=== PATIENT | female | born 1960 | race Caucasian/White ===

== ENCOUNTER → 2017-11-16 16:05 | Outpatient (CLI) | payer MEDICARE, MEDICAID, SELFPAY ==
[2017-11-16 17:39] LABS: International Normalized Ratio 1.1; Prothrombin Time (Protime)PT. 14.4 SECONDS (11.7-14.9)
[2017-11-16 17:40] LABS: Partial Thromboplast Time 27.8 Seconds (24.1-36.2)
[2017-11-16 18:03] LABS: AST(SGOT) 38 U/L (15-37); Alanine Aminotransfer ALT/SGPT 50 U/L (13-56); Albumin, Serum 3.9 g/dL (3.2-5.0); Alkaline Phosphatase 97 U/L (45-117); Bilirubin, Direct 0.12 mg/dL (0.00-0.30); Globulin 3.3 g/dL (2.2-4.2); Protein, Total 7.2 g/dL (6.4-8.2)
== END ==
PROVIDERS: Visit Provider Internal Medicine Gastroenterology
DX: K74.60 Unspecified cirrhosis of liver (principal)
CPT/HCPCS: 36415; 80076; 82105; 85610; 85730

== ENCOUNTER → 2018-06-01 14:54 | Outpatient (CLI) | payer MEDICARE, MEDICAID, SELFPAY ==
[2015-06-10 08:50] VITALS: BMI 29.2
[2018-06-01 17:32] LABS: Hematocrit 45.1 % (37-47); Mean Corpuscular Hgb 29.4 pg (27.0-32.0); Mean Corpuscular Volume 94.7 fL (81-99); Mean Platelet Vol. 10.3 fl (6.2-12.0); Platelet Count 136 K/mm3 (150-450); RBC Distribution Width CV 13.3 % (11.6-14.6); RBC Distribution Width SD 46.2 fl (35.1-43.9); Red Blood Count 4.76 M/mm3 (4.2-5.4); White Blood Count 5.3 K/mm3 (4.4-11.0)
[2018-06-01 17:35] LABS: Scan Indicated on CBC? Y/N NO
[2018-06-01 17:45] LABS: ALB/GLOB Ratio 1.1 RATIO (0.9-2.4); AST(SGOT) 23 U/L (15-37); Alanine Aminotransfer ALT/SGPT 26 U/L (13-56); Albumin, Serum 3.9 g/dL (3.2-5.0); Alkaline Phosphatase 90 U/L (45-117); Anion Gap 10 (5-15); BUN 7 mg/dL (7-18); Chloride 107 mmol/L (98-107); Creatinine, Serum 0.99 mg/dL (0.55-1.02); EST Glomerular Filtration Rate 61 mL/min (>60); Est Glom Filt Rate - Afr Amer 74 mL/min (>60); Globulin 3.4 g/dL (2.2-4.2); Glucose 82 mg/dL (74-106); Potassium 3.9 mmol/L (3.5-5.1); Protein, Total 7.3 g/dL (6.4-8.2); Sodium Level 139 mmol/L (136-145)
[2018-06-01 17:48] LABS: International Normalized Ratio 1.1; Prothrombin Time (Protime)PT. 13.8 SECONDS (11.7-14.9)
[2018-06-03 12:38] LABS: AFP, Tumor Marker 5.7 ng/mL (0.0-8.3)
== END ==
PROVIDERS: Family Provider Nurse Practitioner Family; PCP Nurse Practitioner Family; Referring Provider Internal Medicine Gastroenterology; Visit Provider Internal Medicine Gastroenterology
DX: K74.60 Unspecified cirrhosis of liver (principal)
CPT/HCPCS: 36415; 80053; 82105; 85027; 85610

== ENCOUNTER → 2018-12-07 13:57 | Outpatient (CLI) | payer MEDICARE, MEDICAID, SELFPAY ==
[2015-06-10 08:50] VITALS: BMI 29.2
[2018-12-07 15:56] LABS: Hematocrit 47.5 % (37-47); Hemoglobin 14.8 g/dL (12.0-15.0); Mean Corp Hgb Conc 31.2 g/dL (32-36); Mean Corpuscular Hgb 29.1 pg (27.0-32.0); Mean Corpuscular Volume 93.5 fL (81-99); Mean Platelet Vol. 10.7 fl (6.2-12.0); Platelet Count 175 K/mm3 (150-450); RBC Distribution Width SD 44.8 fl (35.1-43.9); Red Blood Count 5.08 M/mm3 (4.2-5.4); White Blood Count 8.2 K/mm3 (4.4-11.0)
[2018-12-07 16:11] LABS: International Normalized Ratio 1.1; Prothrombin Time (Protime)PT. 14.2 SECONDS (11.7-14.9)
[2018-12-07 16:12] LABS: Partial Thromboplast Time 30.2 Seconds (24.1-36.2)
[2018-12-07 16:51] LABS: AST(SGOT) 20 U/L (15-37); Alanine Aminotransfer ALT/SGPT 25 U/L (13-56); Alkaline Phosphatase 136 U/L (45-117); Bilirubin, Direct 0.18 mg/dL (0.00-0.30); Globulin 3.4 g/dL (2.2-4.2); Protein, Total 7.4 g/dL (6.4-8.2)
[2018-12-12 12:33] LABS: AFP, Tumor Marker 5.1 ng/mL (0.0-8.3)
== END ==
PROVIDERS: Family Provider Nurse Practitioner Family; PCP Nurse Practitioner Family; Referring Provider Internal Medicine Gastroenterology; Visit Provider Internal Medicine Gastroenterology
DX: K74.60 Unspecified cirrhosis of liver (principal)
CPT/HCPCS: 36415; 80076; 82105; 85027; 85610; 85730

== ENCOUNTER → 2019-06-05 14:47 | Outpatient (CLI) | payer MEDICARE, MEDICAID, SELFPAY ==
[2015-06-10 08:50] VITALS: BMI 29.2
[2019-06-05 17:59] LABS: Hematocrit 47.7 % (37-47); Hemoglobin 15.3 g/dL (12.0-15.0); Mean Corp Hgb Conc 32.1 g/dL (32-36); Mean Corpuscular Hgb 29.8 pg (27.0-32.0); Mean Corpuscular Volume 92.8 fL (81-99); Mean Platelet Vol. 11.1 fl (6.2-12.0); Platelet Count 137 K/mm3 (150-450); RBC Distribution Width SD 44.3 fl (35.1-43.9); Red Blood Count 5.14 M/mm3 (4.2-5.4); White Blood Count 6.3 K/mm3 (4.4-11.0)
[2019-06-05 18:16] LABS: ALB/GLOB Ratio 1.2 RATIO (0.9-2.4); AST(SGOT) 19 U/L (15-37); Alanine Aminotransfer ALT/SGPT 28 U/L (13-56); Albumin, Serum 4.1 g/dL (3.2-5.0); Alkaline Phosphatase 98 U/L (45-117); Anion Gap 6 (5-15); BUN 7 mg/dL (7-18); BUN/Creat Ratio 7.4 RATIO (10-20); Calcium,Total 9.5 mg/dL (8.5-10.1); Chloride 104 mmol/L (98-107); Creatinine, Serum 0.95 mg/dL (0.55-1.02); EST Glomerular Filtration Rate 64 mL/min (>60); Est Glom Filt Rate - Afr Amer 78 mL/min (>60); Globulin 3.4 g/dL (2.2-4.2); Glucose 85 mg/dL (74-106); Potassium 4.1 mmol/L (3.5-5.1); Protein, Total 7.5 g/dL (6.4-8.2); Sodium Level 136 mmol/L (136-145)
[2019-06-05 18:20] LABS: International Normalized Ratio 1.1; Partial Thromboplast Time 26.9 Seconds (24.1-36.2); Prothrombin Time (Protime)PT. 14.4 SECONDS (11.7-14.9)
[2019-06-07 13:12] LABS: AFP, Tumor Marker 4.3 ng/mL (0.0-8.3)
== END ==
PROVIDERS: PCP Nurse Practitioner Family; Referring Provider Internal Medicine Gastroenterology; Visit Provider Internal Medicine Gastroenterology
DX: K74.60 Unspecified cirrhosis of liver (principal)
CPT/HCPCS: 36415; 80053; 82105; 85027; 85610; 85730

== ENCOUNTER → 2020-02-12 14:52 | Outpatient (CLI) | payer MEDICARE, SELFPAY ==
[2015-06-10 08:50] VITALS: BMI 29.2
[2020-02-12 18:33] LABS: International Normalized Ratio 1.1; Prothrombin Time (Protime)PT. 13.6 SECONDS (11.7-14.9)
[2020-02-12 18:34] LABS: Partial Thromboplast Time 26.7 Seconds (24.1-36.2)
[2020-02-12 18:37] LABS: Hematocrit 48.3 % (37-47); Hemoglobin 14.6 g/dL (12.0-15.0); Mean Corp Hgb Conc 30.2 g/dL (32-36); Mean Corpuscular Hgb 29.1 pg (27.0-32.0); Mean Corpuscular Volume 96.2 fL (81-99); Mean Platelet Vol. 12.4 fl (6.2-12.0); Platelet Count 198 K/mm3 (150-450); RBC Distribution Width CV 14.3 % (11.6-14.6); RBC Distribution Width SD 50.8 fl (35.1-43.9); Red Blood Count 5.02 M/mm3 (4.2-5.4); White Blood Count 7.2 K/mm3 (4.4-11.0)
[2020-02-12 18:52] LABS: AST(SGOT) 20 U/L (15-37); Alanine Aminotransfer ALT/SGPT 23 U/L (13-56); Albumin, Serum 3.8 g/dL (3.2-5.0); Alkaline Phosphatase 134 U/L (45-117); Anion Gap 8 (5-15); BUN 4 mg/dL (7-18); BUN/Creat Ratio 4.1 RATIO (10-20); Calcium,Total 9.2 mg/dL (8.5-10.1); Chloride 104 mmol/L (98-107); Creatinine, Serum 0.98 mg/dL (0.55-1.02); EST Glomerular Filtration Rate 61 mL/min (>60); Est Glom Filt Rate - Afr Amer 74 mL/min (>60); Globulin 3.9 g/dL (2.2-4.2); Glucose 98 mg/dL (74-106); Potassium 3.1 mmol/L (3.5-5.1); Protein, Total 7.7 g/dL (6.4-8.2); Sodium Level 137 mmol/L (136-145)
[2020-02-14 10:35] LABS: AFP, Tumor Marker 4.4 ng/mL (0.0-8.3)
== END ==
PROVIDERS: PCP Nurse Practitioner Family; Referring Provider Internal Medicine Gastroenterology; Visit Provider Internal Medicine Gastroenterology
DX: K74.60 Unspecified cirrhosis of liver (principal)
CPT/HCPCS: 36415; 80053; 82105; 85027; 85610; 85730

== ENCOUNTER 2021-06-16 14:56 | Outpatient (CLI) | payer MEDICARE, MEDICAID, SELFPAY ==
--- NOTE | 2021-06-16 15:27 | MRI_ITS ---
STUDY: MRI LUMBAR SPINE WITHOUT CONTRAST ENHANCEMENT OF THE SPHENOID AND 42 HOURS ON 06/16/2021 REASON FOR EXAM: 61-year-old female with bilateral leg pain. TECHNIQUE: Standardized fat and water weighted pulse sequences were obtained in the sagittal and axial planes. COMPARISON: None FINDINGS: There is an old marked L1 vertebral body compression fracture. There are old moderate compression fractures of the L3, L4, and L5 vertebra. There is no evidence of subluxations or intervertebral disc space narrowing. There is borderline osseous lumbar spinal stenosis. Mild retropulsion of the L1 vertebral body fracture into the spinal canal superiorly. It does not efface the conus. There is no evidence of intervertebral disc protrusions or extrusions. There are very minimal intervertebral disc bulges at the L2-3, L3-4, and L4-5 levels. There is a mild right-sided intervertebral disc protrusion at the L4-5 level. There is mild posterior dural hypertrophy from L3 through L5. There is no significant effacement of the conus or cauda equina. No other extradural, intradural, or intramedullary lesions. MRI/Spine Lumbar (Routine) IMPRESSION: 1. Old marked L1 vertebral body compression fracture and old moderate compression fractures of L3, L4, and L5 vertebra. 2. No subluxations or intervertebral disc space narrowing. 3. Borderline osseous lumbar spinal stenosis. 4. Mild retropulsion of the L1 vertebral body fracture into the spinal canal superiorly, but it does not efface the conus. 5. Mild right-sided intervertebral disc protrusion at the L4-5 level. 6. Minimal intervertebral disc bulges at the L2-3, L3-4, and L4-5 levels. Mild posterior dural hypertrophy from L3 through S1. 7. No other extradural, intradural, or intramedullary lesions. Electronically Signed: Marcelo Hallman MD at 18:47 EDT ,
== END 2021-06-16 23:59 | disposition home or self-care (01) ==
PROVIDERS: PCP Nurse Practitioner Family; Visit Provider Anesthesiology Pain Medicine
DX: M79.604 Pain in right leg (principal); M79.605 Pain in left leg; M51.16 Intervertebral disc disorders with radiculopathy, lumbar region
CPT/HCPCS: 72148

== ENCOUNTER → 2023-01-13 | Outpatient (CLI) | payer MEDICARE, MEDICAID, SELFPAY ==
[2023-01-13 17:51] LABS: International Normalized Ratio 1.1; Prothrombin Time (Protime)PT. 14.2 SECONDS (11.7-14.9)
[2023-01-13 18:11] LABS: ALB/GLOB Ratio 1.1 RATIO (0.9-2.4); AST(SGOT) 18 U/L (15-37); Alanine Aminotransfer ALT/SGPT 22 U/L (13-56); Albumin, Serum 3.8 g/dL (3.2-5.0); Alkaline Phosphatase 133 U/L (45-117); Anion Gap 6 (5-15); BUN 7 mg/dL (7-18); Calcium,Total 9.3 mg/dL (8.5-10.1); Chloride 110 mmol/L (98-107); EST Glomerular Filtration Rate 60 mL/min (>60); Est Glom Filt Rate - Afr Amer 72 mL/min (>60); Globulin 3.6 g/dL (2.2-4.2); Glucose 87 mg/dL (74-106); Potassium 3.5 mmol/L (3.5-5.1); Protein, Total 7.4 g/dL (6.4-8.2); Sodium Level 139 mmol/L (136-145)
[2023-01-15 05:07] LABS: AFP, Tumor Marker 4.1 ng/mL (0.0-9.2)
== END | disposition home or self-care (01) ==
PROVIDERS: PCP Nurse Practitioner Family; Referring Provider Internal Medicine Gastroenterology; Visit Provider Internal Medicine Gastroenterology
DX: K74.60 Unspecified cirrhosis of liver (principal)
CPT/HCPCS: 36415; 80053; 82105; 85610

== ENCOUNTER → 2023-02-22 | Outpatient (CLI) | payer MEDICARE, MEDICAID, SELFPAY ==
--- NOTE | 2023-02-22 10:02 | US_ITS ---
EXAM: US ABDOMEN LIMITED, RIGHT UPPER QUADRANT CLINICAL INDICATION: CIRRHOSIS TECHNIQUE: Real-time ultrasound of the right upper quadrant with image documentation. COMPARISON: No relevant prior studies available. FINDINGS: LIVER: Micronodular contour of the liver and associated coarse echogenicity suggestive of cirrhosis. No intrahepatic biliary ductal dilation. GALLBLADDER: Patient is status post cholecystectomy. COMMON BILE DUCT: Unremarkable as visualized. The proximal common bile duct is normal size. PANCREAS: Unremarkable as visualized. No focal abnormality is demonstrated in the pancreas. No pancreatic ductal dilatation. RIGHT KIDNEY: Normal. There is no hydronephrosis. No shadowing calculus. No focal lesion or perinephric collection is demonstrated. US/Abdomen Limited IMPRESSION: Liver appears suggestive of cirrhosis Electronically Signed: Werner Santillan MD at 10:18 EST ,
== END | disposition home or self-care (01) ==
LOC: US 10:01
PROVIDERS: PCP Nurse Practitioner Family; Referring Provider Internal Medicine Gastroenterology; Visit Provider Internal Medicine Gastroenterology
DX: K74.60 Unspecified cirrhosis of liver (principal)
CPT/HCPCS: 76705

== ENCOUNTER → 2023-08-04 | Outpatient (CLI) | payer MEDICAID, MEDICARE, SELFPAY ==
[2023-08-04 17:29] LABS: Hematocrit 44.8 % (37-47); Hemoglobin 14.3 g/dL (12.0-15.0); Mean Corp Hgb Conc 31.9 g/dL (32-36); Mean Corpuscular Hgb 29.6 pg (27.0-32.0); Mean Corpuscular Volume 92.8 fL (81-99); Mean Platelet Vol. 10.3 fl (6.2-12.0); Platelet Count 134 K/mm3 (150-450); RBC Distribution Width CV 13.2 % (11.6-14.6); RBC Distribution Width SD 45.4 fl (35.1-43.9); Red Blood Count 4.83 M/mm3 (4.2-5.4); White Blood Count 3.6 K/mm3 (4.4-11.0)
[2023-08-04 17:43] LABS: International Normalized Ratio 1.1
[2023-08-04 17:44] LABS: Partial Thromboplast Time 26.7 Seconds (24.1-36.2)
[2023-08-04 17:46] LABS: AST(SGOT) 25 U/L (15-37); Alanine Aminotransfer ALT/SGPT 25 U/L (13-56); Albumin, Serum 3.8 g/dL (3.2-5.0); Alkaline Phosphatase 107 U/L (45-117); Bilirubin, Direct 0.17 mg/dL (0.00-0.30); Globulin 3.1 g/dL (2.2-4.2); Protein, Total 6.9 g/dL (6.4-8.2)
[2023-08-06 04:07] LABS: AFP, Tumor Marker 3.6 ng/mL (0.0-9.2)
== END | disposition home or self-care (01) ==
PROVIDERS: PCP Nurse Practitioner Family; Referring Provider Internal Medicine Gastroenterology; Visit Provider Internal Medicine Gastroenterology
DX: K74.60 Unspecified cirrhosis of liver (principal)
CPT/HCPCS: 36415; 80076; 82105; 85027; 85610; 85730

== ENCOUNTER → 2024-02-02 | Outpatient (CLI) | payer MEDICARE, MEDICAID, SELFPAY ==
[2024-02-02 17:49] LABS: Hematocrit 46.1 % (37-47); Hemoglobin 15.2 g/dL (12.0-15.0); Mean Corpuscular Hgb 30.2 pg (27.0-32.0); Mean Corpuscular Volume 91.5 fL (81-99); Mean Platelet Vol. 11.4 fl (6.2-12.0); Platelet Count 105 K/mm3 (150-450); RBC Distribution Width CV 13.1 % (11.6-14.6); RBC Distribution Width SD 44.2 fl (35.1-43.9); Red Blood Count 5.04 M/mm3 (4.2-5.4); White Blood Count 3.9 K/mm3 (4.4-11.0)
[2024-02-02 17:57] LABS: Prothrombin Time (Protime)PT. 13.2 SECONDS (11.7-14.9)
[2024-02-02 17:58] LABS: Partial Thromboplast Time 25.8 Seconds (24.1-36.2)
[2024-02-02 18:25] LABS: ALB/GLOB Ratio 1.2 RATIO (0.9-2.4); AST(SGOT) 20 U/L (15-37); Alanine Aminotransfer ALT/SGPT 24 U/L (13-56); Albumin, Serum 3.9 g/dL (3.2-5.0); Alkaline Phosphatase 97 U/L (45-117); Anion Gap 6 (5-15); BUN 9 mg/dL (7-18); BUN/Creat Ratio 10.6 RATIO (10-20); Calcium,Total 9.1 mg/dL (8.5-10.1); Chloride 110 mmol/L (98-107); Cholesterol 164 mg/dL (200); Creatinine, Serum 0.85 mg/dL (0.55-1.02); EST Glomerular Filtration Rate 72 mL/min (>60); Est Glom Filt Rate - Afr Amer 87 mL/min (>60); Globulin 3.2 g/dL (2.2-4.2); Glucose 96 mg/dL (74-106); High Density Lipoprotein 45 mg/dL; Potassium 3.7 mmol/L (3.5-5.1); Protein, Total 7.1 g/dL (6.4-8.2); Sodium Level 138 mmol/L (136-145); T4 Free Direct 1.14 ng/dL (0.76-1.46); Triglycerides 111 mg/dL; Very Low Density Lipoprotein 22 mg/dL (5-40)
[2024-02-04 04:08] LABS: AFP, Tumor Marker 3.6 ng/mL (0.0-9.2)
== END | disposition home or self-care (01) ==
LOC: MTLAB 14:03
PROVIDERS: PCP Nurse Practitioner Family; Referring Provider Nurse Practitioner Family; Visit Provider Nurse Practitioner Family
DX: Z13.6 Encounter for screening for cardiovascular disorders (principal); K74.60 Unspecified cirrhosis of liver; E03.9 Hypothyroidism, unspecified
CPT/HCPCS: 36415; 80053; 80061; 82105; 84439; 84443; 85027; 85610; 85730

== ENCOUNTER → 2024-04-06 | Outpatient (CLI) | payer MEDICARE, MEDICAID, SELFPAY ==
[2024-04-06 17:25] LABS: Absolute Lymphocyte Count 1.13 X10^3/uL (0.83-4.51); Absolute Neutrophil Count 3.3 X10^3/uL (2.0-7.7); Basophil# 0.01 X10^3/uL; Basophil% 0.2 % (0-1); Hematocrit 44.3 % (37-47); Hemoglobin 14.3 g/dL (12.0-15.0); Lymphocyte # 1.13 X10^3/ul (0.83-4.51); Lymphocyte % 23.6 % (19-41); Mean Corp Hgb Conc 32.3 g/dL (32-36); Mean Corpuscular Hgb 29.7 pg (27.0-32.0); Mean Corpuscular Volume 91.9 fL (81-99); Mean Platelet Vol. 10.8 fl (6.2-12.0); Monocyte# 0.31 X10^3/uL; Monocyte% 6.5 % (0-10); NRBC Flagged by Analyzer 0 % (0-5); Neutrophil # 3.32 X10^3/uL (2.7-7.7); Neutrophil % 69.5 % (47-70); Platelet Count 116 K/mm3 (150-450); RBC Distribution Width CV 12.8 % (11.6-14.6); RBC Distribution Width SD 43.4 fl (35.1-43.9); Red Blood Count 4.82 M/mm3 (4.2-5.4); White Blood Count 4.8 K/mm3 (4.4-11.0)
[2024-04-06 17:51] LABS: Vitamin D,25 Hydroxy 15.7 ng/mL
[2024-04-06 17:58] LABS: ALB/GLOB Ratio 1.2 RATIO (0.9-2.4); AST(SGOT) 15 U/L (15-37); Alanine Aminotransfer ALT/SGPT 23 U/L (13-56); Albumin, Serum 3.9 g/dL (3.2-5.0); Alkaline Phosphatase 128 U/L (45-117); Anion Gap 6 (5-15); BUN 13 mg/dL (7-18); BUN/Creat Ratio 12.4 RATIO (10-20); Calcium,Total 9.1 mg/dL (8.5-10.1); Chloride 105 mmol/L (98-107); Cholesterol 158 mg/dL (200); Creatinine, Serum 1.05 mg/dL (0.55-1.02); EST Glomerular Filtration Rate 56 mL/min (>60); Est Glom Filt Rate - Afr Amer 68 mL/min (>60); Globulin 3.3 g/dL (2.2-4.2); Glucose 93 mg/dL (74-106); High Density Lipoprotein 43 mg/dL; Potassium 3.8 mmol/L (3.5-5.1); Protein, Total 7.2 g/dL (6.4-8.2); Sodium Level 136 mmol/L (136-145); Thyroid Stim Hormone (TSH) 0.626 uIU/mL (0.358-3.740); Triglycerides 97 mg/dL; Very Low Density Lipoprotein 19 mg/dL (5-40)
== END | disposition home or self-care (01) ==
PROVIDERS: PCP Nurse Practitioner Family; Referring Provider Family Medicine Geriatric Medicine; Visit Provider Family Medicine Geriatric Medicine
DX: E03.9 Hypothyroidism, unspecified (principal); E55.9 Vitamin D deficiency, unspecified
CPT/HCPCS: 36415; 80053; 80061; 82306; 84443; 85025

== ENCOUNTER → 2024-05-11 | Outpatient (CLI) | payer MEDICARE, MEDICAID, SELFPAY ==
--- NOTE | 2024-05-11 15:24 | CT_ITS ---
PROCEDURE: LOW DOSE CT LUNG SCREENING REASON FOR EXAM: Nicotine dependence. 51 years smoking history. TECHNIQUE: Low Dose CT Lung Screening without contrast. Coronal and sagittal 2D reformatted images were provided. COMPARISON: None. FINDINGS: Cardiac size is within normal limits. Thoracic aorta demonstrates a normal caliber with atherosclerotic calcifications. Multivessel coronary artery calcifications are identified. No lymphadenopathy is present. No pericardial or pleural effusions identified. Evaluation of the lung parenchyma demonstrates no consolidation or pneumothorax. Emphysematous changes are identified. Central airway is patent. Mild dependent atelectatic changes are present bilaterally. There is atelectasis or scarring in the lingula. There is a 2 mm nodule in the anterior right upper lobe (image 21 of 199). There is a subpleural 4 mm right upper lobe pulmonary nodule laterally (image 24). There is a 2 mm subpleural nodule in the anterolateral right upper lobe (image 45). There is a subpleural 3.5 mm nodule in the lateral aspect of the right upper lobe (image 75). There is a 2 mm nodule in the left upper lobe posteriorly (image 21). Upper abdomen demonstrates no acute findings. Degenerative changes are identified. There are chronic appearing multilevel compression fractures involving the thoracolumbar spine with accentuated kyphotic curvature of the thoracic spine. There is an old fracture deformity of the sternum. CT/Low Dose CT Lung Screening IMPRESSION: 1. No suspicious pulmonary nodule. 2. Small subcentimeter bilateral pulmonary nodules with the largest measuring 4 mm. 3. Multivessel coronary artery calcifications. 4. Emphysema. 5. Chronic anterior wedge compression fractures with accentuated kyphotic curva ture of the thoracic spine. LungRADS: 2, benign. Recommendation: Annual CT lung cancer screening exam. One or more dose reduction techniques were used (e.g., Automated exposure contr ol, adjustment of the mA and/or kV according to patient size, use of iterative reconstruction technique). The following information is provided for reference:Lung-RADS 2021 Assessment C ategories. Additional information involving Lung-RADS is available at www.acr.org. 0-INCOMPLETE 1-NEGATIVE:No nodules or definitely benign nodules. Complete, central, popcorn , or centric ring calcifications OR fat containing 2-BENIGN APPEARANCE (based on imaging features or indolent behavior). Juxtaple ural nodule: < 10mm AND solid; smooth margins; oval, lentiform, or triangular shape Solid nodule: <6mm at baseline or new< 4mm Part solid Nodule: < 6mm total mean diameter at baseline Nonsolid nodule:(GGN) < 30mm OR >=30mm stable or slowly growing Airway nodule, subsegmental at baseline, new, or stable Category 3 nodule stabl e or decreased in size at 6-month follow-up CT or Category 3 or 4A nodules that resolve on follow-up OR category 4B findings prov en to be benign following diagnotic work up. 3 - Probably Benign (Based on imaging features or behavior) Solid Nodule: >= 6 to <8mm at baseline OR new 4 to <6mm Part-solid nodule: >= 6mm toal mean diam. with solid component <6mm at baseline OR new < 6mm total mean diam. Non-solid nodule: GGN >= 30mm at baseline or new Atypical pulmonary cyst: Growing cystic component (mean diam.) of thick-walled cyst Category 4A nodule stable or decreased in size at 3-month follow-up CT (excl.ai rway). 4A - Suspicious Solid nodule: >=8 to < 15mm at baseline OR growing < 8mm OR new 6 to < 8mm Part solid nodule: >= 6mm total mean diam. w/ solid component >=6mm to < 8mm at baseline OR new or growing < 4mm solid component Airway nodule, segmental or more proximal at baseline or new Atypical pulmonary cyst: Thick-walled OR multilocular at baseline OR becomes mu ltilocular 4B - Very Suspicious Airway nodule, segmental or more proximal, and stable or growing Solid nodule: >= 15mm at baseline OR new or growing >= 8mm Part solid nodule: Solid component >= 8mm OR new or growing >= 4mm solid compon ent Atypical pulmonary cyst: Thick-walled with growing wall thickness/nodularity OR Growing multilocular (mean diam.) OR Multilocular with increased loculation or new/increased opacity Slow-growing solid or part solid nodule w/ growth over multiple screening exams 4X - Very Suspicious Category 3 or 4 nodules with additional features that increase the suspicion fo r lung cancer. S - Clinically Significant or potentially significant findings (non-lung cancer ) Reading Location: [facility]
== END | disposition home or self-care (01) ==
LOC: CT 15:23
PROVIDERS: PCP Family Medicine Geriatric Medicine; Referring Provider Family Medicine Geriatric Medicine; Visit Provider Family Medicine Geriatric Medicine
DX: F17.210 Nicotine dependence, cigarettes, uncomplicated (principal)
CPT/HCPCS: 71271

== ENCOUNTER → 2024-05-18 | Outpatient (CLI) | payer MEDICARE, MEDICAID, SELFPAY | END | disposition home or self-care (01) | PROVIDERS: PCP Family Medicine Geriatric Medicine; Referring Provider Family Medicine Geriatric Medicine; Visit Provider Family Medicine Geriatric Medicine | DX: E03.9 Hypothyroidism, unspecified (principal) | CPT/HCPCS: 36415; 84443 ==

== ENCOUNTER → 2024-06-06 | Outpatient (CLI) | payer MEDICARE, MEDICAID, SELFPAY ==
--- NOTE | 2024-06-06 12:13 | BD_ITS ---
PROCEDURE: DEXA BONE DENSITY STUDY REASON FOR EXAM: F, age 64 y/o . Postmenopausal. TECHNIQUE: DEXA scan of the left hip COMPARISON: None. FINDINGS: Left Femur Total: g/cm2 (0.504)/T-score (-3.6)/Z-score (-2.4) Left Femoral Neck: g/cm2 (0.350)/T-score (-4.5)/Z-score (-3.0) BD/Dexa Bone Density Study IMPRESSION: The patient is considered osteoporotic as outlined below according to World Hea [employer] Organization (WHO) criteria with a high fracture risk. Reading Location: [place] [id number]
== END | disposition home or self-care (01) ==
LOC: OPBD 11:59
PROVIDERS: PCP Family Medicine Geriatric Medicine; Referring Provider Family Medicine Geriatric Medicine; Visit Provider Family Medicine Geriatric Medicine
DX: M48.54XA Collapsed vertebra, not elsewhere classified, thoracic region, initial encounter for fracture (principal); Z78.0 Asymptomatic menopausal state; X58.XXXA Exposure to other specified factors, initial encounter
CPT/HCPCS: 77080

== ENCOUNTER → 2024-07-05 | Outpatient (CLI) | payer MEDICARE, MEDICAID, SELFPAY ==
[2024-07-05 13:43] LABS: Absolute Lymphocyte Count 1.21 X10^3/uL (0.83-4.51); Absolute Neutrophil Count 3.3 X10^3/uL (2.0-7.7); Basophil# 0.01 X10^3/uL; Basophil% 0.2 % (0-1); Hematocrit 42.1 % (37-47); Hemoglobin 14.4 g/dL (12.0-15.0); Lymphocyte # 1.21 X10^3/ul (0.83-4.51); Lymphocyte % 24.4 % (19-41); Mean Corp Hgb Conc 34.2 g/dL (32-36); Mean Corpuscular Hgb 29.9 pg (27.0-32.0); Mean Corpuscular Volume 87.5 fL (81-99); Mean Platelet Vol. 10.7 fl (6.2-12.0); Monocyte% 8.1 % (0-10); NRBC Flagged by Analyzer 0 % (0-5); Neutrophil # 3.32 X10^3/uL (2.7-7.7); Neutrophil % 66.9 % (47-70); Platelet Count 123 K/mm3 (150-450); RBC Distribution Width CV 13.8 % (11.6-14.6); RBC Distribution Width SD 44.4 fl (35.1-43.9); Red Blood Count 4.81 M/mm3 (4.2-5.4)
[2024-07-05 15:30] LABS: ALB/GLOB Ratio 1.9 RATIO (0.9-2.4); AST(SGOT) 22 U/L (<=31); Alanine Aminotransfer ALT/SGPT 19 U/L (<=34); Albumin, Serum 4.4 g/dL (3.4-4.8); Alkaline Phosphatase 98 U/L (35-104); Anion Gap 12 (5-15); BUN 8 mg/dL (4-19); BUN/Creat Ratio 9.6 RATIO (10-20); Calcium,Total 9.2 mg/dL (7.6-11.0); Carbon Dioxide 19.3 mmol/L (21.0-32.0); Chloride 107 mmol/L (98-108); Cholesterol 162 mg/dL (<=200); Creatinine, Serum 0.78 mg/dL (0.70-1.20); EST Glomerular Filtration Rate 84 (>60); Globulin 2.3 g/dL (2.2-4.2); Glucose 105 mg/dL (70-99); High Density Lipoprotein 41 mg/dL; Low Density Lipoprotein Calc. 103 mg/dL; Potassium 3.6 mmol/L (3.3-5.1); Protein, Total 6.7 g/dL (5.9-8.4); Sodium Level 138 mmol/L (133-145); Total Bilirubin 0.86 mg/dL (0.00-1.30); Triglycerides 89 mg/dL; Very Low Density Lipoprotein 18 mg/dL (5-40); cholesterol:hdl ratio screen 3.91
[2024-07-05 15:39] LABS: Vitamin D,25 Hydroxy 16.4 ng/mL (30-100)
== END | disposition home or self-care (01) ==
LOC: LAB 13:03
PROVIDERS: PCP Family Medicine Geriatric Medicine; Referring Provider Family Medicine Geriatric Medicine; Visit Provider Family Medicine Geriatric Medicine
DX: R53.83 Other fatigue (principal); E78.5 Hyperlipidemia, unspecified; E55.9 Vitamin D deficiency, unspecified
CPT/HCPCS: 36415; 80053; 80061; 82306; 84443; 85025

== ENCOUNTER → 2024-07-17 | Outpatient (CLI) | payer MEDICARE, MEDICAID, SELFPAY ==
--- NOTE | 2024-07-17 06:50 | ECHOD_ITS ---
Reason For Study Reason For Study: CAD/ASHD Procedure This was a 2D Doppler, Color Flow transthoracic echocardiogram. Exam performed in department. Left Ventricle Normal LV size. Left ventricular systolic function is normal. The left ventricular ejection fraction is 60 %. No regional wall motion abnormalities noted. Right Ventricle Normal RV size. Normal systolic function. Atria Normal left atrium. Normal right atrium. Mitral Valve Normal mitral valve. Mild (1+) eccentric mitral valve insufficiency. Tricuspid Valve Normal tricuspid valve. Aortic Valve Trisinus/trileaflet aortic valve. Pulmonic Valve Normal pulmonic valve. Great Vessels Normal aortic root. The pulmonary artery is normal size. Normal inferior vena cava. Pericardium/Pleural No pericardial effusion. MMode/2D Measurements & Calculations LVIDd: 4.4 cm IVSd: 0.54 cm Ao root diam: 3.3 cm LVIDs: 2.8 cm LVPWd: 0.54 cm RVDd: 3.1 cm FS: 36.7 % LAV(MOD-bp): 40.6 ml LVAd ap4: 22.3 cm2 SV(MOD-sp4): 34.3 ml LAV(MOD-bp) Indexed: 26.1 ml/m2 LVLd ap4: 6.5 cm SI(MOD-sp4): 22.1 ml/m2 LAV(MOD-sp2): 38.5 ml EDV(MOD-sp4): 59.9 ml LAV(MOD-sp4): 40.9 ml EDV(sp4-el): 64.5 ml LVAs ap4: 12.7 cm2 LVLs ap4: 5.2 cm ESV(MOD-sp4): 25.6 ml ESV(sp4-el): 26.2 ml EF(MOD-sp4): 57.3 % EF(sp4-el): 59.4 % SV(sp4-el): 38.4 ml LA A4 area: 15.8 cm2 LA dimension(2D): 3.7 cm RA A4 area: 13.1 cm2 TAPSE: 1.8 cm Time Measurements MV dec time: 0.18 sec Doppler Measurements & Calculations MV E max bennie: 70.7 cm/sec Lat Peak E' Bennie: 16.2 cm/sec Med Peak E' Bennie: 12.4 cm/sec MV A max bennie: 48.1 cm/sec E/E' lat: 4.4 E/E' med: 5.7 MV E/A: 1.5 MV V2 max: 82.5 cm/sec MV P1/2t max bennie: 82.5 cm/sec Ao V2 max: 123.5 cm/sec MV max P.7 mmHg MV P1/2t: 66.6 msec Ao max P.1 mmHg MV V2 mean: 46.4 cm/sec Ao V2 mean: 81.4 cm/sec MV mean P.98 mmHg MV dec slope: 363.0 cm/sec2 Ao mean P.1 mmHg MV V2 VTI: 24.2 cm MVA(P1/2t): 3.3 cm2 Ao V2 VTI: 27.0 cm AV (velocity ratio): 0.87 LV V1 max: 106.8 cm/sec MR max bennie: 461.9 cm/sec TR max bennie: 228.2 cm/sec LV V1 max P.6 mmHg MR max P.4 mmHg TR max P.8 mmHg LV V1 mean P.1 mmHg LV V1 mean: 68.0 cm/sec LV V1 VTI: 23.3 cm ECHO/Echo Complete Interpretation Summary Normal LV size. Left ventricular systolic function is normal. The left ventricular ejection fraction is 60 %. Mild (1+) eccentric mitral valve insufficiency. Ordering Physician: Landon Ibarra MD Referring Physician: Wilfredo Martino Chi Performed By: Bryce Carmona RCS
--- NOTE | 2024-07-17 10:15 | STRESSREP ---
Stress Test Report Pharmacologic myocardial perfusion stress test. 64-year-old lady with a history of coronary artery disease Resting EKG demonstrates sinus bradycardia with a rate of 60 bpm. Resting blood pressure is 122/74 mmHg. 0.4 mg of regadenoson was infused per usual protocol followed by rapid intravenous saline flush injection. Continuous EKG monitoring was performed. The maximum heart rate was 80 bpm which was 51% of max impacted heart rate the maximum workload was 1 metabolic equivalent. At rest there were no ST or T wave changes noted to suggest ischemia and at peak infusion nonspecific ST changes were noted which did not meet the criteria for ischemia. No clinical angina is noted. The final blood pressure was 128/70 mmHg. Myocardial perfusion protocol. 11 point mCi of technetium 99m sestamibi was injected at rest. 0.4 mg of regadenoson was infused per usual protocol. At peak infusion 36.0 mCi of technetium 99m sestamibi was injected stress images were obtained stress and rest images were reconstructed and compared in the short axis vertical long and horizontal long axis. Gated images were also obtained. Perfusion SPECT analysis: Review of the stress images demonstrate normal uptake of tracer noted in all areas of the myocardium. The resting images similar demonstrated normal uptake of tracer noted in all areas of the myocardium. No areas of reversibility are noted to suggest ischemia and no previous infarct is noted. Gated SPECT analysis: The gated ejection fraction is 77%. Conclusion: Normal pharmacologic myocardial perfusion stress test. Preserved ejection fraction.
== END | disposition home or self-care (01) ==
LOC: CVS 06:41
PROVIDERS: PCP Family Medicine Geriatric Medicine; Referring Provider Internal Medicine Cardiovascular Disease; Visit Provider Internal Medicine Cardiovascular Disease
DX: R07.9 Chest pain, unspecified (principal); I25.10 Atherosclerotic heart disease of native coronary artery without angina pectoris
CPT/HCPCS: 78452; 93017; 93306; A9500; A4216; J2785

== ENCOUNTER → 2024-08-23 | Outpatient (CLI) | payer MEDICARE, MEDICAID, SELFPAY ==
[2024-08-23 21:19] LABS: Color, Urine Yellow (Yellow); Glucose, Dipstick Normal (Normal); Ketone-Dipstick Negative (Negative); Leukocyte Esterase-Dipstick 25 /ul (Negative); Nitrite-Dipstick Positive (Negative); Occult Blood-Urine 50 /ul (Negative); Protein-Dipstick 15 mg/dl (Negative); Specific Gravity, Urine 1.015 (1.002-1.030); Urine Bilirubin Dipstick Negative (Negative); Urine Clarity Clear (Clear); Urine Urobilinogen Normal (Normal)
== END | disposition home or self-care (01) ==
LOC: LAB 16:21
PROVIDERS: PCP Family Medicine Geriatric Medicine; Referring Provider Family Medicine Geriatric Medicine; Visit Provider Family Medicine Geriatric Medicine
DX: N39.0 Urinary tract infection, site not specified (principal)
CPT/HCPCS: 81002; 87086; 87088; 87186

== ENCOUNTER → 2024-09-27 | Outpatient (CLI) | payer MEDICARE, MEDICAID, SELFPAY ==
--- NOTE | 2024-09-27 16:59 | RAD_ITS ---
PROCEDURE: LUMBAR SPINE 2 OR 3 VIEWS 09/27/2024 REASON FOR EXAM: SPONDYLOSIS TECHNIQUE: LUMBAR SPINE 2 OR 3 VIEWS COMPARISON: 06/16/2021. FINDINGS: No evidence of acute fracture or L3 and L4 vertebroplasties. Moderate L1 and mild L2 compression deformities which are similar to the prior MRI. Moderate degenerative changes of the visualized spine. RAD/Lumbar Spine 2 or 3 Views IMPRESSION: Spondylosis. Vertebroplasties. Chronic compression deformities. Reading Location: [place] [id number]
[2024-09-27 19:34] LABS: Barbiturate Urine NEGATIVE (< 200 ng/mL); Benzodiazepine Urine NEGATIVE (< 200 ng/mL); PCP Urine NEGATIVE (< 25 ng/mL); THC Urine PRESUMPTIVE POSITIVE (< 50 ng/mL)
== END | disposition home or self-care (01) ==
LOC: RAD 16:47
PROVIDERS: PCP Family Medicine Geriatric Medicine; Referring Provider Anesthesiology Pain Medicine; Visit Provider Anesthesiology Pain Medicine
DX: M47.816 Spondylosis without myelopathy or radiculopathy, lumbar region (principal); F11.20 Opioid dependence, uncomplicated; M47.817 Spondylosis without myelopathy or radiculopathy, lumbosacral region
CPT/HCPCS: 72100; 80307

== ENCOUNTER → 2024-10-16 | Outpatient (CLI) | payer MEDICARE, MEDICAID, SELFPAY ==
[2024-10-16 14:29] LABS: Hematocrit 47.3 % (37-47); Hemoglobin 15.6 g/dL (12.0-15.0); Immature Granulocytes Count 0.010 X10^3/uL (0.0-0.0); Mean Corp Hgb Conc 33.0 g/dL (32-36); Mean Corpuscular Volume 92.7 fL (81-99); Mean Platelet Vol. 10.9 fl (6.2-12.0); NRBC Flagged by Analyzer 0 % (0-5); Platelet Count 118 K/mm3 (150-450); RBC Distribution Width CV 12.9 % (11.6-14.6); RBC Distribution Width SD 43.9 fl (35.1-43.9); Red Blood Count 5.10 M/mm3 (4.2-5.4); White Blood Count 3.5 K/mm3 (4.4-11.0)
[2024-10-16 15:07] LABS: AST(SGOT) 28 U/L (<=31); Alanine Aminotransfer ALT/SGPT 29 U/L (<=34); Albumin, Serum 4.4 g/dL (3.4-4.8); Alkaline Phosphatase 104 U/L (35-104); Anion Gap 11 (5-15); BUN 10 mg/dL (4-19); BUN/Creat Ratio 11.7 RATIO (10-20); Calcium,Total 9.6 mg/dL (7.6-11.0); Carbon Dioxide 23.0 mmol/L (21.0-32.0); Chloride 106 mmol/L (98-108); Cholesterol 174 mg/dL (<=200); Globulin 2.4 g/dL (2.2-4.2); Glucose 67 mg/dL (70-99); Low Density Lipoprotein Calc. 116 mg/dL; Potassium 3.7 mmol/L (3.3-5.1); Triglycerides 95 mg/dL; Very Low Density Lipoprotein 19 mg/dL (5-40); Vitamin D,25 Hydroxy 18.8 ng/mL (30-100); cholesterol:hdl ratio screen 4.46
[2024-10-16 22:01] LABS: Xtra Tube Kwok EXTRA TUBE
== END | disposition home or self-care (01) ==
LOC: POLAB3 14:01
PROVIDERS: PCP Family Medicine Geriatric Medicine; Visit Provider Family Medicine Geriatric Medicine
DX: E78.5 Hyperlipidemia, unspecified (principal); R53.83 Other fatigue; E55.9 Vitamin D deficiency, unspecified
CPT/HCPCS: 36415; 80053; 80061; 82306; 84443; 85025

== ENCOUNTER → 2024-12-20 | Outpatient (CLI) | payer MEDICARE, MEDICAID, SELFPAY ==
[2024-12-20 18:33] LABS: AST(SGOT) 26 U/L (<=31); Alanine Aminotransfer ALT/SGPT 20 U/L (<=34); Albumin, Serum 4.4 g/dL (3.4-4.8); Alkaline Phosphatase 62 U/L (35-104); Anion Gap 13 (5-15); BUN 7 mg/dL (4-19); BUN/Creat Ratio 8.5 RATIO (10-20); Calcium,Total 9.2 mg/dL (7.6-11.0); Carbon Dioxide 18.9 mmol/L (21.0-32.0); Chloride 107 mmol/L (98-108); Globulin 2.2 g/dL (2.2-4.2); Glucose 90 mg/dL (70-99); Potassium 4.0 mmol/L (3.3-5.1)
[2024-12-20 18:49] LABS: Partial Thromboplast Time 27.9 Seconds (24.1-36.2); Prothrombin Time (Protime)PT. 14.3 SECONDS (11.7-14.9)
[2024-12-20 18:52] LABS: Hematocrit 44.6 % (37-47); Hemoglobin 14.6 g/dL (12.0-15.0); Mean Corp Hgb Conc 32.7 g/dL (32-36); Mean Corpuscular Volume 92.3 fL (81-99); Mean Platelet Vol. 11.9 fl (6.2-12.0); POSITIVE COUNT YES; Platelet Count 97 K/mm3 (150-450); RBC Distribution Width CV 12.7 % (11.6-14.6); RBC Distribution Width SD 43.3 fl (35.1-43.9); Red Blood Count 4.83 M/mm3 (4.2-5.4); White Blood Count 3.8 K/mm3 (4.4-11.0)
[2024-12-20 20:41] LABS: Scan Indicated on CBC? Y/N YES- FLAGS NOTED
== END | disposition home or self-care (01) ==
LOC: MTLAB 14:08
PROVIDERS: PCP Family Medicine Geriatric Medicine; Referring Provider Internal Medicine Gastroenterology; Visit Provider Internal Medicine Gastroenterology
DX: K74.60 Unspecified cirrhosis of liver (principal)
CPT/HCPCS: 36415; 80053; 82105; 85027; 85610; 85730

== ENCOUNTER 2025-01-15 14:16 | Outpatient (CLI) | payer MEDICARE, MEDICAID, SELFPAY ==
[2025-01-15 14:41] LABS: Hematocrit 47.5 % (37-47); Hemoglobin 16.0 g/dL (12.0-15.0); Immature Granulocytes Count 0.000 X10^3/uL (0.0-0.0); Mean Corp Hgb Conc 33.7 g/dL (32-36); Mean Corpuscular Volume 91.2 fL (81-99); Mean Platelet Vol. 11.1 fl (6.2-12.0); NRBC Flagged by Analyzer 0 % (0-5); Platelet Count 106 K/mm3 (150-450); RBC Distribution Width CV 12.6 % (11.6-14.6); RBC Distribution Width SD 42.5 fl (35.1-43.9); Red Blood Count 5.21 M/mm3 (4.2-5.4); White Blood Count 3.8 K/mm3 (4.4-11.0)
[2025-01-15 16:09] LABS: AST(SGOT) 25 U/L (<=31); Alanine Aminotransfer ALT/SGPT 21 U/L (<=34); Albumin, Serum 4.5 g/dL (3.4-4.8); Alkaline Phosphatase 57 U/L (35-104); Anion Gap 13 (5-15); BUN 8 mg/dL (4-19); BUN/Creat Ratio 9.2 RATIO (10-20); Calcium,Total 9.8 mg/dL (7.6-11.0); Carbon Dioxide 24.2 mmol/L (21.0-32.0); Chloride 103 mmol/L (98-108); Cholesterol 171 mg/dL (<=200); Globulin 2.5 g/dL (2.2-4.2); Glucose 128 mg/dL (70-99); Low Density Lipoprotein Calc. 104 mg/dL; Potassium 3.4 mmol/L (3.3-5.1); Triglycerides 125 mg/dL; Very Low Density Lipoprotein 25 mg/dL (5-40); Vitamin D,25 Hydroxy 20.7 ng/mL (30-100); cholesterol:hdl ratio screen 3.85
== END 2025-01-15 23:59 | disposition home or self-care (01) ==
LOC: POLAB3 14:16
PROVIDERS: PCP Family Medicine Geriatric Medicine; Visit Provider Family Medicine Geriatric Medicine
DX: E78.5 Hyperlipidemia, unspecified (principal); R53.83 Other fatigue; E55.9 Vitamin D deficiency, unspecified
CPT/HCPCS: 36415; 80053; 80061; 82306; 84443; 85025

== ENCOUNTER → 2025-02-20 | Outpatient (CLI) | payer MEDICARE, MEDICAID, SELFPAY ==
--- NOTE | 2025-02-20 14:59 | MRI_ITS ---
PROCEDURE: MRI ABD WITH AND W/O CONTRAST 02/20/2025 REASON FOR EXAM: CIRRHOSIS TECHNIQUE: Procedure Code: [id number] Modality: MR Procedure: MRI ABD WITH AND W/O CONTRAST Multiplanar and multisequence images were obtained. CONTRAST: Clariscan VOLUME: 11 mL COMPARISON: Limited abdominal ultrasound, 02/22/2023. FINDINGS: Liver: The liver demonstrates a lobulated margin a mildly heterogeneous parenchymal signal and heterogeneous enhancement, consistent with cirrhosis. No discrete hepatic masses or nodules are identified. Biliary: The gallbladder is surgically absent. There is no intra or extrahepatic biliary ductal dilatation. The common bile duct measures 7 mm in diameter. The pancreatic duct is normal. Pancreas: Normal. Spleen: There is borderline splenomegaly with the spleen measuring 12.8 cm in pole to pole length. There are multiple splenic nodules demonstrating low signal on all pulse sequences consistent with old hemorrhage. Adrenals: Normal. Kidneys: Normal. Peritoneum / Retroperitoneum: There are no abnormal intra or retroperitoneal masses or fluid collections. There are no abdominal wall defects. There is a 2.6 x 1.5 cm cyst in the subcutaneous fat of the anterior abdominal wall, just superficial to the left rectus abdominis at the L3-4 level. Lymph Nodes: There is no significant mesenteric or retroperitoneal lymphadenopathy. Major Vessels: Unremarkable. Bones: There are compression fractures of the visualized thoracolumbar vertebral bodies, none of which appears acute. There are vertebral plana at T7 and T9, and severe compression fractures at T8 T12 and L1. There are no significant retropulsed fragments identified. MRI/MRI Abd WITH and W/O Contrast IMPRESSION: 1. Cirrhotic liver without nodules or masses. 2. Borderline splenomegaly. Multiple old splenic hemorrhages. 3. Diffuse thoracolumbar compression fractures, as described. 4. Other findings as noted. Reading Location: [id number]
--- OUTSIDE RECORDS SUMMARY | 2025-02-20 18:52 | XMS RPT_ITS | CCD ---
Author Organization [facility] Care Team Providers Care Pet Handler Name Role Phone LIDIA PUBLIC HEALTH ASSISTANT, SANTIAGO Patel Primary Care Physician TAN ALICEA, DR HARRIS Attending Unavailabl e LIDIA PUBLIC HEALTH ASSISTANT, SANTIAGO Patel Primary Care Unavailable LIDIA HONEY EXTRACTOR-GAS SPECIALIST, SANTIAGO D Primary Care Physician Braulio Rounding Nurse, Huang Unavailable Unavai lable DARREL VILLALTA, HANK Admitting Unavailable LIDIA HONEY EXTRACTOR-GAS SPECIALIST, SANTIAGO D Primary Care Unavail able LIDIA GAS SPECIALIST, SANTIAGO Consulting Unavailable HANK COTA DO Attending Unavailable GLENROY ALICEA, ADRIANA Consulting Unavailable RADHA ALICEA, WALDO Consulting Unavailable Kika Dumont Primary Care Provider [phone] Gunner ALICEA, Dr. Wilfredo Murguia Attending Provider Gunner ALICEA, Dr. Wilfredo Murguia Referring Provider Dr. Wilfredo Martino MD, Chi Primary Care Provider Dr. Landon Ibarra MD Attending Provider [phone] Wilfredo Martino MD, Chi Attending Provider Dr. Wilfredo Martino MD, Chi Referring Provider Dr. Landon Ibarra MD Referring Provider [phone] Landon Ibarra MD Other Provider 1([facility])[phone] Gunner ALICEA, Dr. Wilfredo Murguia Primary Care Provider Gunner ALICEA, Dr. Wilfredo Murguia Attending Provider Gunner ALICEA, Dr. Wilfredo Murguia Referring Provider Asad ALICEA, Dr. Guadarrama Attending Provider Asad ALICEA, Dr. Guadarrama Referring Provider Gunner ALICEA, Dr. Wilfredo Murguia Primary Care Provider Gunner ALICEA, Dr. Wilfredo Murguia Attending Provider Gunner ALICEA, Dr. Wilfredo Murguia Referring Provider Gunner ALICEA, Dr. Wilfredo Murguia Primary Care Physician Asad ALICEA, Dr. Guadarrama Attending Physician Gunner ALICEA, Dr. Wilfredo Murguia Attending Physician Tan ALICEA, Dr. Harris Attending Physician Tan ALICEA, Dr. Harris Referring Provider TERE QUAN MD Admitting Unavailable TERE QUAN MD Primary Care Unavailable TERE QUAN MD Attending Unavailable KIKA LAMB CNP Admitting Unavailable KIKA LAMB CNP Primary Care Unavailable KIKA LAMB CNP Attending Unavailable KIKA LAMB GAS SPECIALIST Admitting Unavailable KIKA LAMB GAS SPECIALIST Primary Care Unavailable KIKA LAMB CNP Attending Unavailable BRET NUR DO Admitting Unavailable BRET NUR DO Primary Care Unavailable BRET NUR DO Attending Unavailable PADILLA LING Admitting Unavailable PADILLA LING Primary Care Unavailable VOLODYMYRPADILLA SERRANO Attending Unavailable Gunner, Wilfredo Chi Primary Care Unavailable Gunner, Wilfredo Chi Referring Unavailable Gunner, Wilfredo Chi Attending Unavailable Gunner, Wilfredo Chi Primary Care Unavailable Stacey, [place] Referring Unavailable Stacey, Landon Attending Unavailable Stacey, [place] Consulting Unavailable Armando Delong Attending Unavailable Gunner, Wilfredo Chi Primary Care Unavailable Gunner, Wilfredo Chi Referring Unavailable Gunner, Wilfredo Chi Primary Care Unavailable Gunner, Wilfredo Chi Referring Unavailable Stacey, [place] Attending Unavailable Gunner, Wilfredo Chi Primary Care Unavailable Stacey, Landon Referring Unavailable Stacey, Landon Attending Unavailable Gunner, Wilfredo Chi Attending Unavailable Gunner, Wilfredo Chi Primary Care Unavailable Gunner, Wilfredo Chi Referring Unavailable Gunner, Wilfredo Chi Primary Care Unavailable Basali, Ayman Referring Unavailable Basali, Ayman Attending Unavailable Gunner, Wilfredo Chi Attending Unavailable Gunner, Wilfredo Chi Primary Care Unavailable Gunner, Wilfredo Chi Primary Care Unavailable Jabour, Trent Referring Unavailable RogeriobourSteven Attending Unavailable Gunner, Wilfredo Chi Attending Unavailable Gunner, Wilfredo Chi Primary Care Unavailable Adonis, Kika Referring Unavailable Kika Lamb Attending Unavailable Kika Lamb Primary Care Unavailable Rogeriobour, Steven Consulting Unavailable Gunner, Wilfredo Chi Referring Unavailable Adonis, Kika Primary Care Unavailable Gunner, Wilfredo Chi Attending Unavailable Gunner, Wilfredo Chi Primary Care Unavailable Gunner, Wilfredo Chi Referring Unavailable Gunner, Wilfredo Chi Attending Unavailable Gunner, Wilfredo Chi Attending Unavailable Gunner, Wilfredo Chi Primary Care Unavailable Gunner, Wilfredo Chi Primary Care Unavailable Jabour, Vincent Referring Unavailable Jabour, Vincent Attending Unavailable Gunner, Wilfredo Chi Attending Unavailable Gunner, Wilfredo Chi Primary Care Unavailable Gunner, Wilfredo Chi Referring Unavailable Gunner, Wilfredo Chi Attending Unavailable Gunner, Wilfredo Chi Primary Care Unavailable Gunner, Wilfredo Chi Referring Unavailable TAN ALICEA, DR HARRIS Attending Unavailabl e LIDIA HONEY EXTRACTOR-GAS SPECIALIST, SANTIAGO D Primary Care Unavail able Allergies Allergy Classification Reported Allergen(s) Allergy Type Date of Onset Reaction(s) Facility (13 sources) Latex; Translations: [LATEX] Propensity to adverse reactions 6 [facility] (12 sources) Morphine; Translations: [morphine] Drug Allergy 6 [facility]al (disorder) [facility] (1 source) Morphine Drug Allergy [facility] (1 source) Latex Drug allergy (disorder) 5 [facility] (1 source) Morphine Drug Allergy 5 [facility] Medications Current Medications Medication Drug Class(es) Dates Sig (Normalized) Sig (Original) acetaminophen 325 mg / oxyCODONE hydrochloride 5 mg oral tablet (1 source) Opioid Agonist Start: 03-06-2024 End: 03-13-2024 take 1 tablet by mouth every six hours as needed for pain Percocet 5 mg-325 mg oral tablet Dose = 1 tab(s), Oral, q6h, PRN for pain, X 7 day(s), # 28 tab(s), 0 Refill(s), Pharmacy: [id number], Post-op pain, 152.4, cm, 03/03/24 23:52:00 EST, Height, 57, kg, 03/03/24 23:52:00 EST, Dosing Weight Start Date: 03/06/24 Stop Date: 03/13/24 Status: Ordered Albuterol (12 sources) beta2-Adrenergic Agonist Start: 07-29-2016 take 1 puff(s) by inhalation four times daily as needed for wheezing Ventolin HFA MDI (90 mcg/inh) inhalation aerosol 1 puff(s), Inhalation, QID, PRN as needed for wheezing, 0 Refill(s) Start Date: 07/29/16 Status: Ordered Medication Dispense Status: Completed Total Allowed Fills: 1 Fills Dispensed: 0 Start: 07-29-2016 take 1 puff(s) by in halation four times daily as needed for wheezing Ventolin HFA MDI (90 mcg/inh) inhalation aerosol 1 puff(s), Inhalation, QID, PRN as needed for wheezing, 0 Refill(s) Start Date: 07/29/16 Status: Ordered Start: 07-29-2016 take 1 puff(s) by in halation four times daily as needed for wheezing Ventolin HFA MDI (90 mcg/inh) inhalation aerosol 1 puff(s), Inhalation, QID, PRN as needed for wheezing, # 18 gram(s), 0 Refill(s) Start Date: 07/29/16 Status: Ordered Start: 06-10-2015 End: 05-19-2024 take 1 puff(s) by inhalation every four hours as needed Albuterol Sulfate (Proair Hfa (Sp)Vent Pts) 1 PUFF inhaler Discontinued 2 NMA INHALATION EVERY 4 HOURS NEEDED as needed for Shortness Of Breath June 10, 2015 12:00am May 19, 2024 4:44pm Start: 06-10-2015 take 1 puff(s) by in halation every four hours as needed Albuterol Sulfate (Proair Hfa (Sp)Vent Pts) 1 PUFF inhaler Active 2 PUFF INHALATION EVERY 4 HOURS NEEDED June 09, 2015 11:00pm amitriptyline hydrochloride 75 mg oral tablet (10 sources) Tricyclic Antidepressant Start: 12-08-2019 take 1 tablet by mouth once daily at bedtime amitriptyline 75 mg oral tablet TAKE 1 TABLET BY MOUTH EVERYDAY AT BEDTIME Start Date: 12/08/19 Status: Ordered Start: 06-10-2015 End: 05-19-2024 Amitriptyline 50 MG tablet Discontinued 75 mg PO DAILY June 10, 2015 12:00am May 19, 2024 4:44pm Start: 06-10-2015 take 75 mg by mouth once daily Amitriptyline Active 75 MG PO DAILY June 09, 2015 11:00pm cyclobenzaprine hydrochloride 10 mg oral tablet (6 sources) Muscle Relaxant Start: 05-19-2024 take 1 tablet by mouth three times daily escitalopram 20 mg oral tablet (1 source) Serotonin Reuptake Inhibitor Start: 07-29-2016 escitalopram 20 mg oral tablet Dose : 20 mg = 1 tab(s), Oral, qDay, # 30 tab(s), 0 Refill(s) Start Date: 07/29/16 Status: Ordered fluticasone propionate 0.05 mg/actuat metered dose nasal spray (10 sources) Corticosteroid Start: 07-29-2016 take 1 dose nasal route once daily in the morning fluticasone 50 mcg/inh NASAL spray Dose = 1 spray(s), Nostril, each, qAM, 0 Refill(s) Start Date: 07/29/16 Status: Ordered Start: 06-10-2015 End: 05-19-2024 Fluticasone Propionate 1 SPR AY spray,suspension Discontinued 1 NMA NASAL TWICE A DAY as needed for Congestion June 10, 2015 12:00am May 19, 2024 4:44pm Start: 06-10-2015 Fluticasone Pr opionate Active 1 SPRAY NASAL TWICE A DAY June 09, 2015 11:00pm 60 actuat fluticasone propionate 0.25 mg/actuat / salmeterol 0.05 mg/actuat dry powder inhaler (1 source) Corticosteroid, beta2-Adrenergic Agonist Start: 12-08-2019 take 1 puff(s) by mouth twice daily Wixela Inhub 250 mcg-50 mcg inhalation powder INHALE 1 PUFF BY MOUTH TWICE A DAY Start Date: 12/08/19 Status: Ordered Fluticasone-Umecli din-Vilanter (5 sources) Anticholinergic, Corticosteroid, beta2-Adrenergic Agonist Start: 07-05-2024 Start: 07-05-2024 Fluticasone-Um eclidin-Vilanter (Trelegy Ellipta) 100-62.5-25 mcg blister with device Active 1 NMA INHALATION Q24H July 05, 2024 12:00am lactulose 667 mg/ml oral solution (10 sources) Osmotic Laxative Start: 07-29-2016 take 1 dose by mouth twice daily lactulose 10 g/15 mL oral syrup Dose : 10 gram(s) = 15 mL, Oral, BID, # 480 mL, 0 Refill(s) Start Date: 07/29/16 Status: Ordered Start: 02-13-2016 End: 05-19-2024 take 10 g by mouth twice daily Lactulose 10 GM/15 ML s olution Discontinued 10 g PO TWICE A DAY February 13, 2016 1:00am May 19, 2024 4:44pm levothyroxine sodium 0.05 mg oral tablet (8 sources) l-Thyroxine Start: 05-19-2024 take 1 tablet by mary kate once daily Start: 03-03-2024 levothyroxine 50 mcg (0.05 mg) oral tablet Dose : 50 mcg = 1 tab(s), Oral, qDay Start Date: 03/03/24 Status: Ordered Medication Dispense Status: Completed Total Allowed Fills: 1 Fills Dispensed: 0 lithium carbonate 150 mg ora l capsule (10 sources) Start: 07-29-2016 lithium 150 mg oral capsule Dose : 150 mg = 1 cap(s), Oral, BID, 0 Refill(s) Start Date: 07/29/16 Status: Ordered Start: 06-10-2015 End: 05-19-2024 take 1 capsule by mouth twice daily Nikolai Carbonate 300 MG capsule Discontinued 300 mg PO TWICE A DAY June 10, 2015 12:00am May 19, 2024 4:44pm lumateperone 42 mg oral capsule (4 sources) Start: 01-22-2023 take 1 capsule by mouth once daily Lumateperone (Caplyta) 42 mg capsule (5 sources) Start: 05-19-2024 take 1 capsule by mouth once daily Lumateperone (Caplyta) 42 mg capsule Active 42 mg PO daily May 19, 2024 1:00am magnesium oxide 400 mg oral tablet (1 source) Start: 08-03-2016 take 1 dose by mouth three times daily magnesium oxide Dose : 400 mg =, Oral, TID, 0 Refill(s) Start Date: 08/03/16 Status: Ordered meloxicam 15 mg oral tablet (1 source) Nonsteroidal Anti-inflammatory Drug Start: 01-22-2023 meloxicam 15 mg oral tablet Dose : 15 mg = 1 tab(s), Oral, qDay, Take with food/milk, # 30 tab(s), 0 Refill(s) Start Date: 01/22/23 Status: Ordered metoprolol tartrate 25 mg oral tablet (7 sources) beta-Adrenergic Jorge Start: 01-08-2025 take 1 tablet by mouth once daily Metoprolol Succinate ER 25 mg oral TABLET extended release TAKE 1 TABLET BY MOUTH ONCE DAILY Start Date: 01/08/25 Status: Ordered Medication Dispense Status: Completed Total Allowed Fills: 1 Fills Dispensed: 0 Start: 07-05-2024 take 1 tablet by mouth once da carly Start: 08-03-2016 Toprol-XL 25 m g oral tablet, extended release Dose : 12.5 mg = 0.5 tab(s), Oral, qDay, # 15 tab(s), 3 Refill(s) Start Date: 08/03/16 Status: Ordered oxyCODONE hydrochloride 5 mg oral tablet (1 source) Opioid Agonist Start: 08-03-2016 take 1 dose by mouth every six hours as needed for pain OxyIR Dose : 5 mg =, Oral, q6hr, PRN as needed for pain, 0 Refill(s) Start Date: 08/03/16 Status: Ordered microencapsulated potassium chloride 20 meq extended release oral tablet (7 sources) Start: 05-19-2024 Start: 08-03-2016 take 20 doses by mary kate th once daily potassium chloride Dose : 20 mEq =, Oral, Daily, 0 Refill(s) Start Date: 08/03/16 Status: Ordered rifAXIMin 550 mg oral tablet (3 sources) Rifamycin Antibacterial Start: 07-29-2016 Xifaxan 550 mg oral tablet Dose : 550 mg = 1 tab(s), Oral, BID, 0 Refill(s) Start Date: 07/29/16 Status: Ordered Medication Dispense Status: Completed Total Allowed Fills: 1 Fills Dispensed: 0 Roflumilast (1 source) Phosphodiesterase 4 Inhibitor Start: 01-22-2023 Roflumilast 500 mcg oral tablet 0 Refill(s) Start Date: 01/22/23 Status: Ordered spironolactone 100 mg oral tablet (11 sources) Aldosterone Antagonist Start: 02-13-2016 spironolactone 100 mg oral tablet Dose : 100 mg = 1 tab(s), Oral, qDay Start Date: 03/03/24 Status: Ordered Medication Dispense Status: Completed Total Allowed Fills: 1 Fills Dispensed: 0 SUMAtriptan 50 mg oral tablet (9 sources) Serotonin-1b and Serotonin-1d Receptor Agonist Start: 07-29-2016 take 1 tablet by mouth once daily Trelegy Ellipta 100 mcg-62.5 mcg-25 mcg/inh inhalation powder (3 sources) Start: 01-22-2023 take 1 dose by inhalation once daily Trelegy Ellipta 100 mcg-62.5 mcg-25 mcg/inh inhalation powder Dose = 1 inh, Inhalation, qDay, 0 Refill(s) Start Date: 01/22/23 Status: Ordered Medication Dispense Status: Completed Total Allowed Fills: 1 Fills Dispensed: 0 Start: 01-22-2023 take 1 dose by inhal ation once daily Trelegy Ellipta 100 mcg-62.5 mcg-25 mcg/inh inhalation powder Dose = 1 inh, Inhalation, qDay, 0 Refill(s) Start Date: 01/22/23 Status: Ordered Start: 01-22-2023 take 1 dose by mouth once maria teresa y Trelegy Ellipta 100 mcg-62.5 mcg-25 mcg/inh inhalation powder Dose = 1 puff(s), Inhalation, qDay, at the same time every day. Following administration, rinse mouth with water after use (do not swallow)., # 60 EA, 0 Refill(s) Start Date: 01/22/23 Status: Ordered Vitamin D3 50,000 intl units oral capsule (1 source) Start: 07-29-2016 Vitamin D3 50, 000 intl units oral capsule Dose : 50,000 International_Unit = 1 cap(s), Oral, qWeek, 0 Refill(s) Start Date: 07/29/16 Status: Ordered Xisaxan (9 sources) Start: 02-13-2016 take 550 mg by mouth twice daily Xisaxan Active 550 MG PO TWICE A DAY February 13, 2016 3:03pm Start: 02-13-2016 take 550 mg by mouth twice waqas ly Start: 02-13-2016 take 550 mg by mouth twice waqas ly Xisaxan Active 550 mg PO TWICE A DAY February 13, 2016 1:00am Start: 02-13-2016 take 550 mg by mouth twice waqas ly Xisaxan Active 550 MG PO TWICE A DAY February 13, 2016 12:00am Start: 02-13-2016 take 550 mg by mouth twice waqas ly Xisaxan Active 550 MG PO TWICE A DAY February 13, 2016 1:00am zolpidem tartrate 5 mg oral tablet (5 sources) gamma-Aminobutyric Acid-ergic Agonist Start: 07-05-2024 take 1 tablet by mouth at bedtime as needed Completed/Discontinued Medications Medication Drug Class(es) Dates Sig (Normalized) Sig (Original) citalopram 20 mg oral tablet (9 sources) Serotonin Reuptake Inhibitor Start: 02-13-2016 End: 05-19-2024 take 1 tablet by mouth once daily Citalopram 20 MG tablet Discontinued 20 mg PO DAILY February 13, 2016 1:00am May 19, 2024 4:44pm doxepin hydrochloride 10 mg oral capsule (6 sources) Tricyclic Antidepressant Start: 05-19-2024 End: 07-05-2024 take 1 capsule by mouth at bedtime Doxepin 10 mg capsule Discontinued 10 mg PO AT BEDTIME May 19, 2024 1:00am July 05, 2024 2:14pm 0.4 ml enoxaparin sodium 100 mg/ml prefilled syringe (1 source) Low Molecular Weight Heparin Start: 03-06-2024 End: 04-17-2024 inject 0.4 mL by subcutaneous injection once daily Lovenox 40 mg/0.4 mL injectable solution Dose : 40 mg = 0.4 mL, Subcutaneous, qDay, X 6 week(s), # 16.8 mL, 0 Refill(s), 04/17/24 5:52:00 AM EST, Pharmacy: [id number], 152.4, cm, 03/03/24 23:52:00 EST, Height, kg, 03/03/24 23:52:00 EST, Dosing Weight Start Date: 03/06/24 Stop Date: 04/17/24 Status: Ordered esomeprazole 20 mg delayed release oral capsule (9 sources) Proton Pump Inhibitor Start: 02-13-2016 End: 05-19-2024 take 1 capsule by mouth once daily Esomeprazole Magnesium (Nexium) 20 MG capsule Discontinued 20 mg PO DAILY February 13, 2016 1:00am May 19, 2024 4:44pm furosemide 20 mg oral tablet (9 sources) Loop Diuretic Start: 06-10-2015 End: 05-19-2024 take 1 tablet by mouth twice daily Furosemide 20 MG tablet Discontinued 20 mg PO TWICE DAILY June 10, 2015 12:00am May 19, 2024 4:44pm lisinopril 20 mg oral tablet (9 sources) Angiotensin Converting Enzyme Inhibitor Start: 06-10-2015 End: 05-19-2024 take 1 tablet by mouth once daily Lisinopril 20 MG tablet Discontinued 20 mg PO DAILY June 10, 2015 12:00am May 19, 2024 4:44pm mirtazapine 15 mg oral tablet (10 sources) Start: 02-13-2016 End: 05-19-2024 take 1 tablet by mouth at bedtime Mirtazapine 15 MG tablet Discontinued 15 mg PO AT BEDTIME February 13, 2016 1:00am May 19, 2024 4:44pm nystatin 100 unt/mg topical powder (9 sources) Polyene Antifungal Start: 02-13-2016 End: 05-19-2024 Nystatin (Mycostatin Powder) 1 APPLIC bottle Discontinued 1 NMA TOPICAL TWICE A DAY as needed for YEAST February 13, 2016 1:00am May 19, 2024 4:44pm Start: 02-13-2016 Nystatin (Myco statin Powder) 1 APPLIC bottle Active 1 APPLIC TOPICAL TWICE A DAY February 13, 2016 12:00am varenicline 0.5 mg oral tablet (6 sources) Partial Cholinergic Nicotinic Agonist Start: 05-19-2024 End: 07-05-2024 Varenicline Tartrate 0.5 mg tablet Discontinued 0.5 mg PO As Directed May 19, 2024 1:00am July 05, 2024 2:15pm take 1 tablet by mouth daily on days 1-3; then 1 tablet twice daily (morning and evening) on days 4-7 Problems Active Problems Problem Classification Problem Date Documented Date Episodic/Chronic Abdominal hernia (2 sources) Ventral hernia without obstruction or gangrene; Translations: [Diaphragmatic hernia without obstruction or gangrene] Onset: 4 Episodic Cataract (3 sources) Cataract 07-29-2016 Chronic Chronic obstructive pulmonary disease and bronchiectasis (6 sources) Pulmonary emphysema; Translations: [Emphysema, unspecified] 05-19-2024 Chronic Coagulation and hemorrhagic disorders (6 sources) Acquired thrombocytopenia; Translations: [Thrombocytopenic disorder] Onset: 5 07-29-2016 Chronic Congestive heart failure; nonhypertensive (1 source) Heart failure; Translations: [Heart failure, unspecified] Chronic Coronary atherosclerosis and other heart disease (12 sources) Coronary arteriosclerosis; Translations: [Atherosclerotic heart disease of [place] coronary artery without angina pectoris] Onset: 5 05-19-2024 Chronic Deficiency and other anemia (3 sources) Anemia 07-29-2016 Episodic Deficiency and other anemia (2 sources) Anemia, unspecified; Translations: [Anemia, unspecified] Onset: 4 Episodic Disorders of lipid metabolism (1 source) Hyperlipidemia, unspecified; Translations: [Hyperlipidemia, unspecified] Onset: 5 Chronic Esophageal disorders (5 sources) Gastroesophageal reflux disease; Translations: [Gastroesophageal reflux disease without esophagitis] Onset: 5 07-29-2016 Chronic Essential hypertension (4 sources) Hypertensive disorder; Translations: [Essential (primary) hypertension] Onset: 5 07-29-2016 Chronic Fracture of neck of femur (hip) (1 source) Closed intertrochanteric fracture of right femur; Translations: [Displaced intertrochanteric fracture of right femur, initial encounter for closed fracture] Episodic Genitourinary symptoms and ill-defined conditions (4 sources) Urinary incontinence; Translations: [Unspecified urinary incontinence] Onset: 5 07-29-2016 Chronic Headache; including migraine (10 sources) Migraine; Translations: [Migraine, unspecified, not intractable, without status migrainosus] Onset: 5 07-29-2016 Chronic Hepatitis (6 sources) Viral hepatitis C; Translations: [Unspecified viral hepatitis C without hepatic coma] 05-19-2024 Episodic Hypertension with complications and secondary hypertension (1 source) Hypertensive heart failure; Translations: [Hypertensive heart disease with heart failure] Chronic Menopausal disorders (1 source) Hormone replacement therapy; Translations: [Hormone replacement therapy] Onset: 5 Episodic Mood disorders (16 sources) Bipolar disorder; Translations: [Bipolar disorder, unspecified] 07-29-2016 Chronic Nutritional deficiencies (6 sources) Vitamin D deficiency; Translations: [Vitamin D deficiency, unspecified] 05-19-2024 Chronic Osteoarthritis (3 sources) Arthritis 07-29-2016 Chronic Other aftercare (1 source) intermediate accountant (current) use of antibiotics; Translations: [detention (current) use of antibiotics] Onset: 5 Episodic Other aftercare (1 source) Other correction (current) drug therapy; Translations: [Other correction (current) drug therapy] Onset: 5 Episodic Other fractures (5 sources) Compression fracture of thoracic spine; Translations: [Collapsed vertebra, not elsewhere classified, thoracic region, initial encounter for fracture] 05-19-2024 Episodic Other fractures (1 source) Compression fracture of thoracic vertebra, nontraumatic; Translations: [Collapsed vertebra, not elsewhere classified, thoracic region, initial encounter for fracture] 05-19-2024 Episodic Other liver diseases (3 sources) Biliary cirrhosis 07-29-2016 Chronic Other liver diseases (3 sources) Chronic hepatic failure 07-29-2016 Chronic Other liver diseases (10 sources) Unspecified cirrhosis of liver; Translations: [Unspecified cirrhosis of liver] Onset: 3 Chronic Other liver diseases (6 sources) Cirrhosis of liver; Translations: [Unspecified cirrhosis of liver] 05-19-2024 Chronic Other liver diseases (1 source) Chronic hepatic failure without coma; Translations: [Chronic hepatic failure without coma] Onset: 5 Chronic Other non-traumatic joint disorders (2 sources) Pain in right hip; Translations: [Pain in right hip] Onset: 4 Episodic Residual codes; unclassified (6 sources) Insomnia; Translations: [Insomnia, unspecified] 05-19-2024 Episodic Residual codes; unclassified (1 source) Other general symptoms and signs; Translations: [Other general symptoms and signs] Onset: 5 Episodic Spondylosis; intervertebral disc disorders; other back problems (1 source) Spondylosis without myelopathy or radiculopathy, lumbar region; Translations: [Spondylosis without myelopathy or radiculopathy, lumbar region] Onset: 5 Chronic Substance-related disorders (8 sources) Nicotine dependence; Translations: [Nicotine dependence, unspecified, uncomplicated] Onset: 5 05-19-2024 Chronic Thyroid disorders (10 sources) Hypothyroidism; Translations: [Hypothyroidism, unspecified] Onset: 5 Chronic Unclassified (3 sources) Eye glasses, device (physical object) 07-29-2016 Past or Other Problems Problem Classification Problem Date Documented Date Episodic/Chronic Malaise and fatigue (2 sources) Weakness; Translations: [Other fatigue] Onset: 03-07-2024 Episodic Nonspecific chest pain (12 sources) Chest pain; Translations: [Chest pain, unspecified] Onset: 08-03-2024 05-19-2024 Episodic Other fractures (1 source) Collapsed vertebra, not elsewhere classified, thoracic region, initial encounter for fracture; Translations: [Collapsed vertebra, not elsewhere classified, thoracic region, initial encounter for fracture] Onset: 06-16-2024 Episodic Other liver diseases (1 source) Hepatic failure, unspecified without coma; Translations: [Hepatic failure, unspecified without coma] Onset: 03-07-2024 Episodic Other screening for suspected conditions (not mental disorders or infectious disease) (2 sources) Encounter for screening for cardiovascular disorders; Translations: [Encounter for screening for cardiovascular disorders] Onset: 03-01-2024 Episodic Urinary tract infections (1 source) Urinary tract infection, site not specified; Translations: [Urinary tract infection, site not specified] Onset: 08-29-2024 Episodic Results Test Name Value Interpretation Reference Range Facility Cardiology Visit Reporton Cardiology Visit Report [facility] [address] [place] [address] OFFICE VISIT Date of Service: 01/22/25 MR#: [id number] Acct: [id number] Name: CARLOS OLIVER Rep #: [id number] : 1960 Provider: SAULO Shipman Age/Sex: 64/F Location: [facility] [place] Status: Signed HPI HPI History of Present Illness Details: Carlos Oliver is a 64-year-old female who presents to office today for follow-up for monitoring her cardiovascular health. She established with our office in June 2024 with concerns of chest discomfort and near syncope. She has over 29-ryuk-ldgm history of tobacco use. Coronary atherosclerosis was seen on CAT scan of the lung. She was further evaluated via stress test and echocardiogram/. Stress test was negative for ischemia. Echocardiogram demonstrated preserved ejection fraction at 60% and mild mitral valve insufficiency. Upon presentation today, patient reports her chest pain has resolved. She notes headaches that happen a couple of times per week and this is chronic. These are managed with a migraine medication. She feels like her fatigue is getting worse. She feels she does not sleep well at night despite taking zolpidem. She has chronic back pain and is trying to re-establish with pain management. She finds herself dizzy occasionally in the middle of the day. She denies any persistent orthostatic symptoms. Further ROS below. 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 100 mcg-umeclid 1 inh inhalation Q24H 07/05/24 History 62.5 mcg-vilant 25 mcg inhalat.powder (Trelegy Ellipta) metoprolol succinate 25 mg 25 mg PO QDAY #60 tabs 07/05/24 Rx tablet,extended release 24 hr (Toprol XL) zolpidem 5 mg tablet 5 mg PO QHS PRN 07/05/24 01/22/25 History cyclobenzaprine 10 mg tablet 10 mg PO TID PRN 01/22/25 01/22/25 History potassium chloride 20 mEq 20 meq PO ONCE 4x a week 01/22/25 01/22/25 History tablet,extended release(part/cryst) (Klor-Con M) rosuvastatin 5 mg tablet 5 mg PO QDAY #90 tabs 01/22/25 Rx spironolactone 100 mg tablet 100 mg PO DAILY 01/22/25 01/22/25 History (Aldactone) Ejection fraction %: 60 Have you fallen in the past year?: Yes PFSH Medical History Normal endoscopy Depression Chest pain Hepatitis C Emphysema lung Hypothyroidism Migraines Vitamin D deficiency Cirrhosis of liver Bipolar 1 disorder Insomnia Nicotine dependence Compression fracture of thoracic spine, non-traumatic CAD (coronary artery disease) Surgical History History of hip surgery Family History Father Heart disease Mother Suicide Social History Smoking Status: Current every day smoker alcohol intake: never substance use type: marijuana ROS Const Const: Positive for fatigue and headache(s) (2 times a week.); Negative for weakness Eyes Eyes: Negative for change in vision ENT ENT: Positive for headache(s) (2 times a week.), dizziness (Sometimes) and balance problems (Sometimes); Negative for Nosebleed/epistaxis Cardio Chest Pain: No Palpitations: No Edema: None Resp Respiratory: Positive for SOB orthopnea SOB lying down (2/2 to pain and occasional SOB); Negative for SOB with activity or SOB at rest GI GI: Negative nausea, vomiting, heartburn or bright, red blood in stools : Negative for hematuria Musc Musc: Positive for balance problems (Sometimes) Neuro Neuro: Positive for dizziness (Sometimes), lightheadedness (A couple times), near syncope and headache(s) (2 times a week.); Negative for syncope or weakness Endo Endo: Positive for fatigue Cardiology Exam Const Appearance: cooperative, comfortable, no acute distress and well dev (more content not included)... Normal [facility] CBC W/Diff, Automatedon 10-2 0-2024 Absolute Lymph 1.32 X10 3/uL Normal 0.83-4.51 [facility] Comment on above: Performed By: #### L 400.2010, #### [facility] Laboratory [address] [place], [address] Absolute Neut 2.2 X10 3/uL Normal 2.0-7.7 [facility] Comment on above: Performed By: #### L 400.2010, #### [facility] [address] [place], [address] Basophils/100 WBC (Bld) 0.3 % Normal 0-1 [facility] Comment on above: Performed By: #### L 400.2010, #### [facility] [address] [place], [address] Eosinophils/100 WBC (Bld) 0.0 % Normal 0-5 [facility] Comment on above: Performed By: #### L 400.2010, #### [facility] [address] [place], [address] Erythrocyte distribution width (RBC) [Ratio] 12.6 % Normal 11.6-14.6 [facility] Comment on above: Performed By: #### L 400.2010, #### [facility] [address] [place], [address] Hematocrit (Bld) [Volume fraction] 47.5 % High 37-47 [facility] Comment on above: Performed By: #### L 400.2010, #### [facility] [address] [place], [address] Hemoglobin (Bld) [Mass/Vol] 16.0 g/dL High 12.0-15.0 [facility] Comment on above: Performed By: #### L 400.2010, #### [facility] [address] [place], [address] IG% 0.000 Normal 0.0-0.9 [facility] Comment on above: Result Comment: IG% - Immature Granulocytes (promyelocytes, myelocytes and metamyelocytes) > 1% indicates that a LEFT SHIFT is Present. Performed By: #### L 400.2010, #### [facility] [address] [place], [address] Lymphocytes/100 WBC (Bld) 34.4 % Normal 19-41 [facility] Comment on above: Performed By: #### L 400.2010, #### [facility] [address] [place], [address] MCH (RBC) [Entitic mass] 30.7 pg Normal 27.0-32.0 [facility] Comment on above: Performed By: #### L 400.2010, #### [facility] [address] [place], [address] MCHC (RBC) [Mass/Vol] 33.7 g/dL Normal 32-36 [facility] Comment on above: Performed By: #### L 400.2010, #### [facility] [address] [place], [address] MCV (RBC) [Entitic vol] 91.2 fL Normal 81-99 [facility] Comment on above: Performed By: #### L 400, #### [facility] [address] [place], [address] Monocytes/100 WBC (Bld) 7.6 % Normal 0-10 [facility] Comment on above: Performed By: #### L 400.2010, #### [facility] [address] [place], [address] Neutrophils/100 WBC (Bld) 57.7 % Normal 47-70 [facility] Comment on above: Performed By: #### L 400.2010, #### [facility] [address] [place], [address] Nucleated RBC (Bld) [#/Vol] 0 10*3/uL Normal 0-5 [facility] Comment on above: Performed By: #### L 400.2010, #### [facility] [address] [place], [address] Platelet mean volume (Bld) [Entitic vol] 11.1 fL Normal 6.2-12.0 [facility] Comment on above: Performed By: #### L 400.2010, #### [facility] [address] [place], [address] Platelets (Bld) [#/Vol] 106 10*3/uL Low 150-450 [facility] Comment on above: Performed By: #### L 400.2010, #### [facility] [address] [place], [address] RBC (Bld) [#/Vol] 5.21 10*6/uL Normal 4.2-5.4 [facility] Comment on above: Performed By: #### L 400.2010, #### [facility] [address] [place], [address] RDW SD 42.5 fl Normal 35.1-43.9 [facility] Comment on above: Performed By: #### L 400.2010, #### [facility] [address] [place], [address] WBC (Bld) [#/Vol] 3.8 10*3/uL Low 4.4-11.0 [facility] Comment on above: Performed By: #### L 400.2010, #### [facility] [address] [place], [address] Comprehensive Metabolic Prof ilon 01-15-2025 Albumin [Mass/Vol] 4.5 g/dL Normal 3.4-4.8 [facility] Comment on above: Performed By: #### L 400.2010, #### [facility] [address] [place], [address] Albumin/Globulin [Mass ratio] 1.8 {ratio} Normal 0.9-2.4 [facility] Comment on above: Performed By: #### L 400.2010, #### [facility] [address] [place], [address] ALK PHOS 57 U/L Normal 35-104 [facility] Comment on above: Performed By: #### L 400.2010, #### [facility] [address] [place], [address] ALT [Catalytic activity/Vol] 21 U/L Normal <=34 [facility] Comment on above: Performed By: #### L 400.2010, #### [facility] [address] [place], [address] AST [Catalytic activity/Vol] 25 U/L Normal <=31 [facility] Comment on above: Performed By: #### L 400.2010, #### [facility] [address] [place], [address] Bilirubin [Mass/Vol] 0.65 mg/dL Normal 0.00-1.30 [facility] Comment on above: Performed By: #### L 400.2010, #### [facility] [address] [place], [address] BUN/CRE 9.2 RATIO Low 10-20 [facility] Comment on above: Performed By: #### L 400.2010, #### [facility] [address] [place], [address] Calcium [Mass/Vol] 9.8 mg/dL Normal 7.6-11.0 [facility] Comment on above: Performed By: #### L 400.2010, #### [facility] [address] [place], [address] Chloride [Moles/Vol] 103 mmol/L Normal 98-108 [facility] Comment on above: Performed By: #### L 400.2010, #### [facility] [address] [place], [address] CO2 [Moles/Vol] 24.2 mmol/L Normal 21.0-32.0 [facility] Comment on above: Performed By: #### L 400.2010, #### [facility] [address] [place], [address] Creatinine [Mass/Vol] 0.92 mg/dL Normal 0.70-1.20 [facility] Comment on above: Performed By: #### L 400.2010, #### [facility] [address] [place], [address] GAP 13 Normal 5-15 [facility] Comment on above: Performed By: #### L 400.2010, #### [facility] [address] [place], [address] GFR/1.73 sq M.predicted among non-blacks MDRD (S/P/Bld) [Vol rate/Area] 69 mL/min/{1.73_m2} Normal >60 [facility] Comment on above: Result Comment: mL/m in/1.73m2 CKD-EPI Creatinine Equation (2020) Performed By: #### L 400.2010, #### [facility] [address] [place], [address] Globulin (S) [Mass/Vol] 2.5 g/dL Normal 2.2-4.2 [facility] Comment on above: Performed By: #### L 400.2010, #### [facility] [address] [place], [address] Glucose [Mass/Vol] 128 mg/dL High 70-99 [facility] Comment on above: Performed By: #### L 400.2010, #### [facility] [address] [place], [address] Potassium [Moles/Vol] 3.4 mmol/L Normal 3.3-5.1 [facility] Comment on above: Performed By: #### L 400.2010, #### [facility] [address] [place], [address] Sodium [Moles/Vol] 140 mmol/L Normal 133-145 [facility] Comment on above: Performed By: #### L 400.2010, #### [facility] [address] [place], [address] T PROT 7.0 g/dL Normal 5.9-8.4 [facility] Comment on above: Performed By: #### L 400.2010, #### [facility] [address] [place], [address] Urea nitrogen [Mass/Vol] 8 mg/dL Normal 4-19 [facility] Comment on above: Performed By: #### L 400.2010, #### [facility] [address] [place], [address] Lipid Profileon 01-15-2025 CHOL:HDL 3.85 Normal [facility] Comment on above: Performed By: #### L 400.2010, #### [facility] [address] [place], [address] Cholesterol [Mass/Vol] 171 mg/dL Normal <=200 [facility] Comment on above: Result Comment: Chol esterol level, Desirable <200 mg/dL Borderline high cholesterol 200-239 mg/dL High cholesterol >=240 mg/dL Recommendations of the NCEP Adult Treatment Panel for the following risk-cutoff thresholds for the [place] population. Performed By: #### L 400, #### [facility] [address] [place], [address] Cholesterol in HDL [Mass/Vol] 44 mg/dL Normal [facility] Comment on above: Result Comment: Lila onal Cholesterol Education Program (NCEP) guidelines: <40 mg/dL: Low HDL-cholesterol (major risk factor for CHD) >= 60 mg/dL: High HDL-cholesterol (negative risk factor for CHD) HDL-cholesterol is affected by a number of factors, e.g. smoking, exercise, hormones, sex and age. Performed By: #### L 400, #### [facility] [address] [place], [address] Cholesterol in LDL [Mass/Vol] 104 mg/dL Normal [facility] Comment on above: Result Comment: Bord wwztaq=203-993 mg/dL Higher Pzff=998 mg/dL or greater [place] Equation 2020 for LDL-C Performed By: #### L 400, #### [facility] [address] [place], [address] Cholesterol in VLDL [Mass/Vol] 25 mg/dL Normal 5-40 [facility] Comment on above: Performed By: #### L 400.2010, #### [facility] Laboratory [address] [place], [place], [address] Triglyceride [Mass/Vol] 125 mg/dL Normal [facility] Comment on above: Result Comment: The drugs N-Acetylcysteine and Metamizole may falsely depress this assay. Normal range: <150 mg/dL Borderline High: 150-199 mg/dL High: 200-499 mg/dL Very High: >500 mg/dL Performed By: #### L 400.2010, #### [facility] [address] [place], [place], [address] Thyroid Stim Hormone (TSH)on 01-15-2025 TSH 4.970 uIU/mL High 0.300-4.20 0 [facility] Comment on above: Performed By: #### L 400.2010, #### [facility] Laboratory [address] [place], [place], [address] Vitamin D,25 Hydroxyon 01-15 Vitamin D 25-OH 20.7 ng/mL Low 30-100 [facility] Comment on above: Result Comment: Laura min D Status Deficiency: <20 ng/mL (50nmol/L) Insufficiency: 20-30 ng/mL (50-75 nmol/L) Sufficiency: 30-100 ng/mL (75-250 nmol/L) Toxicity: >100 ng/mL (>250 nmol/L) Performed By: #### L 400.2010, #### [facility] [address] [place], [place], [id number] AFP, Tumor Markeron 12-23-19 25 AFP TUMOR CHELO 3.6 ng/mL Normal 0.0-9.2 [facility] Comment on above: Order Comment: N Result Comment: [employer] Electrochemiluminescence Immunoassay (ECLIA) Values obtained with different assay methods or kits cannot be used interchangeably. Results cannot be interpreted as absolute evidence of the presence or absence of malignant disease. This test is not interpretable in females. Performed at: [facility] [id number] Woodworker Helper: Steven Booker PhD, Phone: [phone] Performed By: #### L 500.4050, L100.0500, L3300.0700, L300.4310, L300.3900 #### [facility] [address] [place], [place], [id number] Activated partial thrombopla stin time (aPTT) in platelet poor plasma by coagulation aOrdered By: Steven Maddox on 12-20-2024 aPTT Coag (PPP) [Time] 27.9 s 24.1-36.2 [facility] Anion gap in Serum or Plasma Ordered By: Steven Maddox on 12-20-2024 Anion gap [Moles/Vol] 13 mmol/L 5-15 [facility] BUN/creatinine ratioOrdered By: Steven Maddox on 12-20-2024 Urea nitrogen/Creatinine [Mass ratio] 8.5 mg/mg Low 10-20 [facility] Bilirubin, totalOrdered By: Steven Maddox on 12-20-2024 Bilirubin [Mass/Vol] 0.70 mg/dL 0.00-1.30 [facility] CBC-Complete Blood Cnt No Di ffon 12-20-2024 Erythrocyte distribution width (RBC) [Ratio] 12.7 % Normal 11.6-14.6 [facility] Comment on above: Performed By: #### L 500.4050, L100.0500, L3300.0700, L300.4310, L300.3900 #### [facility] [address] [place], [address] Hematocrit (Bld) [Volume fraction] 44.6 % Normal 37-47 [facility] Comment on above: Performed By: #### L 500.4050, L100.0500, L3300.0700, L300.4310, L300.3900 #### [facility] [address] [place], [address] Hemoglobin (Bld) [Mass/Vol] 14.6 g/dL Normal 12.0-15.0 [facility] Comment on above: Performed By: #### L 500.4050, L100.0500, L3300.0700, L300.4310, L300.3900 #### [facility] [address] [place], [address] MCH (RBC) [Entitic mass] 30.2 pg Normal 27.0-32.0 [facility] Comment on above: Performed By: #### L 500.4050, L100.0500, L3300.0700, L300.4310, L300.3900 #### [facility] [address] [place], [address] MCHC (RBC) [Mass/Vol] 32.7 g/dL Normal 32-36 [facility] Comment on above: Performed By: #### L 500.4050, L100.0500, L3300.0700, L300.4310, L300.3900 #### [facility] [address] [place], [address] MCV (RBC) [Entitic vol] 92.3 fL Normal 81-99 [facility] Comment on above: Performed By: #### L 500.4050, L100.0500, L3300.0700, L300.4310, L300.3900 #### [facility] [address] [place], [address] Platelet mean volume (Bld) [Entitic vol] 11.9 fL Normal 6.2-12.0 [facility] Comment on above: Performed By: #### L 500.4050, L100.0500, L3300.0700, L300.4310, L300.3900 #### [facility] [address] [place], [address] Platelets (Bld) [#/Vol] 97 10*3/uL Low 150-450 [facility] Comment on above: Performed By: #### L 500.4050, L100.0500, L3300.0700, L300.4310, L300.3900 #### [facility] [address] [place], [address] RBC (Bld) [#/Vol] 4.83 10*6/uL Normal 4.2-5.4 [facility] Comment on above: Performed By: #### L 500.4050, L100.0500, L3300.0700, L300.4310, L300.3900 #### [facility] [address] [place], [address] RDW SD 43.3 fl Normal 35.1-43.9 [facility] Comment on above: Performed By: #### L 500.4050, L100.0500, L3300.0700, L300.4310, L300.3900 #### [facility] [address] [place], [address] WBC (Bld) [#/Vol] 3.8 10*3/uL Low 4.4-11.0 [facility] Comment on above: Performed By: #### L 500.4050, L100.0500, L3300.0700, L300.4310, L300.3900 #### [facility] [address] [place], [address] Carbon dioxide, total [Moles /volume] in Central venous bloodOrdered By: Steven Maddox on 12-20-2024 CO2 [Moles/Vol] 18.9 mmol/L Low 21.0-32.0 [facility] Chloride assayOrdered By: Sharmin Maddox on 12-20-2024 Chloride [Moles/Vol] 107 mmol/L 98-108 [facility] Comprehensive Metabolic Prof ilon 12-20-2024 Albumin [Mass/Vol] 4.4 g/dL Normal 3.4-4.8 [facility] Comment on above: Performed By: #### L 500.4050, L100.0500, L3300.0700, L300.4310, L300.3900 #### [facility] [address] [place], [address] Albumin/Globulin [Mass ratio] 2.0 {ratio} Normal 0.9-2.4 [facility] Comment on above: Performed By: #### L 500.4050, L100.0500, L3300.0700, L300.4310, L300.3900 #### [facility] [address] [place], [address] ALK PHOS 62 U/L Normal 35-104 [facility] Comment on above: Performed By: #### L 500.4050, L100.0500, L3300.0700, L300.4310, L300.3900 #### [facility] [address] [place], [address] ALT [Catalytic activity/Vol] 20 U/L Normal <=34 [facility] Comment on above: Performed By: #### L 500.4050, L100.0500, L3300.0700, L300.4310, L300.3900 #### [facility] [address] [place], [address] AST [Catalytic activity/Vol] 26 U/L Normal <=31 [facility] Comment on above: Performed By: #### L 500.4050, L100.0500, L3300.0700, L300.4310, L300.3900 #### [facility] [address] [place], [address] Bilirubin [Mass/Vol] 0.70 mg/dL Normal 0.00-1.30 [facility] Comment on above: Performed By: #### L 500.4050, L100.0500, L3300.0700, L300.4310, L300.3900 #### [facility] [address] [place], [address] BUN/CRE 8.5 RATIO Low 10-20 [facility] Comment on above: Performed By: #### L 500.4050, L100.0500, L3300.0700, L300.4310, L300.3900 #### [facility] [address] [place], [address] Calcium [Mass/Vol] 9.2 mg/dL Normal 7.6-11.0 [facility] Comment on above: Performed By: #### L 500.4050, L100.0500, L3300.0700, L300.4310, L300.3900 #### [facility] [address] [place], [address] Chloride [Moles/Vol] 107 mmol/L Normal 98-108 [facility] [facility] Comment on above: Performed By: #### L 500.4050, L100.0500, L3300.0700, L300.4310, L300.3900 #### [facility] [address] [place], [address] CO2 [Moles/Vol] 18.9 mmol/L Low 21.0-32.0 [facility] Comment on above: Performed By: #### L 500.4050, L100.0500, L3300.0700, L300.4310, L300.3900 #### [facility] [address] [place], [address] Creatinine [Mass/Vol] 0.79 mg/dL Normal 0.70-1.20 [facility] Comment on above: Performed By: #### L 500.4050, L100.0500, L3300.0700, L300.4310, L300.3900 #### [facility] [address] [place], [address] GAP 13 Normal 5-15 [facility] Comment on above: Performed By: #### L 500.4050, L100.0500, L3300.0700, L300.4310, L300.3900 #### [facility] [address] [place], [address] GFR/1.73 sq M.predicted among non-blacks MDRD (S/P/Bld) [Vol rate/Area] 83 mL/min/{1.73_m2} Normal >60 [facility] Comment on above: Result Comment: mL/m in/1.73m2 CKD-EPI Creatinine Equation (2020) Performed By: #### L 500.4050, L100.0500, L3300.0700, L300.4310, L300.3900 #### [facility] [address] [place], [address] Globulin (S) [Mass/Vol] 2.2 g/dL Normal 2.2-4.2 [facility] Comment on above: Performed By: #### L 500.4050, L100.0500, L3300.0700, L300.4310, L300.3900 #### [facility] [address] [place], [address] Glucose [Mass/Vol] 90 mg/dL Normal 70-99 [facility] Comment on above: Performed By: #### L 500.4050, L100.0500, L3300.0700, L300.4310, L300.3900 #### [facility] [address] [place], [address] Potassium [Moles/Vol] 4.0 mmol/L Normal 3.3-5.1 [facility] Comment on above: Performed By: #### L 500.4050, L100.0500, L3300.0700, L300.4310, L300.3900 #### [facility] [address] [place], [address] Sodium [Moles/Vol] 139 mmol/L Normal 133-145 [facility] Comment on above: Performed By: #### L 500.4050, L100.0500, L3300.0700, L300.4310, L300.3900 #### [facility] [address] [place], [address] T PROT 6.6 g/dL Normal 5.9-8.4 [facility] Comment on above: Performed By: #### L 500.4050, L100.0500, L3300.0700, L300.4310, L300.3900 #### [facility] [address] [place], [address] Urea nitrogen [Mass/Vol] 7 mg/dL Normal 4-19 [facility] Comment on above: Performed By: #### L 500.4050, L100.0500, L3300.0700, L300.4310, L300.3900 #### [facility] [address] [place], [address] Erythrocyte distribution wid th ratioOrdered By: Steven Maddox on 12-20-2024 Erythrocyte distribution width (RBC) [Ratio] 12.7 % 11.6-14.6 [facility] Erythrocyte distribution wid th standard deviationOrdered By: Steven Maddox on 12-20-2024 Erythrocyte distribution width (RBC) [Ratio] 43.3 fl 35.1-43.9 [facility] Glomerular filtration rate ( GFR) estimation/1.73 sq m using serum, plasma, or whole bOrdered By: Steven Maddox on 12-20-2024 GFR/1.73 sq M.predicted among non-blacks MDRD (S/P/Bld) [Vol rate/Area] 83 mL/min/{1.73_m2} >60 [facility] Comment on above: mL/min/1.73m2 CKD-EP I Creatinine Equation (2020) Hematocrit Auto (Bld) [Volum e fraction]Ordered By: Steven Maddox on 12-20-2024 Hematocrit (Bld) [Volume fraction] 44.6 % 37-47 [facility] Hemoglobin measurementOrdere d By: Steven Maddox on 12-20-2024 Hemoglobin (Bld) [Mass/Vol] 14.6 g/dL 12.0-15.0 [facility] International normalized rat io (INR) calculationOrdered By: Steven Maddox on 12-20-2024 INR Coag (Bld) [Relative time] 1.1 {INR} [facility] Laboratory - Chemistry and C hemistry - challengeOrdered By: Steven Maddox on 12-20-2024 AST [Catalytic activity/Vol] 26 U/L <32 [facility] MCV (mean corpuscular volume ) determinationOrdered By: Steven Maddox on 12-20-2024 MCV (RBC) [Entitic vol] 92.3 fL 81-99 [facility] Mean corpuscular hemoglobin (MCH) determinationOrdered By: Steven Maddox on 12-20-2024 MCH (RBC) [Entitic mass] 30.2 pg 27.0-32.0 [facility] Mean corpuscular hemoglobin concentration (MCHC) determinationOrdered By: Steven Maddox on 12-20-2024 MCHC (RBC) [Mass/Vol] 32.7 g/dL 32-36 [facility] Mean platelet volume determi nationOrdered By: Steven Maddox on 12-20-2024 Platelet mean volume (Bld) [Entitic vol] 11.9 fL 6.2-12.0 [facility] Partial Thromboplast Timeon 12-20-2024 aPTT Coag (Bld) [Time] 27.9 s Normal 24.1-36.2 [facility] Comment on above: Performed By: #### L 500.4050, L100.0500, L3300.0700, L300.4310, L300.3900 #### [facility] [address] [place], [place], [id number] Platelet countOrdered By: Sharmin Maddox on 12-20-2024 Platelets (Bld) [#/Vol] 97 10*3/uL Low 150-450 [facility] Potassium measurement (mass/ volume)Ordered By: Steven Maddox on 12-20-2024 Potassium (Unsp spec) [Mass/Vol] 4.0 mmol/L 3.3-5.1 [facility] Prothrombin Time w/INRon INR Coag (PPP) [Relative time] 1.1 {INR} Normal [facility] Comment on above: Performed By: #### L 500.4050, L100.0500, L3300.0700, L300.4310, L300.3900 #### [facility] [address] [place], [place], [id number] PT Coag (PPP) [Time] 14.3 s Normal 11.7-14.9 [facility] Comment on above: Performed By: #### L 500.4050, L100.0500, L3300.0700, L300.4310, L300.3900 #### [facility] [address] [place], [place], [id number] Prothrombin timeOrdered By: Steven Maddox on 12-20-2024 PT Coag (PPP) [Time] 14.3 s 11.7-14.9 [facility] RBC Auto (Bld) [#/Vol]Ordere d By: Steven Maddox on 12-20-2024 RBC (Bld) [#/Vol] 4.83 10*6/uL 4.2-5.4 [facility] Serum creatinine measurement (mass/volume)Ordered By: Steven Maddox on 12-20-2024 Creatinine [Mass/Vol] 0.79 mg/dL 0.70-1.20 [facility] Serum globulin measurementOr dered By: Steven Maddox on 12-20-2024 Globulin (S) [Mass/Vol] 2.2 g/dL 2.2-4.2 [facility] Serum glucose measurement (m ass/volume)Ordered By: Steven Maddox on 12-20-2024 Glucose [Mass/Vol] 90 mg/dL 70-99 [facility] Serum or plasma alanine paez otransferase (ALT) measurementOrdered By: Steven Maddox on 12-20-2024 ALT [Catalytic activity/Vol] 20 U/L <35 [facility] Serum or plasma albumin angelica urement (mass/volume)Ordered By: Steven Maddox on 12-20-2024 Albumin [Mass/Vol] 4.4 g/dL 3.4-4.8 [facility] Serum or plasma albumin/glob ulin mass ratioOrdered By: Steven Maddox on 12-20-2024 Albumin/Globulin [Mass ratio] 2.0 {ratio} 0.9-2.4 [facility] Serum or plasma alkaline christelle sphatase measurementOrdered By: Steven Maddox on 12-20-2024 ALP [Catalytic activity/Vol] 62 U/L 35-104 [facility] Serum or plasma calcium angelica urement (mass/volume)Ordered By: Steven Maddox on 12-20-2024 Calcium [Mass/Vol] 9.2 mg/dL 7.6-11.0 [facility] Serum or plasma urea nitroge n measurement (mass/volume)Ordered By: Steven Maddox on 12-20-2024 Urea nitrogen [Mass/Vol] 7 mg/dL 4-19 [facility] Sodium levelOrdered By: Tr Maddox on 12-20-2024 Sodium [Moles/Vol] 139 mmol/L 133-145 [facility] Total proteinOrdered By: Haroon Maddox on 12-20-2024 Protein [Mass/Vol] 6.6 g/dL 5.9-8.4 [facility] White blood cell (WBC) count Ordered By: Steven Maddox on 12-20-2024 WBC (Bld) [#/Vol] 3.8 10*3/uL Low 4.4-11.0 [facility] Absolute lymphocyte countOrd ered By: Wilfredo Martino on 10-16-2024 Lymphocytes Auto (Unsp spec) [#/Vol] 1.22 10*3/uL 0.83-4.51 [facility] Absolute neutrophil countOrd ered By: Wilfredo Martino on 10-16-2024 Neutrophils (Bld) [#/Vol] 1.9 10*3/uL Low 2.0-7.7 [facility] Anion gap in Serum or Plasma Ordered By: Wilfredo Martino on 10-16-2024 Anion gap [Moles/Vol] 11 mmol/L 5-15 [facility] Automated lymphocyte count a s percentage of total leukocytesOrdered By: Wilfredo Martino on 10-16-2024 Lymphocytes/100 WBC Auto (Unsp spec) 34.5 % - [facility] BUN/creatinine ratioOrdered By: Wilfredo Martino on 10-16-2024 Urea nitrogen/Creatinine [Mass ratio] 11.7 mg/mg 10- [facility] Basophil percentageOrdered B y: Wilfredo Martino on 10-16-2024 Basophils/100 WBC (Bld) 0.3 % 0-1 [facility] Bilirubin, totalOrdered By: Wilfredo Martino on 10-16-2024 Bilirubin [Mass/Vol] 0.55 mg/dL 0.00-1.30 [facility] CBC W/Diff, Automatedon 09-27 Absolute Lymph 1.22 X10 3/uL Normal 0.83-4.51 [facility] Comment on above: Performed By: #### L 506.1001, L100.0100, L500.4100, L500.4050, L501.9520 #### [facility] [address] [place], [address] Absolute Neut 1.9 X10 3/uL Low 2.0-7.7 [facility] Comment on above: Performed By: #### L 506.1001, L100.0100, L500.4100, L500.4050, L501.9520 #### [facility] [address] [place], [address] Basophils/100 WBC (Bld) 0.3 % Normal 0-1 [facility] Comment on above: Performed By: #### L 506.1001, L100.0100, L500.4100, L500.4050, L501.9520 #### [facility] [address] [place], [address] Eosinophils/100 WBC (Bld) 0.3 % Normal 0-5 [facility] Comment on above: Performed By: #### L 506.1001, L100.0100, L500.4100, L500.4050, L501.9520 #### [facility] [address] [place], [address] Erythrocyte distribution width (RBC) [Ratio] 12.9 % Normal 11.6-14.6 [facility] Comment on above: Performed By: #### L 506.1001, L100.0100, L500.4100, L500.4050, L501.9520 #### [facility] [address] [place], [address] Hematocrit (Bld) [Volume fraction] 47.3 % High 37-47 [facility] Comment on above: Performed By: #### L 506.1001, L100.0100, L500.4100, L500.4050, L501.9520 #### [facility] [address] [place], [address] Hemoglobin (Bld) [Mass/Vol] 15.6 g/dL High 12.0-15.0 [facility] Comment on above: Performed By: #### L 506.1001, L100.0100, L500.4100, L500.4050, L501.9520 #### [facility] [address] [place], [address] IG% 0.300 Normal 0.0-0.9 [facility] Comment on above: Result Comment: IG% - Immature Granulocytes (promyelocytes, myelocytes and metamyelocytes) > 1% indicates that a LEFT SHIFT is Present. Performed By: #### L 506.1001, L100.0100, L500.4100, L500.4050, L501.9520 #### [facility] [address] [place], [address] Lymphocytes/100 WBC (Bld) 34.5 % Normal 19-41 [facility] Comment on above: Performed By: #### L 506.1001, L100.0100, L500.4100, L500.4050, L501.9520 #### [facility] [address] [place], [address] MCH (RBC) [Entitic mass] 30.6 pg Normal 27.0-32.0 [facility] Comment on above: Performed By: #### L 506.1001, L100.0100, L500.4100, L500.4050, L501.9520 #### [facility] [address] [place], [address] MCHC (RBC) [Mass/Vol] 33.0 g/dL Normal 32-36 [facility] Comment on above: Performed By: #### L 506.1001, L100.0100, L500.4100, L500.4050, L501.9520 #### [facility] [address] [place], [address] MCV (RBC) [Entitic vol] 92.7 fL Normal 81-99 [facility] Comment on above: Performed By: #### L 506.1001, L100.0100, L500.4100, L500.4050, L501.9520 #### [facility] [address] [place], [address] Monocytes/100 WBC (Bld) 9.9 % Normal 0-10 [facility] Comment on above: Performed By: #### L 506.1001, L100.0100, L500.4100, L500.4050, L501.9520 #### [facility] [address] [place], [address] Neutrophils/100 WBC (Bld) 54.7 % Normal 47-70 [facility] Comment on above: Performed By: #### L 506.1001, L100.0100, L500.4100, L500.4050, L501.9520 #### [facility] [address] [place], [address] Nucleated RBC (Bld) [#/Vol] 0 10*3/uL Normal 0-5 [facility] Comment on above: Performed By: #### L 506.1001, L100.0100, L500.4100, L500.4050, L501.9520 #### [facility] [address] [place], [address] Platelet mean volume (Bld) [Entitic vol] 10.9 fL Normal 6.2-12.0 [facility] Comment on above: Performed By: #### L 506.1001, L100.0100, L500.4100, L500.4050, L501.9520 #### [facility] [address] [place], [address] Platelets (Bld) [#/Vol] 118 10*3/uL Low 150-450 [facility] Comment on above: Performed By: #### L 506.1001, L100.0100, L500.4100, L500.4050, L501.9520 #### [facility] [address] [place], [address] RBC (Bld) [#/Vol] 5.10 10*6/uL Normal 4.2-5.4 [facility] Comment on above: Performed By: #### L 506.1001, L100.0100, L500.4100, L500.4050, L501.9520 #### [facility] [address] [place], [address] RDW SD 43.9 fl Normal 35.1-43.9 [facility] Comment on above: Performed By: #### L 506.1001, L100.0100, L500.4100, L500.4050, L501.9520 #### [facility] [address] [place], [address] WBC (Bld) [#/Vol] 3.5 10*3/uL Low 4.4-11.0 [facility] Comment on above: Performed By: #### L 506.1001, L100.0100, L500.4100, L500.4050, L501.9520 #### [facility] [address] [place], [place], [id number] Calculated very low density lipoprotein (VLDL) cholesterol measurementOrdered By: Wilfredo Martino on 10-16-2024 Calculated very low density lipoprotein (VLDL) cholesterol measurement 19 mg/dL 5-40 [facility] Carbon dioxide, total [Moles /volume] in Central venous bloodOrdered By: Wilfredo Martino on 10-16-2024 CO2 [Moles/Vol] 23.0 mmol/L 21.0-32.0 [facility] Chloride assayOrdered By: Johnny Martino on 10-16-2024 Chloride [Moles/Vol] 106 mmol/L 98-108 [facility] Comprehensive Metabolic Prof ilon 10-16-2024 Albumin [Mass/Vol] 4.4 g/dL Normal 3.4-4.8 [facility] Comment on above: Performed By: #### L 506.1001, L100.0100, L500.4100, L500.4050, L501.9520 #### [facility] [address] [place], [place], [id number] Albumin/Globulin [Mass ratio] 1.8 {ratio} Normal 0.9-2.4 [facility] Comment on above: Performed By: #### L 506.1001, L100.0100, L500.4100, L500.4050, L501.9520 #### [facility] [address] [place], [address] ALK PHOS 104 U/L Normal 35-104 [facility] Comment on above: Performed By: #### L 506.1001, L100.0100, L500.4100, L500.4050, L501.9520 #### [facility] [address] [place], [address] ALT [Catalytic activity/Vol] 29 U/L Normal <=34 [facility] Comment on above: Performed By: #### L 506.1001, L100.0100, L500.4100, L500.4050, L501.9520 #### [facility] [address] [place], [address] AST [Catalytic activity/Vol] 28 U/L Normal <=31 [facility] Comment on above: Performed By: #### L 506.1001, L100.0100, L500.4100, L500.4050, L501.9520 #### [facility] [address] [place], [address] Bilirubin [Mass/Vol] 0.55 mg/dL Normal 0.00-1.30 [facility] Comment on above: Performed By: #### L 506.1001, L100.0100, L500.4100, L500.4050, L501.9520 #### [facility] [address] [place], [address] BUN/CRE 11.7 RATIO Normal 10-20 [facility] Comment on above: Performed By: #### L 506.1001, L100.0100, L500.4100, L500.4050, L501.9520 #### [facility] [address] [place], [address] Calcium [Mass/Vol] 9.6 mg/dL Normal 7.6-11.0 [facility] Comment on above: Performed By: #### L 506.1001, L100.0100, L500.4100, L500.4050, L501.9520 #### [facility] [address] [place], [address] Chloride [Moles/Vol] 106 mmol/L Normal 98-108 [facility] Comment on above: Performed By: #### L 506.1001, L100.0100, L500.4100, L500.4050, L501.9520 #### [facility] [address] [place], [address] CO2 [Moles/Vol] 23.0 mmol/L Normal 21.0-32.0 [facility] Comment on above: Performed By: #### L 506.1001, L100.0100, L500.4100, L500.4050, L501.9520 #### [facility] [address] [place], [address] Creatinine [Mass/Vol] 0.86 mg/dL Normal 0.70-1.20 [facility] Comment on above: Performed By: #### L 506.1001, L100.0100, L500.4100, L500.4050, L501.9520 #### [facility] [address] [place], [address] GAP 11 Normal 5-15 [facility] Comment on above: Performed By: #### L 506.1001, L100.0100, L500.4100, L500.4050, L501.9520 #### [facility] [address] [place], [address] GFR/1.73 sq M.predicted among non-blacks MDRD (S/P/Bld) [Vol rate/Area] 75 mL/min/{1.73_m2} Normal >60 [facility] Comment on above: Result Comment: mL/m in/1.73m2 CKD-EPI Creatinine Equation (2020) Performed By: #### L 506.1001, L100.0100, L500.4100, L500.4050, L501.9520 #### [facility] [address] [place], [address] Globulin (S) [Mass/Vol] 2.4 g/dL Normal 2.2-4.2 [facility] Comment on above: Performed By: #### L 506.1001, L100.0100, L500.4100, L500.4050, L501.9520 #### [facility] [address] [place], [address] Glucose [Mass/Vol] 67 mg/dL Low 70-99 [facility] Comment on above: Performed By: #### L 506.1001, L100.0100, L500.4100, L500.4050, L501.9520 #### [facility] [address] [place], [address] Potassium [Moles/Vol] 3.7 mmol/L Normal 3.3-5.1 [facility] Comment on above: Performed By: #### L 506.1001, L100.0100, L500.4100, L500.4050, L501.9520 #### [facility] [address] [place], [address] Sodium [Moles/Vol] 140 mmol/L Normal 133-145 [facility] Comment on above: Performed By: #### L 506.1001, L100.0100, L500.4100, L500.4050, L501.9520 #### [facility] [address] [place], [address] T PROT 6.8 g/dL Normal 5.9-8.4 [facility] Comment on above: Performed By: #### L 506.1001, L100.0100, L500.4100, L500.4050, L501.9520 #### [facility] [address] [place], [address] Urea nitrogen [Mass/Vol] 10 mg/dL Normal 4-19 [facility] Comment on above: Performed By: #### L 506.1001, L100.0100, L500.4100, L500.4050, L501.9520 #### [facility] [place], [address] Eosinophil percentageOrdered By: Wilfredo Martino on 10-16-2024 Eosinophils/100 WBC (Bld) 0.3 % 0-5 [facility] Erythrocyte distribution wid th ratioOrdered By: Wilfredo Gunner on 10-16-2024 Erythrocyte distribution width (RBC) [Ratio] 12.9 % 11.6-14.6 [facility] Erythrocyte distribution wid th standard deviationOrdered By: [facility] on 10-16-2024 Erythrocyte distribution width (RBC) [Ratio] 43.9 fl 35.1-43.9 [facility] Glomerular filtration rate ( GFR) estimation/1.73 sq m using serum, plasma, or whole bOrdered By: [facility] on 10-16-2024 GFR/1.73 sq M.predicted among non-blacks MDRD (S/P/Bld) [Vol rate/Area] 75 mL/min/{1.73_m2} >60 [facility] Comment on above: mL/min/1.73m2 CKD-EP I Creatinine Equation (2020) Hematocrit Auto (Bld) [Volum e fraction]Ordered By: Wilfredo Martino 10-16-2024 Hematocrit (Bld) [Volume fraction] 47.3 % High 37-47 [facility] Hemoglobin measurementOrdere d By: Wilfredo Gunner 10-16-2024 Hemoglobin (Bld) [Mass/Vol] 15.6 g/dL High 12.0-15.0 [facility] Immature granulocytes/100 WB C Auto (Bld)Ordered By: Wilfredo Martino 10-16-2024 Immature granulocytes/100 WBC (Bld) 0.300 % 0.0-0.9 [facility] Comment on above: IG% - Immature Granu locytes (promyelocytes, myelocytes and metamyelocytes) > 1% indicates that a LEFT SHIFT is Present. LDL calc ser/plasOrdered By: Wilfredo Gunner on 10-16-2024 Cholesterol in LDL [Mass/Vol] 116 mg/dL [facility] Comment on above: Iraeafqmcn=881-342 m g/dL & Higher Hdwy=680 mg/dL or greater Laboratory - Chemistry and C hemistry - challengeOrdered By: Wilfredo Martino on 10-16-2024 AST [Catalytic activity/Vol] 28 U/L <32 [facility] Lipid Profileon 10-16-2024 CHOL:HDL 4.46 Normal [facility] Comment on above: Performed By: #### L 506.1001, L100.0100, L500.4100, L500.4050, L501.9520 #### [facility] Laboratory [address] [place], [address] Cholesterol [Mass/Vol] 174 mg/dL Normal <=200 [facility] Comment on above: Result Comment: Chol esterol level, Desirable <200 mg/dL Borderline high cholesterol 200-239 mg/dL High cholesterol >=240 mg/dL Recommendations of the NCEP Adult Treatment Panel for the following risk-cutoff thresholds for the [place] population. Performed By: #### L 506.1001, L100.0100, L500.4100, L500.4050, L501.9520 #### [facility] [address] [place], [address] Cholesterol in HDL [Mass/Vol] 39 mg/dL Low [facility] Comment on above: Result Comment: Lila onal Cholesterol Education Program (NCEP) guidelines: <40 mg/dL: Low HDL-cholesterol (major risk factor for CHD) >= 60 mg/dL: High HDL-cholesterol (negative risk factor for CHD) HDL-cholesterol is affected by a number of factors, e.g. smoking, exercise, hormones, sex and age. Performed By: #### L 506.1001, L100.0100, L500.4100, L500.4050, L501.9520 #### [facility] [address] [place], [address] Cholesterol in LDL [Mass/Vol] 116 mg/dL Normal [facility] Comment on above: Result Comment: Bord spitdz=066-976 mg/dL Higher Nsdp=336 mg/dL or greater Performed By: #### L 506.1001, L100.0100, L500.4100, L500.4050, L501.9520 #### [facility] [address] [place], [address] Cholesterol in VLDL [Mass/Vol] 19 mg/dL Normal 5-40 [facility] Comment on above: Performed By: #### L 506.1001, L100.0100, L500.4100, L500.4050, L501.9520 #### [facility] [address] [place], [address] Triglyceride [Mass/Vol] 95 mg/dL Normal [facility] Comment on above: Result Comment: The drugs N-Acetylcysteine and Metamizole may falsely depress this assay. Normal range: <150 mg/dL Borderline High: 150-199 mg/dL High: 200-499 mg/dL Very High: >500 mg/dL Performed By: #### L 506.1001, L100.0100, L500.4100, L500.4050, L501.9520 #### [facility] [address] [place], [address] MCV (mean corpuscular volume ) determinationOrdered By: Wilfredo Martino on 10-16-2024 MCV (RBC) [Entitic vol] 92.7 fL 81-99 [facility] Mean corpuscular hemoglobin (MCH) determinationOrdered By: Wilfredo Martino on 10-16-2024 MCH (RBC) [Entitic mass] 30.6 pg 27.0-32.0 [facility] Mean corpuscular hemoglobin concentration (MCHC) determinationOrdered By: Wilfredo Martino on 10-16-2024 MCHC (RBC) [Mass/Vol] 33.0 g/dL 32-36 [facility] Mean platelet volume determi nationOrdered By: Wilfredo Martino on 10-16-2024 Platelet mean volume (Bld) [Entitic vol] 10.9 fL 6.2-12.0 [facility] Monocyte percentageOrdered B y: Wilfredo Martino on 10-16-2024 Monocytes/100 WBC (Bld) 9.9 % 0-10 [facility] Neutrophil percentageOrdered By: Wilfredo Martino on 10-16-2024 Neutrophils/100 WBC (Bld) 54.7 % 47-70 [facility] Nucleated red blood cell per centageOrdered By: Wilfredo Martino on 10-16-2024 Nucleated RBC/100 WBC (Bld) [Ratio] 0 % 0-5 [facility] Platelet countOrdered By: Johnny Martino on 10-16-2024 Platelets (Bld) [#/Vol] 118 10*3/uL Low 150-450 [facility] Potassium measurement (mass/ volume)Ordered By: Wilfredo Martino on 10-16-2024 Potassium (Unsp spec) [Mass/Vol] 3.7 mmol/L 3.3-5.1 [facility] RBC Auto (Bld) [#/Vol]Ordere d By: Wilfredo Martino on 10-16-2024 RBC (Bld) [#/Vol] 5.10 10*6/uL 4.2-5.4 [facility] Screening total cholesterol/ high density lipoprotein (HDL) cholesterol ratioOrdered By: Wilfredo Martino on 10-16-2024 Cholesterol.total/Chol esterol in HDL [Mass ratio] 4.46 {ratio} [facility] Serum creatinine measurement (mass/volume)Ordered By: Wilfredo Martino on 10-16-2024 Creatinine [Mass/Vol] 0.86 mg/dL 0.70-1.20 [facility] Serum globulin measurementOr dered By: Wilfredo Martino 10-16-2024 Globulin (S) [Mass/Vol] 2.4 g/dL 2.2-4.2 [facility] Serum glucose measurement (m ass/volume)Ordered By: Wilfredo Martino 10-16-2024 Glucose [Mass/Vol] 67 mg/dL Low 70-99 [facility] Serum or plasma alanine paez otransferase (ALT) measurementOrdered By: Wilfredo Martino 10-16-2024 ALT [Catalytic activity/Vol] 29 U/L <35 [facility] Serum or plasma albumin angelica urement (mass/volume)Ordered By: Wilfredo Martino 10-16-2024 Albumin [Mass/Vol] 4.4 g/dL 3.4-4.8 [facility] Serum or plasma albumin/glob ulin mass ratioOrdered By: Wilfredo Martino on 10-16-2024 Albumin/Globulin [Mass ratio] 1.8 {ratio} 0.9-2.4 [facility] Serum or plasma alkaline christelle sphatase measurementOrdered By: Wilfredo Martino on 10-16-2024 ALP [Catalytic activity/Vol] 104 U/L 35-104 [facility] Serum or plasma calcium angelica urement (mass/volume)Ordered By: Wilfredo Martino 10-16-2024 Calcium [Mass/Vol] 9.6 mg/dL 7.6-11.0 [facility] Serum or plasma cholesterol in HDL measurement (mass/volume)Ordered By: Wilfredo Martino 10-16-2024 Cholesterol in HDL [Mass/Vol] 39 mg/dL Low >40 [facility] Comment on above: National Cholesterol Education Program (NCEP) guidelines:<40 mg/dL: Low HDL-cholesterol (major risk factor for CHD)>= 60 mg/dL: High HDL-cholesterol (negative risk factor for CHD)HDL-cholesterol is affected by a number of factors, e.g. smoking, exercise, hormones, sex and age. Serum or plasma cholesterol measurement (mass/volume)Ordered By: Wilfredo Martino 10-16-2024 Cholesterol [Mass/Vol] 174 mg/dL <201 [facility] Comment on above: Cholesterol level, D esirable <200 mg/dLBorderline high cholesterol 200-239 mg/dLHigh cholesterol >=240 mg/dLRecommendations of the NCEP Adult Treatment Panel for the following risk-cutoff thresholds for the [place] population. Serum or plasma urea nitroge n measurement (mass/volume)Ordered By: Wilfredo Martino 10-16-2024 Urea nitrogen [Mass/Vol] 10 mg/dL 4-19 [facility] Sodium levelOrdered By: Wilfredo Martino 10-16-2024 Sodium [Moles/Vol] 140 mmol/L 133-145 [facility] TSH DL <= 0.005 mIU/L QnOrde red By: Wilfredo Martino 10-16-2024 TSH Qn 1.860 uIU/mL 0.300-4.20 0 [facility] Thyroid Stim Hormone (TSH)on 10-16-2024 TSH 1.860 uIU/mL Normal 0.300-4.20 0 [facility] Comment on above: Performed By: #### L 400.2010, #### [facility] Laboratory [address] [place], [place], [address] Total proteinOrdered By: Wilfredo Martino on 10-16-2024 Protein [Mass/Vol] 6.8 g/dL 5.9-8.4 [facility] Triglycerides measurementOrd ered By: Wilfredo Martino on 10-16-2024 Triglyceride [Mass/Vol] 95 mg/dL <199 [facility] Comment on above: The drugs N-Acetylcy steine and Metamizole may falsely depress this assay. Normal range: <150 mg/dLBorderline High: 150-199 mg/dLHigh: 200-499 mg/dLVery High: >500 mg/dL Vitamin D,25 Hydroxyon 10-16 Vitamin D 25-OH 18.8 ng/mL Low 30-100 [facility] Comment on above: Result Comment: Laura min D Status Deficiency: <20 ng/mL (50nmol/L) Insufficiency: 20-30 ng/mL (50-75 nmol/L) Sufficiency: 30-100 ng/mL (75-250 nmol/L) Toxicity: >100 ng/mL (>250 nmol/L) Performed By: #### L 400.2010, #### [facility] [address] [place], [address] White blood cell (WBC) count Ordered By: Wilfredo Martino on 10-16-2024 WBC (Bld) [#/Vol] 3.5 10*3/uL Low 4.4-11.0 [facility] L3410.9992on 09-30-2024 [facility] Misc. COMMENT Normal . [facility] Comment on above: Order Comment: [id number] 0URINE TOX RT Result Comment: Test Ordered: [id number] Amphetamines Screen, Urine Negative ng/mL UI Reference Range: Wyokcg=169 Amphetamine test includes Amphetamine and Methamphetamine. Barbiturates Negative ng/mL UI Reference Range: Jogpkx=535 Benzodiazepines Negative ng/mL UI Reference Range: Hfdmak=355 Cocaine (Metab.), Urine Negative ng/mL UI Reference Range: Qnuojd=762 Opiates Negative ng/mL UI Reference Range: Emrkcb=965 Opiate test includes Codeine, Morphine, Hydromorphone, Hydrocodone. 6-Acetylmorphine, Urine Negative ng/mL UI Reference Range: Cutoff=10 Oxycodone/Oxymorphone, Urine Negative ng/mL UI Reference Range: Wqxqag=338 Test includes Oxycodone and Oxymorphone PCP, Urine Negative ng/mL UI Reference Range: Cutoff=25 Methadone Screen, Urine Negative ng/mL UI Reference Range: Vrnnly=226 Propoxyphene, Urine Negative ng/mL UI Reference Range: Jnrlkq=566 Fentanyl, Urine Negative ng/mL UI Reference Range: Cutoff=2.0 Test includes Fentanyl and Norfentanyl This test was developed and its performance characteristics determined by [facility]. It has not been cleared or approved by the Food and Drug Administration. Tramadol Negative ng/mL UI Reference Range: Pnmdbv=621 Buprenorphine, Urine Negative ng/mL UI Reference Range: Cutoff=10 Creatinine, Urine 130.2 mg/dL UI Reference Range: 20.0-300.0 pH, Urine 5.7 UI Reference Range: 4.5-8.9 Performed at: [address] [id number] Woodworker Helper: Manuel Harman PhD, Phone: [phone] Performed at: [address] [id number] Woodworker Helper: Steven Booker PhD, Phone: [phone] Performed By: #### L 500.4240, L100.0500, L3300.0700, L300.4310, L300.3908 #### [facility] [place], [address] Amphetamine detection with 1 000 ng/mL as cutoffOrdered By: Chiara Kamara on 09-27-2024 Amphetamines Screen method >1000 ng/mL Ql (U) Negative < 200 ng/mL [facility] Lumbar Spine 2 or 3 Viewson 09-27-2024 Lumbar Spine 2 or 3 Views [facility] Imaging Services [address] [place], [place] [id number] Lumbar Spine 2 or 3 Views MR#: [id number] Acct: [id number] Name: CARLOS OLIVER Rep #: [id number] : 1960 F 64 From: Bret Phoenix MD PCP: Dr. Wilfredo Martino MD Status: REG CLI Study: Lumbar Spine 2 or 3 Views Date of Exam: Exam# [id number] Ordering Dr: Chiara Kamara MD PROCEDURE: LUMBAR SPINE 2 OR 3 VIEWS 09/27/2024 REASON FOR EXAM: SPONDYLOSIS TECHNIQUE: LUMBAR SPINE 2 OR 3 VIEWS COMPARISON: 06/16/2021. FINDINGS: No evidence of acute fracture or L3 and L4 vertebroplasties. Moderate L1 and mild L2 compression deformities which are similar to the prior MRI. Moderate degenerative changes of the visualized spine. RAD/Lumbar Spine 2 or 3 Views IMPRESSION: Spondylosis. Vertebroplasties. Chronic compression deformities. Reading Location: [place] [address] CC: Dr. Chiara Kamara MD; Dr. Wilfredo Martnio MD Towel Weaver: Signed Normal [facility] No Panel InformationOrdered By: Chiara Kamara on 09-27-2024 Urine Buprenorphine Qualitative Negative < 200 ng/mL [facility] Urine Oxycodone Screen Negative < 100 ng/mL [facility] Quantitative urine opiates m easurementOrdered By: Chiara Kamara on 09-27-2024 Opiates Ql (U) Negative < 300 ng/mL [facility] Screening urine fentanyl sharon surementOrdered By: Chiara Kamara on 09-27-2024 fentaNYL Screen Ql (U) Negative [facility] Urine Drug Screen (VISTA)on 09-27-2024 AMPHETAMINES Negative Normal <1000 ng/mL [facility] Comment on above: Order Comment: UNK Performed By: #### L 500.4050, L100.0500, L3300.0700, L300.4310, L300.3900 #### [facility] Laboratory [address] [place], [address] BARBITIURATES Negative Normal < 200 ng/mL [facility] Comment on above: Order Comment: UNK Performed By: #### L 500.4050, L100.0500, L3300.0700, L300.4310, L300.3900 #### [facility] Laboratory [address] [place], [address] BENZODIAZIPINE Negative Normal < 200 ng/mL [facility] Comment on above: Order Comment: UNK Performed By: #### L 500.4050, L100.0500, L3300.0700, L300.4310, L300.3900 #### [facility] Laboratory [address] [place], [place], [facility] BUP Ur Drug Scr Negative Normal < 200 ng/mL [facility] Comment on above: Order Comment: UNK Performed By: #### L 500.4050, L100.0500, L3300.0700, L300.4310, L300.3900 #### [facility] [address] [place], [place], [facility] COCAINE Negative Normal < 300 ng/mL [facility] Comment on above: Order Comment: UNK Performed By: #### L 500.4050, L100.0500, L3300.0700, L300.4310, L300.3900 #### [facility] [address] [place], [place], [facility] Fentanyl Negative Normal [facility] Comment on above: Order Comment: UNK Performed By: #### L 500.4050, L100.0500, L3300.0700, L300.4310, L300.3900 #### [facility] [address] [place], [address] METHADONE Negative Normal < 300 ng/mL [facility] Comment on above: Order Comment: UNK Performed By: #### L 500.4050, L100.0500, L3300.0700, L300.4310, L300.3900 #### [facility] [address] [place], [address] OPIATES Negative Normal < 300 ng/mL [facility] Comment on above: Order Comment: UNK Performed By: #### L 500.4050, L100.0500, L3300.0700, L300.4310, L300.3900 #### [facility] Laboratory [address] [place], [address] OXYCODONE Negative Normal < 100 ng/mL [facility] Comment on above: Order Comment: UNK Performed By: #### L 500.4050, L100.0500, L3300.0700, L300.4310, L300.3900 #### [facility] [address] [place], [address] PCP Negative Normal < 25 ng/mL [facility] Comment on above: Order Comment: UNK Performed By: #### L 500.4050, L100.0500, L3300.0700, L300.4310, L300.3900 #### [facility] [address] [place], [address] THC Positive Normal < 50 ng/mL [facility] Comment on above: Order Comment: UNK Result Comment: If c onfirmation testing is needed, a separate order will be required to send out testing to the reference laboratory. Performed By: #### L 500.4050, L100.0500, L3300.0700, L300.4310, L300.3900 #### [facility] [address] [place], [address] Urine benzodiazepine levelOr dered By: Chiara Kamara on 09-27-2024 Benzodiazepines Ql (U) Negative < 200 ng/mL [facility] Urine cocaine levelOrdered B y: Chiara Basali on 09-27-2024 Cocaine Ql (U) Negative < 300 ng/mL [facility] Urine xlxyc-7-dlpupdixyixtyw abinol (THC) measurementOrdered By: Chiara Kamara on 09-27-2024 Cannabinoids Screen Ql (U) Positive < 50 ng/mL [facility] Comment on above: If confirmation test ing is needed, a separate order will be required to send out testing to the reference laboratory. Urine phencyclidine (PCP) de tectionOrdered By: Chiara Kamara on 09-27-2024 Phencyclidine Ql (U) Negative < 25 ng/mL [facility] ED MED ADMINISTRATION DETAIL on 09-12-2024 ED MED ADMINISTRATION DETAIL Iphone Developer Medication Administration Record [address] [address] [id number] 09/12/2024 Patient: CARLOS OLIVER Sex: Female : 1960 Age: 64y MEASUREMENTS: Wt: 54.4 kg, Ht/Fredis: 60.0 in, BMI: 23.44 ALLERGIES: latex, morphine Medication Ordered Medication Administration Date/Time PredniSONE PO 20 14:32 09/12 PredniSONE PO 20 mg given. Allergies verified and Given mg (NOW x1) confirmed 5 rights. Information reviewed. Verbalizes 14:32 09/12/2024 understanding. - 14:33 Rocio Padilla R.N. Scanned 1 of 1 Normal [facility] ED NURSES CLINICAL NOTEon ED NURSES CLINICAL NOTE Nurse Narrative Nurse Clinical Narrative [address] [address] [id number] 09/12/2024 11:50:00 Patient: CARLOS OLIVER Sex: Female : 1960 Age: 64y Disposition: Discharge to Home Disposition Decision Time: 14:31 09/12/2024 Departure Time: 14:34 09/12/2024 TRIAGE Arrived by EMS. Historian: (patient). Unaccompanied. Primary physician (Leeann Roberts). Triage time: 11:54 09/12/2024. Acuity: LEVEL 4. Chief Complaint: LEFT UPPER EXTREMITY PAIN, SWELLING and REDNESS. An injury may have occurred. Location of injuries: left wrist. Onset. (3 days). ( Was opening pickle jar and felt pain in left wrist). The patient has had swelling, redness and weakness. Treatment ASSOCIATE PARTNER: Ice. Splint applied. SEPSIS SCREEN: NEGATIVE. SIRS criteria negative. No possible sources of infection. -- 12:09/12/24 CHAR Briggs R.N. 12:09/12/24. BP: 113/68 MAP: 83. HR: 72. RR: 18. O2 saturation: 97% Temperature: 98.1 F. Pain level now 710. -- 12:09/12/24 CAHR Briggs R.N. Measurements: 11:09/12/24 Wt: 54.4 kg, Ht/Fredis: 60.0 in, BMI: 23.44 -- 09/12/24 CHAR Briggs R.N. Medications: 1 of 4 Nurse Narrative albuterol sulfate HFA 90 mcg/actuation aerosol inhaler: 2 puff every four hours . -- 14:09/12/24 HCAR Briggs R.N. nystatin 100,000 unit/mL oral suspension: 1 once a day . -- 14:09/12/24 CHAR Briggs R.N. spironolactone 100 mg tablet: 1 tablet once a day . -- 14:09/12/24 CHAR Briggs R.N. Trelegy Ellipta 100 mcg-62.5 mcg-25 mcg powder for inhalation: 1 puff once a day . -- 14:09/12/24 CHAR Briggs R.N. sumatriptan 50 mg tablet: 1 tablet once a day . -- 14:09/12/24 CHAR Briggs R.N. potassium chloride ER 20 mEq tablet,extended release(part/cryst): 1 tablet every other day . -- 14:09/12/24 CAHR Briggs R.N. Xifaxan 550 mg tablet: 1 tablet once a day . -- 14:09/12/24 CHAR Briggs R.N. levothyroxine 50 mcg tablet: 1 tablet once a day . -- 14:09/12/24 CHAR Briggs R.N. doxepin 10 mg capsule: (pt states she is not taking) -- 14:21 09/12/24 CHAR Briggs R.N. Caplyta 42 mg capsule: 1 capsule once a day . -- 14:09/12/24 CHAR Briggs R.N. 11:54 09/12/24. Preferred Pharmacy: ([facility]). -- 12:09/12/24 CHAR Briggs R.N. Allergies: morphine -- 11:57 09/12/24 CHAR Briggs R.N. latex -- 11:57 09/12/24 CHAR Briggs R.N. Problems: Osteoporosis -- 11:57 09/12/24 CHAR Briggs R.N. Surgeries: right hip -- 11:58 09/12/24 CHAR Briggs R.N. History 11:54 09/12/24. SOCIAL HX: Current every day heavy tobacco smoker- less than 1 pack per day. Occasional drug use: marijuana. No alcohol use. The patient has not traveled outside the [place] Infectious disease exposure: No infectious disease exposure. ABUSE ASSESSMENT: The patient answered yes to the question(s) Do you feel safe in your home? and no to the question(s) Are you afraid to go home?. 2 of 4 Nurse Narrative SELF HARM ASSESSMENT: Self harm assessment was performed. The patient answered no to the question(s) Have you recently felt down, depressed, or hopeless? and Do you have thoughts of harming or killing yourself?. FALL RISK ASSESSMENT: Fall risk assessment completed. Risk factors identified include patient age greater than 65 years. Fall interventions initiated. Patient placed in wheelchair. Brakes on. -- 12:09/12/24 CHAR Briggs R.N. Interventions 11:54 09/12/24. Advanced care plan discussed with patient. Patient does not have advanced directive. (full code). -- 12:09/12/24 CHAR Briggs R.N. PHYSICAL ASSESSMENT 14:11 09/12/24. Ambulatory to room. GENERAL / NEURO / PSYCH: Oriented X 4. Alert. Appears in no acute distress. EXTREMITIES: Limited ROM present. Neuro-vascular status intact to the extremity. Left wrist: tenderness, swelling and ecchymosis. ( tenderness). SKIN: Skin intact. Skin is warm and dry. -- 14:36 09/12/24 TRENAT Layla Briggs R.N. NURSING PROGRESS NOTES 14:22 09/12/24. ( Splint applied to the left wrist per Dr. Quevedo). -- 14:37 09/12/24 TRENAT Layla Briggs R.N. 14:32 09/12/24. PredniSONE PO 20 mg given. Allergies verified and confirmed 5 rights. Information reviewed. Verbalizes understanding. -- 14:33 09/12/24 TRENAT Layla Briggs R.N. DISPOSITION / DISCHARGE Departure time: 14:34 09/12/2024. -- 14:38 09/12/24 TRENAT Layla Briggs R.N. 14:39 09/12/24. Condition at departure: stable. No learning barriers present. Reviewed referral to an orthopedic surgeon. Patient verbalized understanding. Written instructions provided in Austrian. The patient was discharged home and accompanied by dairy laboratory technician. The patient left ambulatory and via private vehicle. Director Radiation Oncology driving. -- 14:39 09/12/24 EDT Layla Briggs R.N. (El (more content not included)... Normal [facility] ED ORDER SHEET ([facility] ONLY)on 09-12-2024 ED ORDER SHEET ([facility] ONLY) Order Sheet Order Sheet [address] [place] [address] [id number] 09/12/2024 Patient: CARLOS OLIVER Sex: Female : 1960 Age: 64y MEASUREMENTS: Wt: 54.4 kg, Ht/Fredis: 60.0 in, BMI: 23.44 ALLERGIES: latex, morphine MEDICATION/IV/DRIP/FLUID ORDERS Order Description Priority Entered Acknowledged Completed PredniSONE PO20 mg (NOW 14:18 09/12/2024 14:24 14:33 x1) Padilla Ling, 09/12/2024 09/12/2024 Layla Beck R.N. [facility] LAB ORDERS Order Description Priority Entered Acknowledged Collected Completed DIAGNOSTIC STUDY ORDERS Order Description Priority Entered Acknowledged Completed Wrist Lt Complete Stat Stat 12:06 09/12/2024 12:15 12:24 Padilla Ling, 09/12/2024 09/12/2024 Layla Potts R.N. R.N. Order Comments: 12:06 09/12/2024: Status: Not . Padilla Ling D.O. Reason for Study: Pain STAFF ORDERS 1 of 2 Order Sheet Order Description Priority Entered Acknowledged Collected Completed [Electronically signed by Padilla Ling D.O. (09/12/2024 17:29 EDT)] 2 of 2 Normal [facility] ED PHYSICIAN CLINICAL REPORT on 09-12-2024 ED PHYSICIAN CLINICAL REPORT Narrative Physician Clinical Narrative [address] [place] [address] [id number] 09/12/2024 11:50:00 Patient: CARLOS OLIVER Sex: Female : 1960 Age: 64y Disposition: Discharge to Home Disposition Decision Time: 14:31 09/12/2024 Departure Time: 14:34 09/12/2024 Measurements Wt: 54.4 kg, Ht/Fredis: 60.0 in, BMI: 23.44 Initial Vital Sign Measured Time BP MAP HR RR O2Sat ETCO2 Temp Pain GCS RTS 12:01 09/12/2024 113/68 83 72 18 97% 98.1 F 7 Time Seen: 12:05 09/12/2024. Arrived- By private vehicle. Historian- patient. HISTORY OF PRESENT ILLNESS Chief Complaint: UPPER EXTREMITY PAIN and SWELLING. This started 3 days and is still present (Patient was opening a jar of pickles on Wednesday and then about 30 minutes later she having pain in the wrist mainly in the lateral aspect and it was just generalized pain and she presents to the emergency department she would have a cock-up splint which she has been wearing and presents to the emergency department.). Severity is described as being moderate in degree (7). The quality is noted to be sharp and dull. Symptoms located in the area of the left wrist. Patient notes the possibility of an injury. REVIEW OF SYSTEMS CONSTITUTIONAL: No fever. NEUROLOGICAL: No headache. THROAT: No sore throat. : No difficulty with urination. GI: No abdominal pain or nausea. 1 of 5 Narrative Status: Not . PAST HISTORY See nurses notes. Osteoporosis Surgeries: right hip Medications: albuterol sulfate HFA 90 mcg/actuation aerosol inhaler: 2 puff every four hours . Caplyta 42 mg capsule: 1 capsule once a day . doxepin 10 mg capsule: (pt states she is not taking) levothyroxine 50 mcg tablet: 1 tablet once a day . nystatin 100,000 unit/mL oral suspension: 1 once a day . potassium chloride ER 20 mEq tablet,extended release(part/cryst): 1 tablet every other day . spironolactone 100 mg tablet: 1 tablet once a day . sumatriptan 50 mg tablet: 1 tablet once a day . Trelegy Ellipta 100 mcg-62.5 mcg-25 mcg powder for inhalation: 1 puff once a day . Xifaxan 550 mg tablet: 1 tablet once a day . Allergies: latex morphine SOCIAL HISTORY Current every day smoker. Drug use: marijuana. ADDITIONAL NOTES The nursing notes have been reviewed. PHYSICAL EXAM Appearance: Alert. Oriented X3. No acute distress. Eyes: Pupils equal, round and reactive to light. Eyes normal inspection. 2 of 5 Narrative ENT: Ears normal. Nose normal. CVS: Normal heart rate and rhythm. Respiratory: No respiratory distress. Painless inspiration. Abdomen: Soft and nontender. Back: Normal inspection. No tenderness. Skin: Skin warm and dry. Normal skin color. Normal skin turgor. Extremities: Left wrist: mild erythema and swelling and moderate tenderness. Neurovascular intact distally. No laceration, abrasion, ecchymosis or foreign body. No avulsion. Extremities otherwise negative. Neuro: Oriented X 3. No motor deficit. LABS, X-RAYS, AND EKG Diagnostic Study Tests: WRIST COMPLETE LT Final EXAM Date: 09/12/2024 12:18:00 EDT MsgRcvd: 09/12/2024 12:31 EDT [place] [address] Patient: CARLOS OLIVER Phone#: : 1960 Age: 64 Gender: F Pt. Type: ER Account: [id number] Location: 052 Ordering: PADILLA LING Exam Date: 09/12/2024/12:14 Family Phys: Charge Code: [id number] Physician: Stanislaus Order #: [id number] Dose#: PROCEDURE: X-RAY WRIST LT COMPLETE MIN 3 VIEWS COMPARISON: None. INDICATIONS: Pain. FINDINGS: BONES: Degenerative changes of the wrist are present. There is narrowing of the radiocarpal joint. Degenerative changes most marked at the 1st carpometacarpal joint. SOFT TISSUES: Chondrocalcinosis is present. Mild dorsal soft tissue swelling. EFFUSION: None visible. OTHER: Negative. CONCLUSION: 3 of 5 Narrative 1. Moderate degenerative changes of the wrist are present. There is no evidence of acute bone abnormality. Dictated by: Patsy Weston MD on 09/12/2024 at 12:26 Approved by: Patsy Weston MD on 09/12/2024 at 12:27 PROGRESS AND PROCEDURES MEDICAL DECISION MAKING: (Patient was opening a jar of pickles on Wednesday and then about 30 minutes later she having pain in the wrist mainly in the lateral aspect and it was just generalized pain and she presents to the emergency department she would have a cock-up splint which she has been wearing and presents to the emergency department. patient had x-ray showed no obvious fractures. She would have swelling she had some mild redness. Believe this is more arthritic in nature. Did place her in a volar splint which was applied by myself. She is neurovascularly intact will place her on steroids and she will be discha (more content not included)... Normal [facility] ED [facility] 09-12-[address] [place] [address] [id number] 09/12/2024 Patient: CARLOS OLIVER Sex: Female : 1960 Age: 64y Item Professional Category Description Facility Code Code Quantity Fee Total Nurse/E/M EMERGENCY 382468 1 $0.00 $0.00 DEPARTMENT VISIT MODERATE SEVERITY (97107-80) Grand Total $0.00 Providers Padilla Ling D.O. Chief Complaint UPPER EXTREMITY PAIN and SWELLING. Principal Diagnosis Upper extremity pain involving the left wrist. Acute arthritis of the left wrist. 1 of 2 Superbill ICD-10 Codes M25.532: Pain in left wrist M13.832: Other specified arthritis, left wrist 2 of 2 Normal [facility] ED VISIT SUMMARYon ED VISIT SUMMARY Visit Overview Visit Overview [facility] [address] [place] [address] [id number] 09/12/2024 Patient: CARLOS OLIVER Sex: Female : 1960 Age: 64y 09/12/2024 05:29 PM EDT ED Arrival:11:50 09/12/2024 EDT Status:not Recent Travel:no Language:eng Adv Directive:No Isolation Status: Ethnicity:N Fall Risk:risk Infectious Disease Exposure:no Measurements:5' / 152.4 Self-Harm Status:risk Sepsis Screen:negative cm 120.0 lb / 54.4 kg Chief Complaint:LEFT UPPER EXTREMITY PAIN, LEFT UPPER EXTREMITY REDNESS, LEFT UPPER EXTREMITY SWELLING, (3 days), ([place], [place]), and (Was opening pickle jar and felt pain in left wrist) ALLERGIES latex morphine HOME MEDICATIONS albuterol sulfate HFA 90 mcg/actuation aerosol inhaler: 2 puff every four hours . 1 of 3 Visit Overview Caplyta 42 mg capsule: 1 capsule once a day . doxepin 10 mg capsule: (pt states she is not taking) levothyroxine 50 mcg tablet: 1 tablet once a day . nystatin 100,000 unit/mL oral suspension: 1 once a day . potassium chloride ER 20 mEq tablet,extended release(part/cryst): 1 tablet every other day . spironolactone 100 mg tablet: 1 tablet once a day . sumatriptan 50 mg tablet: 1 tablet once a day . Trelegy Ellipta 100 mcg-62.5 mcg-25 mcg powder for inhalation: 1 puff once a day . Xifaxan 550 mg tablet: 1 tablet once a day . PAST MEDICAL HISTORY / PROBLEMS Osteoporosis See nurses notes PAST SURGICAL HISTORY right hip SOCIAL HISTORY Smoking status: Yes Alcohol use: No Drug use: Yes ED COURSE MEDICATIONS GIVEN IN EMERGENCY DEPARTMENT 14:32 09/12/24 PredniSONE PO 20 mg IV SITE INFORMATION INTAKE OUTPUT REASSESMENT (most recent) 2 of 3 Visit Overview 14:11 09/12/24. Ambulatory to room. GENERAL / NEURO / PSYCH: Oriented X 4. Alert. Appears in no acute distress. EXTREMITIES: Limited ROM present. Neuro-vascular status intact to the extremity. Left wrist: tenderness, swelling and ecchymosis. ( tenderness). SKIN: Skin intact. Skin is warm and dry. VITAL SIGNS First Vitals Last Vitals Temp 12:01 09/12/24 98.1 F Temp 12:01 09/12/24 98.1 F BP 12:01 09/12/24 113/68 BP 12:01 09/12/24 113/68 HR 12:01 09/12/24 72 HR 12:01 09/12/24 72 RR 12:01 09/12/24 18 RR 12:01 09/12/24 18 O2 Sat 12:01 09/12/24 97% O2 Sat 12:01 09/12/24 97% Pain 12:01 09/12/24 7 Pain 12:01 09/12/24 7 ETCO2 12:01 09/12/24 ETCO2 12:01 09/12/24 GCS 12:01 09/12/24 GCS 12:01 09/12/24 RTS 12:01 09/12/24 RTS 12:01 09/12/24 PROCEDURES NURSING INTERVENTIONS LABS / STUDIES LABS / STUDIES ORDERED Wrist Lt Complete CLINICAL IMPRESSION ACUTE ARTHRITIS OF THE LEFT WRIST UPPER EXTREMITY PAIN INVOLVING THE LEFT WRIST 3 of 3 Normal [facility] ED VITALS FLOW SHEETon 09-12 ED VITALS FLOW SHEET Vitals Vital Sign Flow Sheet [address] [address] [phone] 09/12/2024 Patient: CARLOS OLIVER Sex: Female : 1960 Age: 64y Measurements Wt: 54.4 kg, Ht/Fredis: 60.0 in, BMI: 23.44 Measured Time BP MAP HR RR O2Sat ETCO2 Temp Pain GCS RTS 12:01 09/12/2024 113/68 83 72 18 97% 98.1 F 7 1 of 1 Normal [facility] WRIST COMPLETE LTon 09-13-19 WRIST COMPLETE LT [address] [place], [place] [address] Patient: CARLOS OLIVER Phone#: : 1960 Age: 64 Gender: F Pt. Type: ER Account: [id number] Location: [facility] Ordering: PADILLA LING Exam Date: 09/12/2024/12:14 Family Phys: Charge Code: [id number] Physician: Stanislaus Order #: [id number] Dose#: PROCEDURE: X-RAY WRIST LT COMPLETE MIN 3 VIEWS COMPARISON: None. INDICATIONS: Pain. FINDINGS: BONES: Degenerative changes of the wrist are present. There is narrowing of the radiocarpal joint. Degenerative changes most marked at the 1st carpometacarpal joint. SOFT TISSUES: Chondrocalcinosis is present. Mild dorsal soft tissue swelling. EFFUSION: None visible. OTHER: Negative. CONCLUSION: 1. Moderate degenerative changes of the wrist are present. There is no evidence of acute bone abnormality. Dictated by: Patsy Weston MD on 09/12/2024 at 12:26 Approved by: Patsy Weston MD on 09/12/2024 at 12:27 Normal [facility] Urine Cultureon 08-25-2024 URC Presumptive E. coli [place] Count 80,000-100,000 Presumptive E. coli: REACTION Ampicillin Islt NIRAJ <=2 Ampicillin+Sulbac Islt NIRAJ <=2 S Cefepime Islt NIRAJ <=0.12 S cefTRIAXone Islt NIRAJ <=0.25 S Ciprofloxacin Islt NIRAJ <=0.06 S B-Lactamase Extended Susc Islt NEG Gentamicin Islt NIRAJ <=1 S levoFLOXacin Islt NIRAJ <=0.12 S Meropenem Islt NIRAJ <=0.25 S Nitrofurantoin Islt NIRAJ <=16 S Pip+Tazo Islt NIRAJ <=4 S TMP SMX Islt NIRAJ <=20 S Normal [facility] Comment on above: Performed By: #### L 400.2010, M100.2200 #### [facility] Laboratory [address] [place], [place], [id number] Bilirubin Test strip Ql (U)O rdered By: Wilfredo Martino on 08-23-2024 Bilirubin Ql (U) Negative Negative [facility] Ketones Test strip Ql (U)Ord ered By: Wilfredo Martino on 08-23-2024 Ketones Ql (U) Negative Negative [facility] Nitrite Test strip Ql (U)Ord ered By: Wilfredo Martino on 08-23-2024 Nitrite Ql (U) Positive High Negative [facility] Protein Test strip Ql (U)Ord ered By: Wilfredo Gunner on 08-23-2024 Protein Ql (U) 15 mg/dl High Negative [facility] Urinalysis, Routine (Dipstic k)on 08-23-2024 BILIRUBIN URINE Negative Normal Negative [facility] Comment on above: Order Comment: Urine , Random Performed By: #### L 400.2010, #### [facility] Laboratory [address] [place], [address] Clarity (U) Clear Normal Clear [facility] Comment on above: Order Comment: Urine , Random Performed By: #### L 400.2010, #### [facility] Laboratory [address] [place], [address] Color (U) Yellow Normal Yellow [facility] Comment on above: Order Comment: Urine , Random Performed By: #### L 400.2010, #### [facility] Laboratory [address] [place], [address] GLUCOSE, UR Normal Normal Normal [facility] Comment on above: Order Comment: Urine , Random Performed By: #### L 400. #### [facility] Laboratory [address] [place], [address] KETONE UR Negative Normal Negative [facility] Comment on above: Order Comment: Urine , Random Performed By: #### L 400.2010, #### [facility] Laboratory [address] [place], [address] LEUK ESTERASE 25 /ul Abnormal Negative [facility] Comment on above: Order Comment: Urine , Random Performed By: #### L 400.2010, #### [facility] Laboratory [address] [place], [address] Nitrite Ql (U) Positive Abnormal Negative [facility] Comment on above: Order Comment: Urine , Random Performed By: #### L 400.2010, #### [facility] Laboratory [address] [place], [address] OCCULT BLOOD-UR 50 /ul Abnormal Negative [facility] Comment on above: Order Comment: Urine , Random Performed By: #### L 400.2010, #### [facility] Laboratory [address] [place], [address] pH UR 6.0 Normal 5.0 - 8.0 [facility] Comment on above: Order Comment: Urine , Random Performed By: #### L 400.2010, #### [facility] Laboratory [address] [place], [address] PROT DIPSTX 15 mg/dl Abnormal Negative [facility] Comment on above: Order Comment: Urine , Random Performed By: #### L 400.2010, #### [facility] Laboratory [address] [place], [address] SP.GR. DIPSTX 1.015 Normal 1.002-1.03 0 [facility] Comment on above: Order Comment: Urine , Random Performed By: #### L 400.2010, #### [facility] Laboratory [address] [place], [address] UROBILI Normal Normal Normal [facility] Comment on above: Order Comment: Urine , Random Performed By: #### L 400.2010, #### [facility] Laboratory [address] [place], [address] Urine clarityOrdered By: Wilfredo alamo 08-23-2024 Clarity (U) Clear Clear [facility] Urine color determinationOrd ered By: Wilfredo Martino on 08-23-2024 Color (U) Yellow Yellow [facility] Urine cultureOrdered By: Wilfredo Martino on 08-23-2024 Bacteria identified Cx Nom (U) Presumptive E. coli Abnormal [facility] Urine glucose detectionOrder ed By: Wilfredo Martino on 08-23-2024 Glucose Ql (U) Normal mg/dl Normal [facility] Urine leukocyte esterase det ection by dipstickOrdered By: Wilfredo Martino on 08-23-2024 Leukocyte esterase Test strip Ql (U) 25 /ul High Negative [facility] Urine pHOrdered By: Wilfredo Martino on 08-23-2024 pH (U) 6.0 [pH] 5.0 - 8.0 [facility] Urine specific gravity measu rementOrdered By: Wilfredo Martino on 08-23-2024 Specific gravity (U) [Rel density] 1.015 1.002-1.03 0 [facility] Urine urobilinogen measureme ntOrdered By: Wilfredo Martino on 08-23-2024 Urobilinogen Ql (U) Normal mg/dl Normal [facility] Echo Completeon 07-17-2024 Echo Complete [facility] [address] [place] [address] Echo Complete 07/17/24 0927 MR#: [id number] Acct: [id number] Name: CARLOS OLIVER Rep #: [id number] : 1960 64 From: Landon Ibarra MD Attending Dr: Dr. Landon Ibarra MD Status: ISRRAEL CUENCA Ordering Dr: Landon Ibarra MD Date: 07/17/24 Location: [facility] Sex: F C Admitted: Reason For Study Reason For Study: CAD/ASHD Procedure This was a 2D Doppler, Color Flow transthoracic echocardiogram. Exam performed in department. Left Ventricle Normal LV size. Left ventricular systolic function is normal. The left ventricular ejection fraction is 60 %. No regional wall motion abnormalities noted. Right Ventricle Normal RV size. Normal systolic function. Atria Normal left atrium. Normal right atrium. Mitral Valve Normal mitral valve. Mild (1+) eccentric mitral valve insufficiency. Tricuspid Valve Normal tricuspid valve. Aortic Valve Trisinus/trileaflet aortic valve. Pulmonic Valve Normal pulmonic valve. Great Vessels Normal aortic root. The pulmonary artery is normal size. Normal inferior vena cava. Pericardium/Pleural No pericardial effusion. MMode/2D Measurements Calculations LVIDd: 4.4 cm IVSd: 0.54 cm Ao root diam: 3.3 cm LVIDs: 2.8 cm LVPWd: 0.54 cm RVDd: 3.1 cm FS: 36.7 % LAV(MOD-bp): 40.6 ml LVAd ap4: 22.3 cm2 SV(MOD-sp4): 34.3 ml LAV(MOD-bp) Indexed: 26.1 ml/m2 LVLd ap4: 6.5 cm SI(MOD-sp4): 22.1 ml/m2 LAV(MOD-sp2): 38.5 ml EDV(MOD-sp4): 59.9 ml LAV(MOD-sp4): 40.9 ml EDV(sp4-el): 64.5 ml LVAs ap4: 12.7 cm2 LVLs ap4: 5.2 cm ESV(MOD-sp4): 25.6 ml ESV(sp4-el): 26.2 ml EF(MOD-sp4): 57.3 % EF(sp4-el): 59.4 % SV(sp4-el): 38.4 ml LA A4 area: 15.8 cm2 LA dimension(2D): 3.7 cm RA A4 area: 13.1 cm2 TAPSE: 1.8 cm Time Measurements MV dec time: 0.18 sec Doppler Measurements Calculations MV E max aylin: 70.7 cm/sec Lat Peak E' Aylin: 16.2 cm/sec Med Peak E' Aylin: 12.4 cm/sec MV A max aylin: 48.1 cm/sec E/E' lat: 4.4 E/E' med: 5.7 MV E/A: 1.5 MV V2 max: 82.5 cm/sec MV P1/2t max aylin: 82.5 cm/sec Ao V2 max: 123.5 cm/sec MV max P.7 mmHg MV P1/2t: 66.6 msec Ao max P.1 mmHg MV V2 mean: 46.4 cm/sec Ao V2 mean: 81.4 cm/sec MV mean P.98 mmHg MV dec slope: 363.0 cm/sec2 Ao mean P.1 mmHg MV V2 VTI: 24.2 cm MVA(P1/2t): 3.3 cm2 Ao V2 VTI: 27.0 cm AV (velocity ratio): 0.87 LV V1 max: 106.8 cm/sec MR max aylin: 461.9 cm/sec TR max aylin: 228.2 cm/sec LV V1 max P.6 mmHg MR max P.4 mmHg TR max P.8 mmHg LV V1 mean P.1 mmHg LV V1 mean: 68.0 cm/sec LV V1 VTI: 23.3 cm ECHO/Echo Complete Interpretation Summary Normal LV size. Left ventricular systolic function is normal. The left ventricular ejection fraction is 60 %. Mild (1+) eccentric mitral valve insufficiency. Ordering Physician: Landon Ibarra MD Referring Physician: Wilfredo Martino Chi Performed By: Bryce Carmona RCS 07/17/24 1158 Date Landon Ibarra MD CC: Dr. Landon Ibarra MD; Dr. Wilfredo Martino MD Date Dictated: 07/17/24 0927 Date Transcribed: 07/17/241157 Towel Weaver: Signed Normal [facility] Stress Reporton 07-17-2024 Stress Report [facility] [address] [place] [address] MR#: [id number] Acct: [id number] Name: CARLOS OLIVER Rep #: [id number] : 1960 64 From: Landon Ibarra MD Primary Care: Dr. Wilfredo Martino MD Status: REG CLI Referring Dr: Landon Ibrara MD Sex: F C Stress Test Report Pharmacologic myocardial perfusion stress test. 64-year-old lady with a history of coronary artery disease Resting EKG demonstrates sinus bradycardia with a rate of 60 bpm. Resting blood pressure is 122/74 mmHg. 0.4 mg of regadenoson was infused per usual protocol followed by rapid intravenous saline flush injection. Continuous EKG monitoring was performed. The maximum heart rate was 80 bpm which was 51% of max impacted heart rate the maximum workload was 1 metabolic equivalent. At rest there were no ST or T wave changes noted to suggest ischemia and at peak infusion nonspecific ST changes were noted which did not meet the criteria for ischemia. No clinical angina is noted. The final blood pressure was 128/70 mmHg. Myocardial perfusion protocol. 11 point mCi of technetium 99m sestamibi was injected at rest. 0.4 mg of regadenoson was infused per usual protocol. At peak infusion 36.0 mCi of technetium 99m sestamibi was injected stress images were obtained stress and rest images were reconstructed and compared in the short axis vertical long and horizontal long axis. Gated images were also obtained. Perfusion SPECT analysis: Review of the stress images demonstrate normal uptake of tracer noted in all areas of the myocardium. The resting images similar demonstrated normal uptake of tracer noted in all areas of the myocardium. No areas of reversibility are noted to suggest ischemia and no previous infarct is noted. Gated SPECT analysis: The gated ejection fraction is 77%. Conclusion: Normal pharmacologic myocardial perfusion stress test. Preserved ejection fraction. 07/17/24 1018 Date Landon Ibarra MD CC: Dr. Landon Ibarra MD; Dr. Wilfredo Martino MD Date Dictated: 07/17/24 1015 Date Transcribed: 07/17/24 101 Towel Weaver: CO Signed Normal [facility] 12 Lead E[place] [facility] [place] 07[place]05-2024 12 Lead EKG performed by [place] [id number] [place] [address] 12 Lead EKG performed [place] [facility] 07/05/24 1358 MR#: [id number] Acct: [id number] Name: CARLOS OLIVER Rep #: [id number] : 1960 64 From: Landon Ibarra MD Attending Dr: Dr. Landon Ibarra MD Status: DEP A MB Ordering Dr: Landon Ibarra MD Date: 07/05/24 Location: [facility] Sex: F C Admitted: BMS/12 Lead EKG [place] [facility] ECG Report Interpretation S inus Rhythm - frequent ectopic ventricular beat s # VECs = 3BORDERLINE RHYTHMElectronically signed on 07/11/2024 at 14:57 by Landon Ibarra [employer] Version [id number] 07/11/24 1459 Date Landon Ibarra MD CC: Dr. Wilfredo Martino MD Date Dictated: 07/05/241357 Date Transcribed: 07/05/241357 Towel Weaver: [place] Signed Normal [facility] Absolute lymphocyte countOrd ered By: Wilfredo Martino on 07-05-2024 Lymphocytes Auto (Unsp spec) [#/Vol] 1.21 10*3/uL 0.83-4.51 [facility] Absolute neutrophil countOrd ered By: Wilfredo Martino on 07-05-2024 Neutrophils (Bld) [#/Vol] 3.3 10*3/uL 2.0-7.7 [facility] Anion gap in Serum or Plasma Ordered By: Wilfredo Martino on 07-05-2024 Anion gap [Moles/Vol] 12 mmol/L 5-15 [facility] Automated lymphocyte count a s percentage of total leukocytesOrdered By: Wilfredo Martino on 07-05-2024 Lymphocytes/100 WBC Auto (Unsp spec) 24.4 % 19-41 [facility] BUN/creatinine ratioOrdered By: Wilfredo Martino on 07-05-2024 Urea nitrogen/Creatinine [Mass ratio] 9.6 mg/mg Low 10-20 [facility] Basophil percentageOrdered B y: Wilfredo Martino on 07-05-2024 Basophils/100 WBC (Bld) 0.2 % 0-1 [facility] Bilirubin, totalOrdered By: Wilfredo Martino on 07-05-2024 Bilirubin [Mass/Vol] 0.86 mg/dL 0.00-1.30 [facility] CBC W/Diff, Automatedon Absolute Lymph 1.21 X10 3/uL Normal 0.83-4.51 [facility] Comment on above: Performed By: #### L 500.4050, L100.0500, L3300.0700, L300.4310, L300.3900 #### [facility] Laboratory [address] [place], [address] Absolute Neut 3.3 X10 3/uL Normal 2.0-7.7 [facility] Comment on above: Performed By: #### L 500.4050, L100.0500, L3300.0700, L300.4310, L300.3900 #### [facility] Laboratory [address] [place], [address] Basophils/100 WBC (Bld) 0.2 % Normal 0-1 [facility] Comment on above: Performed By: #### L 500.4050, L100.0500, L3300.0700, L300.4310, L300.3900 #### [facility] Laboratory [address] [place], [address] Eosinophils/100 WBC (Bld) 0.0 % Normal 0-5 [facility] Comment on above: Performed By: #### L 500.4050, L100.0500, L3300.0700, L300.4310, L300.3900 #### [facility] Laboratory [address] [place], [address] Erythrocyte distribution width (RBC) [Ratio] 13.8 % Normal 11.6-14.6 [facility] Comment on above: Performed By: #### L 500.4050, L100.0500, L3300.0700, L300.4310, L300.3900 #### [facility] Laboratory [address] [place], [address] Hematocrit (Bld) [Volume fraction] 42.1 % Normal 37-47 [facility] Comment on above: Performed By: #### L 500.4050, L100.0500, L3300.0700, L300.4310, L300.3900 #### [facility] Laboratory [address] [place], [address] Hemoglobin (Bld) [Mass/Vol] 14.4 g/dL Normal 12.0-15.0 [facility] Comment on above: Performed By: #### L 500.4050, L100.0500, L3300.0700, L300.4310, L300.3900 #### [facility] Laboratory [address] [place], [address] IG% 0.400 Normal 0.0-0.9 [facility] Comment on above: Result Comment: IG% - Immature Granulocytes (promyelocytes, myelocytes and metamyelocytes) > 1% indicates that a LEFT SHIFT is Present. Performed By: #### L 500.4050, L100.0500, L3300.0700, L300.4310, L300.3900 #### [facility] Laboratory [address] [place], [address] Lymphocytes/100 WBC (Bld) 24.4 % Normal 19-41 [facility] Comment on above: Performed By: #### L 500.4050, L100.0500, L3300.0700, L300.4310, L300.3900 #### [facility] Laboratory [address] [place], [address] MCH (RBC) [Entitic mass] 29.9 pg Normal 27.0-32.0 [facility] Comment on above: Performed By: #### L 500.4050, L100.0500, L3300.0700, L300.4310, L300.3900 #### [facility] Laboratory [address] [place], [address] MCHC (RBC) [Mass/Vol] 34.2 g/dL Normal 32-36 [facility] Comment on above: Performed By: #### L 500.4050, L100.0500, L3300.0700, L300.4310, L300.3900 #### [facility] Laboratory [address] [place], [address] MCV (RBC) [Entitic vol] 87.5 fL Normal 81-99 [facility] Comment on above: Performed By: #### L 500.4050, L100.0500, L3300.0700, L300.4310, L300.3900 #### [facility] Laboratory [address] [place], [place], [id number] Monocytes/100 WBC (Bld) 8.1 % Normal 0-10 [facility] Comment on above: Performed By: #### L 500.4050, L100.0500, L3300.0700, L300.4310, L300.3900 #### [facility] Laboratory [address] [place], [address] Neutrophils/100 WBC (Bld) 66.9 % Normal 47-70 [facility] Comment on above: Performed By: #### L 500.4050, L100.0500, L3300.0700, L300.4310, L300.3900 #### [facility] Laboratory [address] [place], [address] Nucleated RBC (Bld) [#/Vol] 0 10*3/uL Normal 0-5 [facility] Comment on above: Performed By: #### L 500.4050, L100.0500, L3300.0700, L300.4310, L300.3900 #### [facility] Laboratory [address] [place], [address] Platelet mean volume (Bld) [Entitic vol] 10.7 fL Normal 6.2-12.0 [facility] Comment on above: Performed By: #### L 500.4050, L100.0500, L3300.0700, L300.4310, L300.3900 #### [facility] Laboratory [address] [place], [address] Platelets (Bld) [#/Vol] 123 10*3/uL Low 150-450 [facility] Comment on above: Performed By: #### L 500.4050, L100.0500, L3300.0700, L300.4310, L300.3900 #### [facility] Laboratory [address] [place], [address] RBC (Bld) [#/Vol] 4.81 10*6/uL Normal 4.2-5.4 [facility] Comment on above: Performed By: #### L 500.4050, L100.0500, L3300.0700, L300.4310, L300.3900 #### [facility] Laboratory [address] [place], [address] RDW SD 44.4 fl High 35.1-43.9 [facility] Comment on above: Performed By: #### L 500.4050, L100.0500, L3300.0700, L300.4310, L300.3900 #### [facility] Laboratory [address] [place], [address] WBC (Bld) [#/Vol] 5.0 10*3/uL Normal 4.4-11.0 [facility] Comment on above: Performed By: #### L 500.4050, L100.0500, L3300.0700, L300.4310, L300.3900 #### [facility] Laboratory [address] [place], [address] Calculated very low density lipoprotein (VLDL) cholesterol measurementOrdered By: Wilfredo Martino on 07-05-2024 Calculated very low density lipoprotein (VLDL) cholesterol measurement 18 mg/dL 5-40 [facility] VLDL Cholesterol 18 mg/dL 5-40 [facility] Carbon dioxide, total [Moles /volume] in Central venous bloodOrdered By: Wilfredo Martino on 07-05-2024 CO2 [Moles/Vol] 19.3 mmol/L Low 21.0-32.0 [facility] Cardiology Visit Reporton Cardiology Visit Report [facility] [address] [place] [address] OFFICE VISIT Date of Service: 07/05/24 MR#: [id number] Acct: [id number] Name: XIOMARACARLOS Alice Rep #: [id number] : 1960 Provider: Dr. Lnadon Ibarra MD Age/Sex: 64/F Location[place] [facility] Status: Signed HPI HPI History of Present Illness Details: 64-year-old lady with a history of chronic tobacco use who has been complaining of chest discomfort described as a tightness which lasts for few minutes daily midsternal associated with shortness of breath with activity and has also had fatigue. She also complains of near syncope on occasion. She does have over 26-nyyr-vjho history of tobacco use. She has had occasional dizziness no julio syncope. She presents for evaluation of the above after she underwent a CT scan for cancer screening and was noted to have multiple atherosclerotic plaquing noted on the CT scan. Her lipid profile demonstrates a total cholesterol of 158 HDL of 43 LDL of 96 her physical exam is unremarkable her electrocardiogram demonstrates sinus rhythm with premature ventricular complexes and a rate of 86 bpm. 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 Accompanied by: Self Is patient in pain?: No Allergies latex Adverse Reaction (Verified 07/05/24 14:14) Hives morphine Adverse Reaction (Verified 07/05/24 14:14) Hives Medications ???Medication ???Instructions ???Recorded ???Confirmed ???Type Xisaxan 550 mg PO BID 02/13/16 07/05/24 Hi story spironolactone 100 mg tablet 100 mg PO DAILY 02/13/16 07/05/24 History (Aldactone) cyclobenzaprine 10 mg tablet 10 mg PO TID 05/19/24 07/05/24 His tory levothyroxine 50 mcg tablet 50 mcg PO QDAY 05/19/24 07/05/24 H istory lumateperone 42 mg capsule 42 mg PO QDAY 05/19/24 07/05/24 Hi story (Caplyta) potassium chloride 20 mEq 20 meq PO QDAY 05/19/24 07/05/24 H istory tablet,extended release(part/cryst) (Klor-Con M) sumatriptan succinate 50 mg tablet 50 mg PO DAILY 05/19/24 07/05/24 History fluticasone fur. 100 mcg-umeclid 1 inh inhalation Q24H 07/05/2412/21 History 62.5 mcg-vilant 25 mcg inhalat.powder (Trelegy Ellipta) metoprolol succinate 25 mg 25 mg PO QDAY #60 tabs 07/05/24 Rx tablet,extended release 24 hr (Toprol XL) zolpidem 5 mg tablet 5 mg PO QHS PRN 07/05/24 07/05/24 History Have you fallen in the past year?: No PFSH Medical History Depression Chest pain Hepatitis C Emphysema lung Hypothyroidism Migraines Vitamin D deficiency Cirrhosis of liver Bipolar 1 disorder Insomnia Nicotine dependence Compression fracture of thoracic spine, non-traumatic CAD (coronary artery disease) Surgical History History of hip surgery Family History Father Heart disease Mother Suicide Social History Smoking Status: Current every day smoker alcohol intake: never substance use type: marijuana ROS Const Const: Positive for fatigue and headache(s); Negative for weakness, daytime sleepiness or difficulty sleeping ENT ENT: Positive for headache(s); Negative for dizziness or Nosebleed/epistaxis Cardio Chest Pain: Yes Frequency: daily Character: tightness Onset: other (comes and goes) Location: epigastric and mid sternal Duration: minutes Palpitations: Yes feels like its: skipping Edema: None Resp Respiratory: Positive for SOB with activity; Negative for SOB at rest, SOB orthopnea SOB lying down or Cough GI GI: Positive for nausea; Negative vomiting or heartburn Neuro Neuro: Positive for lightheadedness (once in awhile), near syncope and headache(s); Negative for dizziness or weakness Endo Endo: Positive for fatigue Cardiology Exam Const Appearance: cooperative, healthy appearing, no acute distress, well developed and well groomed Nutritional Appearance: average body habitus and well nourished Orientation: alert, awake and oriented x3 Head Head: normal to inspection, normocephalic and atraumatic Ears: hearing grossly normal bilaterally and external ears normal Nose: external nose normal, nares normal, nasal mucous membranes and turbinates normal, septum normal and no nasal discharge Face and Sinus: face symmetric Mouth: oral mucosae normal, tongue normal, oropharynx normal and moist mucous membranes Teeth and gingiva: dentition normal Throat: sawyer helper (more content not included)... Normal [facility] Chloride assayOrdered By: Johnny Martino on 07-05-2024 Chloride [Moles/Vol] 107 mmol/L 98-108 [facility] Comprehensive Metabolic Prof ilon 07-05-2024 Albumin [Mass/Vol] 4.4 g/dL Normal 3.4-4.8 [facility] Comment on above: Performed By: #### L 500.4050, L100.0500, L3300.0700, L300.4310, L300.3900 #### [facility] Laboratory [address] [place], [place], [address] Albumin/Globulin [Mass ratio] 1.9 {ratio} Normal 0.9-2.4 [facility] Comment on above: Performed By: #### L 500.4050, L100.0500, L3300.0700, L300.4310, L300.3900 #### [facility] Laboratory [address] [place], [address] ALK PHOS 98 U/L Normal 35-104 [facility] Comment on above: Performed By: #### L 500.4050, L100.0500, L3300.0700, L300.4310, L300.3900 #### [facility] Laboratory [address] [place], [address] ALT [Catalytic activity/Vol] 19 U/L Normal <=34 [facility] Comment on above: Performed By: #### L 500.4050, L100.0500, L3300.0700, L300.4310, L300.3900 #### [facility] Laboratory [address] [place], [address] AST [Catalytic activity/Vol] 22 U/L Normal <=31 [facility] Comment on above: Performed By: #### L 500.4050, L100.0500, L3300.0700, L300.4310, L300.3900 #### [facility] Laboratory [address] [place], [address] Bilirubin [Mass/Vol] 0.86 mg/dL Normal 0.00-1.30 [facility] Comment on above: Performed By: #### L 500.4050, L100.0500, L3300.0700, L300.4310, L300.3900 #### [facility] Laboratory [address] [place], [address] BUN/CRE 9.6 RATIO Low 10-20 [facility] Comment on above: Performed By: #### L 500.4050, L100.0500, L3300.0700, L300.4310, L300.3900 #### [facility] Laboratory [address] [place], [address] Calcium [Mass/Vol] 9.2 mg/dL Normal 7.6-11.0 [facility] Comment on above: Performed By: #### L 500.4050, L100.0500, L3300.0700, L300.4310, L300.3900 #### [facility] Laboratory [address] [place], [address] Chloride [Moles/Vol] 107 mmol/L Normal 98-108 [facility] Comment on above: Performed By: #### L 500.4050, L100.0500, L3300.0700, L300.4310, L300.3900 #### [facility] Laboratory [address] [place], [address] CO2 [Moles/Vol] 19.3 mmol/L Low 21.0-32.0 [facility] Comment on above: Performed By: #### L 500.4050, L100.0500, L3300.0700, L300.4310, L300.3900 #### [facility] Laboratory [address] [place], [address] Creatinine [Mass/Vol] 0.78 mg/dL Normal 0.70-1.20 [facility] Comment on above: Performed By: #### L 500.4050, L100.0500, L3300.0700, L300.4310, L300.3900 #### [facility] Laboratory [address] [place], [address] GAP 12 Normal 5-15 [facility] Comment on above: Performed By: #### L 500.4050, L100.0500, L3300.0700, L300.4310, L300.3900 #### [facility] Laboratory [address] [place], [address] GFR/1.73 sq M.predicted among non-blacks MDRD (S/P/Bld) [Vol rate/Area] 84 mL/min/{1.73_m2} Normal >60 [facility] Comment on above: Result Comment: mL/m in/1.73m2 CKD-EPI Creatinine Equation (2020) Performed By: #### L 500.4050, L100.0500, L3300.0700, L300.4310, L300.3900 #### [facility] Laboratory [address] [place], [address] Globulin (S) [Mass/Vol] 2.3 g/dL Normal 2.2-4.2 [facility] Comment on above: Performed By: #### L 500.4050, L100.0500, L3300.0700, L300.4310, L300.3900 #### [facility] Laboratory [address] [place], [address] Glucose [Mass/Vol] 105 mg/dL High 70-99 [facility] Comment on above: Performed By: #### L 500.4050, L100.0500, L3300.0700, L300.4310, L300.3900 #### [facility] Laboratory [address] [place], [address] Potassium [Moles/Vol] 3.6 mmol/L Normal 3.3-5.1 [facility] Comment on above: Performed By: #### L 500.4050, L100.0500, L3300.0700, L300.4310, L300.3900 #### [facility] Laboratory [address] [place], [address] Sodium [Moles/Vol] 138 mmol/L Normal 133-145 [facility] Comment on above: Performed By: #### L 500.4050, L100.0500, L3300.0700, L300.4310, L300.3900 #### [facility] Laboratory [address] [place], [address] T PROT 6.7 g/dL Normal 5.9-8.4 [facility] Comment on above: Performed By: #### L 500.4050, L100.0500, L3300.0700, L300.4310, L300.3900 #### [facility] Laboratory [address] [place], [place], [id number] Urea nitrogen [Mass/Vol] 8 mg/dL Normal 4-19 [facility] Comment on above: Performed By: #### L 500.4050, L100.0500, L3300.0700, L300.4310, L300.3900 #### [facility] Laboratory [address] [place], [place], [address] Eosinophil percentageOrdered By: Wilfredo Martino on 07-05-2024 Eosinophils/100 WBC (Bld) 0.0 % 0-5 [facility] Erythrocyte distribution wid th (RBC) [Ratio]Ordered By: Wilfredo Martino on 07-05-2024 Erythrocyte distribution width (RBC) [Entitic vol] 44.4 fL High 35.1-43.9 [facility] Erythrocyte distribution wid th ratioOrdered By: Wilfredo Martino on 07-05-2024 Erythrocyte distribution width (RBC) [Ratio] 13.8 % 11.6-14.6 [facility] Erythrocyte distribution wid th standard deviationOrdered By: [facility] on 07-05-2024 Erythrocyte distribution width (RBC) [Ratio] 44.4 fl High 35.1-43.9 [facility] GFR/1.73 sq M.predicted reuben g non-blacks MDRD (S/P/Bld) [Vol rate/Area]Ordered By: Wilfredo Martino on 07-05-2024 Estimated GFR (MDRD) Non-Af Amer 84 >60 [facility] Comment on above: mL/min/1.73m2 CKD-EP I Creatinine Equation (2020) Glomerular filtration rate ( GFR) estimation/1.73 sq m using serum, plasma, or whole bOrdered By: Wilfredo Martino on 07-05-2024 GFR/1.73 sq M.predicted among non-blacks MDRD (S/P/Bld) [Vol rate/Area] 84 mL/min/{1.73_m2} >60 [facility] Comment on above: mL/min/1.73m2 CKD-EP I Creatinine Equation (2020) Hematocrit Auto (Bld) [Volum e fraction]Ordered By: Wilfredo Martino on 07-05-2024 Hematocrit (Bld) [Volume fraction] 42.1 % 37-47 [facility] Hemoglobin measurementOrdere d By: Wilfredo Martino on 07-05-2024 Hemoglobin (Bld) [Mass/Vol] 14.4 g/dL 12.0-15.0 [facility] Immature granulocytes/100 WB C Auto (Bld)Ordered By: Wilfredo Martino on 07-05-2024 Immature granulocytes/100 WBC (Bld) 0.400 % 0.0-0.9 [facility] Comment on above: IG% - Immature Granu locytes (promyelocytes, myelocytes and metamyelocytes) > 1% indicates that a LEFT SHIFT is Present. LDL calc ser/plasOrdered By: Wilfredo Martino on 07-05-2024 Cholesterol in LDL [Mass/Vol] 103 mg/dL [facility] Comment on above: Uzvaxdeiyt=707-906 m g/dL & Higher Sbgd=565 mg/dL or greater LDL Cholesterol, Calculated 103 mg/dL [facility] Comment on above: Gfvipzqpwb=716-421 m g/dL & Higher Ujmx=665 mg/dL or greater Laboratory - Chemistry and C hemistry - challengeOrdered By: Wilfredo Martino on 07-05-2024 AST [Catalytic activity/Vol] 22 U/L <32 [facility] Lipid Profileon 07-05-2024 CHOL:HDL 3.91 Normal [facility] Comment on above: Performed By: #### L 500.4050, L100.0500, L3300.0700, L300.4310, L300.3900 #### [facility] Laboratory [address] [place], [address] Cholesterol [Mass/Vol] 162 mg/dL Normal <=200 [facility] Comment on above: Result Comment: Chol esterol level, Desirable <200 mg/dL Borderline high cholesterol 200-239 mg/dL High cholesterol >=240 mg/dL Recommendations of the NCEP Adult Treatment Panel for the following risk-cutoff thresholds for the [place] population. Performed By: #### L 500.4050, L100.0500, L3300.0700, L300.4310, L300.3900 #### [facility] Laboratory [address] [place], [address] Cholesterol in HDL [Mass/Vol] 41 mg/dL Normal [facility] Comment on above: Result Comment: Lila onal Cholesterol Education Program (NCEP) guidelines: <40 mg/dL: Low HDL-cholesterol (major risk factor for CHD) >= 60 mg/dL: High HDL-cholesterol (negative risk factor for CHD) HDL-cholesterol is affected by a number of factors, e.g. smoking, exercise, hormones, sex and age. Performed By: #### L 500.4050, L100.0500, L3300.0700, L300.4310, L300.3900 #### [facility] Laboratory [address] [place], [address] Cholesterol in LDL [Mass/Vol] 103 mg/dL Normal [facility] Comment on above: Result Comment: Bord leqtrp=292-717 mg/dL Higher Gytx=579 mg/dL or greater Performed By: #### L 500.4050, L100.0500, L3300.0700, L300.4310, L300.3900 #### [facility] Laboratory [address] [place], [address] Cholesterol in VLDL [Mass/Vol] 18 mg/dL Normal 5-40 [facility] Comment on above: Performed By: #### L 500.4050, L100.0500, L3300.0700, L300.4310, L300.3900 #### [facility] Laboratory [address] [place], [address] Triglyceride [Mass/Vol] 89 mg/dL Normal [facility] Comment on above: Result Comment: The drugs N-Acetylcysteine and Metamizole may falsely depress this assay. Normal range: <150 mg/dL Borderline High: 150-199 mg/dL High: 200-499 mg/dL Very High: >500 mg/dL Performed By: #### L 500.4050, L100.0500, L3300.0700, L300.4310, L300.3900 #### [facility] [place] [address] [place], [address] Lymphocytes Auto (Unsp spec) [#/Vol]Ordered By: Wilfredo Martino on 07-05-2024 Lymphocytes (Bld) [#/Vol] 1.21 10*3/uL 0.83-4.51 [facility] Lymphocytes/100 WBC Auto (Un sp spec)Ordered By: Wilfredo Martino on 07-05-2024 Lymphocytes/100 WBC (Bld) 24.4 % 19-41 [facility] MCV (mean corpuscular volume ) determinationOrdered By: Wilfredo Martino on 07-05-2024 MCV (RBC) [Entitic vol] 87.5 fL 81-99 [facility] Mean corpuscular hemoglobin (MCH) determinationOrdered By: Wilfredo Martino on 07-05-2024 MCH (RBC) [Entitic mass] 29.9 pg 27.0-32.0 [facility] Mean corpuscular hemoglobin concentration (MCHC) determinationOrdered By: Wilfredo Martino on 07-05-2024 MCHC (RBC) [Mass/Vol] 34.2 g/dL 32-36 [facility] Mean platelet volume determi nationOrdered By: Wilfredo Martino on 07-05-2024 Platelet mean volume (Bld) [Entitic vol] 10.7 fL 6.2-12.0 [facility] Monocyte percentageOrdered B y: Wilfredo Martino on 07-05-2024 Monocytes/100 WBC (Bld) 8.1 % 0-10 [facility] Neutrophil percentageOrdered By: Wilfredo Martino on 07-05-2024 Neutrophils/100 WBC (Bld) 66.9 % 47-70 [facility] Nucleated red blood cell per centageOrdered By: Wilfredo Martino on 07-05-2024 Nucleated RBC/100 WBC (Bld) [Ratio] 0 % 0-5 [facility] Platelet countOrdered By: Johnny Martino on 07-05-2024 Platelets (Bld) [#/Vol] 123 10*3/uL Low 150-450 [facility] Potassium (Unsp spec) [Mass/ Vol]Ordered By: Wilfredo Martino on 07-05-2024 Potassium [Moles/Vol] 3.6 mmol/L 3.3-5.1 [facility] Potassium measurement (mass/ volume)Ordered By: Wilfredo Martino on 07-05-2024 Potassium (Unsp spec) [Mass/Vol] 3.6 mmol/L 3.3-5.1 [facility] RBC Auto (Bld) [#/Vol]Ordere d By: Wilfredo Martino on 07-05-2024 RBC (Bld) [#/Vol] 4.81 10*6/uL 4.2-5.4 [facility] Screening total cholesterol/ high density lipoprotein (HDL) cholesterol ratioOrdered By: Wilfredo Martino on 07-05-2024 Cholesterol.total/Chol esterol in HDL [Mass ratio] 3.91 {ratio} [facility] Serum creatinine measurement (mass/volume)Ordered By: Wilfredo Martino 07-05-2024 Creatinine [Mass/Vol] 0.78 mg/dL 0.70-1.20 [facility] Serum globulin measurementOr dered By: Wilfredo Martino 07-05-2024 Globulin (S) [Mass/Vol] 2.3 g/dL 2.2-4.2 [facility] Serum glucose measurement (m ass/volume)Ordered By: Wilfredo Martino 07-05-2024 Glucose [Mass/Vol] 105 mg/dL High 70-99 [facility] Serum or plasma alanine paez otransferase (ALT) measurementOrdered By: Wilfredo Martino 07-05-2024 ALT [Catalytic activity/Vol] 19 U/L <35 [facility] Serum or plasma albumin angelica urement (mass/volume)Ordered By: Wilfredo Martino 07-05-2024 Albumin [Mass/Vol] 4.4 g/dL 3.4-4.8 [facility] Serum or plasma albumin/glob ulin mass ratioOrdered By: Wilfredo Martino 07-05-2024 Albumin/Globulin [Mass ratio] 1.9 {ratio} 0.9-2.4 [facility] Serum or plasma alkaline christelle sphatase measurementOrdered By: Wilfredo Martino 07-05-2024 ALP [Catalytic activity/Vol] 98 U/L 35-104 [facility] Serum or plasma calcium angelica urement (mass/volume)Ordered By: Wilfredo Martino on 07-05-2024 Calcium [Mass/Vol] 9.2 mg/dL 7.6-11.0 [facility] Serum or plasma cholesterol in HDL measurement (mass/volume)Ordered By: Wilfredo Martino on 07-05-2024 Cholesterol in HDL [Mass/Vol] 41 mg/dL >40 [facility] Comment on above: National Cholesterol Education Program (NCEP) guidelines:<40 mg/dL: Low HDL-cholesterol (major risk factor for CHD)>= 60 mg/dL: High HDL-cholesterol (negative risk factor for CHD)HDL-cholesterol is affected by a number of factors, e.g. smoking, exercise, hormones, sex and age. Serum or plasma cholesterol measurement (mass/volume)Ordered By: Wilfredo Martino on 07-05-2024 Cholesterol [Mass/Vol] 162 mg/dL <201 [facility] Comment on above: Cholesterol level, D esirable <200 mg/dLBorderline high cholesterol 200-239 mg/dLHigh cholesterol >=240 mg/dLRecommendations of the NCEP Adult Treatment Panel for the following risk-cutoff thresholds for the [place] population. Serum or plasma urea nitroge n measurement (mass/volume)Ordered By: Wilfredo Martino on 07-05-2024 Urea nitrogen [Mass/Vol] 8 mg/dL 4-19 [facility] Sodium levelOrdered By: Wilfredo Martino on 07-05-2024 Sodium [Moles/Vol] 138 mmol/L 133-145 [facility] TSH DL <= 0.005 mIU/L QnOrde red By: Wilfredo Martino on 07-05-2024 Thyroid Stimulating Hormone (TSH) 1.700 uIU/mL 0.300-4.20 0 [facility] TSH Qn 1.700 uIU/mL 0.300-4.20 0 [facility] Thyroid Stim Hormone (TSH)on 07-05-2024 TSH 1.700 uIU/mL Normal 0.300-4.20 0 [facility] Comment on above: Performed By: #### L 500.4050, L100.0500, L3300.0700, L300.4310, L300.3900 #### [facility] Laboratory [address] [place], [address] Total proteinOrdered By: Wilfredo Martino on 07-05-2024 Protein [Mass/Vol] 6.7 g/dL 5.9-8.4 [facility] Triglycerides measurementOrd ered By: Wilfredo Martino on 07-05-2024 Triglyceride [Mass/Vol] 89 mg/dL <199 [facility] Comment on above: The drugs N-Acetylcy steine and Metamizole may falsely depress this assay. Normal range: <150 mg/dLBorderline High: 150-199 mg/dLHigh: 200-499 mg/dLVery High: >500 mg/dL Vitamin D, 25-hydroxyOrdered By: Wilfredo Martino on 07-05-2024 Vitamin D 25-Hydroxy 16.4 ng/mL Low 30-100 [facility] Comment on above: Vitamin D StatusDefi ciency: <20 ng/mL (50nmol/L)Insufficiency: 20-30 ng/mL (50-75 nmol/L)Sufficiency: 30-100 ng/mL (75-250 nmol/L)Toxicity: >100 ng/mL (>250 nmol/L) Vitamin D,25 Hydroxyon 07-05 Vitamin D 25-OH 16.4 ng/mL Low 30-100 [facility] Comment on above: Result Comment: Laura min D Status Deficiency: <20 ng/mL (50nmol/L) Insufficiency: 20-30 ng/mL (50-75 nmol/L) Sufficiency: 30-100 ng/mL (75-250 nmol/L) Toxicity: >100 ng/mL (>250 nmol/L) Performed By: #### L 500.4050, L100.0500, L3300.0700, L300.4310, L300.3900 #### [facility] Laboratory [address] [place], [place], [id number] White blood cell (WBC) count Ordered By: Wilfredo Martino on 07-05-2024 WBC (Bld) [#/Vol] 5.0 10*3/uL 4.4-11.0 [facility] Bone density reportOrdered B y: Lane Velazquez on 06-06-2024 Study report Skeletal system DXA [facility] Imaging Services [address] [place] [address] Dexa Bone Density Study MR#: [id number] Acct: [id number] Name: CARLOS OLIVER Rep #: [id number] : 1960 F 64 From: Massiel Velazquez MD PCP: Dr. Wilfredo Martino MD Status: REG C LI Study:Dexa Bone Density Study Date of Exam: 06/06/24 Exam# [id number] Ordering Dr: Wilfredo Martino MD PROCEDURE: DEXA BONE DENSITY STUDY REASON FOR EXAM: F, age 64 y/o . Postmenopausal. TECHNIQUE: DEXA scan of the left hip COMPARISON: None. FINDINGS: Left Femur Total: g/cm2 (0.504)/T-score (-3.6)/Z-score (-2.4) Left Femoral Neck: g/cm2 (0.350)/T-score (-4.5)/Z-score (-3.0) BD/Dexa Bone Density Study IMPRESSION: The patient is considered osteoporotic as outlined below according to World Andreas Organization (WHO) criteria with a high fracture risk. Reading Location: [place] [address] CC: Dr. Wilfredo Martino MD ~ Towel Weaver: Signed [facility] Dexa Bone Density Studyon Dexa Bone Density Study [facility] Imaging Services [address] [place] [address] Dexa Bone Density Study MR#: [id number] Acct: [id number] Name: CARLOS OLIVER Rep #: [id number] : 1960 F 64 From: Lane sunshine MD PCP: Dr. Wilfredo Martino MD Status: REG CLI Study: Dexa Bone Density Study Date of Exam: 06/06/24 Exam# [id number] Ordering Dr: Wilfredo Martino MD PROCEDURE: DEXA BONE DENSITY STUDY REASON FOR EXAM: F, age 64 y/o . Postmenopausal. TECHNIQUE: DEXA scan of the left hip COMPARISON: None. FINDINGS: Left Femur Total: g/cm2 (0.504)/T-score (-3.6)/Z-score (-2.4) Left Femoral Neck: g/cm2 (0.350)/T-score (-4.5)/Z-score (-3.0) BD/Dexa Bone Density Study IMPRESSION: The patient is considered osteoporotic as outlined below according to World Andreas Organization (WHO) criteria with a high fracture risk. Reading Location: [place] [address] CC: Dr. Wilfredo Martino MD Towel Weaver: Signed Normal [facility] Serum or plasma thyroid stim ulating hormone (TSH) measurement (units/volume)Ordered By: Wilfredo Martino on 05-18-2024 TSH Qn 3.170 uIU/mL 0.358-3.74 0 [facility] TSH QnOrdered By: Wilfredo Martino o n 05-18-2024 Thyroid Stimulating Hormone (TSH) 3.170 uIU/mL 0.358-3.74 0 [facility] Thyroid Stim Hormone (TSH)on 05-18-2024 TSH 3.170 uIU/mL Normal 0.358-3.74 0 [facility] Comment on above: Performed By: #### L 500.4050, L100.0500, L3300.0700, L300.4310, L300.3900 #### [facility] Laboratory [address] [facility] [place], [place], [address] Low Dose CT Lung Screeningon 05-11-[address] Lung Screening [facility] Imaging Services [address] [place], [place] [address] Low Dose CT Lung Screening MR#: [id number] Acct: [id number] Name: CARLOS OLIVER Alice Rep #: [id number] : 1960 F 63 From: [facility] PCP: Dr. Wilfredo Martino MD Status: REG CLI Study: Low Dose CT Lung Screening Date of Exam: 05/11 Exam# [id number] Ordering Dr: Wilfredo Martino MD PROCEDURE: LOW DOSE CT LUNG SCREENING REASON FOR EXAM: Nicotine dependence. 51 years smoking history. TECHNIQUE: Low Dose CT Lung Screening without contrast. Coronal and sagittal 2D reformatted images were provided. COMPARISON: None. FINDINGS: Cardiac size is within normal limits. Thoracic aorta demonstrates a normal caliber with atherosclerotic calcifications. Multivessel coronary artery calcifications are identified. No lymphadenopathy is present. No pericardial or pleural effusions identified. Evaluation of the lung parenchyma demonstrates no consolidation or pneumothorax. Emphysematous changes are identified. Central airway is patent. Mild dependent atelectatic changes are present bilaterally. There is atelectasis or scarring in the lingula. There is a 2 mm nodule in the anterior right upper lobe (image 21 of 199). There is a subpleural 4 mm right upper lobe pulmonary nodule laterally (image 24). There is a 2 mm subpleural nodule in the anterolateral right upper lobe (image 45). There is a subpleural 3.5 mm nodule in the lateral aspect of the right upper lobe (image 75). There is a 2 mm nodule in the left upper lobe posteriorly (image 21). Upper abdomen demonstrates no acute findings. Degenerative changes are identified. There are chronic appearing multilevel compression fractures involving the thoracolumbar spine with accentuated kyphotic curvature of the thoracic spine. There is an old fracture deformity of the sternum. CT/Low Dose CT Lung Screening IMPRESSION: 1. No suspicious pulmonary nodule. 2. Small subcentimeter bilateral pulmonary nodules with the largest measuring 4 mm. 3. Multivessel coronary artery calcifications. 4. Emphysema. 5. Chronic anterior wedge compression fractures with accentuated kyphotic curvature of the thoracic spine. LungRADS: 2, benign. Recommendation: Annual CT lung cancer screening exam. One or more dose reduction techniques were used (e.g., Automated exposure control, adjustment of the mA and/or kV according to patient size, use of iterative reconstruction technique). The following information is provided for reference:Lung-RADS 2022 Assessment Categories. Additional information involving Lung-RADS is available at www.acr.org. 0-INCOMPLETE 1-NEGATIVE:No nodules or definitely benign nodules. Complete, central, popcorn, or centric ring calcifications OR fat containing 2-BENIGN APPEARANCE (based on imaging features or indolent behavior). Juxtapleural nodule: < 10mm AND solid; smooth margins; oval, lentiform, or triangular shape Solid nodule: <6mm at baseline or new< 4mm Part solid Nodule: < 6mm total mean diameter at baseline Nonsolid nodule:(GGN) < 30mm OR >=30mm stable or slowly growing Airway nodule, subsegmental at baseline, new, or stable Category 3 nodule stable or decreased in size at 6-month follow-up CT or Category 3 or 4A nodules that resolve on follow-up OR category 4B findings proven to be benign following diagnotic work up. 3 - Probably Benign (Based on imaging features or behavior) Solid Nodule: >= 6 to <8mm at baseline OR new 4 to <6mm Part-solid nodule: >= 6mm toal mean diam. with solid component <6mm at baseline OR new < 6mm total mean diam. Non-solid nodule: GGN >= 30mm at baseline or new Atypical pulmonary cyst: Growing cystic component (mean diam.) of thick-walled cyst Category 4A nodule stable or decreased in size at 3-month follow-up CT (excl.airway). 4A - Suspicious Solid nodule: >=8 to < 15mm at baseline OR growing < 8mm OR new 6 to < 8mm Part solid nodule: >= 6mm total mean diam. w/ solid component >=6mm to < 8mm at baseline OR new or growing < 4mm solid component Airway nodule, segmental or more proximal at baseline or new Atypical pulmonary cyst: Thick-walled OR multilocular at baseline OR becomes multilocular 4B - Very Suspicious Airway nodule, segmental or more proximal, and stable or growing Solid nodule: >= 15mm at baseline OR new or growing >= 8mm Part solid nodule: Solid component >= 8mm OR new or growing >= 4mm solid component Atypical pulmonary cyst: Thick-walled with growing wall thickness/nodularity OR Growing multilocular (mean diam.) OR Multilocular with increased loculation or new/increased opacity Slow-growing solid or part solid nodule w/ growth over multiple screening exams 4X - Very Suspicious Category 3 or 4 nodules with additional features that increase the suspicion for lung cancer. S - Clinically Si (more content not included)... Normal [facility] [id number] DOrdered By: Kathryn Martino on 04-06-2024 Vitamin D 25-Hydroxy 15.7 ng/mL [facility] Comment on above: Vitamin D 25(OH) Sta tus Range Deficiency <20 ng/mL (50nmol/L) Insufficiency 20 - 30 ng/mL (50 - 75 nmol/L) Sufficiency 30 - 100 ng/mL (75 - 250 nmol/L) Toxicity >100 ng/mL (>250 nmol/L) Absolute neutrophil countOrd ered By: Wilfredo Martino on 04-06-2024 Neutrophils (Bld) [#/Vol] 3.3 10*3/uL 2.0-7.7 [facility] Albumin to globulin ratioOrd ered By: Wilfreod Martino on 04-06-2024 Albumin/Globulin [Mass ratio] 1.2 {ratio} 0.9-2.4 [facility] Basophil percentageOrdered B y: Wilfredo Martino on 04-06-2024 Basophils/100 WBC (Bld) 0.2 % 0-1 [facility] Bilirubin, totalOrdered By: Wilfredo Martino on 04-06-2024 Bilirubin [Mass/Vol] 0.50 mg/dL 0.20-1.00 [facility] Comment on above: For patients on eltr ombopag therapy, use of Dimension [place] TBIL is not recommended. Blood urea nitrogen (BUN)/cr eatinine ratioOrdered By: Wilfredo Martino on 04-06-2024 Urea nitrogen/Creatinine [Mass ratio] 12.4 mg/mg 10-20 [facility] CBC W/Diff, Automatedon Absolute Lymph 1.13 X10 3/uL Normal 0.83-4.51 [facility] Comment on above: Performed By: #### L 500.4050, L100.0500, L3300.0700, L300.4310, L300.3900 #### [facility] Laboratory [address] [place], [address] Absolute Neut 3.3 X10 3/uL Normal 2.0-7.7 [facility] Comment on above: Performed By: #### L 500.4050, L100.0500, L3300.0700, L300.4310, L300.3900 #### [facility] Laboratory [address] [place], [address] Basophils/100 WBC (Bld) 0.2 % Normal 0-1 [facility] Comment on above: Performed By: #### L 500.4050, L100.0500, L3300.0700, L300.4310, L300.3900 #### [facility] Laboratory [address] [place], [address] Eosinophils/100 WBC (Bld) 0.0 % Normal 0-5 [facility] Comment on above: Performed By: #### L 500.4050, L100.0500, L3300.0700, L300.4310, L300.3900 #### [facility] Laboratory [address] [place], [address] Erythrocyte distribution width (RBC) [Ratio] 12.8 % Normal 11.6-14.6 [facility] Comment on above: Performed By: #### L 500.4050, L100.0500, L3300.0700, L300.4310, L300.3900 #### [facility] Laboratory [address] [place], [address] Hematocrit (Bld) [Volume fraction] 44.3 % Normal 37-47 [facility] Comment on above: Performed By: #### L 500.4050, L100.0500, L3300.0700, L300.4310, L300.3900 #### [facility] Laboratory [address] [place], [address] Hemoglobin (Bld) [Mass/Vol] 14.3 g/dL Normal 12.0-15.0 [facility] Comment on above: Performed By: #### L 500.4050, L100.0500, L3300.0700, L300.4310, L300.3900 #### [facility] Laboratory [address] [place], [address] IG% 0.200 Normal 0.0-0.9 [facility] Comment on above: Result Comment: IG% - Immature Granulocytes (promyelocytes, myelocytes and metamyelocytes) > 1% indicates that a LEFT SHIFT is Present. Performed By: #### L 500.4050, L100.0500, L3300.0700, L300.4310, L300.3900 #### [facility] Laboratory [address] [place], [address] Lymphocytes/100 WBC (Bld) 23.6 % Normal 19-41 [facility] Comment on above: Performed By: #### L 500.4050, L100.0500, L3300.0700, L300.4310, L300.3900 #### [facility] Laboratory [address] [place], [address] MCH (RBC) [Entitic mass] 29.7 pg Normal 27.0-32.0 [facility] Comment on above: Performed By: #### L 500.4050, L100.0500, L3300.0700, L300.4310, L300.3900 #### [facility] Laboratory [address] [place], [address] MCHC (RBC) [Mass/Vol] 32.3 g/dL Normal 32-36 [facility] Comment on above: Performed By: #### L 500.4050, L100.0500, L3300.0700, L300.4310, L300.3900 #### [facility] Laboratory [address] [place], [address] MCV (RBC) [Entitic vol] 91.9 fL Normal 81-99 [facility] Comment on above: Performed By: #### L 500.4050, L100.0500, L3300.0700, L300.4310, L300.3900 #### [facility] Laboratory [address] [place], [address] Monocytes/100 WBC (Bld) 6.5 % Normal 0-10 [facility] Comment on above: Performed By: #### L 500.4050, L100.0500, L3300.0700, L300.4310, L300.3900 #### [facility] Laboratory [address] [place], [address] Neutrophils/100 WBC (Bld) 69.5 % Normal 47-70 [facility] Comment on above: Performed By: #### L 500.4050, L100.0500, L3300.0700, L300.4310, L300.3900 #### [facility] Laboratory [address] [place], [address] Nucleated RBC (Bld) [#/Vol] 0 10*3/uL Normal 0-5 [facility] Comment on above: Performed By: #### L 500.4050, L100.0500, L3300.0700, L300.4310, L300.3900 #### [facility] Laboratory [address] [place], [address] Platelet mean volume (Bld) [Entitic vol] 10.8 fL Normal 6.2-12.0 [facility] Comment on above: Performed By: #### L 500.4050, L100.0500, L3300.0700, L300.4310, L300.3900 #### [facility] Laboratory [address] [place], [address] Platelets (Bld) [#/Vol] 116 10*3/uL Low 150-450 [facility] Comment on above: Performed By: #### L 500.4050, L100.0500, L3300.0700, L300.4310, L300.3900 #### [facility] Laboratory [address] [place], [address] RBC (Bld) [#/Vol] 4.82 10*6/uL Normal 4.2-5.4 [facility] Comment on above: Performed By: #### L 500.4050, L100.0500, L3300.0700, L300.4310, L300.3900 #### [facility] Laboratory [address] [place], [address] RDW SD 43.4 fl Normal 35.1-43.9 [facility] Comment on above: Performed By: #### L 500.4050, L100.0500, L3300.0700, L300.4310, L300.3900 #### [facility] Laboratory [address] [place], [address] WBC (Bld) [#/Vol] 4.8 10*3/uL Normal 4.4-11.0 [facility] Comment on above: Performed By: #### L 500.4050, L100.0500, L3300.0700, L300.4310, L300.3900 #### [facility] Laboratory [address] [place], [address] Carbon dioxide measurementOr dered By: Wilfredo Martino on 04-06-2024 CO2 [Moles/Vol] 24.0 mmol/L 21.0-32.0 [facility] Chloride measurementOrdered By: Wilfredo Martino on 04-06-2024 Chloride [Moles/Vol] 105 mmol/L 98-107 [facility] Comprehensive Metabolic Prof ilon 04-06-2024 Albumin [Mass/Vol] 3.9 g/dL Normal 3.2-5.0 [facility] Comment on above: Performed By: #### L 500.4050, L100.0500, L3300.0700, L300.4310, L300.3900 #### [facility] Laboratory [address] [place], [address] Albumin/Globulin [Mass ratio] 1.2 {ratio} Normal 0.9-2.4 [facility] Comment on above: Performed By: #### L 500.4050, L100.0500, L3300.0700, L300.4310, L300.3900 #### [facility] Laboratory [address] [place], [address] ALK P 128 U/L High 45-117 [facility] Comment on above: Performed By: #### L 500.4050, L100.0500, L3300.0700, L300.4310, L300.3900 #### [facility] Laboratory [address] [place], [address] ALT [Catalytic activity/Vol] 23 U/L Normal 13-56 [facility] Comment on above: Performed By: #### L 500.4050, L100.0500, L3300.0700, L300.4310, L300.3900 #### [facility] Laboratory [address] [place], [address] AST [Catalytic activity/Vol] 15 U/L Normal 15-37 [facility] Comment on above: Performed By: #### L 500.4050, L100.0500, L3300.0700, L300.4310, L300.3900 #### [facility] Laboratory [address] [place], [address] Bilirubin [Mass/Vol] 0.50 mg/dL Normal 0.20-1.00 [facility] Comment on above: Result Comment: For patients on eltrombopag therapy, use of Dimension [place] TBIL is not recommended. Performed By: #### L 500.4050, L100.0500, L3300.0700, L300.4310, L300.3900 #### [facility] Laboratory [address] [place], [address] BUN/CRE 12.4 RATIO Normal 10-20 [facility] Comment on above: Performed By: #### L 500.4050, L100.0500, L3300.0700, L300.4310, L300.3900 #### [facility] Laboratory [address] [place], [address] CA,Total 9.1 mg/dL Normal 8.5-10.1 [facility] Comment on above: Performed By: #### L 500.4050, L100.0500, L3300.0700, L300.4310, L300.3900 #### [facility] Laboratory [address] [place], [address] Chloride [Moles/Vol] 105 mmol/L Normal 98-107 [facility] Comment on above: Performed By: #### L 500.4050, L100.0500, L3300.0700, L300.4310, L300.3900 #### [facility] Laboratory [address] [place], [address] CO2 [Moles/Vol] 24.0 mmol/L Normal 21.0-32.0 [facility] Comment on above: Performed By: #### L 500.4050, L100.0500, L3300.0700, L300.4310, L300.3900 #### [facility] Laboratory [address] [place], [address] Creatinine [Mass/Vol] 1.05 mg/dL High 0.55-1.02 [facility] Comment on above: Result Comment: The validity of the calculated GFR GFRAA in patients over 70 years has not been determined. Clinical correlation is essential. Performed By: #### L 500.4050, L100.0500, L3300.0700, L300.4310, L300.3900 #### [facility] Laboratory [address] [place], [address] EST GFR - AA 68 mL/min Normal >60 [facility] Comment on above: Result Comment: Afri can Kyr[place]z GFR Calc Performed By: #### L 500.4050, L100.0500, L3300.0700, L300.4310, L300.3900 #### [facility] Laboratory [address] [place], [address] GAP 6 Normal 5-15 [facility] Comment on above: Performed By: #### L 500.4050, L100.0500, L3300.0700, L300.4310, L300.3900 #### [facility] Laboratory [address] [place], [address] GFR/1.73 sq M.predicted among non-blacks MDRD (S/P/Bld) [Vol rate/Area] 56 mL/min/{1.73_m2} Low >60 [facility] Comment on above: Result Comment: Non- GFR Calc Performed By: #### L 500.4050, L100.0500, L3300.0700, L300.4310, L300.3900 #### [facility] Laboratory [address] [place], [address] Globulin (S) [Mass/Vol] 3.3 g/dL Normal 2.2-4.2 [facility] Comment on above: Performed By: #### L 500.4050, L100.0500, L3300.0700, L300.4310, L300.3900 #### [facility] Laboratory [address] [place], [address] Glucose [Mass/Vol] 93 mg/dL Normal 74-106 [facility] Comment on above: Performed By: #### L 500.4050, L100.0500, L3300.0700, L300.4310, L300.3900 #### [facility] Laboratory [address] [place], [address] Potassium [Moles/Vol] 3.8 mmol/L Normal 3.5-5.1 [facility] Comment on above: Performed By: #### L 500.4050, L100.0500, L3300.0700, L300.4310, L300.3900 #### [facility] Laboratory [address] [place], [address] Sodium [Moles/Vol] 136 mmol/L Normal 136-145 [facility] Comment on above: Performed By: #### L 500.4050, L100.0500, L3300.0700, L300.4310, L300.3900 #### [facility] Laboratory [address] [place], [address] T PROT 7.2 g/dL Normal 6.4-8.2 [facility] Comment on above: Performed By: #### L 500.4050, L100.0500, L3300.0700, L300.4310, L300.3900 #### [facility] Laboratory [address] [place], [address] Urea nitrogen [Mass/Vol] 13 mg/dL Normal 7-18 [facility] Comment on above: Performed By: #### L 500.4050, L100.0500, L3300.0700, L300.4310, L300.3900 #### [facility] Laboratory [address] [place], [address] Eosinophil percentageOrdered By: Wilfredo Martino 04-06-2024 Eosinophils/100 WBC (Bld) 0.0 % 0-5 [facility] Erythrocyte distribution wid th ratioOrdered By: Wilfredo Martino 04-06-2024 Erythrocyte distribution width (RBC) [Ratio] 12.8 % 11.6-14.6 [facility] Erythrocyte distribution wid th standard deviationOrdered By: Wilfredo Martino on 04-06-2024 Erythrocyte distribution width (RBC) [Entitic vol] 43.4 fL 35.1-43.9 [facility] Estimated glomerular filtrat ion rate (GFR) AmericanOrdered By: Wilfredo Martino on 04-06-2024 Estimated GFR (MDRD) Amer 68 mL/min >60 [facility] Comment on above: GFR Calc Glomerular filtration rate ( GFR) estimationOrdered By: Wilfredo Martino 04-06-2024 Estimated GFR (MDRD) Non-Af Amer 56 mL/min Low >60 [facility] Comment on above: Non- GFR Calc Glucose measurementOrdered B y: Wilfredo Martino on 04-06-2024 Glucose [Mass/Vol] 93 mg/dL 74-106 [facility] Hematocrit Auto (Bld) [Volum e fraction]Ordered By: Wilfredo Martino on 04-06-2024 Hematocrit (Bld) [Volume fraction] 44.3 % 37-47 [facility] Hemoglobin measurementOrdere d By: Wilfredo Martino on 04-06-2024 Hemoglobin (Bld) [Mass/Vol] 14.3 g/dL 12.0-15.0 [facility] High density lipoprotein (HD L) measurementOrdered By: Wilfredo Martino on 04-06-2024 Cholesterol in HDL [Mass/Vol] 43 mg/dL >40 [facility] Comment on above: The drugs N-Acetylcy steine and Metamizole may falsely depress this assay. Reference Range HDL <40 mg/dL Low HDL Cholesterol HDL >or= 60 mg/dL High HDL Cholesterol Immature granulocytes/100 WB C Auto (Bld)Ordered By: Wilfredo Martino on 04-06-2024 Immature granulocytes/100 WBC (Bld) 0.200 % 0.0-0.9 [facility] Comment on above: IG% - Immature Granu locytes (promyelocytes, myelocytes and metamyelocytes) > 1% indicates that a LEFT SHIFT is Present. Laboratory - Chemistry and C hemistry - challengeOrdered By: Wilfredo Martino on 04-06-2024 AST [Catalytic activity/Vol] 15 U/L 15-37 [facility] Lipid Profileon 04-06-2024 Cholesterol [Mass/Vol] 158 mg/dL Normal 200 [facility] Comment on above: Result Comment: <200 mg/dL Desirable 200-240 mg/dL Borderline >240 mg/dL High Risk Performed By: #### L 500.4050, L100.0500, L3300.0700, L300.4310, L300.3900 #### [facility] Laboratory [address] [place], [address] Cholesterol in HDL [Mass/Vol] 43 mg/dL Normal [facility] Comment on above: Result Comment: The drugs N-Acetylcysteine and Metamizole may falsely depress this assay. Reference Range HDL <40 mg/dL Low HDL Cholesterol HDL >or= 60 mg/dL High HDL Cholesterol Performed By: #### L 500.4050, L100.0500, L3300.0700, L300.4310, L300.3900 #### [facility] Laboratory [address] [place], [address] Cholesterol in LDL [Mass/Vol] 96 mg/dL Normal 0-130 [facility] Comment on above: Performed By: #### L 500.4050, L100.0500, L3300.0700, L300.4310, L300.3900 #### [facility] Laboratory [address] [place], [address] Cholesterol in VLDL [Mass/Vol] 19 mg/dL Normal 5-40 [facility] Comment on above: Performed By: #### L 500.4050, L100.0500, L3300.0700, L300.4310, L300.3900 #### [facility] Laboratory [address] [place], [address] Triglyceride [Mass/Vol] 97 mg/dL Normal [facility] Comment on above: Result Comment: The drugs N-Acetylcysteine and Metamizole may falsely depress this assay. Serum Triglycerides Reference Interval Normal <150 mg/dL Borderline high 150 - 199 mg/dL High 200 - 499 mg/dL Very High > or = 500 mg/dL Performed By: #### L 500.4050, L100.0500, L3300.0700, L300.4310, L300.3900 #### [facility] Laboratory [address] [place], [address] Low density lipoprotein (LDL ) cholesterol measurementOrdered By: Wilfredo Martino on 04-06-2024 Cholesterol in LDL [Mass/Vol] 96 mg/dL 0-130 [facility] Lymphocytes Auto (Unsp spec) [#/Vol]Ordered By: Wilfredo Martino on 04-06-2024 Lymphocytes (Bld) [#/Vol] 1.13 10*3/uL 0.83-4.51 [facility] Lymphocytes/100 WBC Auto (Un sp spec)Ordered By: Wilfredo Martino on 04-06-2024 Lymphocytes/100 WBC (Bld) 23.6 % 19-41 [facility] MCV (mean corpuscular volume ) determinationOrdered By: Wilfredo Martino on 04-06-2024 MCV (RBC) [Entitic vol] 91.9 fL 81-99 [facility] Mean corpuscular hemoglobin (MCH) determinationOrdered By: Wilfredo Martino on 04-06-2024 MCH (RBC) [Entitic mass] 29.7 pg 27.0-32.0 [facility] Mean corpuscular hemoglobin concentration (MCHC) determinationOrdered By: iWlfredo Martino on 04-06-2024 MCHC (RBC) [Mass/Vol] 32.3 g/dL 32-36 [facility] Mean platelet volume determi nationOrdered By: Wilfredo Martino on 04-06-2024 Platelet mean volume (Bld) [Entitic vol] 10.8 fL 6.2-12.0 [facility] Monocyte percentageOrdered B y: Wilfredo Martino on 04-06-2024 Monocytes/100 WBC (Bld) 6.5 % 0-10 [facility] Neutrophil percentageOrdered By: Wilfredo Martino on 04-06-2024 Neutrophils/100 WBC (Bld) 69.5 % 47-70 [facility] Nucleated red blood cell per centageOrdered By: Wilfredo Martino on 04-06-2024 Nucleated RBC/100 WBC (Bld) [Ratio] 0 % 0-5 [facility] Platelet countOrdered By: Johnny Martino on 04-06-2024 Platelets (Bld) [#/Vol] 116 10*3/uL Low 150-450 [facility] Potassium measurementOrdered By: Wilfredo Martino on 04-06-2024 Potassium [Moles/Vol] 3.8 mmol/L 3.5-5.1 [facility] RBC Auto (Bld) [#/Vol]Ordere d By: Wilfredo Martino on 04-06-2024 RBC (Bld) [#/Vol] 4.82 10*6/uL 4.2-5.4 [facility] Serum anion gap measurementO rdered By: Wilfredo Martino on 04-06-2024 Anion gap [Moles/Vol] 6 mmol/L 5-15 [facility] Serum globulin measurementOr dered By: Wilfredo Martino on 04-06-2024 Globulin (S) [Mass/Vol] 3.3 g/dL 2.2-4.2 [facility] Serum or plasma alanine paez otransferase (ALT) measurementOrdered By: Wilfredo Martino 04-06-2024 ALT [Catalytic activity/Vol] 23 U/L 13-56 [facility] Serum or plasma albumin angelica urement (mass/volume)Ordered By: Wilfredo Martino 04-06-2024 Albumin [Mass/Vol] 3.9 g/dL 3.2-5.0 [facility] Serum or plasma alkaline christelle sphatase measurementOrdered By: Wilfredo Martino 04-06-2024 ALP [Catalytic activity/Vol] 128 U/L High 45-117 [facility] Serum or plasma calcium angelica urement (mass/volume)Ordered By: Wilfredo Martino 04-06-2024 Calcium [Mass/Vol] 9.1 mg/dL 8.5-10.1 [facility] Serum or plasma cholesterol measurement (mass/volume)Ordered By: Wilfredo Martino 04-06-2024 Cholesterol [Mass/Vol] 158 mg/dL <200 [facility] Comment on above: <200 mg/dL Desirable 200-240 mg/dL Borderline >240 mg/dL High Risk Serum or plasma creatinine m easurement (mass/volume)Ordered By: Wilfredo Martino 04-06-2024 Creatinine [Mass/Vol] 1.05 mg/dL High 0.55-1.02 [facility] Comment on above: The validity of the calculated GFR & GFRAA in patients over 70 years has not been determined. Clinical correlation is essential. Serum or plasma urea nitroge n measurement (mass/volume)Ordered By: Wilfredo Martino 04-06-2024 Urea nitrogen [Mass/Vol] 13 mg/dL 7-18 [facility] Sodium levelOrdered By: Wilfredo Martino 04-06-2024 Sodium [Moles/Vol] 136 mmol/L 136-145 [facility] TSH QnOrdered By: Wilfredo Martino o n 04-06-2024 Thyroid Stimulating Hormone (TSH) 0.626 uIU/mL 0.358-3.74 0 [facility] Thyroid Stim Hormone (TSH)on 04-06-2024 TSH 0.626 uIU/mL Normal 0.358-3.74 0 [facility] Comment on above: Performed By: #### L 500.4050, L100.0500, L3300.0700, L300.4310, L300.3900 #### [facility] Laboratory [address] [place], [place], [id number] Total proteinOrdered By: Wilfredo Martino on 04-06-2024 Protein [Mass/Vol] 7.2 g/dL 6.4-8.2 [facility] Triglycerides measurementOrd ered By: Wilfredo Martino on 04-06-2024 Triglyceride [Mass/Vol] 97 mg/dL <199 [facility] Comment on above: The drugs N-Acetylcy steine and Metamizole may falsely depress this assay.Serum Triglycerides Reference Interval Normal <150 mg/dL Borderline high 150 - 199 mg/dL High 200 - 499 mg/dL Very High > or = 500 mg/dL Very low density lipoprotein (VLDL) cholesterol measurementOrdered By: Wilfredo Martino on 04-06-2024 VLDL Cholesterol 19 mg/dL 5-40 [facility] Vitamin D,25 Hydroxyon 04-06 Vitamin D 25-OH 15.7 ng/mL Normal [facility] Comment on above: Result Comment: Laura min D 25(OH) Status Range Deficiency <20 ng/mL (50nmol/L) Insufficiency 20 - 30 ng/mL (50 - 75 nmol/L) Sufficiency 30 - 100 ng/mL (75 - 250 nmol/L) Toxicity >100 ng/mL (>250 nmol/L) Performed By: #### L 500.4050, L100.0500, L3300.0700, L300.4310, L300.3900 #### [facility] Laboratory [address] [place], [address] White blood cell (WBC) count Ordered By: Wilfredo Martino on 04-06-2024 WBC (Bld) [#/Vol] 4.8 10*3/uL 4.4-11.0 [facility] CBC + DIFFon 03-17-2024 Baso # 0.02 x10EE3/UL Normal 0.00 - 0.10 [facility] Comment on above: Performed By: #### 2 18683 #### [facility],[address] [place] [address]661 Basophils/100 WBC (Bld) 0.5 % Normal 0.0 - 2.0 [facility] Comment on above: Performed By: #### 2 58813 #### [facility],[address] [place] [address]116 CBC + DIFF Normal [facility] Comment on above: Result Comment: CBC- COMPLETE BLOOD COUNT Performed By: #### 2 47368 #### [facility],[address] [place] [address] 09267 EO # 0.01 x10EE3/UL Normal 0.00 - 0.50 [facility] Comment on above: Performed By: #### 2 78149 #### [facility],[address] [place] [address]6575 Eosinophils/100 WBC (Bld) 0.4 % Normal 0.0 - 7.0 [facility] Comment on above: Performed By: #### 2 77234 #### [facility],[address] [place] [address] 78016 Erythrocyte distribution width (RBC) [Ratio] 13.9 % Normal 12.0 - 15.6 [facility] Comment on above: Performed By: #### 2 94919 #### [facility],[address] [place] [address] 35719 Hematocrit (Bld) [Volume fraction] 37.1 % Normal 34.0 - 46.0 [facility] Comment on above: Performed By: #### 2 27842 #### [facility],[address] [place] [address]8559 Hemoglobin (Bld) [Mass/Vol] 12.2 g/dL Normal 12.0 - 16.0 [facility] Comment on above: Performed By: #### 2 13574 #### [facility],[address] [place] [address] Lymph # 1.10 x10EE3/UL Normal 0.80 - 2.80 [facility] Comment on above: Performed By: #### 2 29508 #### [facility],[address] [place] [address] Lymphocytes/100 WBC (Bld) 27.2 % Normal 20.0 - 45.0 [facility] Comment on above: Performed By: #### 2 88464 #### [facility],[address] [place] [address] MANUAL DIFF N/A Normal [facility] Comment on above: Performed By: #### 2 46829 #### [facility],[address] [place] [address] MCH (RBC) [Entitic mass] 31 pg Normal 27 - 33 [facility] Comment on above: Performed By: #### 2 13812 #### [facility],[address] [place] [address] MCHC 33 X10 3 Normal 32 - 36 [facility] Comment on above: Performed By: #### 2 12152 #### [facility],[address] [place], [place] [id number] MCV (RBC) [Entitic vol] 94 fL Normal 80 - 99 [facility] Comment on above: Performed By: #### 2 74290 #### [facility],[address] [place] [address] 60582 Wirt # 0.33 x10EE3/UL Normal 0.20 - 1.00 [facility] Comment on above: Performed By: #### 2 86277 #### [facility],[address] [place] [address] 14596 MONOS % 8.3 % Normal 0.0 - 10.0 [facility] Comment on above: Performed By: #### 2 38370 #### [facility],[address] [place] [address] 11506 Morphology Robbie (Bld) [Interp] N/A Normal [facility] Comment on above: Performed By: #### 2 29342 #### [facility],[address] [place] [address] 79871 Neut # 2.58 x10EE3/UL Normal 1.50 - 7.10 [facility] Comment on above: Performed By: #### 2 94658 #### [facility],[address] [place] [address] 39378 Neutrophils/100 WBC (Bld) 63.7 % Normal 46.0 - 76.0 [facility] Comment on above: Performed By: #### 2 64170 #### [facility],[address] [place] [address] 17864 PLATELET 180 x10EE3/UL Normal 150 - 450 [facility] Comment on above: Performed By: #### 2 06686 #### [facility],[address] [place] [address] 88323 Platelet mean volume (Bld) [Entitic vol] 8.3 fL Normal 6.6 - 10.5 [facility] Comment on above: Result Comment: AUTO MATED DIFFERENTIAL Performed By: #### 2 49708 #### [facility],[address] [place] [address] 53970 RBC 3.95 x 10EE6/UL Low 4.10 - 5.30 [facility] Comment on above: Performed By: #### 2 94829 #### [facility],[address] [place] [address] 81049 WBC 4.1 x 10EE3/UL Low 4.5 - 10.8 [facility] Comment on above: Performed By: #### 2 01034 #### [facility],[address] [place] [address] 37529 BMP with eGFRon 03-10-2024 AGE 63 years Normal [facility] Comment on above: Performed By: #### 2 92629 #### [facility],[address] [place] [address] 28489 Anion gap [Moles/Vol] 13 mmol/L Normal 10 - 20 [facility] Comment on above: Performed By: #### 2 00743 #### [facility],[address] [place] [address] 08262 BMP with eGFR Normal [facility] Comment on above: Result Comment: BASI C METABOLIC PANEL Performed By: #### 2 45065 #### [facility],[address] [place] [address] 16651 Calcium [Mass/Vol] 8.8 mg/dL Normal 8.5 - 10.1 [facility] Comment on above: Performed By: #### 2 85939 #### [facility],[address] [place] [address] 94235 Chloride [Moles/Vol] 103 mmol/L Normal 98 - 107 [facility] Comment on above: Performed By: #### 2 54260 #### [facility],[address] [place] [address] 38868 CO2 [Moles/Vol] 25.3 mmol/L Normal 21.0 - 32.0 [facility] Comment on above: Performed By: #### 2 08935 #### [facility],[address] [place] [address] 78151 Creatinine [Mass/Vol] 1.01 mg/dL Normal 0.55 - 1.02 [facility] Comment on above: Performed By: #### 2 05657 #### [facility],[address] [place] [address] 04872 eGFR 55 ML/MINUTE Low 60 - 999 [facility] Comment on above: Performed By: #### 2 17742 #### [facility],[address] [place] [address] 67930 GFR/1.73 sq M.predicted among non-blacks MDRD (S/P/Bld) [Vol rate/Area] mL/min/{1.73_m2} Normal 60 - 999 [facility] Comment on above: Result Comment: ACCO RDING TO THE NATIONAL KIDNEY DISEASE EDUCATION PROGRAM(NKDE), A NORMAL eGFR IS A VALUE GREATER THAN OR EQUAL TO 60 ML/MIN/1.73 SQ METERS. CHRONIC KIDNEY DISEASE: <60mL/MIN/1.73 SQ METERS KIDNEY FAILURE: <15mL/MIN/1.73 SQ METERS THIS TEST SHOULD ONLY BE USED FOR PATIENTS 18 YEARS OF AGE AND OLDER. Performed By: #### 2 07640 #### [facility],[address] [place] [address] 02833 Glucose [Mass/Vol] 136 mg/dL High 74 - 106 [facility] Comment on above: Performed By: #### 2 02693 #### [address] [address] Potassium [Moles/Vol] 3.5 mmol/L Normal 3.5 - 5.1 [facility] Comment on above: Performed By: #### 2 89251 #### [facility],[address] [place] [address] 76521 Sodium [Moles/Vol] 138 mmol/L Normal 136 - 145 [facility] Comment on above: Performed By: #### 2 40115 #### [address] [address] Urea nitrogen [Mass/Vol] 11 mg/dL Normal 7 - 18 [facility] Comment on above: Performed By: #### 2 86462 #### [address] [address] CBC + DIFFon 03-10-2024 Baso # 0.03 x10EE3/UL Normal 0.00 - 0.10 [facility] Comment on above: Performed By: #### 2 19696 #### [facility],[address] [place] [address] 65766 Basophils/100 WBC (Bld) 1.0 % Normal 0.0 - 2.0 [facility] Comment on above: Performed By: #### 2 74208 #### [place] [address] CBC + DIFF Normal [facility] Comment on above: Result Comment: CBC- COMPLETE BLOOD COUNT Performed By: #### 2 25536 #### [facility],[address] [place] [address] EO # 0.02 x10EE3/UL Normal 0.00 - 0.50 [facility] Comment on above: Performed By: #### 2 19321 #### [place] [address] Eosinophils/100 WBC (Bld) 0.5 % Normal 0.0 - 7.0 [facility] Comment on above: Performed By: #### 2 36660 #### [place] [address] Erythrocyte distribution width (RBC) [Ratio] 13.6 % Normal 12.0 - 15.6 [facility] Comment on above: Performed By: #### 2 34541 #### [place] [address] Hematocrit (Bld) [Volume fraction] 32.3 % Low 34.0 - 46.0 [facility] Comment on above: Performed By: #### 2 48289 #### [facility],[address] [place] [address] Hemoglobin (Bld) [Mass/Vol] 10.7 g/dL Low 12.0 - 16.0 [facility] Comment on above: Performed By: #### 2 94091 #### [place] [address] Lymph # 0.90 x10EE3/UL Normal 0.80 - 2.80 [facility] Comment on above: Performed By: #### 2 77801 #### [facility],[address] [place] [address] Lymphocytes/100 WBC (Bld) 28.9 % Normal 20.0 - 45.0 [facility] Comment on above: Performed By: #### 2 82589 #### [facility],[address] [place] [address] MANUAL DIFF N/A Normal [facility] Comment on above: Performed By: #### 2 22705 #### [facility],[address] [place] [address] MCH (RBC) [Entitic mass] 31 pg Normal 27 - 33 [facility] Comment on above: Performed By: #### 2 03273 #### [facility],[address] [place] [address] MCHC 33 X10 3 Normal 32 - 36 [facility] Comment on above: Performed By: #### 2 99670 #### [facility],[address] [place] [address] MCV (RBC) [Entitic vol] 93 fL Normal 80 - 99 [facility] Comment on above: Performed By: #### 2 74560 #### [facility],[address] [place] [address] Wirt # 0.31 x10EE3/UL Normal 0.20 - 1.00 [facility] Comment on above: Performed By: #### 2 38917 #### [facility],[address] [place] [address] MONOS % 9.8 % Normal 0.0 - 10.0 [facility] Comment on above: Performed By: #### 2 60919 #### [place] [address] Morphology Robbie (Bld) [Interp] N/A Normal [facility] Comment on above: Performed By: #### 2 09244 #### [place] [address] Neut # 1.87 x10EE3/UL Normal 1.50 - 7.10 [facility] Comment on above: Performed By: #### 2 19493 #### [facility],[address] [place] [address] 31216 Neutrophils/100 WBC (Bld) 59.8 % Normal 46.0 - 76.0 [facility] Comment on above: Performed By: #### 2 18799 #### [facility],[address] [place] [address] PLATELET 134 x10EE3/UL Low 150 - 450 [facility] Comment on above: Performed By: #### 2 12416 #### [facility],[address] [place] [address] Platelet mean volume (Bld) [Entitic vol] 8.5 fL Normal 6.6 - 10.5 [facility] Comment on above: Result Comment: AUTO MATED DIFFERENTIAL Performed By: #### 2 63830 #### [address] [address] RBC 3.47 x 10EE6/UL Low 4.10 - 5.30 [facility] Comment on above: Performed By: #### 2 48259 #### [facility],[address] [place], [place] [id number] WBC 3.1 x 10EE3/UL Low 4.5 - 10.8 [facility] Comment on above: Performed By: #### 2 39958 #### [facility],[address] [place] [address] 16701 TSHon 03-10-2024 TSH Qn 1.70 m[IU]/L Normal 0.35 - 3.74 [facility] Comment on above: Performed By: #### 2 34862 #### [facility],[address] [place], [place] [phone] .Auto Diffon 03-07-2024 Basophil, Absolute 0.0 10 3/mcL Normal 0.0-0.3 [facility] Comment on above: Performed By: #### A DIFF, CBC, BMP, ANEU, GFR ####[address] [address] Basophils/100 WBC (Bld) 0.4 % Normal 0.0-2.5 [facility] Comment on above: Performed By: #### A DIFF, CBC, BMP, ANEU, GFR ####[address] [address] Eosinophil, Absolute 0.0 10 3/mcL Normal 0.0-0.7 [facility] Comment on above: Performed By: #### A DIFF, CBC, BMP, ANEU, GFR ####[address] [address] Eosinophils/100 WBC (Bld) 0.0 % Normal 0.0-6.0 [facility] Comment on above: Performed By: #### A DIFF, CBC, BMP, ANEU, GFR ####[address] [address] Lymphocyte, Absolute 1.0 10 3/mcL Normal 0.9-4.3 [facility] Comment on above: Performed By: #### A DIFF, CBC, BMP, ANEU, GFR ####[address] [address] Lymphocytes/100 WBC (Bld) 31.0 % Normal 20.0-40.0 [facility] Comment on above: Performed By: #### A DIFF, CBC, BMP, ANEU, GFR ####[address] [address] Monocyte, Absolute 0.4 10 3/mcL Normal 0.1-1.4 [facility] Comment on above: Performed By: #### A DIFF, CBC, BMP, ANEU, GFR ####[address] [address] Monocytes/100 WBC (Bld) 10.9 % Normal 2.0-13.0 [facility] Comment on above: Performed By: #### A DIFF, CBC, BMP, ANEU, GFR ####[address] [address] Neutrophils/100 WBC (Bld) 57.7 % Normal 50.0-75.0 [facility] Comment on above: Performed By: #### A DIFF, CBC, BMP, ANEU, GFR ####[address] [address] .GFRon 03-07-2024 GFR Non- >60 Normal [facility] Comment on above: Result Comment: GFR Population mean for , Non- Americans Ages 20-29 = 116 mL/min/1.73 sq.m. Ages 30-39 = 107 mL/min/1.73 sq.m. Ages 40-49 = 99 mL/min/1.73 sq.m. Ages 50-59 = 93 mL/min/1.73 sq.m. Ages 60-69 = 85 mL/min/1.73 sq.m. Ages 70+ = 75 mL/min/1.73 sq.m. Chronic Kidney Disease: Less than 60 mL/min/1.73 square meters End Stage Renal Disease: Less than 15 mL/min/1.73 square meters Performed By: #### A DIFF, CBC, BMP, ANEU, GFR ####[address] [address] GFR >60 Normal [facility] Comment on above: Result Comment: GFR Population mean for , Non- Americans Ages 20-29 = 116 mL/min/1.73 sq.m. Ages 30-39 = 107 mL/min/1.73 sq.m. Ages 40-49 = 99 mL/min/1.73 sq.m. Ages 50-59 = 93 mL/min/1.73 sq.m. Ages 60-69 = 85 mL/min/1.73 sq.m. Ages 70+ = 75 mL/min/1.73 sq.m. Chronic Kidney Disease: Less than 60 mL/min/1.73 square meters End Stage Renal Disease: Less than 15 mL/min/1.73 square meters Performed By: #### A DIFF, CBC, BMP, ANEU, GFR ####[address] [address] .NEUABSon 03-07-2024 Neutrophil, Absolute 1.9 10 3/mcL Low 2.3-8.1 [facility] Comment on above: Performed By: #### A DIFF, CBC, BMP, ANEU, GFR ####[address] [address] BMPon 03-07-2024 BUN/Creatinine Ratio 9.8 ratio Low 10.0-22.0 [facility] Comment on above: Performed By: #### A DIFF, CBC, BMP, ANEU, GFR ####[address] [address] Calcium [Mass/Vol] 8.8 mg/dL Normal 8.7-10.4 [facility] Comment on above: Performed By: #### A DIFF, CBC, BMP, ANEU, GFR ####[place] [id number] Chloride [Moles/Vol] 107 mmol/L Normal 98-110 [facility] Comment on above: Performed By: #### A DIFF, CBC, BMP, ANEU, GFR ####[place] [id number] CO2 [Moles/Vol] 28 mmol/L Normal 22-32 [facility] Comment on above: Performed By: #### A DIFF, CBC, BMP, ANEU, GFR ####[place] [address] Creatinine [Mass/Vol] 0.82 mg/dL Normal 0.50-1.20 [facility] Comment on above: Result Comment: Test ing performed on [employer] analyzer using enzymatic creatinine methodology. Performed By: #### A DIFF, CBC, BMP, ANEU, GFR ####[place] [address] Electrolyte Balance 6.0 mEq/L Normal 4.0-15.0 [facility] Comment on above: Performed By: #### A DIFF, CBC, BMP, ANEU, GFR ####[place] [id number] Glucose [Mass/Vol] 108 mg/dL Normal 82-115 [facility] Comment on above: Performed By: #### A DIFF, CBC, BMP, ANEU, GFR ####[place] [address] Potassium [Moles/Vol] 3.7 mmol/L Normal 3.5-5.0 [facility] Comment on above: Performed By: #### A DIFF, CBC, BMP, ANEU, GFR ####[place] [address] Sodium [Moles/Vol] 141 mmol/L Normal 136-145 [facility] Comment on above: Performed By: #### A DIFF, CBC, BMP, ANEU, GFR ####[place] [address] Urea nitrogen [Mass/Vol] 8.0 mg/dL Normal 8.0-22.0 [facility] Comment on above: Performed By: #### A DIFF, CBC, BMP, ANEU, GFR ####[place] [address] CBCon 03-07-2024 Erythrocyte distribution width (RBC) [Ratio] 14.1 % Normal 11.5-15.5 [facility] Comment on above: Performed By: #### A DIFF, CBC, BMP, ANEU, GFR ####[place] [address] Hematocrit (Bld) [Volume fraction] 32.7 % Low 34.0-46.0 [facility] Comment on above: Performed By: #### A DIFF, CBC, BMP, ANEU, GFR ####[place] [address] Hgb 11.1 G/dL Low 12.0-16.0 [facility] Comment on above: Performed By: #### A DIFF, CBC, BMP, ANEU, GFR ####[place] [address] MCH (RBC) [Entitic mass] 31.5 pg Normal 27.0-33.0 [facility] Comment on above: Performed By: #### A DIFF, CBC, BMP, ANEU, GFR ####[place] [address] MCHC 33.9 G/dL Normal 32.0-36.0 [facility] Comment on above: Performed By: #### A DIFF, CBC, BMP, ANEU, GFR ####[place] [address] MCV (RBC) [Entitic vol] 92.7 fL Normal 80.0-99.0 [facility] Comment on above: Performed By: #### A DIFF, CBC, BMP, ANEU, GFR ####[place] [address] Platelet 93 10 3/mcL Low 150-450 [facility] Comment on above: Performed By: #### A DIFF, CBC, BMP, ANEU, GFR ####[place] [address] Platelet mean volume (Bld) [Entitic vol] 9.6 fL Normal 6.6-10.5 [facility] Comment on above: Performed By: #### A DIFF, CBC, BMP, ANEU, GFR ####[place] [address] RBC 3.53 10 6/mcL Low 4.10-5.30 [facility] Comment on above: Performed By: #### A DIFF, CBC, BMP, ANEU, GFR ####[place] [address] WBC 3.3 10 3/mcL Low 4.5-10.8 [facility] Comment on above: Performed By: #### A DIFF, CBC, BMP, ANEU, GFR ####[place] [address] LABORATORYOrdered By: SYSTEM SYSTEM on 03-07-2024 Basophils (Bld) [#/Vol] 0.0 103/mcL Normal 0.0 - 0.3 10^3/mcL AH Workflow SS Basophils/100 WBC (Bld) 0.4 % Normal 0.0 - 2.5 % AH Workflow SS Calcium [Mass/Vol] 8.8 mg/dL Normal 8.7 - 10. 4 mg/dL AH ADM SS Chloride [Moles/Vol] 107 mmol/L Normal 98 - 11 0 mEq/L AH ADM SS CO2 [Moles/Vol] 28 mmol/L Normal 22 - 32 mEq/L ADM SS Creatinine [Mass/Vol] 0.82 mg/dL Normal 0.50 - 1.20 mg/dL ADM SS Comment on above: Interpretive Data: T esting performed on [employer] analyzer using enzymatic creatinine methodology. Electrolyte Balance 6.0 mEq/L Normal 4.0 - 15 .0 mEq/L AH ADM SS Eosinophils (Bld) [#/Vol] 0.0 103/mcL Normal 0.0 - 0.7 10^3/mcL AH Workflow SS Eosinophils/100 WBC (Bld) 0.0 % Normal 0.0 - 6.0 % AH Workflow SS Erythrocyte distribution width (RBC) [Ratio] 14.1 % Normal 11.5 - 15.5 % AH Workflow SS GFR/1.73 sq M.predicted among blacks MDRD (S/P/Bld) [Vol rate/Area] ml/min/1.73sqm Invalid Interpretation Code [employer] S Comment on above: Interpretive Data: GFR Population mean for , Non- Americans Ages 20-29 = 116 mL/min/1.73 sq.m. Ages 30-39 = 107 mL/min/1.73 sq.m. Ages 40-49 = 99 mL/min/1.73 sq.m. Ages 50-59 = 93 mL/min/1.73 sq.m. Ages 60-69 = 85 mL/min/1.73 sq.m. Ages 70+ = 75 mL/min/1.73 sq.m. Chronic Kidney Disease: Less than 60 mL/min/1.73 square meters End Stage Renal Disease: Less than 15 mL/min/1.73 square meters GFR/1.73 sq M.predicted among non-blacks MDRD (S/P/Bld) [Vol rate/Area] ml/min/1.73sqm Invalid Interpretation Code [employer] S Comment on above: Interpretive Data: GFR Population mean for , Non- Americans Ages 20-29 = 116 mL/min/1.73 sq.m. Ages 30-39 = 107 mL/min/1.73 sq.m. Ages 40-49 = 99 mL/min/1.73 sq.m. Ages 50-59 = 93 mL/min/1.73 sq.m. Ages 60-69 = 85 mL/min/1.73 sq.m. Ages 70+ = 75 mL/min/1.73 sq.m. Chronic Kidney Disease: Less than 60 mL/min/1.73 square meters End Stage Renal Disease: Less than 15 mL/min/1.73 square meters Glucose [Mass/Vol] 108 mg/dL Normal 82 - 115 mg/dL ADM SS Hematocrit (Bld) [Volume fraction] 32.7 % Low 34.0 - 46.0 % AH Workflow SS Hemoglobin (Bld) [Mass/Vol] 11.1 G/dL Low 12.0 - 16.0 G/dL AH Workflow SS Lymphocytes (Bld) [#/Vol] 1.0 103/mcL Normal 0.9 - 4.3 10^3/mcL AH Workflow SS Lymphocytes/100 WBC (Bld) 31.0 % Normal 20.0 - 40.0 % AH Workflow SS MCH (RBC) [Entitic mass] 31.5 pg Normal 27.0 - 33.0 pg AH Workflow SS MCHC 33.9 G/dL Normal 32.0 - 36.0 G/dL AH Workflow SS MCV (RBC) [Entitic vol] 92.7 fL Normal 80.0 - 99.0 fL Workflow SS Monocytes (Bld) [#/Vol] 0.4 103/mcL Normal 0.1 - 1.4 10^3/mcL AH Workflow SS Monocytes/100 WBC (Bld) 10.9 % Normal 2.0 - 13.0 % AH Workflow SS Neutrophils (Bld) [#/Vol] 1.9 103/mcL Low 2.3 - 8.1 10^3/mcL AH Workflow SS Neutrophils/100 WBC (Bld) 57.7 % Normal 50.0 - 75.0 % AH Workflow SS Platelet mean volume (Bld) [Entitic vol] 9.6 fL Normal 6.6 - 10.5 fL Workflow SS Platelets (Bld) [#/Vol] 93 103/mcL Low 150 - 450 10^3/mcL AH Workflow SS Potassium [Moles/Vol] 3.7 mmol/L Normal 3.5 - 5.0 mEq/L AH ADM SS RBC (Bld) [#/Vol] 3.53 106/mcL Low 4.10 - 5.30 10^6/mcL AH Workflow SS Sodium [Moles/Vol] 141 mmol/L Normal 136 - 145 mEq/L ADM SS Urea nitrogen [Mass/Vol] 8.0 mg/dL Normal 8.0 - 22.0 mg/dL ADM SS Urea nitrogen/Creatinine [Mass ratio] 9.8 ratio Low 10.0 - 22.0 ratio AH ADM SS WBC (Bld) [#/Vol] 3.3 103/mcL Low 4.5 - 10.8 10^3/mcL AH Workflow SS .Auto Diffon 03-06-2024 Basophil, Absolute 0.0 10 3/mcL Normal 0.0-0.3 [facility] Comment on above: Performed By: #### G FR, BMP, CBC, ANEU, ADIFF ####[address] [address] Basophils/100 WBC (Bld) 0.3 % Normal 0.0-2.5 [facility] Comment on above: Performed By: #### G FR, BMP, CBC, ANEU, ADIFF ####[address] [address] Eosinophil, Absolute 0.0 10 3/mcL Normal 0.0-0.7 [facility] Comment on above: Performed By: #### G FR, BMP, CBC, ANEU, ADIFF ####[address] [address] Eosinophils/100 WBC (Bld) 0.1 % Normal 0.0-6.0 [facility] Comment on above: Performed By: #### G FR, BMP, CBC, ANEU, ADIFF ####[address] [address] Lymphocyte, Absolute 1.0 10 3/mcL Normal 0.9-4.3 [facility] Comment on above: Performed By: #### G FR, BMP, CBC, ANEU, ADIFF ####[address] [address] Lymphocytes/100 WBC (Bld) 31.9 % Normal 20.0-40.0 [facility] Comment on above: Performed By: #### G FR, BMP, CBC, ANEU, ADIFF ####[address] [address] Monocyte, Absolute 0.3 10 3/mcL Normal 0.1-1.4 [facility] Comment on above: Performed By: #### G FR, BMP, CBC, ANEU, ADIFF ####[address], [place] [address] Monocytes/100 WBC (Bld) 9.8 % Normal 2.0-13.0 [facility] Comment on above: Performed By: #### G FR, BMP, CBC, ANEU, ADIFF ####[place] [id number] [place] [address] Neutrophils/100 WBC (Bld) 57.9 % Normal 50.0-75.0 [facility] Comment on above: Performed By: #### G FR, BMP, CBC, ANEU, ADIFF ####[address] [address] .GFRon 03-06-2024 GFR >60 Normal [facility] Comment on above: Result Comment: GFR Population mean for , Non- Americans Ages 20-29 = 116 mL/min/1.73 sq.m. Ages 30-39 = 107 mL/min/1.73 sq.m. Ages 40-49 = 99 mL/min/1.73 sq.m. Ages 50-59 = 93 mL/min/1.73 sq.m. Ages 60-69 = 85 mL/min/1.73 sq.m. Ages 70+ = 75 mL/min/1.73 sq.m. Chronic Kidney Disease: Less than 60 mL/min/1.73 square meters End Stage Renal Disease: Less than 15 mL/min/1.73 square meters Performed By: #### A HARINI, CBC, GFR, ADIFF, BMP #### [address] [address] GFR Non- >60 Normal [facility] Comment on above: Result Comment: GFR Population mean for , Non- Americans Ages 20-29 = 116 mL/min/1.73 sq.m. Ages 30-39 = 107 mL/min/1.73 sq.m. Ages 40-49 = 99 mL/min/1.73 sq.m. Ages 50-59 = 93 mL/min/1.73 sq.m. Ages 60-69 = 85 mL/min/1.73 sq.m. Ages 70+ = 75 mL/min/1.73 sq.m. Chronic Kidney Disease: Less than 60 mL/min/1.73 square meters End Stage Renal Disease: Less than 15 mL/min/1.73 square meters Performed By: #### A HARINI, CBC, GFR, ADIFF, BMP #### [address] [address] .NEUABSon 03-06-2024 Neutrophil, Absolute 1.9 10 3/mcL Low 2.3-8.1 [facility] Comment on above: Performed By: #### G FR, BMP, CBC, ANEU, ADIFF ####[address] [address] BMPon 03-06-2024 BUN/Creatinine Ratio 13.6 ratio Normal 10.0-22.0 [facility] Comment on above: Performed By: #### A HARINI, CBC, GFR, ADIFF, BMP #### [place] [address] Calcium [Mass/Vol] 8.7 mg/dL Normal 8.7-10.4 [facility] Comment on above: Performed By: #### A HARINI, CBC, GFR, ADIFF, BMP #### [place] [address] Chloride [Moles/Vol] 109 mmol/L Normal 98-110 [facility] Comment on above: Performed By: #### A HARINI, CBC, GFR, ADIFF, BMP #### [place] [address] CO2 [Moles/Vol] 26 mmol/L Normal 22-32 [facility] Comment on above: Performed By: #### A HARINI, CBC, GFR, ADIFF, BMP #### [place] [address] Creatinine [Mass/Vol] 0.88 mg/dL Normal 0.50-1.20 [facility] Comment on above: Result Comment: Test ing performed on [employer] analyzer using enzymatic creatinine methodology. Performed By: #### A HARINI, CBC, GFR, ADIFF, BMP #### [place] [address] Electrolyte Balance 6.0 mEq/L Normal 4.0-15.0 [facility] Comment on above: Performed By: #### A HARINI, CBC, GFR, ADIFF, BMP #### [address] [address] Glucose [Mass/Vol] 102 mg/dL Normal 82-115 [facility] Comment on above: Performed By: #### A HARINI, CBC, GFR, ADIFF, BMP #### [address] [address] Potassium [Moles/Vol] 3.7 mmol/L Normal 3.5-5.0 [facility] Comment on above: Performed By: #### A HARINI, CBC, GFR, ADIFF, BMP #### [address] [address] Sodium [Moles/Vol] 141 mmol/L Normal 136-145 [facility] Comment on above: Performed By: #### A HARINI, CBC, GFR, ADIFF, BMP #### [place] [id number] Urea nitrogen [Mass/Vol] 12.0 mg/dL Normal 8.0-22.0 [facility] Comment on above: Performed By: #### A HARINI, CBC, GFR, ADIFF, BMP #### [address] [address] CBCon 03-06-2024 Erythrocyte distribution width (RBC) [Ratio] 13.9 % Normal 11.5-15.5 [facility] Comment on above: Performed By: #### G FR, BMP, CBC, ANEU, ADIFF ####[address] [address] Hematocrit (Bld) [Volume fraction] 31.0 % Low 34.0-46.0 [facility] Comment on above: Performed By: #### G FR, BMP, CBC, ANEU, ADIFF ####[address] [address] Hgb 10.6 G/dL Low 12.0-16.0 [facility] Comment on above: Performed By: #### G FR, BMP, CBC, ANEU, ADIFF ####[address] [address] MCH (RBC) [Entitic mass] 31.6 pg Normal 27.0-33.0 [facility] Comment on above: Performed By: #### G FR, BMP, CBC, ANEU, ADIFF ####[place] [address] MCHC 34.3 G/dL Normal 32.0-36.0 [facility] Comment on above: Performed By: #### G FR, BMP, CBC, ANEU, ADIFF ####[place] [address] MCV (RBC) [Entitic vol] 92.2 fL Normal 80.0-99.0 [facility] Comment on above: Performed By: #### G FR, BMP, CBC, ANEU, ADIFF ####[place] [address] Platelet 81 10 3/mcL Low 150-450 [facility] Comment on above: Performed By: #### G FR, BMP, CBC, ANEU, ADIFF ####[place] [address] Platelet mean volume (Bld) [Entitic vol] 9.8 fL Normal 6.6-10.5 [facility] Comment on above: Performed By: #### G FR, BMP, CBC, ANEU, ADIFF ####[place] [address] RBC 3.36 10 6/mcL Low 4.10-5.30 [facility] Comment on above: Performed By: #### G FR, BMP, CBC, ANEU, ADIFF ####[place] [address] WBC 3.2 10 3/mcL Low 4.5-10.8 [facility] Comment on above: Performed By: #### G FR, BMP, CBC, ANEU, ADIFF ####[place] [address] LABORATORYOrdered By: SYSTEM SYSTEM on 03-06-2024 Basophils (Bld) [#/Vol] 0.0 103/mcL Normal 0.0 - 0.3 10^3/mcL AH Workflow SS Basophils/100 WBC (Bld) 0.3 % Normal 0.0 - 2.5 % Workflow SS Calcium [Mass/Vol] 8.7 mg/dL Normal 8.7 - 10. 4 mg/dL ADM SS Chloride [Moles/Vol] 109 mmol/L Normal 98 - 11 0 mEq/L ADM SS CO2 [Moles/Vol] 26 mmol/L Normal 22 - 32 mEq/L ADM SS Creatinine [Mass/Vol] 0.88 mg/dL Normal 0.50 - 1.20 mg/dL ADM SS Comment on above: Interpretive Data: T esting performed on [employer] analyzer using enzymatic creatinine methodology. Electrolyte Balance 6.0 mEq/L Normal 4.0 - 15 .0 mEq/L ADM SS Eosinophils (Bld) [#/Vol] 0.0 103/mcL Normal 0.0 - 0.7 10^3/mcL Workflow SS Eosinophils/100 WBC (Bld) 0.1 % Normal 0.0 - 6.0 % Workflow SS Erythrocyte distribution width (RBC) [Ratio] 13.9 % Normal 11.5 - 15.5 % Workflow SS GFR/1.73 sq M.predicted among blacks MDRD (S/P/Bld) [Vol rate/Area] ml/min/1.73sqm Invalid Interpretation Code [employer] S Comment on above: Interpretive Data: GFR Population mean for , Non- Americans Ages 20-29 = 116 mL/min/1.73 sq.m. Ages 30-39 = 107 mL/min/1.73 sq.m. Ages 40-49 = 99 mL/min/1.73 sq.m. Ages 50-59 = 93 mL/min/1.73 sq.m. Ages 60-69 = 85 mL/min/1.73 sq.m. Ages 70+ = 75 mL/min/1.73 sq.m. Chronic Kidney Disease: Less than 60 mL/min/1.73 square meters End Stage Renal Disease: Less than 15 mL/min/1.73 square meters GFR/1.73 sq M.predicted among non-blacks MDRD (S/P/Bld) [Vol rate/Area] ml/min/1.73sqm Invalid Interpretation Code [employer] S Comment on above: Interpretive Data: GFR Population mean for , Non- Americans Ages 20-29 = 116 mL/min/1.73 sq.m. Ages 30-39 = 107 mL/min/1.73 sq.m. Ages 40-49 = 99 mL/min/1.73 sq.m. Ages 50-59 = 93 mL/min/1.73 sq.m. Ages 60-69 = 85 mL/min/1.73 sq.m. Ages 70+ = 75 mL/min/1.73 sq.m. Chronic Kidney Disease: Less than 60 mL/min/1.73 square meters End Stage Renal Disease: Less than 15 mL/min/1.73 square meters Glucose [Mass/Vol] 102 mg/dL Normal 82 - 115 mg/dL AH ADM SS Hematocrit (Bld) [Volume fraction] 31.0 % Low 34.0 - 46.0 % AH Workflow SS Hemoglobin (Bld) [Mass/Vol] 10.6 G/dL Low 12.0 - 16.0 G/dL AH Workflow SS Lymphocytes (Bld) [#/Vol] 1.0 103/mcL Normal 0.9 - 4.3 10^3/mcL AH Workflow SS Lymphocytes/100 WBC (Bld) 31.9 % Normal 20.0 - 40.0 % AH Workflow SS MCH (RBC) [Entitic mass] 31.6 pg Normal 27.0 - 33.0 pg AH Workflow SS MCHC 34.3 G/dL Normal 32.0 - 36.0 G/dL AH Workflow SS MCV (RBC) [Entitic vol] 92.2 fL Normal 80.0 - 99.0 fL AH Workflow SS Monocytes (Bld) [#/Vol] 0.3 103/mcL Normal 0.1 - 1.4 10^3/mcL AH Workflow SS Monocytes/100 WBC (Bld) 9.8 % Normal 2.0 - 13.0 % AH Workflow SS Neutrophils (Bld) [#/Vol] 1.9 103/mcL Low 2.3 - 8.1 10^3/mcL AH Workflow SS Neutrophils/100 WBC (Bld) 57.9 % Normal 50.0 - 75.0 % AH Workflow SS Platelet mean volume (Bld) [Entitic vol] 9.8 fL Normal 6.6 - 10.5 fL AH Workflow SS Platelets (Bld) [#/Vol] 81 103/mcL Low 150 - 450 10^3/mcL AH Workflow SS Potassium [Moles/Vol] 3.7 mmol/L Normal 3.5 - 5.0 mEq/L ADM SS RBC (Bld) [#/Vol] 3.36 106/mcL Low 4.10 - 5.30 10^6/mcL Workflow SS Sodium [Moles/Vol] 141 mmol/L Normal 136 - 145 mEq/L ADM SS Urea nitrogen [Mass/Vol] 12.0 mg/dL Normal 8.0 - 22.0 mg/dL ADM SS Urea nitrogen/Creatinine [Mass ratio] 13.6 ratio Normal 10.0 - 22.0 ratio ADM SS WBC (Bld) [#/Vol] 3.2 103/mcL Low 4.5 - 10.8 10^3/mcL Workflow SS .Auto Diffon 03-05-2024 Basophil, Absolute 0.0 10 3/mcL Normal 0.0-0.3 [facility] Comment on above: Performed By: #### A HARINI, ADIFF, CBC, GFR, BMP #### [address] [address] Basophils/100 WBC (Bld) 0.4 % Normal 0.0-2.5 [facility] Comment on above: Performed By: #### A HARINI, ADIFF, CBC, GFR, BMP #### [address] [address] Eosinophil, Absolute 0.0 10 3/mcL Normal 0.0-0.7 [facility] Comment on above: Performed By: #### A HARINI, ADIFF, CBC, GFR, BMP #### [address] [address] Eosinophils/100 WBC (Bld) 0.1 % Normal 0.0-6.0 [facility] Comment on above: Performed By: #### A HARINI, ADIFF, CBC, GFR, BMP #### [address] [address] Lymphocyte, Absolute 0.5 10 3/mcL Low 0.9-4.3 [facility] Comment on above: Performed By: #### A HARINI, ADIFF, CBC, GFR, BMP #### [address] [address] Lymphocytes/100 WBC (Bld) 9.4 % Low 20.0-40.0 [facility] Comment on above: Performed By: #### A HARINI, ADIFF, CBC, GFR, BMP #### [address] [address] Monocyte, Absolute 0.5 10 3/mcL Normal 0.1-1.4 [facility] Comment on above: Performed By: #### A HARINI, ADIFF, CBC, GFR, BMP #### [address] [address] Monocytes/100 WBC (Bld) 10.2 % Normal 2.0-13.0 [facility] Comment on above: Performed By: #### A HARINI, ADIFF, CBC, GFR, BMP #### [address] [address] Neutrophils/100 WBC (Bld) 79.9 % High 50.0-75.0 [facility] Comment on above: Performed By: #### A HARINI, ADIFF, CBC, GFR, BMP #### [address] [address] .GFRon 03-05-2024 GFR >60 Normal [facility] Comment on above: Result Comment: GFR Population mean for , Non- Americans Ages 20-29 = 116 mL/min/1.73 sq.m. Ages 30-39 = 107 mL/min/1.73 sq.m. Ages 40-49 = 99 mL/min/1.73 sq.m. Ages 50-59 = 93 mL/min/1.73 sq.m. Ages 60-69 = 85 mL/min/1.73 sq.m. Ages 70+ = 75 mL/min/1.73 sq.m. Chronic Kidney Disease: Less than 60 mL/min/1.73 square meters End Stage Renal Disease: Less than 15 mL/min/1.73 square meters Performed By: #### A HARINI, ADIFF, CBC, GFR, BMP ####[address] [address] GFR Non- >60 Normal [facility] Comment on above: Result Comment: GFR Population mean for , Non- Americans Ages 20-29 = 116 mL/min/1.73 sq.m. Ages 30-39 = 107 mL/min/1.73 sq.m. Ages 40-49 = 99 mL/min/1.73 sq.m. Ages 50-59 = 93 mL/min/1.73 sq.m. Ages 60-69 = 85 mL/min/1.73 sq.m. Ages 70+ = 75 mL/min/1.73 sq.m. Chronic Kidney Disease: Less than 60 mL/min/1.73 square meters End Stage Renal Disease: Less than 15 mL/min/1.73 square meters Performed By: #### A HARINI, ADIFF, CBC, GFR, BMP ####[address] [address] .NEUABSon 03-05-2024 Neutrophil, Absolute 3.9 10 3/mcL Normal 2.3-8.1 [facility] Comment on above: Performed By: #### A HARINI, ADIFF, CBC, GFR, BMP ####[place] [address] BMPon 03-05-2024 BUN/Creatinine Ratio 11.4 ratio Normal 10.0-22.0 [facility] Comment on above: Performed By: #### A HARINI, ADIFF, CBC, GFR, BMP ####[address] [address] Calcium [Mass/Vol] 8.9 mg/dL Normal 8.7-10.4 [facility] Comment on above: Performed By: #### A HARINI, ADIFF, CBC, GFR, BMP ####[address] [address] Chloride [Moles/Vol] 109 mmol/L Normal 98-110 [facility] Comment on above: Performed By: #### A HARINI, ADIFF, CBC, GFR, BMP ####[address] [address] CO2 [Moles/Vol] 23 mmol/L Normal 22-32 [facility] Comment on above: Performed By: #### A HARINI, ADIFF, CBC, GFR, BMP ####[address] [address] Creatinine [Mass/Vol] 0.88 mg/dL Normal 0.50-1.20 [facility] Comment on above: Result Comment: Test ing performed on [employer] analyzer using enzymatic creatinine methodology. Performed By: #### A HARINI, ADIFF, CBC, GFR, BMP ####[address] [address] Electrolyte Balance 8.0 mEq/L Normal 4.0-15.0 [facility] Comment on above: Performed By: #### A HARINI, ADIFF, CBC, GFR, BMP ####[address] [address] Glucose [Mass/Vol] 129 mg/dL High 82-115 [facility] Comment on above: Performed By: #### A HARINI, ADIFF, CBC, GFR, BMP ####[address] [address] Potassium [Moles/Vol] 4.2 mmol/L Normal 3.5-5.0 [facility] Comment on above: Performed By: #### A HARINI, ADIFF, CBC, GFR, BMP ####[address] [address] Sodium [Moles/Vol] 140 mmol/L Normal 136-145 [facility] Comment on above: Performed By: #### A HARINI, ADIFF, CBC, GFR, BMP ####[address] [address] Urea nitrogen [Mass/Vol] 10.0 mg/dL Normal 8.0-22.0 [facility] Comment on above: Performed By: #### A HARINI, ADIFF, CBC, GFR, BMP ####[address] [address] CBCon 03-05-2024 Erythrocyte distribution width (RBC) [Ratio] 13.9 % Normal 11.5-15.5 [facility] Comment on above: Performed By: #### A HARINI, ADIFF, CBC, GFR, BMP #### [address] [address] Hematocrit (Bld) [Volume fraction] 32.8 % Low 34.0-46.0 [facility] Comment on above: Performed By: #### A HARINI, ADIFF, CBC, GFR, BMP #### [place] [address] Hgb 11.0 G/dL Low 12.0-16.0 [facility] Comment on above: Performed By: #### A HARINI, ADIFF, CBC, GFR, BMP #### [place] [address] MCH (RBC) [Entitic mass] 31.2 pg Normal 27.0-33.0 [facility] Comment on above: Performed By: #### A HARINI, ADIFF, CBC, GFR, BMP #### [place] [address] MCHC 33.6 G/dL Normal 32.0-36.0 [facility] Comment on above: Performed By: #### A HARINI, ADIFF, CBC, GFR, BMP #### [place] [address] MCV (RBC) [Entitic vol] 92.6 fL Normal 80.0-99.0 [facility] Comment on above: Performed By: #### A HARINI, ADIFF, CBC, GFR, BMP #### [place] [address] Platelet 74 10 3/mcL Low 150-450 [facility] Comment on above: Performed By: #### A HARINI, ADIFF, CBC, GFR, BMP #### [place] [address] Platelet mean volume (Bld) [Entitic vol] 9.0 fL Normal 6.6-10.5 [facility] Comment on above: Performed By: #### A HARINI, ADIFF, CBC, GFR, BMP #### [place] [address] RBC 3.54 10 6/mcL Low 4.10-5.30 [facility] Comment on above: Performed By: #### A HARINI, ADIFF, CBC, GFR, BMP #### [place] [address] WBC 4.9 10 3/mcL Normal 4.5-10.8 [facility] Comment on above: Performed By: #### A HARINI, ADIFF, CBC, GFR, BMP #### [place] [id number] [place] [address] LABORATORYOrdered By: SYSTEM SYSTEM on 03-05-2024 Basophils (Bld) [#/Vol] 0.0 103/mcL Normal 0.0 - 0.3 10^3/mcL Workflow SS Basophils/100 WBC (Bld) 0.4 % Normal 0.0 - 2.5 % Workflow SS Calcium [Mass/Vol] 8.9 mg/dL Normal 8.7 - 10. 4 mg/dL ADM SS Chloride [Moles/Vol] 109 mmol/L Normal 98 - 11 0 mEq/L ADM SS CO2 [Moles/Vol] 23 mmol/L Normal 22 - 32 mEq/L ADM SS Creatinine [Mass/Vol] 0.88 mg/dL Normal 0.50 - 1.20 mg/dL ADM SS Comment on above: Interpretive Data: T esting performed on [employer] analyzer using enzymatic creatinine methodology. Electrolyte Balance 8.0 mEq/L Normal 4.0 - 15 .0 mEq/L ADM SS Eosinophils (Bld) [#/Vol] 0.0 103/mcL Normal 0.0 - 0.7 10^3/mcL Workflow SS Eosinophils/100 WBC (Bld) 0.1 % Normal 0.0 - 6.0 % Workflow SS Erythrocyte distribution width (RBC) [Ratio] 13.9 % Normal 11.5 - 15.5 % Workflow SS GFR/1.73 sq M.predicted among blacks MDRD (S/P/Bld) [Vol rate/Area] ml/min/1.73sqm Invalid Interpretation Code Chemistry S Comment on above: Interpretive Data: GFR Population mean for , Non- Americans Ages 20-29 = 116 mL/min/1.73 sq.m. Ages 30-39 = 107 mL/min/1.73 sq.m. Ages 40-49 = 99 mL/min/1.73 sq.m. Ages 50-59 = 93 mL/min/1.73 sq.m. Ages 60-69 = 85 mL/min/1.73 sq.m. Ages 70+ = 75 mL/min/1.73 sq.m. Chronic Kidney Disease: Less than 60 mL/min/1.73 square meters End Stage Renal Disease: Less than 15 mL/min/1.73 square meters GFR/1.73 sq M.predicted among non-blacks MDRD (S/P/Bld) [Vol rate/Area] ml/min/1.73sqm Invalid Interpretation Code Chemistry S Comment on above: Interpretive Data: GFR Population mean for , Non- Americans Ages 20-29 = 116 mL/min/1.73 sq.m. Ages 30-39 = 107 mL/min/1.73 sq.m. Ages 40-49 = 99 mL/min/1.73 sq.m. Ages 50-59 = 93 mL/min/1.73 sq.m. Ages 60-69 = 85 mL/min/1.73 sq.m. Ages 70+ = 75 mL/min/1.73 sq.m. Chronic Kidney Disease: Less than 60 mL/min/1.73 square meters End Stage Renal Disease: Less than 15 mL/min/1.73 square meters Glucose [Mass/Vol] 129 mg/dL High 82 - 115 mg/dL AH ADM SS Hematocrit (Bld) [Volume fraction] 32.8 % Low 34.0 - 46.0 % AH Workflow SS Hemoglobin (Bld) [Mass/Vol] 11.0 G/dL Low 12.0 - 16.0 G/dL AH Workflow SS Lymphocytes (Bld) [#/Vol] 0.5 103/mcL Low 0.9 - 4.3 10^3/mcL AH Workflow SS Lymphocytes/100 WBC (Bld) 9.4 % Low 20.0 - 40.0 % AH Workflow SS MCH (RBC) [Entitic mass] 31.2 pg Normal 27.0 - 33.0 pg AH Workflow SS MCHC 33.6 G/dL Normal 32.0 - 36.0 G/dL AH Workflow SS MCV (RBC) [Entitic vol] 92.6 fL Normal 80.0 - 99.0 fL AH Workflow SS Monocytes (Bld) [#/Vol] 0.5 103/mcL Normal 0.1 - 1.4 10^3/mcL AH Workflow SS Monocytes/100 WBC (Bld) 10.2 % Normal 2.0 - 13.0 % AH Workflow SS Neutrophils (Bld) [#/Vol] 3.9 103/mcL Normal 2.3 - 8.1 10^3/mcL Workflow SS Neutrophils/100 WBC (Bld) 79.9 % High 50.0 - 75.0 % Workflow SS Platelet mean volume (Bld) [Entitic vol] 9.0 fL Normal 6.6 - 10.5 fL Workflow SS Platelets (Bld) [#/Vol] 74 103/mcL Low 150 - 450 10^3/mcL Workflow SS Potassium [Moles/Vol] 4.2 mmol/L Normal 3.5 - 5.0 mEq/L ADM SS RBC (Bld) [#/Vol] 3.54 106/mcL Low 4.10 - 5.30 10^6/mcL Workflow SS Sodium [Moles/Vol] 140 mmol/L Normal 136 - 145 mEq/L ADM SS Urea nitrogen [Mass/Vol] 10.0 mg/dL Normal 8.0 - 22.0 mg/dL ADM SS Urea nitrogen/Creatinine [Mass ratio] 11.4 ratio Normal 10.0 - 22.0 ratio ADM SS WBC (Bld) [#/Vol] 4.9 103/mcL Normal 4.5 - 10.8 10^3/mcL Workflow SS .Auto Diffon 03-04-2024 Basophil, Absolute 0.0 10 3/mcL Normal 0.0-0.3 [facility] Comment on above: Performed By: #### A HARINI, CBC, GFR, ADIFF, BMP #### [address] [address] Basophils/100 WBC (Bld) 0.7 % Normal 0.0-2.5 [facility] Comment on above: Performed By: #### A HARINI, CBC, GFR, ADIFF, BMP #### [address] [address] Eosinophil, Absolute 0.0 10 3/mcL Normal 0.0-0.7 [facility] Comment on above: Performed By: #### A HARINI, CBC, GFR, ADIFF, BMP #### [address] [address] Eosinophils/100 WBC (Bld) 0.0 % Normal 0.0-6.0 [facility] Comment on above: Performed By: #### A HARINI, CBC, GFR, ADIFF, BMP #### [address] [address] Lymphocyte, Absolute 0.7 10 3/mcL Low 0.9-4.3 [facility] Comment on above: Performed By: #### A HARINI, CBC, GFR, ADIFF, BMP #### [address] [address] Lymphocytes/100 WBC (Bld) 18.7 % Low 20.0-40.0 [facility] Comment on above: Performed By: #### A HARINI, CBC, GFR, ADIFF, BMP #### [address] [address] Monocyte, Absolute 0.4 10 3/mcL Normal 0.1-1.4 [facility] Comment on above: Performed By: #### A HARINI, CBC, GFR, ADIFF, BMP #### [address] [address] Monocytes/100 WBC (Bld) 10.7 % Normal 2.0-13.0 [facility] Comment on above: Performed By: #### A HARINI, CBC, GFR, ADIFF, BMP #### [address] [address] Neutrophils/100 WBC (Bld) 69.9 % Normal 50.0-75.0 [facility] Comment on above: Performed By: #### A HARINI, CBC, GFR, ADIFF, BMP #### [address] [address] .GFRon 03-04-2024 GFR Non- >60 Normal [facility] Comment on above: Result Comment: GFR Population mean for , Non- Americans Ages 20-29 = 116 mL/min/1.73 sq.m. Ages 30-39 = 107 mL/min/1.73 sq.m. Ages 40-49 = 99 mL/min/1.73 sq.m. Ages 50-59 = 93 mL/min/1.73 sq.m. Ages 60-69 = 85 mL/min/1.73 sq.m. Ages 70+ = 75 mL/min/1.73 sq.m. Chronic Kidney Disease: Less than 60 mL/min/1.73 square meters End Stage Renal Disease: Less than 15 mL/min/1.73 square meters Performed By: #### A HARINI, CBC, GFR, ADIFF, BMP #### [address] [address] GFR >60 Normal [facility] Comment on above: Result Comment: GFR Population mean for , Non- Americans Ages 20-29 = 116 mL/min/1.73 sq.m. Ages 30-39 = 107 mL/min/1.73 sq.m. Ages 40-49 = 99 mL/min/1.73 sq.m. Ages 50-59 = 93 mL/min/1.73 sq.m. Ages 60-69 = 85 mL/min/1.73 sq.m. Ages 70+ = 75 mL/min/1.73 sq.m. Chronic Kidney Disease: Less than 60 mL/min/1.73 square meters End Stage Renal Disease: Less than 15 mL/min/1.73 square meters Performed By: #### A HARINI, CBC, GFR, ADIFF, BMP #### [address] [address] .NEUABSon 03-04-2024 Neutrophil, Absolute 2.7 10 3/mcL Normal 2.3-8.1 [facility] Comment on above: Performed By: #### A HARINI, CBC, GFR, ADIFF, BMP #### [address] [address] [facility] BUN/Creatinine Ratio 13.1 ratio Normal 10.0-22.0 [facility] Comment on above: Performed By: #### A HARINI, CBC, GFR, ADIFF, BMP #### [address] [address] Calcium [Mass/Vol] 8.7 mg/dL Normal 8.7-10.4 [facility] Comment on above: Performed By: #### A HARINI, CBC, GFR, ADIFF, BMP #### [address] [address] Chloride [Moles/Vol] 110 mmol/L Normal 98-110 [facility] Comment on above: Performed By: #### A HARINI, CBC, GFR, ADIFF, BMP #### [address] [address] CO2 [Moles/Vol] 24 mmol/L Normal 22-32 [facility] Comment on above: Performed By: #### A HARINI, CBC, GFR, ADIFF, BMP #### [address] [address] Creatinine [Mass/Vol] 0.84 mg/dL Normal 0.50-1.20 [facility] Comment on above: Result Comment: Test ing performed on [employer] analyzer using enzymatic creatinine methodology. Performed By: #### A HARINI, CBC, GFR, ADIFF, BMP #### [address] [address] Electrolyte Balance 4.0 mEq/L Normal 4.0-15.0 [facility] Comment on above: Performed By: #### A HARINI, CBC, GFR, ADIFF, BMP #### [address] [address] Glucose [Mass/Vol] 117 mg/dL High 82-115 [facility] Comment on above: Performed By: #### A HARINI, CBC, GFR, ADIFF, BMP #### [address] [address] Potassium [Moles/Vol] 4.0 mmol/L Normal 3.5-5.0 [facility] Comment on above: Performed By: #### A HARINI, CBC, GFR, ADIFF, BMP #### [address] [address] Sodium [Moles/Vol] 138 mmol/L Normal 136-145 [facility] Comment on above: Performed By: #### A HARINI, CBC, GFR, ADIFF, BMP #### [address] [address] Urea nitrogen [Mass/Vol] 11.0 mg/dL Normal 8.0-22.0 [facility] Comment on above: Performed By: #### A HARINI, CBC, GFR, ADIFF, BMP #### [place] [id number] CBCon 03-04-2024 Erythrocyte distribution width (RBC) [Ratio] 14.2 % Normal 11.5-15.5 [facility] Comment on above: Performed By: #### A HARINI, CBC, GFR, ADIFF, BMP #### [place] [address] Hematocrit (Bld) [Volume fraction] 39.7 % Normal 34.0-46.0 [facility] Comment on above: Performed By: #### A HARINI, CBC, GFR, ADIFF, BMP #### [place] [address] Hgb 13.4 G/dL Normal 12.0-16.0 [facility] Comment on above: Performed By: #### A HARINI, CBC, GFR, ADIFF, BMP #### [place] [address] MCH (RBC) [Entitic mass] 31.2 pg Normal 27.0-33.0 [facility] Comment on above: Performed By: #### A HARINI, CBC, GFR, ADIFF, BMP #### [place] [address] MCHC 33.8 G/dL Normal 32.0-36.0 [facility] Comment on above: Performed By: #### A HARINI, CBC, GFR, ADIFF, BMP #### [place] [address] MCV (RBC) [Entitic vol] 92.3 fL Normal 80.0-99.0 [facility] Comment on above: Performed By: #### A HARINI, CBC, GFR, ADIFF, BMP #### [place] [id number] Platelet 71 10 3/mcL Low 150-450 [facility] Comment on above: Performed By: #### A HARINI, CBC, GFR, ADIFF, BMP #### [place] [address] Platelet mean volume (Bld) [Entitic vol] 8.9 fL Normal 6.6-10.5 [facility] Comment on above: Performed By: #### A HARINI, CBC, GFR, ADIFF, BMP #### [facility] [address] [place] [address] RBC 4.30 10 6/mcL Normal 4.10-5.30 [facility] Comment on above: Performed By: #### A HARINI, CBC, GFR, ADIFF, BMP #### [facility] [address] [place] [address] WBC 3.8 10 3/mcL Low 4.5-10.8 [facility] Comment on above: Performed By: #### A HARINI, CBC, GFR, ADIFF, BMP #### [facility] [address] [place] [address] LABORATORYOrdered By: Brittni Colindres on 03-04-2024 Glucose [Mass/Vol] 108 mg/dL Normal 82 - 115 mg/dL [facility] Work Phone: XR FLUORO 1-2 HRS TECH TIMEo n 03-04-2024 XR FLUORO 1-2 HRS TECH TIME ORIGINAL EXAMINATION: SPOT FLUOROSCOPIC IMAGES 03/04/2024 12:34 pm TECHNIQUE: Fluoroscopy was provided by the radiology department for procedure. Radiologist was not present during examination. FLUOROSCOPY DOSE AND TYPE: Radiation Exposure Index: 11.2 mGy air kerma, fluoroscopy time was 1 minutes and 9 seconds. COMPARISON: None HISTORY: ORDERING SYSTEM PROVIDED HISTORY: Reason for Exam: RT PROXIMAL FEMUR FX Intraprocedural imaging. FINDINGS: 7 intraoperative images show surgical reduction of the intertrochanteric right femoral fracture. Intramedullary moncho was placed in the femur. A cancellous type screw traverses the intertrochanteric zone, moncho and neck of the femur. A distal interlocking screw noted in the diaphysis of the femur. Degenerative changes seen of the right hip. IMPRESSION: Limited intraoperative views. Refer to surgical report Interpreted by: Abdirashid Lopez MD Preliminary Report By: Abdirashid Lopez MD Electronically signed By Abdirashid Lopez MD Dictated Date: 03/04/2024 2:30:42 PM Prelim Date: 03/04/2024 2:31:57 PM Sign Date: 03/04/2024 2:31:57 PM Ordering Provider: HANK Muir [facility] .Auto Diffon 03-03-2024 Basophil, Absolute 0.0 10 3/mcL Normal 0.0-0.3 [facility] Comment on above: Performed By: #### A BSGEL, APTT, BMP, PRO, ANEU, ABOGEL, ADIFF, CBC, GFR ####[address] [address] Basophils/100 WBC (Bld) 0.2 % Normal 0.0-2.5 [facility] Comment on above: Performed By: #### A BSGEL, APTT, BMP, PRO, ANEU, ABOGEL, ADIFF, CBC, GFR ####[address] [address] Eosinophil, Absolute 0.0 10 3/mcL Normal 0.0-0.7 [facility] Comment on above: Performed By: #### A BSGEL, APTT, BMP, PRO, ANEU, ABOGEL, ADIFF, CBC, GFR ####[address] [address] Eosinophils/100 WBC (Bld) 0.1 % Normal 0.0-6.0 [facility] Comment on above: Performed By: #### A BSGEL, APTT, BMP, PRO, ANEU, ABOGEL, ADIFF, CBC, GFR ####[address] [address] Lymphocyte, Absolute 0.7 10 3/mcL Low 0.9-4.3 [facility] Comment on above: Performed By: #### A BSGEL, APTT, BMP, PRO, ANEU, ABOGEL, ADIFF, CBC, GFR ####[address] [address] Lymphocytes/100 WBC (Bld) 17.0 % Low 20.0-40.0 [facility] Comment on above: Performed By: #### A BSGEL, APTT, BMP, PRO, ANEU, ABOGEL, ADIFF, CBC, GFR ####[address] [address] Monocyte, Absolute 0.3 10 3/mcL Normal 0.1-1.4 [facility] Comment on above: Performed By: #### A BSGEL, APTT, BMP, PRO, ANEU, ABOGEL, ADIFF, CBC, GFR ####[place] [id number] [place] [address] Monocytes/100 WBC (Bld) 8.4 % Normal 2.0-13.0 [facility] Comment on above: Performed By: #### A BSGEL, APTT, BMP, PRO, ANEU, ABOGEL, ADIFF, CBC, GFR ####[place] [id number] [place] [address] Neutrophils/100 WBC (Bld) 74.3 % Normal 50.0-75.0 [facility] Comment on above: Performed By: #### A BSGEL, APTT, BMP, PRO, ANEU, ABOGEL, ADIFF, CBC, GFR ####[address] [address] .GFRon 03-03-2024 GFR >60 [facility] MAIN Comment on above: Result Comment: GFR Population mean for , Non- Americans Ages 20-29 = 116 mL/min/1.73 sq.m. Ages 30-39 = 107 mL/min/1.73 sq.m. Ages 40-49 = 99 mL/min/1.73 sq.m. Ages 50-59 = 93 mL/min/1.73 sq.m. Ages 60-69 = 85 mL/min/1.73 sq.m. Ages 70+ = 75 mL/min/1.73 sq.m. Chronic Kidney Disease: Less than 60 mL/min/1.73 square meters End Stage Renal Disease: Less than 15 mL/min/1.73 square meters Performed By: #### A BSGEL, APTT, BMP, PRO, ANEU, ABOGEL, ADIFF, CBC, GFR ####[address] [address] GFR Non- >60 [facility] MAIN Comment on above: Result Comment: GFR Population mean for , Non- Americans Ages 20-29 = 116 mL/min/1.73 sq.m. Ages 30-39 = 107 mL/min/1.73 sq.m. Ages 40-49 = 99 mL/min/1.73 sq.m. Ages 50-59 = 93 mL/min/1.73 sq.m. Ages 60-69 = 85 mL/min/1.73 sq.m. Ages 70+ = 75 mL/min/1.73 sq.m. Chronic Kidney Disease: Less than 60 mL/min/1.73 square meters End Stage Renal Disease: Less than 15 mL/min/1.73 square meters Performed By: #### A BSGEL, APTT, BMP, PRO, ANEU, ABOGEL, ADIFF, CBC, GFR ####[place] [id number] .NEUABSon 03-03-2024 Neutrophil, Absolute 3.0 10 3/mcL Normal 2.3-8.1 [facility] Comment on above: Performed By: #### A BSGEL, APTT, BMP, PRO, ANEU, ABOGEL, ADIFF, CBC, GFR ####[place] [address] ABO/Rh (Gel)on 03-03-2024 ABO/Rh Interp AB POS Invalid Interpretation Code [facility] Comment on above: Performed By: #### A BSGEL, APTT, BMP, PRO, ANEU, ABOGEL, ADIFF, CBC, GFR ####[place] [address] ABS (Gel)on 03-03-2024 ABSC Interp (Gel) Negative Normal [facility] Comment on above: Performed By: #### A BSGEL, APTT, BMP, PRO, ANEU, ABOGEL, ADIFF, CBC, GFR ####[place] [address] APTTon 03-03-2024 aPTT Coag (Bld) [Time] 27.6 s Normal 25.0-35.0 [facility] Comment on above: Result Comment: For Heparin anticoagulation therapy, the recommended therapeutic range is: 54-77 seconds (APTT Correlation with Anti-Xa therapeutic range of 0.3-0.7 units/ml). PLEASE REFERENCE THE PHARMACY PROTOCOL FOR DOSING. Performed By: #### A BSGEL, APTT, BMP, PRO, ANEU, ABOGEL, ADIFF, CBC, GFR ####[place] [address] aPTT Coag (Bld) [Time] 28.4 s Normal 25.4 - 38.4 [facility] Comment on above: Performed By: #### 2 [address] #### [facility],[address] [place] [address] BMPon 03-03-2024 BUN/Creatinine Ratio 11.2 ratio Normal 10.0-22.0 [facility] Comment on above: Performed By: #### A BSGEL, APTT, BMP, PRO, ANEU, ABOGEL, ADIFF, CBC, GFR ####[place] [address] Calcium [Mass/Vol] 9.1 mg/dL Normal 8.7-10.4 [facility] Comment on above: Performed By: #### A BSGEL, APTT, BMP, PRO, ANEU, ABOGEL, ADIFF, CBC, GFR ####[place] [address] Chloride [Moles/Vol] 107 mmol/L Normal 98-110 [facility] Comment on above: Performed By: #### A BSGEL, APTT, BMP, PRO, ANEU, ABOGEL, ADIFF, CBC, GFR ####[place] [id number] CO2 [Moles/Vol] 24 mmol/L Normal 22-32 [facility] Comment on above: Performed By: #### A BSGEL, APTT, BMP, PRO, ANEU, ABOGEL, ADIFF, CBC, GFR ####[place] [address] Creatinine [Mass/Vol] 0.89 mg/dL Normal 0.50-1.20 [facility] Comment on above: Result Comment: Test ing performed on [employer] analyzer using enzymatic creatinine methodology. Performed By: #### A BSGEL, APTT, BMP, PRO, ANEU, ABOGEL, ADIFF, CBC, GFR ####[place] [address] Electrolyte Balance 8.0 mEq/L Normal 4.0-15.0 [facility] Comment on above: Performed By: #### A BSGEL, APTT, BMP, PRO, ANEU, ABOGEL, ADIFF, CBC, GFR ####[address] [address] Glucose [Mass/Vol] 107 mg/dL Normal 82-115 [facility] Comment on above: Performed By: #### A BSGEL, APTT, BMP, PRO, ANEU, ABOGEL, ADIFF, CBC, GFR ####[address] [address] Potassium [Moles/Vol] 3.8 mmol/L Normal 3.5-5.0 [facility] Comment on above: Performed By: #### A BSGEL, APTT, BMP, PRO, ANEU, ABOGEL, ADIFF, CBC, GFR ####[address] [address] Sodium [Moles/Vol] 139 mmol/L Normal 136-145 [facility] Comment on above: Performed By: #### A BSGEL, APTT, BMP, PRO, ANEU, ABOGEL, ADIFF, CBC, GFR ####[address] [address] Urea nitrogen [Mass/Vol] 10.0 mg/dL Normal 8.0-22.0 [facility] Comment on above: Performed By: #### A BSGEL, APTT, BMP, PRO, ANEU, ABOGEL, ADIFF, CBC, GFR ####[address] [address] CBCon 03-03-2024 Erythrocyte distribution width (RBC) [Ratio] 13.8 % Normal 11.5-15.5 [facility] Comment on above: Performed By: #### A BSGEL, APTT, BMP, PRO, ANEU, ABOGEL, ADIFF, CBC, GFR ####[address] [address] Hematocrit (Bld) [Volume fraction] 41.9 % Normal 34.0-46.0 [facility] Comment on above: Performed By: #### A BSGEL, APTT, BMP, PRO, ANEU, ABOGEL, ADIFF, CBC, GFR ####[address] [address] Hgb 14.4 G/dL Normal 12.0-16.0 [facility] Comment on above: Performed By: #### A BSGEL, APTT, BMP, PRO, ANEU, ABOGEL, ADIFF, CBC, GFR ####[place] [address] MCH (RBC) [Entitic mass] 31.4 pg Normal 27.0-33.0 [facility] Comment on above: Performed By: #### A BSGEL, APTT, BMP, PRO, ANEU, ABOGEL, ADIFF, CBC, GFR ####[place] [address] MCHC 34.3 G/dL Normal 32.0-36.0 [facility] Comment on above: Performed By: #### A BSGEL, APTT, BMP, PRO, ANEU, ABOGEL, ADIFF, CBC, GFR ####[place] [address] MCV (RBC) [Entitic vol] 91.5 fL Normal 80.0-99.0 [facility] Comment on above: Performed By: #### A BSGEL, APTT, BMP, PRO, ANEU, ABOGEL, ADIFF, CBC, GFR ####[place] [address] Platelet 75 10 3/mcL Low 150-450 [facility] Comment on above: Performed By: #### A BSGEL, APTT, BMP, PRO, ANEU, ABOGEL, ADIFF, CBC, GFR ####[place] [address] Platelet mean volume (Bld) [Entitic vol] 9.1 fL Normal 6.6-10.5 [facility] Comment on above: Performed By: #### A BSGEL, APTT, BMP, PRO, ANEU, ABOGEL, ADIFF, CBC, GFR ####[place] [address] RBC 4.58 10 6/mcL Normal 4.10-5.30 [facility] Comment on above: Performed By: #### A BSGEL, APTT, BMP, PRO, ANEU, ABOGEL, ADIFF, CBC, GFR ####[facility] [place] [address] WBC 4.1 10 3/mcL Low 4.5-10.8 [facility] Comment on above: Performed By: #### A BSGEL, APTT, BMP, PRO, ANEU, ABOGEL, ADIFF, CBC, GFR ####[place] [id number] [place] [address] CBC + DIFFon 03-03-2024 Baso # 0.01 x10EE3/UL Normal 0.00 - 0.10 [facility] Comment on above: Performed By: #### 2 [address] #### [place] [address] Basophils/100 WBC (Bld) 0.2 % Normal 0.0 - 2.0 [facility] Comment on above: Performed By: #### 2 47982 #### [place] [address] CBC + DIFF Normal [facility] Comment on above: Result Comment: CBC- COMPLETE BLOOD COUNT Performed By: #### 2 86337 #### [place] [address] EO # 0.01 x10EE3/UL Normal 0.00 - 0.50 [facility] Comment on above: Performed By: #### 2 59672 #### [place] [address] Eosinophils/100 WBC (Bld) 0.4 % Normal 0.0 - 7.0 [facility] Comment on above: Performed By: #### 2 52372 #### [place] [address] Erythrocyte distribution width (RBC) [Ratio] 13.7 % Normal 12.0 - 15.6 [facility] Comment on above: Performed By: #### 2 91921 #### [place] [address] Hematocrit (Bld) [Volume fraction] 50.0 % High 34.0 - 46.0 [facility] Comment on above: Performed By: #### 2 50490 #### [facility],[address] [place] [address] Hemoglobin (Bld) [Mass/Vol] 16.5 g/dL High 12.0 - 16.0 [facility] Comment on above: Performed By: #### 2 99301 #### [facility],[address] [place] [address] Lymph # 0.52 x10EE3/UL Low 0.80 - 2.80 [facility] Comment on above: Performed By: #### 2 52471 #### [facility],[address] [place] [address] Lymphocytes/100 WBC (Bld) 14.1 % Low 20.0 - 45.0 [facility] Comment on above: Performed By: #### 2 47708 #### [facility],[address] [place] [address] MANUAL DIFF N/A Normal [facility] Comment on above: Performed By: #### 2 37272 #### [facility],[address] [place], [place] [id number] MCH (RBC) [Entitic mass] 30 pg Normal 27 - 33 [facility] Comment on above: Performed By: #### 2 22378 #### [facility],[address] [place], [place] [id number] MCHC 33 X10 3 Normal 32 - 36 [facility] Comment on above: Performed By: #### 2 59759 #### [facility],[address] [place], [place] [id number] MCV (RBC) [Entitic vol] 91 fL Normal 80 - 99 [facility] Comment on above: Performed By: #### 2 02464 #### [facility],[address] [place], [place] [id number] Wirt # 0.26 x10EE3/UL Normal 0.20 - 1.00 [facility] Comment on above: Performed By: #### 2 63345 #### [facility],[address] [place] [address] MONOS % 7.0 % Normal 0.0 - 10.0 [facility] Comment on above: Performed By: #### 2 65199 #### [facility],[address] [place] [address] Morphology Robbie (Bld) [Interp] N/A Normal [facility] Comment on above: Performed By: #### 2 27462 #### [facility],[address] [place] [address] Neut # 2.90 x10EE3/UL Normal 1.50 - 7.10 [facility] Comment on above: Performed By: #### 2 65402 #### [facility],[address] [place] [address] Neutrophils/100 WBC (Bld) 78.3 % High 46.0 - 76.0 [facility] Comment on above: Performed By: #### 2 34104 #### [facility],[address] [place] [address] PLATELET 91 x10EE3/UL Low 150 - 450 [facility] Comment on above: Performed By: #### 2 24878 #### [facility],[address] [place] [address] Platelet mean volume (Bld) [Entitic vol] 8.5 fL Normal 6.6 - 10.5 [facility] Comment on above: Result Comment: AUTO MATED DIFFERENTIAL Performed By: #### 2 21478 #### [facility],[address] [place] [address] RBC 5.49 x 10EE6/UL High 4.10 - 5.30 [facility] Comment on above: Performed By: #### 2 01653 #### [place] [address],[place] [address] WBC 3.7 x 10EE3/UL Low 4.5 - 10.8 [facility] Comment on above: Performed By: #### 2 96853 #### [facility],[address] [place] [address] CHEST 1 VIEWon 03-03-2024 CHEST 1 VIEW [place] [address] Patient: CARLOS OLIVER Phone#: : [phone] Age: 63 Gender: F Pt. Type: ER Account: [id number] Location: [facility] Ordering: JOSE LA Exam Date: 03/03/2024/8:11 Family Phys: Charge Code: 110973 Physician: [place] Order #: [id number] Dose#: PROCEDURE: X-RAY CHEST 1 VIEW COMPARISON: [facility], XR, CHEST 2 VIEWS, 07/08/2021, 15:14. INDICATIONS: Trauma. FINDINGS: LUNGS: Normal. No significant pulmonary parenchymal abnormalities. VASCULATURE: Normal. Unremarkable pulmonary vasculature. CARDIAC: Normal. No cardiac silhouette abnormality or cardiomegaly. MEDIASTINUM: Normal. No visible mass or adenopathy. PLEURA: Normal. No effusion or pleural thickening. BONES: Remote healed right posterior rib fracture. Vertebral body height loss throughout the thoracic spine, not well evaluated on this exam. OTHER: Negative. CONCLUSION: 1. No acute pulmonary parenchymal abnormality. Dictated by: Makenna Jacobson MD on 03/03/2024 at 8:45 Approved by: Makenna Jacobson MD on 03/03/2024 at 8:47 Normal [facility] CMP with eGFRon 03-03-2024 AGE 63 years Normal [facility] Comment on above: Performed By: #### 2 65628 ####[facility],[address] [place] [address] Albumin [Mass/Vol] 4.0 g/dL Normal 3.4 - 5.0 [facility] Comment on above: Performed By: #### 2 95253 ####[facility],[address] [place] [address] Albumin/Globulin [Mass ratio] 1.1 {ratio} Normal 0.9 - 1.6 [facility] Comment on above: Performed By: #### 2 60116 ####[facility],[address] [place] [address] ALK PHOS 93 U/L Normal 46 - 116 [facility] Comment on above: Performed By: #### 2 07877 ####[facility],[address] [place] [address] ALT [Catalytic activity/Vol] 24 U/L Normal 16 - 63 [facility] Comment on above: Performed By: #### 2 21935 ####[facility],[address] [place] [address] Anion gap [Moles/Vol] 15 mmol/L Normal 10 - 20 [facility] Comment on above: Performed By: #### 2 30545 ####[facility],[address] [place] [address] AST [Catalytic activity/Vol] 22 U/L Normal 13 - 39 [facility] Comment on above: Performed By: #### 2 39349 ####[facility],[address] [place] [address] B/C RATIO 10 ratio Normal 0 - 30 [facility] Comment on above: Performed By: #### 2 [id number] ####[facility],[address] [place] [address] 29973 Bilirubin [Mass/Vol] 1.4 mg/dL High 0.2 - 1.0 [facility] Comment on above: Performed By: #### 2 [id number] ####[facility],[address] [place] [address] [id number] Calcium [Mass/Vol] 9.6 mg/dL Normal 8.5 - 10.1 [facility] Comment on above: Performed By: #### 2 [id number] ####[facility],[address] [place] [address] 44142 Chloride [Moles/Vol] 106 mmol/L Normal 98 - 107 [facility] Comment on above: Performed By: #### 2 [id number] ####[facility],[address] [place] [address] 48842 CMP with eGFR Normal [facility] Comment on above: Result Comment: COMP REHENSIVE METABOLIC PANEL Performed By: #### 2 [id number] ####[facility],[address] [place] [address] 42117 CO2 [Moles/Vol] 26.7 mmol/L Normal 21.0 - 32.0 [facility] Comment on above: Performed By: #### 2 [id number] ####[facility],[address] [place] [address]128 Creatinine [Mass/Vol] 1.12 mg/dL High 0.55 - 1.02 [facility] Comment on above: Performed By: #### 2 [id number] ####[facility],[address] [place] [address] 12691 eGFR 49 ML/MINUTE Low 60 - 999 [facility] Comment on above: Performed By: #### 2 [id number] ####[facility],[address] [place] [address] 93622 eGFR(AA) 59 ML/MINUTE Low 60 - 999 [facility] Comment on above: Result Comment: ACCO RDING TO THE NATIONAL KIDNEY DISEASE EDUCATION PROGRAM(NKDE), A NORMAL eGFR IS A VALUE GREATER THAN OR EQUAL TO 60 ML/MIN/1.73 SQ METERS. CHRONIC KIDNEY DISEASE: <60mL/MIN/1.73 SQ METERS KIDNEY FAILURE: <15mL/MIN/1.73 SQ METERS THIS TEST SHOULD ONLY BE USED FOR PATIENTS 18 YEARS OF AGE AND OLDER. Performed By: #### 2 [id number] ####[facility],[address],[place] [address] Globulin (S) [Mass/Vol] 3.5 g/dL Normal 1.5 - 3.8 [facility] Comment on above: Performed By: #### 2 [id number] ####[facility],[address] [place] [address] 53360 Glucose [Mass/Vol] 139 mg/dL High 74 - 106 [facility] Comment on above: Performed By: #### 2 [id number] ####[facility],[address] [place] [address] 62734 Potassium [Moles/Vol] 3.3 mmol/L Low 3.5 - 5.1 [facility] Comment on above: Performed By: #### 2 [id number] ####[facility],[address] [place] [address] 60385 Protein [Mass/Vol] 7.5 g/dL Normal 6.4 - 8.2 [facility] Comment on above: Performed By: #### 2 [id number] ####[facility],[address] [place] [address] 43072 Sodium [Moles/Vol] 144 mmol/L Normal 136 - 145 [facility] Comment on above: Performed By: #### 2 [id number] ####[facility],[address] [place] [address] 90966 Urea nitrogen [Mass/Vol] 11 mg/dL Normal 7 - 18 [facility] Comment on above: Performed By: #### 2 [id number] ####[facility],[address] [place] [address] 670[address] ED MED ADMINISTRATION DETAIL on 03-03-2024 ED MED ADMINISTRATION DETAIL Iphone Developer Medication Administration [address] [address] [phone] 03/03/2024 Patient: CARLOS OLIVER Sex: Female : 1960 Age: 63y MEASUREMENTS: Wt: 54.9 kg, Ht/Fredis: 60.0 in, BMI: 23.63 ALLERGIES: latex, morphine Medication Ordered Medication Administration Date/Time Zofran IVP 4 mg 07:13 12 Zofran IVP 4 mg given via Site# 1. - 07:14 Eliel Shahid, Given (NOW x1) R.N. 07:13 03/03/2024 Eliel Shahid R.N. Scanned HYDROmorphone 07:22 03/03 HYDROmorphone (Dilaudid) IVP 0.5 mg given via Given (Dilaudid) IVP 0.5 Site# 1. Allergies verified and confirmed 5 rights. IV patency 07:22 03/03/2024 mg (NOW x1, HIGH established. IV site checked: no pain, redness, or swelling. IV Eliel Shahid R.N. ALERT flushed thoroughly pre-medication administration. Information Scanned MEDICATION) reviewed with patient including reason for taking this medication. Verbalizes understanding. (has taken dilaudid before without issue). Medication Wastage: 0.5 mg wasted. - 07:22 Eliel Shahid R.N. 1 of 2 Iphone Developer Medication Ordered Medication Administration Date/Time potassium 08:19 03/03 potassium chloride(K-Yan)20mEq/100m l IVPB Started chloride(K-Yan)20 Premix 20 mEq started at 50 mL/hr via Site# 1. Allergies verified 08:19 03/03/2024 mEq/100ml IVPB and confirmed 5 rights. Via IV pump. IV patency established. IV site Mayra Cervantes R.N. Premix 20 mEq at checked: no pain, redness, or swelling. IV flushed thoroughly Stopped 50 mL/hr (NOW x1) pre-medication administration. Information reviewed with patient. 10:12 03/03/2024 Verbalizes understanding. - 08:21 Rocio Hodge R.N. Scanned 08:19 12 Medication Co-sign: Verified dosage, concentration and rate. - 08:21 Chelle Torres R.N. 10:12 12 Medication Discontinued: IV infused. Total amount infused: 100 mL. IV patency established. IV site checked: no pain, redness, or swelling. IV flushed thoroughly post-medication administration. - 10:15 Mayra Cervantes R.N. Fentanyl IVP 50 09:36 12 Fentanyl IVP 50 mcg given via Site# 1. Allergies Given mcg (NOW x1, HIGH verified and confirmed 5 rights. IV patency established. IV site 09:36 03/03/2024 ALERT checked: no pain, redness, or swelling. IV flushed thoroughly Mayra Cervantes R.N. MEDICATION) pre-medication administration. Medication Wastage: 50 mcg Scanned wasted. - 09:37 Mayra Cervantes R.N. Nicotine (Nicoderm) 10:17 12 Nicotine (Nicoderm) Patch 21mg/24hr 1 patch given. Given Patch 21mg/24hr 1 Applied to the right upper arm. - 10:17 Mayra Cervantes R.N. 10:17 03/03/2024 patch (NOW x1) Mayra Cervantes R.N. Scanned 2 of 2 Normal [facility] ED NURSES CLINICAL NOTEon ED NURSES CLINICAL NOTE Nurse Narrative Nurse Clinical Narrative [address] [place] [address] [phone] 03/03/2024 Patient: CARLSO OLIVER Sex: Female : 1960 Age: 63y Disposition: Transfer to [facility] Disposition Decision Time: 09:54 03/03/2024 Departure Time: 11:52 03/03/2024 TRIAGE Arrived by EMS. Historian: patient. ( pt fell at 1730 last night, slipped on ice , now c/o right hip pain). Triage time: 07:01 03/03/2024. Acuity: LEVEL 3. Chief Complaint: INJURY TO THE RIGHT HIP. Alert. No acute distress. (pt c/o sever right hip pain with little movement). Occurred at home. Occurred 17:30 03/02/2024. The patient has had severe trouble walking (for 14 hours). The patient has been unable to walk, stand and sit. ( pt slipped on ice, needed assistance to get up and to get into her home, c/o severe right hip pain. Leg noted to be shortened and rotated outwardly.). SEPSIS SCREEN: NEGATIVE. SIRS criteria negative. No possible sources of infection. -- 07:19 03/03/24 ULICES Schwarz R.N. 07:18 03/03/24. BP: 142/76 MAP: 98. HR: 82. RR: 16. O2 saturation: 93% on room air. Temperature: 98.5 F (oral). Pain level now 09/05. -- 07:18 03/03/24 ULICES Schwarz R.N. Measurements: 07:18 03/03/24 Wt: 54.9 kg, Ht/Fredis: 60.0 in, BMI: 23.63 -- 07:18 03/03/24 ULICES Schwarz R.N. Medications: 1 of 5 Nurse Narrative albuterol sulfate HFA 90 mcg/actuation aerosol inhaler: 2 puff every four hours as needed. -- 07:50 03/03/24 ULICES Cervantes R.N. nystatin 100,000 unit/mL oral suspension: 1 once a day. -- 07:50 03/03/24 ULICES Cervantes R.N. spironolactone 100 mg tablet: 1 tablet once a day. -- 07:50 03/03/24 ULICES Cervantes R.N. Trelegy Ellipta 100 mcg-62.5 mcg-25 mcg powder for inhalation: 1 puff once a day. -- 07:50 03/03/24 ULICES Cervantes R.N. sumatriptan 50 mg tablet: 1 tablet once a day. -- 07:50 03/03/24 ULICES Cervantes R.N. potassium chloride ER 20 mEq tablet,extended release(part/cryst): 1 tablet every other day. -- 07:50 03/03/24 ULICES Cervantes R.N. Xifaxan 550 mg tablet: 1 tablet once a day. -- 07:50 03/03/24 ULICES Cervantes R.N. levothyroxine 50 mcg tablet: 1 tablet once a day. -- 07:50 03/03/24 ULICES Cervantes R.N. doxepin 10 mg capsule: (pt states she is not taking) -- 07:50 03/03/24 ULICES Cervantes R.N. Caplyta 42 mg capsule: 1 capsule once a day. -- 07:50 03/03/24 ULICES Cervantes R.N. Allergies: morphine -- 07:06 03/03/24 ULICES Schwarz R.N. latex -- 07:07 03/03/24 ULICES Schwarz R.N. 07:03/03/24. Preferred pharmacy ([facility]). -- 07:19 03/03/24 ULICES Schwarz R.N. History 07:03/03/24. PAST MEDICAL HX: Anxiety. Bipolar disorder. Depression. Renal failure; (pt states kidney issues). Cirrhosis. Hepatitis. Tetanus status: up-to-date. Immunizations: status is unknown. SURGERY HX: Hernia repair. Abdominal hernia repair. Hysterectomy. SOCIAL HX: Current every day heavy tobacco smoker (cigarette)- 1 pack per day. Alcohol use; consumes beer weekly. 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 Drug use: marijuana. The patient has not traveled outside the [place] Infectious disease exposure: No infectious disease exposure. ABUSE ASSESSMENT: The patient answered yes to the question(s) Do you feel safe in your home? and no to the question(s) Are you afraid to go home?. 2 of 5 Nurse Narrative SELF HARM ASSESSMENT: Self harm assessment was performed. The patient answered no to the question(s) Have you recently felt down, depressed, or hopeless? and Do you have thoughts of harming or killing yourself?. FALL RISK ASSESSMENT: Fall risk assessment completed. Risk factors identified include severe pain and patient impairment of mobility. Fall interventions initiated. Patient placed on stretcher. Side rails up x2. Bed in low position. Brakes on. Patient visible from nurses' station and identified as a fall risk by ID band. Call light in reach of patient. -- 07:03/03/24 ULICES Schwarz R.N. Interventions 07:03/03/24. Identification band on patient. -- 07:19 03/03/24 ULICES Schwarz R.N. PHYSICAL ASSESSMENT 07:21 03/03/24. To room via stretcher. GENERAL / NEURO / PSYCH: Oriented X 4. Alert. Appears in pain and anxious. EXTREMITIES: Capillary refill is less than 2 seconds in the extremities. Extremity pulses are within normal limits. The patient was unable to bear weight. Neuro-vascular status intact to the extremity. Right hip: tenderness and deformity of the lateral aspect of the hip. Limited ROM secondary to pain. The right leg is shortened and externally rotated (right leg shortened and rotated). SKIN: Skin intact. Skin is warm and dry. -- 07:21 03/03/24 ULICES Schwarz R.N. NURSING PROGRESS NOTES 07:09 03/03/24. Site #1 started via IV in the left forearm with a 20g angiocath with aseptic sky (more content not included)... Normal [facility] ED ORDER SHEET (CPOE ONLY)on 03-03-2024 ED ORDER SHEET (CPOE ONLY) Order Sheet Order Sheet [facility] [address] [place] [address] [id number] 03/03/2024 Patient: CARLOS OLIVER Sex: Female : 1960 Age: 63y MEASUREMENTS: Wt: 54.9 kg, Ht/Fredis: 60.0 in, BMI: 23.63 ALLERGIES: latex, morphine MEDICATION/IV/DRIP/FLUID ORDERS Order Description Priority Entered Acknowledged Completed Zofran IVP4 mg (NOW x1) 07:02 03/03/2024 07:11 07:14 Jose La, 03/03/2024 03/03/2024 Rocio Banuelos R.N. MORPHine IVP4 mg (NOW x1, 07:02 03/03/2024 07:11 HIGH ALERT MEDICATION) Jsoe La, 03/03/2024 Isela Shahid R.N. MORPHine IVP4 mg (NOW x1, 07:20 03/03/2024 07:20 HIGH ALERT MEDICATION) Jose La, 03/03/2024 Isela Cervantes R.N. HYDROmorphone (Dilaudid) 07:20 03/03/2024 07:20 07:22 IVP0.5 mg (NOW x1, HIGH Jose La, 03/03/2024 03/03/2024 ALERT MEDICATION) Eliel Valencia R.N. RSita 1 of 4 Order Sheet Reason for ordering with alerts: Benefits outweigh risks --07:20 03/03/2024 Jose La D.O. potassium 07:47 03/03/2024 07:51 08:21 chloride(K-Yan)20mEq/100m l Jose La, 03/03/2024 03/03/2024 IVPB Skhoju32 mEq at 50 mL/hr Amanda.OMayra Schuster, (NOW x1) Rocio RSita Fentanyl IVP50 mcg (NOW x1, 09:06 03/03/2024 09:09 09:37 HIGH ALERT MEDICATION) Jose La, 03/03/2024 03/03/2024 Mayra Valencia R.N. RSita Reason for ordering with alerts: Benefits outweigh risks --09:06 03/03/2024 Jose La D.O. Nicotine (Nicoderm) Patch 09:40 03/03/2024 09:49 10:17 21mg/24hr1 patch (NOW x1) Jose La, 03/03/2024 03/03/2024 Mayra Valencia R.N. R.N. LAB ORDERS Order Description Priority Entered Acknowledged Collected Completed CBC w Diff Stat Stat 07:02 03/03/2024 07:11 03/03/2024 Rocio Castaneda D.O. CMP Stat Stat 07:02 03/03/2024 07:11 03/03/2024 Rocio Castaneda D.O. PT with INR Stat Stat 07:02 03/03/2024 07:11 03/03/2024 Rocio Castaneda D.O. PTT Stat Stat 07:02 03/03/2024 07:11 03/03/2024 Jose Shahid R.N. 2 of 4 Order Sheet Isela La Urinalysis Stat Stat 08:16 03/03/2024 08:16 03/03/2024 Mayra Hodge R.N. R.N. Verbal Order, Auth by: Jose La D.O. Read back and verified DIAGNOSTIC STUDY ORDERS Order Description Priority Entered Acknowledged Completed Chest 1V Stat Stat 07:02 03/03/2024 07:11 Jose La, 03/03/2024 Isela Shahid R.N. Order Comments: 07:01 03/03/2024: Status: Not . Jose La D.O. Reason for Study: fall. hip fracture Hip R 2+Views w/AP Pelvis Stat Stat 07:02 03/03/2024 07:11 Jose La, 03/03/2024 Isela Shahid R.N. Reason for Study: Trauma/Injury STAFF ORDERS Order Description Priority Entered Acknowledged Collected Completed IV Saline Lock 07:02 03/03/2024 07:11 03/03/2024 Rocio Castaneda D.O. Hardin Catheter 08:16 03/03/2024 08:16 03/03/2024 Mayra Hodge, 3 of 4 Order Sheet Derick.Vincent Chan Verbal Order, Auth by: Jose La D.O. Read back and verified [Electronically signed by Jose La D.O. (03/03/2024 10:01 EST)] 4 of 4 Normal [facility] ED PHYSICIAN CLINICAL REPORT on 03-03-2024 ED PHYSICIAN CLINICAL REPORT Narrative Physician Clinical Narrative [address] [address] [phone] 03/03/2024 Patient: CARLOS OLIVER Sex: Female : 1960 Age: 63y Disposition: Transfer to [facility] Disposition Decision Time: 09:54 03/03/2024 Measurements Wt: 54.9 kg, Ht/Fredis: 60.0 in, BMI: 23.63 Initial Vital Sign Measured Time BP MAP HR RR O2Sat ETCO2 Temp Pain GCS RTS 06:56 03/03/2024 83 95% Time Seen: 07:00 03/03/2024. Arrived- By ambulance. Historian- patient. HISTORY OF PRESENT ILLNESS Chief Complaint: FALL: (From standing after slipping on ice). The injury occurred 13 hours ago. ( Fell on her right hip. Unable to ambulate since that time. Pain is sharp in nature. Denies any numbness or tingling. Denies any head injury or loss of consciousness.). REVIEW OF SYSTEMS GI: No nausea or vomiting. NEUROLOGICAL: No numbness or headache. Status: Not . PAST HISTORY 1 of 14 Narrative See nurses notes. Medications: albuterol sulfate HFA 90 mcg/actuation aerosol inhaler: 2 puff every four hours as needed. Caplyta 42 mg capsule: 1 capsule once a day. doxepin 10 mg capsule: (pt states she is not taking) levothyroxine 50 mcg tablet: 1 tablet once a day. nystatin 100,000 unit/mL oral suspension: 1 once a day. potassium chloride ER 20 mEq tablet,extended release(part/cryst): 1 tablet every other day. spironolactone 100 mg tablet: 1 tablet once a day. sumatriptan 50 mg tablet: 1 tablet once a day. Trelegy Ellipta 100 mcg-62.5 mcg-25 mcg powder for inhalation: 1 puff once a day. Xifaxan 550 mg tablet: 1 tablet once a day. Allergies: latex morphine SOCIAL HISTORY Smoker- current status unknown. ADDITIONAL NOTES The nursing notes have been reviewed. PHYSICAL EXAM Vital Signs: Have been reviewed. Appearance: Alert. No acute distress. Head: Head non-tender. No swelling of head. Eyes: Pupils equal, round and reactive to light. EOM intact. ENT: No dental injury. Pharynx normal. Neck: Painless ROM. Non-tender. CVS: Heart sounds normal. Pulses normal. Respiratory: Breath sounds normal. Chest nontender. Abdomen: Soft and nontender. Skin: Skin intact. Skin warm. Neuro: (Tenderness to palpation of the right hip. Range of motion limited secondary to pain. Shortened and 2 of 14 Narrative externally rotated. Strong and palpable femoral, popliteal, DP, PT pulses. Sensation grossly intact of the right lower extremity.). LABS, X-RAYS, AND EKG Rt Hip X-ray: Nondisplaced intertrochanteric fracture of the right hip. The X-rays were interpreted by the radiologist and contemporaneously by me. Laboratory Tests: APTT Final JESUS: 03/03/2024 07:05:00 EST MsgRcvd: 03/03/2024 07:48 EST Lab Test Result Reference Status Received Comments 03/03/2024 07:48 PTT 28.4 sec 25.4 - 38.4 Final EST CBC + DIFF Final JESUS: 03/03/2024 07:05:00 EST MsgRcvd: 03/03/2024 07:28 EST Lab Test Result Reference Status Received Comments 03/03/2024 07:28 CBC-COMPLETE CBC + DIFF Final EST BLOOD COUNT 3.7 x 10/UL 03/03/2024 07:28 WBC 4.5 - 10.8 Final Below low normal EST 5.49 x 10/UL 03/03/2024 07:28 RBC 4.10 - 5.30 Final Above high normal EST 16.5 g/dl 03/03/2024 07:28 HEMOGLOBIN 12.0 - 16.0 Final Above high normal EST 50.0 % 03/03/2024 07:28 HEMATOCRIT 34.0 - 46.0 Final Above high normal EST 3 of 14 Narrative 03/03/2024 07:28 MCV 91 fl 80 - 99 Final EST 03/03/2024 07:28 MCH 30 pg 27 - 33 Final EST 03/03/2024 07:28 MCHC 33 X10 3 32 - 36 Final EST 03/03/2024 07:28 RDW/CV 13.7 % 12.0 - 15.6 Final EST 91 x10/UL 03/03/2024 07:28 PLATELET 150 - 450 Final Below low normal EST 03/03/2024 07:28 AUTOMATED MPV 8.5 fl 6.6 - 10.5 Final EST DIFFERENTIAL 78.3 % 03/03/2024 07:28 NEUT % 46.0 - 76.0 Final Above high normal EST 14.1 % 03/03/2024 07:28 LYMPH % 20.0 - 45.0 Final Below low normal EST 03/03/2024 07:28 MONOS % 7.0 % 0.0 - 10.0 Final EST 03/03/2024 07:28 EO % 0.4 % 0.0 - 7.0 Final EST 03/03/2024 07:28 BASO % 0.2 % 0.0 - 2.0 Final EST 0.52 x10/UL 03/03/2024 07:28 Lymph # 0.80 - 2.80 Final Below low normal EST 03/03/2024 07:28 Neut # 2.90 x10/UL 1.50 - 7.10 Final EST 03/03/2024 07:28 Wirt # 0.26 x10/UL 0.20 - 1.00 Final EST 4 of 14 Narrative 03/03/2024 07:28 EO # 0.01 x10/UL 0.00 - 0.50 Final EST 03/03/2024 07:28 Baso # 0.01 x10/UL 0.00 - 0.10 Final EST 03/03/2024 07:28 MANUAL DIFF N/A New Order EST 03/03/2024 07:28 MORPHOLOGY N/A New Order EST CMP with eGFR Final JESUS: 03/03/2024 07:05:00 EST MsgRcvd: 03/03/2024 07:46 EST Lab Test Result Reference Status Received Comments COMPREHENSIVE 03/03/2024 CMP with eGFR Final METABOLIC 07:46 EST PANE (more content not included)... Normal [facility] ED SUPER BILLon 03-03-2024 ED [place] [address] [place] [address] [phone] 03/03/2024 Patient: CARLOS OLIVER Sex: Female : 1960 Age: 63y Facility Professional Category Item Description Code Code Quantity Fee Total Drugs Normal Saline 604551 1 $0.00 $0.00 1000cc (854614) Nurse/E/M EMERGENCY 443991 1 $0.00 $0.00 DEPT VISIT HIGH SEVERITYFUNCJ (66601-69) Nurse/IV/IM/Infusions Drip/IVPB 749399 1 $0.00 $0.00 additional hour (74962) Nurse/IV/IM/Infusions Drip/IVPB initial 790520 1 $0.00 $0.00 (52348) Nurse/IV/IM/Infusions IVP additional 475182 3 $0.00 $0.00 push (12090) Nurse/Supplies 16 Fr Hardin Kit 234475 1 $0.00 $0.00 (019278) Physician/Procedures Hardin catheter 621456 1 $0.00 $0.00 (69620) Grand $0.00 Total 1 of 2 [facility] Providers Jose La D.O. Chief Complaint FALL: (From standing after slipping on ice). Principal Diagnosis Closed nondisplaced intertrochanteric fracture of the right femur. Thrombocytopenia. Hypokalemia. ICD-10 Codes S72.144A: Nondisplaced intertrochanteric fracture of right femur, initial encounter for closed fracture E87.6: Hypokalemia K52.9: Noninfective gastroenteritis and colitis, unspecified 2 of 2 Normal [facility] ED VISIT SUMMARYon ED VISIT SUMMARY Visit Overview Visit Overview [place] [address] [place] [address] [phone] 03/03/2024 Patient: CARLOS OLIVER Sex: Female : 1960 Age: 63y 03/03/2024 12:04 PM EST ED Arrival:06:52 03/03/2024 EST Status:not Recent Travel:no Language:eng Adv Directive: Isolation Status: Ethnicity:N Fall Risk:risk Infectious Disease Exposure:no Measurements:5' / 152.4 Self-Harm Status:risk Sepsis Screen:negative cm 121.0 lb / 54.9 kg Chief Complaint:(17:30 03/02/2024), (for 14 hours), (pt c/o sever right hip pain with little movement), (pt fell at 1730 last night, slipped on ice , now c/o right hip pain), and (pt slipped on ice, needed assistance to get up and to get into her home, c/o severe right hip pain. Leg noted to be shortened and rotated outwardly.) ALLERGIES latex morphine 1 of 4 Visit Overview HOME MEDICATIONS albuterol sulfate HFA 90 mcg/actuation aerosol inhaler: 2 puff every four hours as needed. Caplyta 42 mg capsule: 1 capsule once a day. doxepin 10 mg capsule: (pt states she is not taking) levothyroxine 50 mcg tablet: 1 tablet once a day. nystatin 100,000 unit/mL oral suspension: 1 once a day. potassium chloride ER 20 mEq tablet,extended release(part/cryst): 1 tablet every other day. spironolactone 100 mg tablet: 1 tablet once a day. sumatriptan 50 mg tablet: 1 tablet once a day. Trelegy Ellipta 100 mcg-62.5 mcg-25 mcg powder for inhalation: 1 puff once a day. Xifaxan 550 mg tablet: 1 tablet once a day. PAST MEDICAL HISTORY / PROBLEMS Anxiety Bipolar disorder Cirrhosis Depression Hepatitis Immunizations: status is unknown Renal failure; (pt states kidney issues) See nurses notes Tetanus status: up-to-date Tetanus status: up-to-date PAST SURGICAL HISTORY Abdominal hernia repair Hernia repair Hysterectomy SOCIAL HISTORY Smoking status: Yes Alcohol use: Yes Drug use: Yes ED COURSE 2 of 4 Visit Overview MEDICATIONS GIVEN IN EMERGENCY DEPARTMENT 07:13 03/03/24 Zofran IVP 4 mg 07:22 03/03/24 HYDROmorphone (Dilaudid) IVP 0.5 mg 08:19 03/03/24 potassium chloride(K-Yan)20mEq/100m l IVPB Premix 20 mEq 50 mL/hr 09:36 03/03/24 Fentanyl IVP 50 mcg 10:17 03/03/24 Nicotine (Nicoderm) Patch 21mg/24hr 1 patch IV SITE INFORMATION 07:09 03/03/24 Site #1 left forearm, 20g. Saline lock. INTAKE OUTPUT REASSESMENT (most recent) 10:35 03/03/24. Extremities: Neuro-vascular status intact to the extremities. 10:35 03/03/24. Overall patient status is the same. GENERAL / NEURO / PSYCH: The patient reports pain that is located in the right hip and thigh. Alert. RESPIRATORY: No respiratory distress. CVS: Capillary refill less than 2 seconds. SKIN: Skin is warm and dry. VITAL SIGNS First Vitals Last Vitals Temp 06:56 03/03/24 Temp 11:39 03/03/24 BP 06:56 03/03/24 BP 11:39 03/03/24 122/81 HR 06:56 03/03/24 83 HR 11:39 03/03/24 77 RR 06:56 03/03/24 RR 11:39 03/03/24 O2 Sat 06:56 03/03/24 95% O2 Sat 11:39 12 Pain 06:56 03/03/24 Pain 11:39 03/03/24 ETCO2 06:56 03/03/24 ETCO2 11:39 03/03/24 GCS 06:56 03/03/24 GCS 11:39 03/03/24 RTS 06:56 03/03/24 RTS 11:39 03/03/24 PROCEDURES NURSING INTERVENTIONS Urinary catheter LABS / STUDIES 3 of 4 Visit Overview LABS / STUDIES ORDERED CBC w Diff Chest 1V CMP Hip R 2+Views w/AP Pelvis PT with INR PTT Urinalysis CLINICAL IMPRESSION CLOSED NONDISPLACED INTERTROCHANTERIC FRACTURE OF THE RIGHT FEMUR HYPOKALEMIA THROMBOCYTOPENIA 4 of 4 Normal [facility] ED VITALS FLOW SHEETon 03-03 ED VITALS FLOW SHEET Vitals Vital Sign Flow Sheet [facility] [address] [place] [address] [phone] 03/03/2024 Patient: CARLOS OLIVER Sex: Female : 1960 Age: 63y Measurements Wt: 54.9 kg, Ht/Fredis: 60.0 in, BMI: 23.63 Measured Time BP MAP HR RR O2Sat ETCO2 Temp Pain GCS RTS 11:39 03/03/2024 122/81 93 77 11:36 03/03/2024 82 97% 11:31 03/03/2024 82 97% 11:26 03/03/2024 83 96% 11:21 03/03/2024 83 97% 11:16 03/03/2024 83 97% 11:11 03/03/2024 88 97% 11:06 03/03/2024 81 98% 11:01 03/03/2024 84 98% 10:56 03/03/2024 91 98% 10:51 03/03/2024 89 97% 10:46 03/03/2024 80 96% 10:41 03/03/2024 78 97% 10:39 03/03/2024 107/78 89 81 10:36 03/03/2024 80 96% 1 of 3 Vitals Measured Time BP MAP HR RR O2Sat ETCO2 Temp Pain GCS RTS 10:31 03/03/2024 84 96% 10:26 03/03/2024 81 98% 10:21 03/03/2024 88 97% 10:16 03/03/2024 77 95% 10:11 03/03/2024 82 86% 10:08 03/03/2024 131/82 102 76 10:06 03/03/2024 85 86% 10:01 03/03/2024 88 88% 09:56 03/03/2024 86 91% 09:46 03/03/2024 83 95% 09:41 03/03/2024 78 89% 09:39 03/03/2024 132/75 101 64 09:36 03/03/2024 86 96% 09:31 03/03/2024 87 94% 09:26 03/03/2024 86 94% 09:21 03/03/2024 85 95% 09:16 03/03/2024 89 93% 09:11 03/03/2024 85 94% 09:08 03/03/2024 134/94 107 80 09:06 03/03/2024 83 91% 09:01 03/03/2024 83 89% 08:56 03/03/2024 78 89% 08:51 03/03/2024 68 92% 08:46 03/03/2024 77 93% 08:41 03/03/2024 82 90% 2 of 3 Vitals Measured Time BP MAP HR RR O2Sat ETCO2 Temp Pain GCS RTS 08:38 03/03/2024 122/61 95 78 08:36 03/03/2024 79 93% 08:31 03/03/2024 84 92% 08:26 03/03/2024 94 70% 08:22 03/03/2024 134/87 103 88 08:21 03/03/2024 93 91% 07:46 03/03/2024 88 94% 07:41 03/03/2024 93 89% 07:39 03/03/2024 118/81 93 84 07:36 03/03/2024 87 95% 07:31 03/03/2024 86 92% 07:21 03/03/2024 77 93% 07:18 03/03/2024 142/76 98 82 16 93% RA 98.5 F 6 07:09 03/03/2024 157/132 137 98 06:58 03/03/2024 142/76 116 51 06:56 03/03/2024 83 95% 3 of 3 Normal [facility] HIP COMPLETE RT MIN 2 VIEWS W/PELVISon 03-03-2024 HIP COMPLETE RT MIN 2 VIEWS W/PELVIS [place] [address] Patient: CARLOS OLIVER Phone#: : [phone] Age: 63 Gender: F Pt. Type: ER Account: [id number] Location: [facility] Ordering: JOSE LA Exam Date: 03/03/2024/8:03 Family Phys: Charge Code: 877207 Physician: Stanislaus Order #: [id number] Dose#: PROCEDURE: X-RAY HIP RT COMPLETE MIN 2 VIEWS W/PELVIS COMPARISON: None. INDICATIONS: Trauma. FINDINGS: BONES: Nondisplaced intratrochanteric fracture. Fracture fragments maintain anatomic alignment. Right femoral head is normal in contour and seated in the acetabulum. No dislocation. Diffuse bony demineralization. Degenerative changes of the lower lumbar spine. SOFT TISSUES: Negative. No visible soft tissue swelling. EFFUSION: None visible. OTHER: Negative. CONCLUSION: 1. Nondisplaced right intratrochanteric hip fracture Dictated by: Makenna Jacobson MD on 03/03/2024 at 8:43 Approved by: Makenna Jacobson MD on 03/03/2024 at 8:45 Normal [facility] LABORATORYOrdered By: Jennifer treadwell on 03-03-2024 ABO and Rh group Nom (Bld) Blood group AB Rh(D) positive Invalid Interpretation Code AH BB Auto SS Blood group antibody screen Ql Negative ABSC (03/03/24 6:12 PM) Normal AH BB Auto SS LABORATORYOrdered By: SYSTEM SYSTEM on 03-03-2024 aPTT Coag (Bld) [Time] 27.6 s Normal 25.0 - 35.0 seconds AH [facility] SS Comment on above: Interpretive Data: F or Heparin anticoagulation therapy, the recommended therapeutic range is: 54-77 seconds (APTT Correlation with Anti-Xa therapeutic range of 0.3-0.7 units/ml). PLEASE REFERENCE THE PHARMACY PROTOCOL FOR DOSING. PT Coag (PPP) [Time] 13.2 s Normal 9.0 - 1 4.4 seconds AH [facility] SS Comment on above: Interpretive Data: E ffective 10/11/07, Protime results may be affected by some antibiotics (i.e. Ciprofloxacin, Azithromycin, Bactrim) which may potentiate the action of oral anticoagulants, with further increases in Protime/INR. PT International Ratio 1.2 ratio Invalid Interpretation Code LASHELL [facility] SS Comment on above: Interpretive Data: Kathryn haley [employer] (CHEST, 1991, 102:312S-25S) recommended therapeutic range for oral anticoagulant therapy is: LOW RISK: Prophylaxis of venous thrombosis INR: 2.0-3.0 Treatment of pulmonary embolism 2.0-3.0 Prevention of systemic embolism 2.0-3.0 HIGH RISK: Mechanical prosthetic valves 2.5-3.5 PROon 03-03-2024 INR Coag (PPP) [Relative time] 1.2 {INR} Normal [facility] Comment on above: Result Comment: [employer] (CHEST, 1991, 102:312S-25S) recommended therapeutic range for oral anticoagulant therapy is: LOW RISK: Prophylaxis of venous thrombosis INR: 2.0-3.0 Treatment of pulmonary embolism 2.0-3.0 Prevention of systemic embolism 2.0-3.0 HIGH RISK: Mechanical prosthetic valves 2.5-3.5 Performed By: #### A BSGEL, APTT, BMP, PRO, ANEU, ABOGEL, ADIFF, CBC, GFR ####[place] [id number] [place] [id number] PT Coag (PPP) [Time] 13.2 s Normal 9.0-14.4 [facility] Comment on above: Result Comment: Effe ctive 10/11/07, Protime results may be affected by some antibiotics (i.e. Ciprofloxacin, Azithromycin, Bactrim) which may potentiate the action of oral anticoagulants, with further increases in Protime/INR. Performed By: #### A BSGEL, APTT, BMP, PRO, ANEU, ABOGEL, ADIFF, CBC, GFR ####[place] [id number] [place] [address] PROTHROMBIN TIME AND INRon 1 05-04-2023 INR Coag (PPP) [Relative time] 1.1 {INR} Normal 0.8 - 1.2 [facility] Comment on above: Result Comment: T HE HEMOSIL THROMBOPLASTIN REAGENT USED IN THE PROTHROMBIN TIME TEST INTERACTS WITH THE DRUG CUBICIN (DAPTOMYCIN) AND WILL RESULT IN FALSELY ELEVATED PT / INR RESULTS INR INTERPRETATION INR INDICATION PREVENTION AND TREATMENT OF THROMBOEMBOLISM ASSOCIATED WITH: 2.0 - 3.0 ATRIAL FIBRILLATION, BIOPROSTHETIC HEART VALVES, PULMONARY EMBOLISM, VENOUS THROMBOSIS, SYSTEMIC EMBOLISM POST MYOCARDIAL INFARCTION 2.5 - 3.5 MECHANICAL HEART VALVES Performed By: #### 2 92437 ####[facility],[address] [place] [address] PROTHROMBIN TIME AND INR Normal [facility] Comment on above: Result Comment: PROT HROMBIN TIME AND INR Performed By: #### 2 88219 ####[facility],[address] [place] [address] PT-COUMADIN 12.3 sec Normal 9.3 - 14.1 [facility] Comment on above: Performed By: #### 2 85060 ####[facility],[address] [place] [address] URINALYSISon 03-03-2024 Amorphous NONE Normal [facility] Comment on above: Performed By: #### 2 07729 #### [facility],[address] [place] [address] Bacteria NONE Normal [facility] Comment on above: Performed By: #### 2 07528 #### [facility],[address] [place], [place] [phone] Bilirubin Ql (U) Negative Normal NORMAL: NEGATIVE [facility] Comment on above: Performed By: #### 2 46521 #### [facility],[address] [place], [place] [phone] Casts NONE Normal [facility] Comment on above: Performed By: #### 2 13611 #### [facility],[address] [place], [place] [phone] Clarity (U) clear Normal NORMAL: CLEAR [facility] Comment on above: Performed By: #### 2 01834 #### [facility],[address] [place], [place] [phone] Color (U) yellow Normal NORMAL: YELLOW [facility] Comment on above: Performed By: #### 2 22320 #### [facility],[address] [place] [address] Crystals LM Nom (Urine sed) NONE Normal [facility] Comment on above: Performed By: #### 2 57047 #### [facility],[address] [place] [address] 53496 Epi Cells NONE Normal [facility] Comment on above: Performed By: #### 2 83350 #### [facility],[address] [place] [address]8792 Glucose Ql (U) NORM Normal NORMAL: NORMAL [facility] Comment on above: Performed By: #### 2 30571 #### [facility],[address] [place] [address] 41485 Hemoglobin Ql (U) 150 Abnormal NORMAL: NEGATIVE [facility] Comment on above: Performed By: #### 2 98730 #### [facility],[address] [place] [address]1536 Ketone Negative Normal NORMAL: NEGATIVE [facility] Comment on above: Performed By: #### 2 35504 #### [facility],[address] [place] [address] 36992 Leukocytes Negative Normal NORMAL: NEGATIVE [facility] Comment on above: Performed By: #### 2 59647 #### [facility],[address] [place] [address] 17930 Mucous NONE Normal [facility] Comment on above: Performed By: #### 2 07196 #### [facility],[address] [place] [address] 13032 Nitrite Ql (U) Positive Normal NORMAL: NEGATIVE [facility] Comment on above: Performed By: #### 2 39778 #### [facility],[address] [place] [address]903 pH (U) 7 [pH] Normal NORMAL: 5.0-8.0 [facility] Comment on above: Performed By: #### 2 33137 #### [facility],[address] [place] [address] 93897 Protein Ql (U) Negative Normal NORMAL: NEGATIVE [facility] Comment on above: Performed By: #### 2 81661 #### [facility],[address] [place] [address] 98316 Rbc 0-5 Normal 0-3/hpf [facility] Comment on above: Performed By: #### 2 12820 #### [facility],[address] [place] [address] Sp [place] 1.010 Normal NORMAL: 1.010-1.03 0 [facility] Comment on above: Performed By: #### 2 77287 #### [facility],[address] [place] [address] Specimen Type R Normal [facility] Comment on above: Performed By: #### 2 36296 #### [facility],[address] [place], [place] [phone] Urinalysis dipstick W Reflex Microscopic panel (U) SEE BELOW Normal [facility] Comment on above: Result Comment: MICR OSCOPIC Performed By: #### 2 28498 #### [facility],[address] [place] [address] Urobilinog 1 Abnormal NORMAL: NORMAL [facility] Comment on above: Performed By: #### 2 13619 #### [facility],[address] [place], [place] [phone] Wbc NONE Normal 0-5/hpf [facility] Comment on above: Performed By: #### 2 08183 #### [facility],[address] [place] [address] 17087 Yeast NONE Normal [facility] Comment on above: Performed By: #### 2 95935 #### [facility],[address] [place], [place] [phone] XR CHEST 1 VIEWon 03-03-2024 XR CHEST 1 VIEW ORIGINAL EXAMINATION: ONE XRAY VIEW OF THE CHEST03/03/2024 5:42 pm COMPARISON: None HISTORY: ORDERING SYSTEM PROVIDED HISTORY: Reason for Exam: Preop FINDINGS: The cardiomediastinal contours are unremarkable. There is no consolidation, vascular congestion, pleural effusion, or pneumothorax. Deformed appearance of right head of humerus. Remote right rib fracture. IMPRESSION: No acute cardiopulmonary findings. Age-indeterminate fracture of the right proximal humerus. Recommend x-ray right shoulder if this is not previously diagnosed. I have personally reviewed the images of this examination and have edited the resident's findings and interpretation. Interpreted by: Stefan Turcios Preliminary Report By: Gilbert Francois Electronically signed By Stefan Turcios Dictated Date: 03/03/2024 6:24:06 PM Prelim Date: 03/03/2024 6:26:40 PM Sign Date: 03/03/2024 6:31:53 PM Ordering Provider: [facility] MAIN XR FEMUR MINIMUM 2 VIEWS RIG HTon 03-03-2024 XR FEMUR MINIMUM 2 VIEWS RIGHT ORIGINAL EXAMINATION: TWO XRAY VIEWS OF THE RIGHT FEMUR03/03/2024 5:41 pm COMPARISON: None HISTORY: ORDERING SYSTEM PROVIDED HISTORY: Reason for Exam: fx, FINDINGS: Minimally displaced right femur intratrochanteric fracture. Mild right hip joint arthrosis. No evidence of dislocation. Mild adjacent soft tissue swelling in right hip. IMPRESSION: Minimally displaced right femur intertrochanteric fracture. Preliminary Report was Dictated by a Resident I have personally reviewed the images of this examination and agree with the resident's findings and interpretation. Jagjit Hahn M.D. Interpreted by: Jagjit Hahn Preliminary Report By: Gilbert Francois Electronically signed By Jagjit Hahn Dictated Date: 03/03/2024 6:31:02 PM Prelim Date: 03/03/2024 6:36:05 PM Sign Date: 03/03/2024 6:40:42 PM Ordering Provider: [facility] MAIN AFP, Tumor Markeron 02-04-20 AFP TUMOR CHELO 3.6 ng/mL Normal 0.0-9.2 [facility] Comment on above: Order Comment: DR. Soledad BROWN GETS CBC CMP AFP PT PTTDR.ADONIS TSH T4F LIPIDN Result Comment: [employer] Electrochemiluminescence Immunoassay (ECLIA) Values obtained with different assay methods or kits cannot be used interchangeably. Results cannot be interpreted as absolute evidence of the presence or absence of malignant disease. This test is not interpretable in females. Performed at: [address] [id number] Woodworker Helper: Steven Booker PhD, Phone: [phone] Performed By: #### L 500.4050, L100.0500, L3300.0700, L300.4310, L300.3900 #### [facility] [address] [place], [address] CBC-Complete Blood Cnt No Di ffon 02-02-2024 Erythrocyte distribution width (RBC) [Ratio] 13.1 % Normal 11.6-14.6 [facility] Comment on above: Order Comment: DR. Soledad BORWN GETS CBC CMP AFP PT PTTDR.ADONIS TSH T4F LIPID Performed By: #### L 400.2010, #### [facility] [address] [place], [address] Hematocrit (Bld) [Volume fraction] 46.1 % Normal 37-47 [facility] Comment on above: Order Comment: DR. Soledad BROWN GETS CBC CMP AFP PT PTTDR.ADONIS TSH T4F LIPID Performed By: #### L 400.2010, #### [facility] [address] [place], [address] Hemoglobin (Bld) [Mass/Vol] 15.2 g/dL High 12.0-15.0 [facility] Comment on above: Order Comment: DR. Soledad BROWN GETS CBC CMP AFP PT PTTDR.ADONIS TSH T4F LIPID Performed By: #### L 400.2010, #### [facility] [address] [place], [address] MCH (RBC) [Entitic mass] 30.2 pg Normal 27.0-32.0 [facility] Comment on above: Order Comment: DR. Soledad BROWN GETS CBC CMP AFP PT PTTDR.ADONIS TSH T4F LIPID Performed By: #### L 400.2010, #### [facility] [address] [place], [address] MCHC (RBC) [Mass/Vol] 33.0 g/dL Normal 32-36 [facility] Comment on above: Order Comment: DR. Soledad BROWN GETS CBC CMP AFP PT PTTDR.ADONIS TSH T4F LIPID Performed By: #### L 400.2010, #### [facility] [address] [place], [address] MCV (RBC) [Entitic vol] 91.5 fL Normal 81-99 [facility] Comment on above: Order Comment: DR. Soledad BROWN GETS CBC CMP AFP PT PTTDR.ADONIS TSH T4F LIPID Performed By: #### L 400.2010, #### [facility] [address] [place], [address] Platelet mean volume (Bld) [Entitic vol] 11.4 fL Normal 6.2-12.0 [facility] Comment on above: Order Comment: DR. Soledad BROWN GETS CBC CMP AFP PT PTTDR.ADONIS TSH T4F LIPID Performed By: #### L 400.2010, #### [facility] [address] [place], [address] Platelets (Bld) [#/Vol] 105 10*3/uL Low 150-450 [facility] Comment on above: Order Comment: DR. Soledad BROWN GETS CBC CMP AFP PT PTTDR.ADONIS TSH T4F LIPID Performed By: #### L 400.2010, #### [facility] [address] [place], [address] RBC (Bld) [#/Vol] 5.04 10*6/uL Normal 4.2-5.4 [facility] Comment on above: Order Comment: DR. Soledad BROWN GETS CBC CMP AFP PT PTTDR.ADONIS TSH T4F LIPID Performed By: #### L 400.2010, #### [facility] [address] [place], [address] RDW SD 44.2 fl High 35.1-43.9 [facility] Comment on above: Order Comment: DR. Soledad BROWN GETS CBC CMP AFP PT PTTDR.ADONIS TSH T4F LIPID Performed By: #### L 400.2010, #### [facility] [address] [place], [address] WBC (Bld) [#/Vol] 3.9 10*3/uL Low 4.4-11.0 [facility] Comment on above: Order Comment: DR. Soledad BROWN GETS CBC CMP AFP PT PTTDR.ADONIS TSH T4F LIPID Performed By: #### L 400.2010, #### [facility] [address] [place], [address] Comprehensive Metabolic Prof ilon 02-02-2024 Albumin [Mass/Vol] 3.9 g/dL Normal 3.2-5.0 [facility] Comment on above: Order Comment: DR. Soledad BROWN GETS CBC CMP AFP PT PTTDR.ADONIS TSH T4F LIPID Performed By: #### L 500.4050, L100.0500, L3300.0700, L300.4310, L300.3900 #### [facility] [address] [place], [address] Albumin/Globulin [Mass ratio] 1.2 {ratio} Normal 0.9-2.4 [facility] Comment on above: Order Comment: DR. Soledad BROWN GETS CBC CMP AFP PT PTTDR.ADONIS TSH T4F LIPID Performed By: #### L 500.4050, L100.0500, L3300.0700, L300.4310, L300.3900 #### [facility] [address] [place], [address] ALK P 97 U/L Normal 45-117 [facility] Comment on above: Order Comment: DR. Soledad BROWN GETS CBC CMP AFP PT PTTDR.ADONIS TSH T4F LIPID Performed By: #### L 500.4050, L100.0500, L3300.0700, L300.4310, L300.3900 #### [facility] [address] [place], [address] ALT [Catalytic activity/Vol] 24 U/L Normal 13-56 [facility] Comment on above: Order Comment: DR. Soledad BROWN GETS CBC CMP AFP PT PTTDR.ADONIS TSH T4F LIPID Performed By: #### L 500.4050, L100.0500, L3300.0700, L300.4310, L300.3900 #### [facility] [address] [place], [address] AST [Catalytic activity/Vol] 20 U/L Normal 15-37 [facility] Comment on above: Order Comment: DR. Soledad BROWN GETS CBC CMP AFP PT PTTDR.ADONIS TSH T4F LIPID Performed By: #### L 500.4050, L100.0500, L3300.0700, L300.4310, L300.3900 #### [facility] [address] [place], [address] Bilirubin [Mass/Vol] 0.60 mg/dL Normal 0.20-1.00 [facility] Comment on above: Order Comment: DR. Soledad BROWN GETS CBC CMP AFP PT PTTDR.ADONIS TSH T4F LIPID Result Comment: For patients on eltrombopag therapy, use of Dimension [place] TBIL is not recommended. Performed By: #### L 500.4050, L100.0500, L3300.0700, L300.4310, L300.3900 #### [facility] [address] [place], [address] BUN/CRE 10.6 RATIO Normal 10-20 [facility] Comment on above: Order Comment: DR. Soledad BROWN GETS CBC CMP AFP PT PTTDR.ADONIS TSH T4F LIPID Performed By: #### L 500.4050, L100.0500, L3300.0700, L300.4310, L300.3900 #### [facility] [address] [place], [address] CA,Total 9.1 mg/dL Normal 8.5-10.1 [facility] Comment on above: Order Comment: DR. Soledad BROWN GETS CBC CMP AFP PT PTTDR.ADONIS TSH T4F LIPID Performed By: #### L 500.4050, L100.0500, L3300.0700, L300.4310, L300.3900 #### [facility] [address] [place], [address] Chloride [Moles/Vol] 110 mmol/L High 98-107 [facility] Comment on above: Order Comment: DR. Soledad BROWN GETS CBC CMP AFP PT PTTDR.ADONIS TSH T4F LIPID Performed By: #### L 500.4050, L100.0500, L3300.0700, L300.4310, L300.3900 #### [facility] [address] [place], [address] CO2 [Moles/Vol] 22.0 mmol/L Normal 21.0-32.0 [facility] Comment on above: Order Comment: DR. Soledad BROWN GETS CBC CMP AFP PT PTTDR.ADONIS TSH T4F LIPID Performed By: #### L 500.4050, L100.0500, L3300.0700, L300.4310, L300.3900 #### [facility] [address] [place], [address] Creatinine [Mass/Vol] 0.85 mg/dL Normal 0.55-1.02 [facility] Comment on above: Order Comment: DR. Soledad BROWN GETS CBC CMP AFP PT PTTDR.ADONIS TSH T4F LIPID Result Comment: The validity of the calculated GFR GFRAA in patients over 70 years has not been determined. Clinical correlation is essential. Performed By: #### L 500.4050, L100.0500, L3300.0700, L300.4310, L300.3900 #### [facility] [address] [place], [address] EST GFR - AA 87 mL/min Normal >60 [facility] Comment on above: Order Comment: DR. Soledad BROWN GETS CBC CMP AFP PT PTTDR.ADONIS TSH T4F LIPID Result Comment: Afri can [place] GFR Calc Performed By: #### L 500.4050, L100.0500, L3300.0700, L300.4310, L300.3900 #### [facility] [address] [place], [address] GAP 6 Normal 5-15 [facility] Comment on above: Order Comment: DR. Soledad BROWN GETS CBC CMP AFP PT PTTDR.[facility] TSH T4F LIPID Performed By: #### L 500.4050, L100.0500, L3300.0700, L300.4310, L300.3900 #### [facility] [address] [place], [address] GFR/1.73 sq M.predicted among non-blacks MDRD (S/P/Bld) [Vol rate/Area] 72 mL/min/{1.73_m2} Normal >60 [facility] Comment on above: Order Comment: DR. Soledad BROWN GETS CBC CMP AFP PT PTTDR.ADONIS TSH T4F LIPID Result Comment: Non- GFR Calc Performed By: #### L 500.4050, L100.0500, L3300.0700, L300.4310, L300.3900 #### [facility] [address] [place], [address] Globulin (S) [Mass/Vol] 3.2 g/dL Normal 2.2-4.2 [facility] Comment on above: Order Comment: DR. Soledad BROWN GETS CBC CMP AFP PT PTTDR.ADONIS TSH T4F LIPID Performed By: #### L 500.4050, L100.0500, L3300.0700, L300.4310, L300.3900 #### [facility] [address] [place], [address] Glucose [Mass/Vol] 96 mg/dL Normal 74-106 [facility] Comment on above: Order Comment: DR. Soledad BROWN GETS CBC CMP AFP PT PTTDR.ADONIS TSH T4F LIPID Performed By: #### L 500.4050, L100.0500, L3300.0700, L300.4310, L300.3900 #### [facility] [address] [place], [address] Potassium [Moles/Vol] 3.7 mmol/L Normal 3.5-5.1 [facility] Comment on above: Order Comment: DR. Soledad BROWN GETS CBC CMP AFP PT PTTDR.ADONIS TSH T4F LIPID Performed By: #### L 500.4050, L100.0500, L3300.0700, L300.4310, L300.3900 #### [facility] [address] [place], [address] Sodium [Moles/Vol] 138 mmol/L Normal 136-145 [facility] Comment on above: Order Comment: DR. Soledad BROWN GETS CBC CMP AFP PT PTTDR.ADONIS TSH T4F LIPID Performed By: #### L 500.4050, L100.0500, L3300.0700, L300.4310, L300.3900 #### [facility] [address] [place], [address] T PROT 7.1 g/dL Normal 6.4-8.2 [facility] Comment on above: Order Comment: DR. Soledad BROWN GETS CBC CMP AFP PT PTTDR.ADONIS TSH T4F LIPID Performed By: #### L 500.4050, L100.0500, L3300.0700, L300.4310, L300.3900 #### [facility] [address] [place], [address] Urea nitrogen [Mass/Vol] 9 mg/dL Normal 7-18 [facility] Comment on above: Order Comment: DR. Soledad BROWN GETS CBC CMP AFP PT PTTDR.ADONIS TSH T4F LIPID Performed By: #### L 500.4050, L100.0500, L3300.0700, L300.4310, L300.3900 #### [facility] [address] [place], [address] Lipid Profileon 02-02-2024 Cholesterol [Mass/Vol] 164 mg/dL Normal 200 [facility] Comment on above: Order Comment: DR. Soledad BROWN GETS CBC CMP AFP PT PTTDR.ADONIS TSH T4F LIPID Result Comment: <200 mg/dL Desirable 200-240 mg/dL Borderline >240 mg/dL High Risk Performed By: #### L 500.4050, L100.0500, L3300.0700, L300.4310, L300.3900 #### [facility] [address] [place], [address] Cholesterol in HDL [Mass/Vol] 45 mg/dL Normal [facility] Comment on above: Order Comment: DR. Soledad BROWN GETS CBC CMP AFP PT PTTDR.ADONIS TSH T4F LIPID Result Comment: The drugs N-Acetylcysteine and Metamizole may falsely depress this assay. Reference Range HDL <40 mg/dL Low HDL Cholesterol HDL >or= 60 mg/dL High HDL Cholesterol Performed By: #### L 500.4050, L100.0500, L3300.0700, L300.4310, L300.3900 #### [facility] [address] [place], [address] Cholesterol in LDL [Mass/Vol] 97 mg/dL Normal 0-130 [facility] Comment on above: Order Comment: DR. Soledad BROWN GETS CBC CMP AFP PT PTTDR.ADONIS TSH T4F LIPID Performed By: #### L 500.4050, L100.0500, L3300.0700, L300.4310, L300.3900 #### [facility] [address] [place], [address] Cholesterol in VLDL [Mass/Vol] 22 mg/dL Normal 5-40 [facility] Comment on above: Order Comment: DR. Soledad BROWN GETS CBC CMP AFP PT PTTDR.ADONIS TSH T4F LIPID Performed By: #### L 500.4050, L100.0500, L3300.0700, L300.4310, L300.3900 #### [facility] [address] [place], [address] Triglyceride [Mass/Vol] 111 mg/dL Normal [facility] Comment on above: Order Comment: DR. Soledad BROWN GETS CBC CMP AFP PT PTTDR.ADONIS TSH T4F LIPID Result Comment: The drugs N-Acetylcysteine and Metamizole may falsely depress this assay. Serum Triglycerides Reference Interval Normal <150 mg/dL Borderline high 150 - 199 mg/dL High 200 - 499 mg/dL Very High > or = 500 mg/dL Performed By: #### L 500.4050, L100.0500, L3300.0700, L300.4310, L300.3900 #### [facility] [address] [place], [address] Partial Thromboplast Timeon 02-02-2024 aPTT Coag (Bld) [Time] 25.8 s Normal 24.1-36.2 [facility] Comment on above: Order Comment: DR. Soledad BROWN GETS CBC CMP AFP PT PTTDR.ADONIS TSH T4F LIPID Performed By: #### L 400.2011, M100.2200 #### [facility] [address] [place], [address] Prothrombin Time w/INRon INR Coag (PPP) [Relative time] 1.0 {INR} Normal [facility] Comment on above: Order Comment: DR. Soledad BROWN GETS CBC CMP AFP PT PTTDR.ADONIS TSH T4F LIPID Performed By: #### L 400.2010, M1.2199 #### [facility] Laboratory [address] [place], [address] PT Coag (PPP) [Time] 13.2 s Normal 11.7-14.9 [facility] Comment on above: Order Comment: DR. Soledad BROWN GETS CBC CMP AFP PT PTTDR.ADONIS TSH T4F LIPID Performed By: #### L 400.2010, M1.2199 #### [facility] Laboratory [address] [place], [address] T4 Free Directon 02-02-2024 T4 FREE DIRECT 1.14 ng/dL Normal 0.76-1.46 [facility] Comment on above: Order Comment: DR. Soledad BROWN GETS CBC CMP AFP PT PTTDR.ADONIS TSH T4F LIPID Performed By: #### L 500.4050, L100.0500, L3300.0700, L300.4310, L300.3900 #### [facility] Laboratory [address] [place], [address] Thyroid Stim Hormone (TSH)on 02-02-2024 TSH 1.330 uIU/mL Normal 0.358-3.74 0 [facility] Comment on above: Order Comment: DR. Soledad BROWN GETS CBC CMP AFP PT PTTDR.ADONIS TSH T4F LIPID Performed By: #### L 500.4050, L100.0500, L3300.0700, L300.4310, L300.3900 #### [facility] Laboratory [address] [place], [address] Final Surgical Pathology Rep [facility] 01-26-2023 Final Surgical Pathology Report . Pathology Reports Accession: Collected Date/Time: Received Date/Time: Pathologist: [id number] 01/22/2023 09:22 EDT 01/25/2023 09:22 EDT MD ROBYN MCCARTY Final Surgical Pathology Report DIAGNOSIS: GASTRIC ANTRUM, BIOPSY: - MILD CHRONIC GASTRITIS AND FOCAL SURFACE FIBROPURULENT DEBRIS WITH FUNGAL ORGANISMS CONSISTENT WITH ULISES - NEGATIVE FOR H. PYLORI CLINICAL INFORMATION: CIRRHOSIS Procedure: ESOPHAGOGASTRODUODENOSCOPY (EGD) WITH BX SPECIMEN: A BX ANTRUM R/O PORTAL HYPERTENSION GROSS DESCRIPTION: All parts labelled with patient name and [id number] Received in formalin labeled antrum biopsy are 3 pardo tissue fragments measuring 0.2 to 0.4 x 0.3 cm. TS-1 Danyelle Helm, Grossing Electronic Systems Technician/ Dr. Stefan Cano, Pathologist Dictated by Danyelle Helm MICROSCOPIC DESCRIPTION: The microscopic examination is performed, except in the case of Gross Only. Electronically Signed by Pathology Report verified by [facility] ROBYN MCCARTY MD Sign out Date: 01/26/2023 13:14 Performing Lab: [facility], [address] [place] [address] Pathology Dept Disclaimer If ancillary studies were utilized, the following Laboratory Developed Test (LDT) disclaimer will apply: Under CLIA requirements, [facility] is qualified to perform high complexity testing. For all ancillary stains, positive and negative controls stain appropriately. Performance characteristics of immunohistochemical and chromogenic in-situ hybridization tests have been determined by [facility]. These tests are used for clinical purposes, They should not be regarded as investigational or for research. Normal [facility] ([place]) Basophil percentageOrdered B y: Steven Maddox on 01-13-2023 Bilirubin [Mass/Vol] 0.60 mg/dL 0.20-1.00 [facility] Comment on above: For patients on eltr ombopag therapy, use of Dimension [place] TBIL is not recommended. Chloride [Moles/Vol] 110 mmol/L 98-107 [facility] Glucose [Mass/Vol] 87 mg/dL 74-106 [facility] Potassium [Moles/Vol] 3.5 mmol/L 3.5-5.1 [facility] Protein [Mass/Vol] 7.4 g/dL 6.4-8.2 [facility] Sodium [Moles/Vol] 139 mmol/L 136-145 [facility] INR in Blood by Coagulation assayOrdered By: Steven Maddox on 01-13-2023 INR Coag (Bld) [Relative time] 1.1 {INR} [facility] Laboratory - Chemistry and C hemistry - challengeOrdered By: Steven Maddox on 01-13-2023 ALP [Catalytic activity/Vol] 133 U/L 45-117 [facility] ALT [Catalytic activity/Vol] 22 U/L 13-56 [facility] CO2 [Moles/Vol] 23.0 mmol/L 21.0-32.0 [facility] Globulin (S) [Mass/Vol] 3.6 g/dL 2.2-4.2 [facility] Urea nitrogen/Creatinine [Mass ratio] 7.0 mg/mg 10-20 [facility] Laboratory - CoagulationOrde red By: Steven Maddox on 01-13-2023 PT Coag (PPP) [Time] 14.2 s 11.7-14.9 [facility] No Panel InformationOrdered By: Steven Maddox on 01-13-2023 Estimated GFR (MDRD) Amer 72 mL/min >60 [facility] Comment on above: GFR Calc Estimated GFR (MDRD) Non-Af Amer 60 mL/min >60 [facility] Comment on above: Non- GFR Calc Serum or plasma albumin angelica urement (mass/volume)Ordered By: Steven Maddox on 01-13-2023 Albumin [Mass/Vol] 3.8 g/dL 3.2-5.0 [facility] Serum or plasma albumin/glob ulin mass ratioOrdered By: Steven Maddox on 01-13-2023 Albumin/Globulin [Mass ratio] 1.1 {ratio} 0.9-2.4 [facility] Serum or plasma [id number] protein tumor marker measurement (units/volume)Ordered By: Steven Maddox on 01-13-2023 AFP.tumor marker Qn 4.1 ng/mL 0.0-9.2 [facility] Comment on above: [facility] El ectrochemiluminescence Immunoassay(ECLIA)Values obtained with different assay methods or kits cannotbe used interchangeably. Results cannot be interpreted asabsolute evidence of the presence or absence of malignantdisease.This test is not interpretable in females.Performed at: [facility], [place] [id number] Director: Steven Booker PhD, Phone: [phone] Serum or plasma calcium angelica urement (mass/volume)Ordered By: Steven Maddox on 01-13-2023 Calcium [Mass/Vol] 9.3 mg/dL 8.5-10.1 [facility] Serum or plasma creatinine m easurement (mass/volume)Ordered By: Steven Maddox on 01-13-2023 Creatinine [Mass/Vol] 1.00 mg/dL 0.55-1.02 [facility] Comment on above: The validity of the calculated GFR & GFRAA in patients over 70 years has not been determined. Clinical correlation is essential. Serum or plasma urea nitroge n measurement (mass/volume)Ordered By: Steven Maddox on 01-13-2023 Urea nitrogen [Mass/Vol] 7 mg/dL 718 [facility] Thin prep Papanicolaou smear with manual screeningOrdered By: Steven Maddox on 01-13-2023 Thin prep Papanicolaou smear with manual screening 18 U/L 15-37 [facility] Thin prep Papanicolaou smear with manual screening 6 5-15 [facility] 1,25-dihydroxyvitamin D3 [Ma ss/Vol]on 10-08-2022 VIT D1,25 DIHYDROXY 61.6 pg/mL Normal 19.9-79.3 [facility] Comment on above: Order Comment: Speci men Type: BLOOD SPECIMEN Ordering Facility: [facility] Address: [address] [place] [address] Performed By: #### 1 649-3 #### [facility] CLIA [id number] [address] [place] [address] [place] [facility] Parathyrin.intact [Mass/Vol] 59 pg/mL Normal 15-65 [facility] Comment on above: Order Comment: Speci men Type: BLOOD SPECIMEN Ordering Facility: [facility] Address: [address] [place] [address] Performed By: #### 2 731-8 #### [facility] CLIA [id number] [address] [place], [place] [address]K [id number] OF [place] Drug Screen, Bloodon 021 Drugs Detected Normal [facility] Comment on above: Result Comment: (NOT E) The following compounds have been detected by GC-MS library match: Theophylline. No other drugs detected. Quantitative testing may be available at an additional charge. Specimens are retained for 10 business days. This is a screening assay only and false-positive or false-negative results can occur. If confirmation testing of any drugs found is needed, please call the lab. Specimens are retained in the laboratory for two weeks. This test is not intended for use in compliance monitoring or employment-related testing. ADDITIONAL INFORMATION This test was developed and its performance characteristics determined by [facility] in a manner consistent with CLIA requirements. This test has not been cleared or approved by the U.S. Food and Drug Administration. Performed By: #### T MASSIEL #### [facility] [address] [place] [phone] #### TG #### [facility] [address] [place] [phone] Thyroglobulinon 12-18-2020 Thyroglobulin 37.5 ng/mL Normal 1.6-59.9 [facility] Comment on above: Performed By: #### T MASSIEL #### [facility] [address] [place] [phone] #### TG #### [facility] [address] [place] [phone] Thyroglobulinon 12-17-2020 TG Antibody Screen <1.0 Normal <14.4 [facility] Comment on above: Performed By: #### T MASSIEL #### [facility] [address] [place] [phone] #### TG #### [facility] [address] [address] Thyroglobulin Abon Thyroglobulin Ab Qn [IU]/mL Normal <14.4 [facility] Comment on above: Performed By: #### T MASSIEL #### [facility] [address] [place] [address] #### TG #### [facility] [address] [place] [address] AFPon 08-11-2020 AFP Normal <11.0 [facility] Comment on above: Result Comment: 4.6 AFP levels <11 ng/ml can be found in a variety of conditions, Hepatocellular Carcinoma and Non-seminomatous testicular cancer among others. Correlation with clinical picture and other test results including histopathology and radiology, where applicable, is recommended. Performed By: #### A FP #### [facility] [address] [place] [address] Free T3on 04-03-2020 Free T3 [Mass/Vol] 3.8 pg/mL Normal 2.3-4.1 [facility] Comment on above: Performed By: #### H BA1C, MICRO, FREET3 #### [facility] [address] [place] [address] Hemoglobin A1con 04-03-2020 Glucose [Mass/Vol] 120 mg/dL Normal [facility] Comment on above: Performed By: #### H BA1C, MICRO, FREET3 #### [facility] [address] [place] [address] HbA1c (Bld) [Mass fraction] 5.8 % High 4.3-5.6 [facility] Comment on above: Performed By: #### H BA1C, MICRO, FREET3 #### [facility] [address] [place] [address] TPO Antibodyon 04-03-2020 TPO Antibody <1.0 Normal <5.6 [facility] Comment on above: Performed By: #### H BA1C, MICRO, FREET3 #### [facility] Lab [address] [place], [place] [address] MRI ABDOMEN W/WO CONTRASTon 06-21-2019 MRI ABDOMEN W/WO CONTRAST [address] [address] Name: CARLOS OLIVER Phys: STEVEN MADDOX M.D. : 58 Age: 59 Sex: F Acct: [id number] Loc: RAD MRI Exam Date: 06/21/19 Status: REG CLI Radiology No.: [id number] Unit Number: [id number] Exam # Type/Exam [id number] MRI / MRI ABDOMEN W/WO CONTRAST MRI of the liver without and with IV contrast HISTORY: Cirrhosis COMPARISON: CT scan March 08, 2018 FINDINGS: There is mild hepatic heterogeneity, with scattered areas of increased T2 signal in a periportal distribution. There is also a nodular surface contour of the liver. Trace perihepatic ascites is noted. Spleen is normal in size. The precontrast portion of the study shows a no focal liver lesion. There is no restricted diffusion seen. Early arterial phase post IV contrast scans show no unusual enhancement. More delayed post IV contrast imaging also shows no focal liver lesion. The hepatic and portal veins are patent. Delayed images show mild enhancement in the periportal regions compatible with regions of fibrosis. There are multiple foci of blooming artifact identified within the spleen. These could be small siderotic nodules. No additional contributory abnormality identified. IMPRESSION: Cirrhosis. No focal liver lesion to suggest hepatocellular carcinoma. Electronically signed by: Roxann Perdomo MD 06/21/2019 3:19 PM CDT < > Reported By: ROXANN PERDOMO M.D. Signed In PowerScribe By: ROXANN PERDOMO M.D. << Signature on File>> Reported By: ROXANN PERDOMO M.D. Signed By: ROXANN PERDOMO M.D. Tests performed at: [address] [address] Normal [facility] ED REPORTon 06-17-2019 [place] [address] HEALTH INFORMATION MANAGEMENT EMERGENCY DEPARTMENT REPORT Patient: XIOMARA,CARLOS ADILSON HUSAIN as dictated by ANGELY TORRES [id number] [age] F Status: [facility] ER ED Date of Service: 06/16/19 CHIEF COMPLAINT: Here today is a fall. HISTORY OF PRESENT ILLNESS: The patient states that she was walking to go get her meds for the evening from the nurse and ended up tripping over a cord, fell forward, mostly caught herself on her right arm, but she did hit her forehead on the side of a fish tank at the assisted living where she lives, causing a large laceration to her head. She did not lose consciousness. She is not having any dizziness or lightheadedness currently. No blurred vision. She denies any chest pain or shortness of breath prior to or after falling. She is not on any blood thinners. Denies any neck pain. Denies any back pain. No lower extremity pain. REVIEW OF SYSTEMS: 10-system organ review is otherwise negative. ALLERGIES: The patient is allergic to morphine, acetaminophen, baclofen, Belbuca , and latex. SOCIAL HISTORY: She is single. Denies any drug or alcohol use. She does smoke about a fourth of a pack a day. PAST SURGICAL HISTORY: She has had hysterectomy and cholecystectomy. PAST MEDICAL HISTORY: She has COPD and she does have chronic pain issues. She does go to Pain Management at [facility] for and she is on oxycodone 4 times a day for chronic pain. Has not had her pain med since noon. We did verify that with the nurse at the facility. PHYSICAL EXAMINATION: VITAL SIGNS: Stable. GENERAL: The patient is a 59-year-old, well-nourished, well-developed, nontoxic-appearing female, who is awake, alert, oriented x3. HEENT: Head, she does have a large laceration to the right upper side of her forehead that goes down her forehead and up into her hairline a little bit, the laceration is about 4 cm long and 1 cm wide. Bleeding is controlled from the wound at this time. She also has an abrasion to her eyelid on her right eye and she does have some ecchymosis to her upper and lower eyelid on the right side. Her nose, there is no deformity. There is no blood in either one of her nares. Her oral mucosa is moist and pink. There is no signs of any injury to her teeth or her gums or her tongue. NECK: Supple. Nontender. There are no step-offs. HEART: Rate and rhythm are regular with no murmurs, rubs, or gallops. LUNGS: Clear to auscultation. No rhonchi, rales, or wheezing. ABDOMEN: Soft. Bowel sounds x4. EXTREMITIES: Warm, well perfused. She does have good range of motion and strength at all extremities with the exception of her right upper extremity. She does have some edema and ecchymosis over her wrist on her right arm. She is not able to bend or extend her wrist back. She is able to move all of her fingers. She has good capillary refill. Good sensation. She does have a good radial pulse present. There is no obvious deformity of the wrist or her forearm. EMERGENCY DEPARTMENT COURSE: I did do a CT of her head and also did x-rays of her right wrist and forearm. CT of the head was read as negative by the radiologist. Her forearm is without any obvious injury, but she does have fracture of the distal radius with some dorsal angulation of the fracture, distal fragment, and also an ulnar styloid fracture. So as far as her care here today, we did need to do suture repair obviously of the forehead wound, so I did drape her in sterile fashion, numbed with 1% lidocaine. Cleansed the wound with Hibiclens, irrigated the wound copiously with normal saline. I repaired the wound using 13 interrupted sutures of 5-0 Ethilon. Edges are well approximated. When we started cleaning her hair out, we noticed that the laceration actually extended back up onto the scalp just a little bit about a 0.5 centimeter and it was not nearly as deep as the rest of the wound, so I ended up just applying some Exofin skin glue to that portion of the wound and that did close that part of the wound nicely. We did apply some bacitracin and a dressing to her forehead. We did go over suture removal instructions with her and I am writing on her discharge paperwork for the facility. As far as the forearm goes, I did put her in a short-arm posterior splint. Given her splint instructions, we are going to refer her to Dr. Brown whom she is actually familiar with. He took care of her when she broke her shoulder about 6 months ago, so she is very familiar with him. We did give her dose of oxycodone here and she is going to continue taking her home dose. I am not giving her additional pain meds and she already has standing order for pretty strong pain medication. She is on stronger pain med than what I would prescribe her here, so she can continue taking those and I want her to see Dr. Brown in about a week. She will be discharged back to her assisted living facility in stable condition. IMPRESSION: 1. Forehead laceration. 2. Right distal radius fracture. 3. Right ulna styloid fracture. Report#: Dict ID [id number] / Int ID [id number] 06/21/19 1548 ADILSON HUSAIN cc: ADILSON HUSAIN << Signature on File>> Reported By: ADILSON HUSAIN Signed By: ADILSON HUSAIN Tests performed at: [place] [address] Normal [facility] CT BRAIN WITHOUT CONTRAST- C TBon 06-16-2019 CT BRAIN WITHOUT CONTRAST- CTB [address] [address] Name: CARLOS OLIVER Phys: ADILSON HUSAIN : 58 Age: 59 Sex: F Acct: [id number] Loc: ED Exam Date: 06/16/19 Status: REG ER Radiology No.: [id number] Unit Number: [id number] Exam # Type/Exam [id number] CT / CT BRAIN WITHOUT CONTRAST- CTB EXAM DESCRIPTION: CT BRAIN WITHOUT CONTRAST- CTB CLINICAL HISTORY: Fall TECHNIQUE: Routine helical CT images were obtained of the head without the use of IV contrast. Coronal and sagittal reformats were obtained. Dose lowering techniques were utilized to include automated exposure control, adjustment of the mA and/or kV according to patient size, and use of iterative reconstruction technique. COMPARISON: None available. FINDINGS: The size, density, and morphology of the brain and CSF containing spaces appears normal. There is no evidence of mass, midline shift, hemorrhage, or infract. The ventricles, cortical sulci, and subarachnoid cisterns appear unremarkable. There are no extra-axial fluid collections. No regions of pathologic attenuation are evident. Regions of the orbits and paranasal sinuses included within the field of view are unremarkable. Right frontal scalp laceration is noted. There is no displaced fracture or osseous neoplasm. The extracalvarial soft tissues appear unremarkable. IMPRESSION: No acute intracranial pathology. COMMENT: Changes resultant from ischemia (even significant ischemia) may often be inapparent on CT exam, particularly if imaged early. Additionally, early changes due to neoplastic or inflammatory processes can be subtle to the extent that they are not prospectively noted. Therefore, if symptoms persist, or clinical suspicion for pathology remains, further evaluation may be obtained with MRI. Electronically signed by: Lyndsay Murrieta MD 06/16/2019 7:40 PM CDT < > Reported By: LYNDSAY MURRIETA M.D. Signed In PowerScribe By: LYNDSAY MURRIETA M.D. << Signature on File>> Reported By: LYNDSAY MURRIETA M.D. Signed By: LYNDSAY MURRIETA M.D. Tests performed at: [place] [address] Normal [facility] FOREARMon 06-16-[address] [address] Name: XIOMARACARLOS Phys: ADILSON HUSAIN : 58 Age: 59 Sex: F Acct: [id number] Loc: ED Exam Date: 06/16/19 Status: REG ER Radiology No.: [id number] Unit Number: [id number] Exam # Type/Exam [id number] RAD / FOREARM RT XR FOREARM RIGHT CLINICAL STATEMENT: Pain, injury COMPARISON: None FINDINGS: Nondisplaced fracture of the distal radius metaphysis with mild posterior angulation of the fracture fragment. Ulna styloid is fractured. Surrounding soft tissue edema. IMPRESSION: 1. Fracture of the distal radius metaphysis with posterior angulation of the distal fracture fragment. 2. Ulnar styloid fracture. Electronically signed by: Lyndsay Murrieta MD 06/16/2019 8:01 PM CDT < > Reported By: LYNDSAY MURRIETA M.D. Signed In PowerScribe By: LYNDSAY MURRIETA M.D. << Signature on File>> Reported By: LYNDSAY MURRIETA M.D. Signed By: LYNDSAY MURRIETA M.D. Tests performed at: [place] [address] [facility] WRIST 3+VIEWSon 06-16-2019 WRIST 3+VIEWS [place] [address] Name: CARLOS OLIVER Phys: ADILSON HUSAIN : 58 Age: 59 Sex: F Acct: [id number] Loc: ED Exam Date: 06/16/19 Status: REG ER Radiology No.: [id number] Unit Number: [id number] Exam # Type/Exam [id number] RAD / WRIST 3+VIEWS RT XR WRIST 3+VIEWS LEFT CLINICAL STATEMENT: Injury COMPARISON: None FINDINGS: Nondisplaced fracture of the radius metaphysis with posterior angulation of the distal fracture fragment. Ulna styloid is fractured.. The joint spaces are maintained. There is no radiopaque foreign body. IMPRESSION: 1. Fracture of the distal radius metaphysis with dorsal angulation of the fracture fragment. 2. Ulna styloid fracture. Electronically signed by: Lyndsay Murrieta MD 06/16/2019 8:03 PM CDT < > Reported By: LYNDSAY MURRIETA M.D. Signed In PowerScribe By: LYNDSAY MURRIETA M.D. << Signature on File>> Reported By: LYNDSAY MURRIETA M.D. Signed By: LYNDSAY MURRIETA M.D. Tests performed at: [place] [address] Normal [facility] CT LOW DOSE LUNG SCREENon CT LOW DOSE LUNG SCREEN [place] [address] Name: CARLOS OLIVER Phys: PADILLA ELIZONDO D.O. : 58 Age: 58 Sex: F Acct: [id number] Loc: RAD CT Exam Date: 04/04/19 Status: REG CLI Radiology No.: [id number] Unit Number: [id number] Exam # Type/Exam [id number] CT / CT LOW DOSE LUNG SCREEN Low-dose CT of the thorax without contrast for lung cancer screening This exam was performed according to our departmental dose optimization program, and includes the following measures where applicable: automated exposure control, adjustment of the mAs and/or kVp according to patient size and/or exam, and an iterative reconstruction algorithm. COMPARISON: Nicotine dependency, 47 pack year history of smoking COMPARISON: Chest x-ray dated 01/25/2018 FINDINGS: No axillary adenopathy is identified. Heart is normal in size. No pericardial thickening or effusion is identified. Coronary artery calcification is seen. Calcified plaque is seen within the aorta which is normal in caliber. No mediastinal adenopathy is identified. The major airways are unremarkable. The esophagus is normal in course and caliber. Limited images through the upper abdomen demonstrates calcified granulomas in the spleen. No pleural effusion is seen. Multiple small bilateral pulmonary nodules are seen. A 4 mm a nodule seen within the left upper lobe on image #24. A 3 mm nodule seen within the right upper lobe on image #15. No acute infiltrate is identified. Degenerative changes are seen in the spine. There are numerous moderate to severe compression deformities throughout the thoracolumbar spine, similar to the prior chest x-ray. IMPRESSION: Small bilateral pulmonary nodules measuring up to 4 mm. Annual low-dose screening CT of the thorax recommended. (Lung RADS 2S) Coronary artery disease. Multiple compression deformities within the thoracic spine, similar to the prior chest x-ray. Electronically signed by: Kush Ya MD 04/05/2019 10:11 AM [facility] < > Reported By: KUSH YA M.D. Signed In PowerScribe By: KUSH YA M.D. << Signature on File>> Reported By: KUSH YA M.D. Signed By: KUSH YA M.D. Tests performed at: [address] [address] Normal [facility] CONSULTATIONon 01-11-2019 [place] [address] HEALTH INFORMATION MANAGEMENT CONSULTATION Patient: CARLOS OLIVER III,AZAR Patel D.O. [id number] [age] F Status: [facility] ER ED DATE OF CONSULTATION: 01/07/2019 REASON FOR CONSULTATION: Right proximal humerus fracture. HISTORY OF PRESENT ILLNESS: The patient is a pleasant 58-year-old female, who was seen in the [facility] Emergency Department after falling onto an outstretched arm. She states she was walking outside when she just tripped over her own feet. She had pain in the right proximal humerus. There is also a small abrasion onto her right knee. She denies any significant head injury or neck injury. X-rays revealed a proximal humerus fracture with minimal displacement and Orthopedics was consulted. PAST MEDICAL HISTORY: 1. Hypertension. 2. Chronic kidney disease. 3. Anemia. PAST SURGICAL HISTORY: Denies. ALLERGIES: Morphine, bee venom (honey bee). SOCIAL HISTORY: Single. Denies alcohol, smoking, or drug use. REVIEW OF SYSTEMS: Unremarkable aside from proximal humerus pain on the right side. PHYSICAL EXAMINATION: VITAL SIGNS: Blood pressure of 144/99, temperature 97.9, pulse of 89, respiratory rate of 20, pain 10/10. MUSCULOSKELETAL: Examination of the right shoulder shows no significant deformities. She is quite tender over the proximal humerus, but is not tender over the AC joint. There is no tenderness to the scapula. Range of motion of the patient's shoulder was avoided secondary to known fracture. She does have full range of motion and is neurovascularly intact to the elbow, wrist, and hand. The compartments are soft. There is no swelling, warmth, or erythema. The distal humerus, there is no tenderness within the supracondylar area. Compartments are all soft. Examination of the right lower extremity shows a small superficial abrasion to the right knee, covered by a Band-Aid. X-RAYS: Multiple views of the patient's right shoulder were taken and reviewed. They show a surgical neck fracture that is somewhat spiral and oblique with really minimal displacement. The glenohumeral joint is in good alignment. No other acute abnormalities are noted. IMPRESSION: Right proximal humerus fracture with minimal displacement. PLAN: I had a lengthy conversation with the patient in the ER. I did explain to her the risks and benefits of conservative treatment in a sling versus open reduction and internal fixation. This patient does have chronic kidney disease and at this point in time, is really requesting conservative care. I told her that her best option would be to be placed into a sling and swathe and that she will return to my office in 10 days, where new x-rays will be taken. She knows that if there is significant displacement of her fracture, we can proceed with an open reduction and internal fixation; however, if the fracture maintains its alignment, I do think it is reasonable to give her a shot and conservative care. If the fracture heals into the current alignment, she will have excellent function. Additional soft tissue injury such as rotator cuff tear, labral and biceps pathology could be present and the patient understands that this will present itself later in her recovery once she regains motion. She will be seen in my office in approximately 10 days for new x-rays and she is very pleased with this plan. 01/13/19 1633 AZAR BROWN III, D.O. cc: AZAR BROWN III, D.O. << Signature on File>> Reported By: AZAR BROWN III, D.O. Signed By: AZAR BROWN III, D.O. Tests performed at: [address] [address] Normal [facility] EMERGENCY DEPARTMENT REPORTo n 01-07-2019 EMERGENCY [place] [address] HEALTH INFORMATION MANAGEMENT EMERGENCY DEPARTMENT REPORT Patient: CARLOS OLIVER JOHN M M.D. [id number] [age] F Status: DEP ER ED Date of Service: 01/07/19 ADDENDUM: X-rays were reviewed both by myself and I contacted Dr. Brown, [facility]. He did come to the ER to evaluate the patient, review the x-rays and after discussing with the patient, the patient does not want to have acute surgery done. Therefore, the patient will be placed in a sling and swath. She has no pain at rest. He states that she is not to have any therapy or anything until he sees her in 10 days and at that time, we will maybe institute some therapy or rehab or possibly reconsider surgery. IMPRESSION: Status post fall with fracture, right proximal humerus and abrasion, right knee. cc: Azar Brown III, DO 01/07/19 2144 AZAR BOYLE M.D. cc: AZAR BROWN III, D.O.; AZAR BOYLE M.D. << Signature on File>> Reported By: AZAR BOYLE M.D. Signed By: AZAR BOYLE M.D. Tests performed at: [address] [address] [facility] EMERGENCY [place] [address] HEALTH INFORMATION MANAGEMENT EMERGENCY DEPARTMENT REPORT Patient: CARLOS OLIVER AZAR BOYLE M.D. [id number] [age] F Status: REG ER ED Date of Service: 01/07/19 HISTORY OF PRESENT ILLNESS: The patient is a 58-year-old lady who lives in an assisted living facility. She was outside taking a walk when she states she just tripped over her own feet and fell landing on her outstretched right arm. She has pain in the right proximal humerus. She also has a small abrasion of the right knee, but states that is not bothering her. She has a Band-Aid on it and does not need that checked. She denies any head or neck injury. Denies any chest or abdominal pain. She states she did not pass out. She remembers the entire event. She just tripped and fell. PAST MEDICAL HISTORY: Significant for hypertension. She has a history of kidney disease. PAST SURGICAL HISTORY: Negative. SOCIAL HISTORY: Negative. ALLERGIES: As listed. PHYSICAL EXAMINATION: VITAL SIGNS: Temperature 97.9, pulse 89, respiratory rate 20, blood pressure 144/99. GENERAL: The patient is alert and cooperative lady. HEENT: Her skull is normocephalic and atraumatic. Pupils are equal. Throat is clear. NECK: Supple. There is no tenderness of the cervical or paracervical area. Anterior trachea is midline. There is no stridor. HEART: Regular rate and rhythm. There is no murmur. No tachycardia. LUNGS: Lung sounds are clear. Respirations are unlabored. She denies any pain with breathing. ABDOMEN: Soft and nontender. EXTREMITIES: Examination of the right shoulder shows no tenderness of the clavicle or the AC joint. No tenderness of the scapula. She does have some mild tenderness, mainly in the area of the proximal humerus with some pain on abduction, flexion, and extension at the humerus, but no swelling, redness, warmth, or obvious deformity. The distal humerus is nontender including the supracondylar area. There is no tenderness in the area of the elbow joint, including the olecranon process, the radial head. I am able to passively flex, extend, supinate, and pronate the elbow without any pain at the elbow. She does have some soreness in the shoulder on this maneuver. The forearm is nontender as is the wrist with good strong radial pulse and no tenderness in the carpals, metacarpals, or the phalanges. She has full median, ulnar, and radial nerve sensation and function. Examination of the right lower extremity shows a very superficial abrasion on the right knee, but normal straight leg raise. No point tenderness of the bony prominence. EMERGENCY ROOM COURSE: At this point, we have ordered x-ray of the shoulder. Ice has been applied and we will reassess. DISPOSITION: To follow. 01/07/19 1606 AZAR BOYLE M.D. cc: AZAR BOYLE M.D. << Signature on File>> Reported By: AZAR BOYLE M.D. Signed By: AZAR BOYLE M.D. Tests performed at: [address] [address] Normal [facility] SHOULDER MIN 2 VIEWon 2018 SHOULDER MIN [address] [address] Name: CARLOS OLIVER Phys: AZAR BOYLE M.D. : 58 Age: 58 Sex: F Acct: [id number] Loc: ED Exam Date: 01/07/19 Status: REG ER Radiology No.: [id number] Unit Number: [id number] Exam # Type/Exam [id number] RAD / SHOULDER MIN 2 VIEW RT INDICATION: Fracture , Pain EXAMINATION: X-ray SHOULDER MIN 2 VIEW COMPARISON: No direct comparison available FINDINGS: Oblique comminuted fracture proximal humerus diaphysis. Normal alignment humerus head and glenoid. Moderate osseous demineralization. No evidence for pneumothorax or displaced rib fracture. Mild displacement at humerus fracture plane. IMPRESSION: Proximal humerus fracture with mild displacement. Electronically signed by: Hank Crowley DO 01/07/2019 2:32 PM CDT < > Reported By: HANK CROWLEY D.O. Signed In PowerScribe By: HANK CROWLEY D.O. << Signature on File>> Reported By: HANK CROWLEY D.O. Signed By: HANK CROWLEY D.O. Tests performed at: [place] [address] Normal [facility] US ABD LTD SINGLE ORGANon US ABD LTD SINGLE ORGAN [address] [address] Name: XIOMARACARLOS Phys: STEVEN MADDOX M.D. : 58 Age: 58 Sex: F Acct: [id number] Loc: RAD US Exam Date: 12/15/18 Status: REG CLI Radiology No.: [id number] Unit Number: [id number] Exam # Type/Exam [id number] US / US ABD LTD SINGLE ORGAN Ultrasound of the RIGHT upper quadrant CLINICAL HISTORY:CIRRHOSIS, COMPARISON: CT 12/07/2017 FINDINGS: The gallbladder is surgically absent. There is no intra or extrahepatic bile duct dilatation. The common duct is 5 mm at the emelyn hepatis. The visualized liver is diffusely heterogeneous with nodular margins consistent with cirrhosis. No focal mass lesion is seen. The pancreas is grossly normal but is not adequately visualized due to bowel gas artifacts. Small lesions are not excludable. No ascites is seen in the RIGHT upper quadrant. Limited survey images of the right kidney show no pelvocaliectasis. IMPRESSION: Cirrhotic liver. Electronically signed by: Davion Lr MD 12/18/2018 7:49 AM CDT < > Reported By: DAVION LR M.D. Signed In PowerScribe By: DAVION LR M.D. << Signature on File>> Reported By: DAVION LR M.D. Signed By: DAVION LR M.D. Tests performed at: [address] [address] Normal [facility] TOXASSURE COMPRon 11-07-2018 TOXASSURE COMPR FINAL Normal () [facility] Comment on above: Order Comment: Lynette Berger Result Comment: ===== TOXASSURE COMP DRUG ANALYSIS,UR ===== Test Result Flag Units Drug Present Oxycodone 1390 ng/mg creat Oxymorphone 1531 ng/mg creat Noroxycodone 3906 ng/mg creat Noroxymorphone 564 ng/mg creat Sources of oxycodone are scheduled prescription medications. Oxymorphone, noroxycodone, and noroxymorphone are expected metabolites of oxycodone. Oxymorphone is also available as a scheduled prescription medication. Tizanidine PRESENT Amitriptyline PRESENT Nortriptyline PRESENT Nortriptyline may be administered as a prescription drug; it is also an expected metabolite of amitriptyline. Metoprolol PRESENT ===== Test Result Flag Units Ref Range Creatinine 83 mg/dL >=20 ===== Declared Medications: Medication list was not provided. ===== For clinical consultation, please call . ===== Performed At: [facility] [address] [place] [id number] Remington Rowe [facility] [phone] Performed By: #### L [id number] #### [facility] [address] [place] [id number] # [phone] MRI LOWER EXT JT WOUT CONTRA STon 10-03-2018 MRI LOWER EXT JT WOUT CONTRAST [place] [address] Name: CARLOS OLIVER Phys: ABDIRAHMAN FERREIRA D.P.M. : 58 Age: 58 Sex: F Acct: [id number] Loc: RAD MRI Exam Date: 10/03/18 Status: REG CLI Radiology No.: [id number] Unit Number: [id number] Exam # Type/Exam [id number] MRI / MRI LOWER EXT JT WOUT CONTRAST LT MR left ankle WITHOUT IV CONTRAST CLINICAL STATEMENT: Osteoarthritis, edema, pain. COMPARISON: None FINDINGS: There is edema diffusely throughout the cuboid bone. There is hypointense linear band at the dorsal and medial aspect of the cuboid, potential fracture. Patchy edema is demonstrated in the talus and calcaneus. Patchy edema is questioned in the fifth metatarsal base. The syndesmotic ligaments are intact. The anterior talofibular ligament is disrupted. The calcaneofibular and posterior talofibular ligaments are intact. The deltoid ligament complex is intact. There is no osteochondral lesion of the talar dome. The Achilles tendon is intact. There likely is mild synovitis of the sinus tarsi. The plantar fascia is of normal thickness and signal. The posterior tibial, flexor digitorum longus, and flexor hallucis longus tendons are intact. The extensor tendons of the ankle are intact. Fluid is present in the peroneal tendon sheath. The peroneus longus and brevis tendons are intact. The Lisfranc ligament is intact. Synovitis is demonstrated at the anteromedial and posterior aspect of the ankle. IMPRESSION: 1. Suspicion of cuboid stress fracture. 2. Evidence of prior lateral ankle sprain. 3. Question sinus tarsi syndrome. 4. Peroneal tenosynovitis. Electronically signed by: Gerald Grimes MD 10/04/2018 8:16 AM CDT < > Reported By: GERALD GRIMES M.D. Signed In PowerScribe By: GERALD GRIMES M.D. << Signature on File>> Reported By: GERALD GRIMES M.D. Signed By: GERALD GRIMES M.D. Tests performed at: [address] [address] Normal [facility] Vital Signs Date Time Vital Sign Value Performing Clinician Facility 01-08-2025 09:20-0400 Diastolic Blood Pressure Non-Invasive 75 mm[Hg] DR STEVEN MADDOX MD [facility] 01-08-2025 09:20-0400 Heart rate 69 /min DR STEVEN MADDOX MD [facility] 01-08-2025 09:20-0400 Respiratory rate 18 /min DR STEVEN MADDOX MD [facility] 01-08-2025 09:20-0400 Systolic Blood Pressure Non-Invasive 108 mm[Hg] DR STEVEN MADDOX MD [facility] 01-08-2025 09:07-0400 Diastolic Blood Pressure Non-Invasive 70 mm[Hg] DR STEVEN MADDOX MD [facility] 01-08-2025 09:07-0400 Heart rate 74 /min DR STEVEN MADDOX MD [facility] 01-08-2025 09:07-0400 Respiratory rate 21 /min DR STEVEN MADDOX MD [facility] 01-08-2025 09:07-0400 Systolic Blood Pressure Non-Invasive 104 mm[Hg] DR STEVEN MADDOX MD [facility] 01-08-2025 09:00-0400 Diastolic Blood Pressure Non-Invasive 73 mm[Hg] DR STEVEN MADDOX MD [facility] 01-08-2025 09:00-0400 Heart rate 71 /min DR STEVEN MADDOX MD [facility] 01-08-2025 09:00-0400 Respiratory rate 25 /min DR STEVEN MADDOX MD [facility] 01-08-2025 09:00-0400 Systolic Blood Pressure Non-Invasive 103 mm[Hg] DR STEVEN MADDOX MD [facility] 01-08-2025 08:55-0400 Body temperature 97.88 [degF] DR STEVEN MADDOX MD [facility] 01-08-2025 08:55-0400 Respiratory Rate - Anes 0 br/min DR STEVEN MADDOX MD [facility] 01-08-2025 08:50-0400 Heart rate 76 /min DR STEVEN MADDOX MD [facility] 01-08-2025 08:50-0400 Respiratory Rate - Anes 8 br/min DR STEVEN MADDOX MD [facility] 01-08-2025 08:03-0400 Body height 152.[address] STEVEN MADDOX MD [facility] 01-08-2025 08:03-0400 Body temperature 98.06 [degF] DR STEVEN MADDOX MD [facility] 01-08-2025 08:03-0400 Body weight [address] STEVEN MADDOX MD [facility] 01-08-2025 08:03-0400 Body weight 23.68 kg/m2 DR STEVEN MADDOX MD [facility] 07-05-2024 13:58-0400 Body height 160.02 cm Kika BERNARDOC Work Phone: [facility] 07-05-2024 13:58-0400 Body mass index (BMI) [Ratio] 21.2 kg/m2 Kika BERNARDOC Work Phone: [facility] 07-05-2024 13:58-0400 Body weight 54.43 kg Kika Lamb NP-C Work Phone: [facility] 07-05-2024 13:58-0400 Diastolic blood pressure 76 mm[Hg] Kika Lamb NP-C Work Phone: [facility] 07-05-2024 13:58-0400 Heart rate 86 /min Kika Lamb NP-C Work Phone: [facility] 07-05-2024 13:58-0400 Respiratory rate 16 /min Kika Lamb PUBLIC HEALTH ASSISTANT-C Work Phone: [facility] 07-05-2024 13:58-0400 Systolic blood pressure 150 mm[Hg] Kika Lamb PUBLIC HEALTH ASSISTANT-C Work Phone: [facility] 03-07-2024 06:43-0500 Heart rate 80 /min HANK KORPI DO [facility] 03-07-2024 06:43-0500 Respiratory rate 20 /min HANK KORPI DO [address] [place] [address] 03-07-2024 06:39-0500 Blood Pressure Cuff Size HANK KORPI DO [address] [place] [address] 03-07-2024 06:39-0500 Blood Pressure Location HANK KORPI DO [facility] 03-07-2024 06:39-0500 Blood Pressure Method HANK KORPI DO [facility] 03-07-2024 06:39-0500 Body temperature 97.88 [degF] HANK KORPI DO [facility] 03-07-2024 06:39-0500 Diastolic Blood Pressure Non-Invasive 74 mm[Hg] HANK KORPI DO [facility] 03-07-2024 06:39-0500 Heart rate 80 /min HANK KORPI DO [facility] 03-07-2024 06:39-0500 Reason For Taking VItal Signs HANK KORPI DO [facility] 03-07-2024 06:39-0500 Respiratory rate 18 /min HANK KORPI DO [facility] 03-07-2024 06:39-0500 Systolic Blood Pressure Non-Invasive 105 mm[Hg] HANK KORPI DO [address] [place] [address] 03-07-2024 02:34-0500 Blood Pressure Cuff Size HANK KORPI DO [address] [place] [address] 03-07-2024 02:34-0500 Blood Pressure Location HANK KORPI DO [address] [place] [address] 03-07-2024 02:34-0500 Blood Pressure Method HANK KORPI DO [address] [place] [address] 03-07-2024 02:34-0500 Body temperature 98.42 [degF] HANK KORPI DO [address] [place] [address] 03-07-2024 02:34-0500 Diastolic Blood Pressure Non-Invasive 69 mm[Hg] HANK KORPI DO [address] [place] [address] 03-07-2024 02:34-0500 Heart rate 78 /min HANK KORPI DO [address] [place] [address] 03-07-2024 02:34-0500 Reason For Taking VItal Signs HANK KORPI DO [address] [place] [address] 03-07-2024 02:34-0500 Respiratory rate 18 /min HANK KORPI DO [address] [place] [address] 03-07-2024 02:34-0500 Systolic Blood Pressure Non-Invasive 93 mm[Hg] HANK KORPI DO [address] [place] [address] 03-06-2024 23:36-0500 Blood Pressure Cuff Size HANK KORPI DO [address] [place] [address] 03-06-2024 23:36-0500 Blood Pressure Location HANK KORPI DO [address] [place] [address] 03-06-2024 23:36-0500 Blood Pressure Method HANK KORPI DO [address] [place] [address] 03-06-2024 23:36-0500 Body temperature 98.42 [degF] HANK KORPI DO [address] [place] [address] 03-06-2024 23:36-0500 Diastolic Blood Pressure Non-Invasive 83 mm[Hg] HANK KORPI DO [address] [place] [address] 03-06-2024 23:36-0500 Reason For Taking VItal Signs HANK KORPI DO [address] [place] [address] 03-06-2024 23:36-0500 Systolic Blood Pressure Non-Invasive 134 mm[Hg] HANK KORPI DO [address] [place] [address] 03-04-2024 13:31-0500 Body temperature 98.06 [degF] HANK KORPI DO [address] [place] [address] 03-04-2024 13:31-0500 Heart rate 83 /min HANK KORPI DO [address] [place] [address] 03-04-2024 13:19-0500 Body temperature 97.16 [degF] HANK KORPI DO [address] [place] [address] 03-04-2024 13:19-0500 Heart rate 81 /min HANK KORPI DO [address] [place] [address] 03-04-2024 13:19-0500 Mean blood pressure 79 mm[Hg] HANK KORPI DO [address] [place] [address] 03-04-2024 13:04-0500 Heart rate 83 /min HANK KORPI DO [address] [place] [address] 03-04-2024 13:04-0500 Mean blood pressure 86 mm[Hg] HANK KORPI DO [address] [place] [address] 03-04-2024 12:50-0500 Mean blood pressure 96 mm[Hg] HANK KORPI DO [address] [place] [address] 03-04-2024 12:34-0500 Body temperature 97.88 [degF] HANK KORPI DO [address] [place] [address] 03-04-2024 12:30-0500 Respiratory Rate - Anes 11 br/min HANK KORPI DO [facility] 03-04-2024 12:25-0500 Respiratory Rate - Anes 10 br/min HANK KORPI DO [address] [place] [address] 03-04-2024 12:20-0500 Respiratory Rate - Anes 10 br/min HANK KORPI DO [address] [place] [address] 03-04-2024 12:15-0500 Body temperature 99.46 [degF] HANK KORPI DO [address] [place] [address] 03-04-2024 12:10-0500 Body temperature 99.43 [degF] HANK KORPI DO [address] [place] [address] 03-04-2024 12:05-0500 Body temperature 99.39 [degF] HANK KORPI DO [address] [place] [address] 03-03-2024 23:52-0500 Body height 152.4 cm HANK KORPI DO [address] 03-03-2024 23:52-0500 Body weight 57 kg HANK KORPI DO [address] [place] [address] 03-03-2024 23:52-0500 Body weight 24.54 kg/m2 HANK KORPI DO [address] [place] [address] 03-03-2024 12:50-0500 Body weight 57 kg HANK KORPI DO [facility] 01-22-2023 10:31-0400 Diastolic Blood Pressure Non-Invasive [address] STEVEN MADDOX MD [facility] 01-22-2023 10:31-0400 Heart rate 58 /min DR STEVEN MADDOX MD [facility] 01-22-2023 10:31-0400 Respiratory rate 24 /min DR STEVEN MADDOX MD [facility] 01-22-2023 10:31-0400 Systolic Blood Pressure Non-Invasive [address] STEVEN MADDOX MD [facility] 01-22-2023 10:14-0400 Diastolic Blood Pressure Non-Invasive [address] STEVEN MADDOX MD [facility] 01-22-2023 10:14-0400 Heart rate 62 /min DR STEVEN MADDOX MD [facility] 01-22-2023 10:14-0400 Respiratory rate 21 /min DR STEVEN MADDOX MD [facility] 01-22-2023 10:14-0400 Systolic Blood Pressure Non-Invasive [address] STEVEN MADDOX MD [facility] 01-22-2023 10:11-0400 Diastolic Blood Pressure Non-Invasive [address] STEVEN MADDOX MD [facility] 01-22-2023 10:11-0400 Heart rate 67 /min DR STEVEN MADDOX MD [facility] 01-22-2023 10:11-0400 Respiratory rate 22 /min DR STEVEN MADDOX MD [facility] 01-22-2023 10:11-0400 Systolic Blood Pressure Non-Invasive [address] STEVEN MADDOX MD [facility] 01-22-2023 10:00-0400 Respiratory Rate - Anes 14 br/min DR STEVEN MADDOX MD [facility] 01-22-2023 09:55-0400 Respiratory Rate - Anes 24 br/min DR STEVEN MADDOX MD [facility] 01-22-2023 09:22-0400 Heart rate 63 /min DR STEVEN MADDOX MD [facility] 01-22-2023 09:04-0400 Body height [address] STEVEN MADDOX MD [facility] 01-22-2023 09:04-0400 Body temperature 97.7 [degF] DR STEVEN MADDOX MD [facility] 01-22-2023 09:04-0400 Body weight [address] STEVEN MADDOX MD [facility] 01-22-2023 09:04-0400 Body weight 24.67 kg/m2 DR STEVEN MADDOX MD [facility] 01-22-2023 09:04-0400 Heart rate 61 /min DR STEVEN MADDOX MD [facility] Encounters Encounter Date Encounter Type Care Provider Facility Start: 02-26-2025 ambulatory Wilfredo Chi Gunner Facility:[facility] Start: 02-14-2025 ambulatory Wilfredo Chi Gunner Facility:[facility] Start: 01-30-2025 End: 01-30-2025 ambulatory KIKA PHAN [facility] Start: 01-22-2025 End: 01-22-2025 ambulatory Armando Cordovaiter [place] [place] Start: 01-15-2025 End: 01-15-2025 ambulatory Wilfredo Chi Gunner Facility:[facility] Start: 01-08-2025 End: 01-08-[address] STEVEN MADDOX MD Facility:[facility] Start: 01-08-2025 End: 01-08-[address] STEVEN MADDOX MD [facility] Start: 12-20-2024 End: 12-20-[address] Wilfredo Martino MD Work Phone: [facility] Start: 12-20-2024 End: 12-20-[address] Steven Maddox MD -Laboratory [facility] Work Phone: Start: 12-20-2024 End: 12-20-2024 ambulatory Wilfredo Blade Martino Facility:[facility] Start: 10-16-2024 End: 10-16-[address] Wilfredo Martino MD Work Phone: -Laboratory [facility] Fl[facility] Start: 10-16-2024 End: 10-16-[address] Wilfredo Martino MD -Laboratory [facility]rd Fl[facility] Start: 10-16-2024 End: 10-16-2024 ambulatory Wilfredo Blade Ruthok Facility:[facility] Start: 10-12-2024 ambulatory KIKA LAMB [facility] Start: 09-27-2024 End: 09-27-[address] Wilfredo Martino MD Work Phone: -Radiology [facility] Start: 09-27-2024 End: 09-27-[address] Chiara Kamara MD -Radiology [facility] Work Phone: Start: 09-27-2024 End: 09-27-2024 ambulatory Wilfredo Blade Martino Facility:[facility] Start: 09-12-2024 End: 09-12-2024 Emergency department patient visit PADILLA LING [facility] Start: 08-23-2024 End: 08-23-[address] Wilfredo Martino MD Work Phone: [facility] Work Phone: Start: 08-23-2024 End: 08-23-[address] Wilfredo Martino MD -Laboratory Work Phone: Start: 08-23-2024 End: 08-23-2024 ambulatory Wilfredo Chi Gunner Facility:[facility] Start: 07-17-2024 ambulatory Wilfredo Blade Martino Facility:[facility] Start: 07-17-2024 Non-patient / Non-visit Dr. Landon Ibarra MD -[facility] Start: 07-17-2024 End: 07-17-[address] Landon Ibarra MD -Cardiovascular Services Work Phone: Start: 07-17-2024 End: 07-17-2024 ambulatory Wilfredo Martino Facility:[facility] Start: 07-05-2024 End: 07-05-2024 ambulatory Kika Lamb PUBLIC HEALTH ASSISTANT-C Work Phone: [facility] Work Phone: Start: 07-05-2024 End: 07-05-[address] Landon Ibarra MD -[facility] Work Phone: Start: 07-05-2024 End: 07-05-2024 ambulatory Wilfredo Martino Facility:[facility] Start: 06-06-2024 End: 06-06-2024 ambulatory Kika Lamb PUBLIC HEALTH ASSISTANT-C Work Phone: [facility] Work Phone: Start: 06-06-2024 End: 06-06-[address] Wilfredo Martino MD -Outpatient Bone Densitometry Work Phone: Start: 06-06-2024 End: 06-06-2024 ambulatory Wilfredo Martino Facility:[facility] Start: 05-18-2024 End: 05-18-[address] Wilfredo Martino MD -Laboratory Work Phone: Start: 05-18-2024 End: 05-18-2024 ambulatory Wilfredo Martino Facility:[facility] Start: 05-11-2024 End: 05-11-[address] Wilfredo Martino MD -Cat Scan, [facility] Work Phone: Start: 05-11-2024 End: 05-11-2024 ambulatory Wilfredo Blade Martino Facility:[facility] Start: 04-06-2024 End: 04-06-[address] Wilfredo Martino MD -Laboratory Work Phone: Start: 04-06-2024 End: 04-06-2024 ambulatory Wilfredo Blade Martino Facility:[facility] Start: 03-07-2024 End: 03-21-2024 ambulatory TERE ALICEA [facility] Start: 03-03-2024 End: 03-07-2024 Evaluation and management of inpatient HANK COTA DO [facility] Start: 03-03-2024 End: 03-03-2024 [facility] Start: 02-02-2024 End: 02-02-2024 ambulatory Kikabrady Lamb Facility:[facility] Start: 02-22-2023 End: 02-22-2023 ambulatory [facility] Work Phone: Start: 02-22-2023 End: 02-22-2023 Patient encounter procedure [facility]-Ultrasound, [facility] Work Phone: Start: 01-22-2023 End: 01-23-[address] STEVEN MADDOX MD Facility:[facility] Start: 01-22-2023 End: 01-22-[address] STEVEN MADDOX MD [facility] Start: 01-13-2023 End: 01-13-2023 ambulatory [facility] Work Phone: Start: 01-13-2023 End: 01-13-2023 Patient encounter procedure [facility] Work Phone: Start: 06-16-2021 End: 06-16-2021 Patient encounter procedure [facility]-MRI - [facility] Procedures Date Procedure Procedure Detail Performing Clinician Start: 12-20-2024 Cuzyh-1-Opnbufkywjc measurement Dr. Wilfredo Martino MD Work Phone: Comment on above: Anabela Beat.no Electrochemiluminescen ce Immunoassay(ECLIA)Values obtained with different assay methods or kits cannotbe used interchangeably. Results cannot be interpreted asabsolute evidence of the presence or absence of malignantdisease.This test is not interpretable in females.Performed at: [address] [address] [place], [place] [id number] Director: Steven Booker PhD, Phone: [phone] Start: 10-16-2024 Vitamin D, 25-hydroxy measurement Dr. Johnny Martino MD Work Phone: Comment on above: Vitamin D StatusDeficiency: <20 ng/mL (5 0nmol/L)Insufficiency: 20-30 ng/mL (50-75 nmol/L)Sufficiency: 30-100 ng/mL (75-250 nmol/L)Toxicity: >100 ng/mL (>250 nmol/L) Start: 09-27-2024 X-ray of lumbar spine, two or three views Dr. Wilfredo Martino MD Work Phone: Start: 09-27-2024 Methadone measurement, urine Dr. Wilfredo posey MD Work Phone: Start: 09-27-[address] Wilfredo Martino MD Work Phone: Comment on above: Test Ordered: [id number] D94-Aypirh+S F7Tcqaqojabtkb Screen, Urine Negative ng/mL UI Reference Range: Uxntfl=964Pnfntukdhox test includes Amphetamine and Methamphetamine.Barbiturates Negative ng/mL UI Reference Range: Hgvmih=748Bjvmstnpmngbziw Negative ng/mL UI Reference Range: Dluqzg=564Zstuqcw (Metab.), Urine Negative ng/mL UI Reference Range: Tgzmhw=263Gksqfsh Negative ng/mL UI Reference Range: Baybnc=611Iqlmbs test includes Codeine, Morphine, Hydromorphone, Hydrocodone.6-Acetylmorphine, Urine Negative ng/mL UI Reference Range: Cutoff=10Oxycodone/Oxymorphone, Urine Negative ng/mL UI Reference Range: Msijmu=486Wvsf includes Oxycodone and OxymorphonePCP, Urine Negative ng/mL UI Reference Range: Cutoff=25Methadone Screen, Urine Negative ng/mL UI Reference Range: Hlvajz=879Cvoznvrbwovs, Urine Negative ng/mL UI Reference Range: Gbvlii=219Tqdeqmcm, Urine Negative ng/mL UI Reference Range: Cutoff=2.0Test includes Fentanyl and NorfentanylThis test was developed and its performance characteristicsdetermined by [facility]. It has not been cleared orapproved by the Food and Drug Administration.Tramadol Negative ng/mL UI Reference Range: Pysenm=414Quxufzvyszxur, Urine Negative ng/mL UI Reference Range: Cutoff=10Creatinine, Urine 130.2 mg/dL UI Reference Range: 20.0-300.0pH, Urine 5.7 UI Reference Range: 4.5-8.9Performed at: - [facility] [id number] [place], [place] [id number] Director: Manuel Harman PhD, Phone: [phone] at: - [address] [id number] Director: Steven Booker PhD, Phone: [phone] Start: 08-23-2024 Urnls dip stick/tablet reagent auto microscopy Dr. Wilfredo Martino MD Work Phone: Start: 08-23-[address] Wilfredo Martino MD Work Phone: Start: 07-17-2024 Cardiovascular stress test using pharmacologic stress agent Dr. Wilfredo Martino MD Work Phone: Start: 07-05-2024 Evaluation of diagnostic study results Kika BERNARDOC Work Phone: Start: 07-05-2024 Vitamin D, 25-hydroxy measurement Dr. Johnny Martino MD Work Phone: Comment on above: Vitamin D StatusDeficiency: <20 ng/mL (5 0nmol/L)Insufficiency: 20-30 ng/mL (50-75 nmol/L)Sufficiency: 30-100 ng/mL (75-250 nmol/L)Toxicity: >100 ng/mL (>250 nmol/L) Start: 06-06-2024 Dual energy X-ray absorptiometry Chelsy BERNARDOC Work Phone: Start: 05-11-2024 CT of chest Kika BERNARDOC Work Phone: Start: 03-03-2024 Urinalysis TERE QUAN Comment on above: Result Comment: URINALYSIS Performed By: #### 2 [id number] #### [facility],[address] [phone] Start: 02-22-2023 Ultrasonography of abdomen Start: 06-16-2021 MRI of lumbar spine Start: 12-08-[address] STEVEN ALBERT MD Start: 03-29-[address] STEVEN MADDOX MD Start: 03-29-[address] STEVEN MADDOX MD Plan of Treatment Date Care Activity Detail Author NM Heart Views W stress and W radionuclid e IV [facility] Payers Date Payer Category Payer Medicaid [id number] 2024 Private Health Insurance [id number] 2024 Private Health Insurance [id number] 2024 Self-pay [id number] 2023 Medicare [id number] 2023 Medicaid [id number] Medicare [id number] 1959 Unknown [id number] 2.16.8 40.1.826992.3.579.2.627 1959 Unknown [id number] 2.16.8 40.1.068723.3.579.2.627 1959 Unknown [id number] 2.16. 840.1.580731.3.579.2.627 1959 Unknown [id number] 2.16.8 40.1.100421.3.579.2.651 1959 Unknown [id number] 2.16.8 40.1.257395.3.579.2.651 1959 Unknown [id number] 2.16.8 40.1.247517.3.579.2.651 1959 Unknown [id number] 2.16.8 40.1.636723.3.579.2.651 1959 Unknown [id number] 2.16.8 40.1.392207.3.579.2.651 Medicare [id number] Unknown [id number] 2.16.8 40.1.780369.3.579.2.462 Unknown [id number] .16.8 40.1.957352.3.579.2.462 Unknown [id number] 2..8 40.1.717809.3.579.2.462 Unknown [id number] 2.16.8 40.1.606236.3.579.2.462 Unknown [id number] 2.16.8 40.1.219334.3.579.2.462 Unknown [id number] 2.16.8 40.1.937860.3.579.2.462 Unknown [id number] 2.16.8 40.1.538412.3.579.2.462 Unknown [id number] 2.16.8 40.1.799243.3.579.2.462 Unknown [id number] 2.16.8 40.1.959572.3.579.2.462 Unknown [id number] 2.16.8 40.1.906633.3.579.2.462 Unknown [id number] 2.16.8 40.1.290862.3.579.2.462 Unknown [id number] 2.16.8 40.1.707806.3.579.2.462 Unknown [id number] 2.16.8 40.1.031558.3.579.2.462 Unknown [id number] 2.16.8 40.1.514468.3.579.2.462 Unknown [id number] 2.16.8 40.1.653917.3.579.2.462 Unknown [id number] 2.16.8 40.1.348988.3.579.2.462 Unknown [id number] 2.16.8 40.1.812902.3.579.2.462 Social History Date Type Detail Facility Start: 02-13-2016 End: 02-13-2016 Tobacco smoking status NHIS Unknown if ever smoked [facility] Start: 1960 Sex Assigned At Female W [facility] Start: 12-08-2019 Tobacco smoking status Light t obacco smoker (finding) [facility] Start: 05-19-2024 Tobacco smoking stat us ALIS Smokes tobacco daily (finding) [facility] Start: 02-21-2019 End: 06-16-2024 Sex Female (finding) [facility] Sex Female [facility] Sexual Orientation [facility] Start: 01-08-2025 No, per patient [facility] Medical Equipment Procedure Code Equipment Code Equipment Original Text Equipment Identifier Dates Femur Rodding Intramedullary Unknown 03/04/24 Unknown Unknown FDA Start: 03-04-2024 Femur Rodding Intramedullary Unknown 03/04/24 Unknown Unknown FDA Start: 03-04-2024 Femur Rodding Intramedullary Unknown 03/04/24 Unknown Unknown FDA Start: 03-04-2024 Femur Rodding Intramedullary Unknown 03/04/24 Unknown Unknown FDA Start: 03-04-2024 Insertion Intramedullary Nail Femur Unknown 03/04/24 Unknown Unknown FDA Start: 03-04-2024 Insertion Intramedullary Nail Femur Unknown 03/04/24 Unknown Unknown FDA Start: 03-04-2024 Insertion Intramedullary Nail Femur Unknown 03/04/24 Unknown Unknown FDA Start: 03-04-2024 Insertion Intramedullary Nail Femur Unknown 03/04/24 Unknown Unknown FDA Start: 03-04-2024 Functional Status Date Assessment Result Facility 01-08-2025 Functional Status More than 8 hours [facility] 03-07-2024 [facility] Status Room check performed [facility] 03-07-2024 Functional Status Nurse Safety Jay phillip q2hrs Performed 3am-7am [facility] 03-07-2024 Functional Status Sequential Com pression Device bilateral knee high removed/off [facility] 03-07-2024 [facility] Functional Status elevated on pillows [facility] 03-06-2024 Functional Status [facility] 03-06-2024 Functional Status Personal ADL [facility] 03-06-2024 Functional Status Front wheeled walker [facility] 03-05-2024 Functional Status Min A [facility] 03-05-2024 Functional Status Activity Assistance One assist [facility] 03-04-2024 Functional Status Maintained [facility] 03-04-2024 [facility] Status [facility] 03-04-2024 Functional Status [facility] 03-03-2024 [facility] Functional Status 75 [facility] 01-22-2023 Functional Status Awake [facility] 01-22-2023 Functional Status Maintained, More than 8 hours [facility] Mental Status Date Assessment Result Facility 03-07-2024 Mental Status Orientation Oriented x 4 [facility] 03-06-2024 Mental Status [facility] 03-06-2024 Mental Status [facility] 03-05-2024 Mental Status Orientation Assessment Orie nted x 4 [facility] 03-05-2024 Mental Status [facility] 03-04-2024 Mental Status [facility] Clinical Notes 01-22-2023 to 01-08-2025 Note Date & Type Note Facility 01-08-2025 Evaluation + Plan note Extrac abraham from: Title:History and Physical Author:KAIT MADDOX MD Date:01/08/25 Orders: Lactated Ringers Infusion 1,000 mL(LR 1,000 mL), 1000 mL, Intravenous Communication Order (scheduled), 01/08/25 7:53:00 EDT, Once, 01/08/25 7:53:00 EDT, Pathology Tissue Request Communication Order (scheduled), 01/08/25 7:53:00 EDT, Once, 01/08/25 7:53:00 EDT, Urine Test or waiver for women of child bearing age Communication Order (scheduled), 01/08/25 7:53:00 EDT, Once, 01/08/25 7:53:00 EDT, Fasting Blood Sugar priot to procedure of patient is diabetic Discharge, 01/08/25 7:53:00 EDT, Discharged to: Home, when able to ambulate and after being seen by physician Sign Consent, 01/08/25 7:53:00 EDT, Once, For EGD [facility] 10-13-2025 Hospital Discharge instructions Patient Education 01/08/2025 09:04:02 Moderate Conscious Sedation, Adult, Care After Moderate Conscious Sedation, Adult, Care After These instructions provide you with information about caring for yourself after your procedure. Your health care provider may also give you more specific instructions. Your treatment has been plannedaccording to current medical practices, but problems sometimes occur. Call your health care provider if you have any problems or questions after your procedure. What can I expect after the procedure? After your procedure, it is common: To feel sleepy for several hours. To feel clumsy and have poor balance for several hours. To have poor judgment for several hours. To vomit if you eat too soon. Follow these instructions at home: For at least 24 hours after the procedure: Do not: ?Participate in activities where you could fall or become injured. ?Drive. ?Use heavy machinery. ?Drink alcohol. ?Take sleeping pills or medicines that cause drowsiness. ?Make important decisions or sign legal documents. ?Take care of children on your own. Rest. Eating and drinking Follow the diet recommended by your health care provider. If you vomit: ?Drink water, juice, or soup when you can drink without vomiting. ?Make sure you have little or no nausea before eating solid foods. General instructions Have a responsible adult stay with you until you are awake and alert. Take hges-rol-ekmtgqs and prescription medicines only as told by your health care provider. If you smoke, do not smoke without supervision. Keep all follow-up visits as told by your health care provider. This is important. Contact a health care provider if: You keep feeling nauseous or you keep vomiting. You feel light-headed. You develop a rash. You have a fever. Get help right away if: You have trouble breathing. This information is not intended to replace advice given to you by your health care provider. Make sure you discuss any questions you have with your health care provider. Document Released: 01/03/2014 Document Revised: 02/25/2018 Document Reviewed: 07/04/2016 [employer] Patient Education 2020 [employer]. 01/08/2025 09:03:57 Esophagogastroduodenoscopy, Care After ([id number]) Esophagogastroduodenoscopy, Care After Refer to this sheet in the next few weeks. These instructions provide you with information about caring for yourself after your procedure. Your health care provider may also give you more specific instructions. Your treatment has been planned according to current medical practices, but problems sometimes occur. Call your health care provider if you have any problems or questions after your procedure. What can I expect after the procedure? After the procedure, it is common to have: A sore throat. Nausea. Bloating. Dizziness. Fatigue. Follow these instructions at home: Do not eat or drink anything until the numbing medicine (local anesthetic) has worn off and your gag reflex has returned. You will know that the local anesthetic has worn off when you can swallow comfortably. Do not drive for 24 hours if you received a medicine to help you relax (sedative). If your health care provider took a tissue sample for testing during the procedure, make sure to get your test results. This is your responsibility. Ask your health care provider or the department performing the test when your results will be ready. Keep all follow-up visits as told by your health care provider. This is important. Contact a health care provider if: You cannot stop coughing. You are not urinating. You are urinating less than usual. Get help right away if: You have trouble swallowing. You cannot eat or drink. You have throat or chest pain that gets worse. You are dizzy or light-headed. You faint. You have nausea or vomiting. You have chills. You have a fever. You have severe abdominal pain. You have black, tarry, or bloody stools. This information is not intended to replace advice given to you by your health care provider. Make sure you discuss any questions you have with your health care provider. Document Released: 03/01/2013 Document Revised: 08/20/2016 Document Reviewed: 02/06/2016 [employer] Interactive Patient Education 2019 [employer]. Follow Up Care 12/22/2024 11:18:57 With:STEVEN MADDOX MD Address: [address] [facility] [address] [place] [phone] When: Unknown Comments:Follow up in office as needed [facility] 10-13-2025 Summary of episode note Discharge Instructions Thank you for allowing [facility] to assist you with your healthcare needs. The following is importantdischarge information regarding your hospital visit. What to do next Follow Up Appointments Follow Up with STEVEN MADDOX MD Where:[address] [facility] [address] [place] [phone] Additional Information: Follow up in office as needed Allergies Latex morphine Hives Medications Please ask your primary doctor or pharmacist before taking any other medication not listed, including over the counter drugs, herbal medications, vitamins and or supplements as they may interact withur home medications. What How Much When Instructions Last Dose Unchanged albuterol (Ventolin HFA MDI (90 mcg/ inh) inhalation aerosol) 1 puff(s) by inhalation Four (4) times a day as needed for as needed for wheezing Unchanged fluticasone/ umeclidinium/ vilanterol (Trelegy Ellipta 100 mcg-62.5 mcg-25 mcg/ inh inhalation powder) 1 inh by inhalation Once a day Unchanged levothyroxine (levothyroxine 50 mcg (0.05 mg) oral tablet) 1 tab(s) by mouth Once a day Unchanged lumateperone (Caplyta 42 mg oral capsule) 1 cap by mouth Once a day Unchanged metoprolol (Metoprolol Succinate ER 25 mg oral TABLET extended release) TAKE 1 TABLET BY MOUTH ONCE DAILY Unchanged rifaximin (Xifaxan 550 mg oral tablet) 1 tab(s) by mouth Two (2) times a day Unchanged spironolactone (spironolactone 100 mg oral tablet) 1 tab(s) by mouth Once a day Unchanged SUMAtriptan (SUMAtriptan 50 mg oral tablet) 1 tab(s) by mouth Once a day as needed for for migraine headache Please take this list to your next doctor s visit. Bring all medications you take, including over the counter medications, herbals and other supplements with you to your doctor s visit. Patients and families are reminded to discard old lists and to update any records with all medication providers or retail pharmacies. Education Materials Moderate Conscious Sedation, Adult, Care After These instructions provide you with information about caring for yourself after your procedure. Your health care provider may also give you more specific instructions. Your treatment has been plannedaccording to current medical practices, but problems sometimes occur. Call your health care provider if you have any problems or questions after your procedure. What can I expect after the procedure? After your procedure, it is common: To feel sleepy for several hours. To feel clumsy and have poor balance for several hours. To have poor judgment for several hours. To vomit if you eat too soon. Follow these instructions at home: For at least 24 hours after the procedure: Do not: ? Participate in activities where you could fall or become injured. ? Drive. ? Use heavy machinery. ? Drink alcohol. ? Take sleeping pills or medicines that cause drowsiness. ? Make important decisions or sign legal documents. ? Take care of children on your own. Rest. Eating and drinking Follow the diet recommended by your health care provider. If you vomit: ? Drink water, juice, or soup when you can drink without vomiting. ? Make sure you have little or no nausea before eating solid foods. General instructions Have a responsible adult stay with you until you are awake and alert. Take azmr-mfe-rqgbqsn and prescription medicines only as told by your health care provider. If you smoke, do not smoke without supervision. Keep all follow-up visits as told by your health care provider. This is important. Contact a health care provider if: You keep feeling nauseous or you keep vomiting. You feel light-headed. You develop a rash. You have a fever. Get help right away if: You have trouble breathing. This information is not intended to replace advice given to you by your health care provider. Make sure you discuss any questions you have with your health care provider. Document Released: 01/03/2014 Document Revised: 02/25/2018 Document Reviewed: 07/04/2016 [employer] Patient Education 2020 [employer]. Esophagogastroduodenoscopy, Care After Refer to this sheet in the next few weeks. These instructions provide you with information about caring for yourself after your procedure. Your health care provider may also give you more specific instructions. Your treatment has been planned according to current medical practices, but problems sometimes occur. Call your health care provider if you have any problems or questions after your procedure. What can I expect after the procedure? After the procedure, it is common to have: A sore throat. Nausea. Bloating. Dizziness. Fatigue. Follow these instructions at home: Do not eat or drink anything until the numbing medicine (local anesthetic) has worn off and your gag reflex has returned. You will know that the local anesthetic has worn off when you can swallow comfortably. Do not drive for 24 hours if you received a medicine to help you relax (sedative). If your health care provider took a tissue sample for testing during the procedure, make sure to get your test results. This is your responsibility. Ask your health care provider or the department performing the test when your results will be ready. Keep all follow-up visits as told by your health care provider. This is important. Contact a health care provider if: You cannot stop coughing. You are not urinating. You are urinating less than usual. Get help right away if: You have trouble swallowing. You cannot eat or drink. You have throat or chest pain that gets worse. You are dizzy or light-headed. You faint. You have nausea or vomiting. You have chills. You have a fever. You have severe abdominal pain. You have black, tarry, or bloody stools. This information is not intended to replace advice given to you by your health care provider. Make sure you discuss any questions you have with your health care provider. Document Released: 03/01/2013 Document Revised: 08/20/2016 Document Reviewed: 02/06/2016 [employer] Interactive Patient Education 2019 [place]. Additional Information VACCINATE! IT SAVES LIVES! Members of the community who have not yet received the COVID-19 vaccine and would like to receive it can visit one of [facility] vaccine clinics. There are many vaccine clinic locations within the [facility]. For locations and available times, please visit [email or web address].[place].gov/. It is important to note that some COVID mobile vaccine clinics are held outdoors and may be canceled in rainy or stormy conditions. To learn more about pediatric vaccinations (ages 5-11), we invite you to visit the [facility] webpage. [email or web address] learn more about the COVID-19 vaccine, we invite you to visit the CDC website for a list of frequently asked questions.https://www.cdc.gov/coronavirus/2019-ncov/vaccines/faq.html [facility] Patient Portal Access Instructions: Stay connected with your healthcare team and access your personal medical information anytime with the [facility] Patient Portal. Please follow the directions below to create your [facility] account: 1.Access the email account you provided upon registration to the hospital/physician office.2.Look for an invitation email from [facility].3.Open the email and access the invitation link: AcceptInvitation to [facility].4.Fill in the required garrett to create your account. To access your account, visit [email or web address] or scan the QR code above. Click the [employer] Access Patient Portal and then log in with the username and password that you created in the steps above. You will be able to view your test results, lab results, a summary of your visits, upcoming appointments and more. There is also a convenient messaging option where you can send secure messages to your provider. In addition, you will have the ability to download any documentsor summaries to your computer and/or send the information securely to a physician. Remember that your healthcare information is confidential, so carefully consider who you will allowto register on the [facility] Patient Portal for access to your information. You can also access the [facility] Patient Portal on the [email or web address] Anywhere [email or web address]. Simply click on Patient Portal and then log into your account. If you would like to receive a full copy of your medical records, please contact the [facility] Medical Records Department by calling [phone], Wednesday through Wednesday between 8 a.m. and 4:30 p.m. HOW TO SAFELY DISPOSE OF PRESCRIPTION MEDICATIONS Please use one of the following methods to safely dispose of your unused medications. 1.Use a drug disposal kit: the drug disposal pouch allows you to safely discard your old and unuseddrugs. Ask your nurse to give you one when you are discharged.2.Visit a local take-back location: Many local pharmacies and police departments have programs that collect old and unwanted prescriptiondrugs. Call your local pharmacy or go to http://[employer]TD.ShopIgniter/7B1Rj4z to find one close to you.3.Make use of household items: Use cat litter or old coffee grounds to dispose medications if other options arenot available. Mix your drugs with these household products, seal them in an airtight container andthrow it into the garbage. Call [facility]: [phone] to be sure your drugs can be disposed of in this way. Some medicines may require a different approach.4.Never flush your medications down the toilet. IF YOU HAVE BEEN PRESCRIBED AN OPIOID FOR PAIN If you have been prescribed an opioid (such as hydrocodone, oxycodone or morphine), it is critical to understand the possible side effects and risks of opioid pain medications. Even when taken as directed, opioids can have several side effects including: Tolerance, meaning you might need to take more of a medication for the same pain relief. Nausea, vomiting and/or constipation. Sleepiness, dizziness, dry mouth, confusion, depression or itching. Physical dependence, meaning you have withdrawal symptoms when a medication is stopped, can develop within a few days. KNOW YOUR RESPONSIBILITIES It is important to know exactly how much and how often to take the opioid pain medications you are prescribed. Never take opioids in higher amounts or more often than prescribed. Do not combine opioids with alcohol or other drugs that cause drowsiness, such as benzodiazepines, also known as benzos, including diazepam and alprazolam, muscle relaxants or sleep aids. Never sell or share prescription opioids. This is illegal. Store opioids in a secure place and out of reach of others (including children, family, friends and visitors). The last page of this document has been signed and retained as a CHART COPY. Signatures Patient Education Materials Moderate Conscious Sedation, Adult, Care After Esophagogastroduodenoscopy, Care After (48624) Medication Leaflets My discharge plan and instructions have been reviewed and explained to me and I,CARLOS OLIVER understand my current condition and have read and understand these discharge instructions. I have received a written copy of the plan/instructions. If I have questions, I am aware that I should contact my doctor. 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 Signature: Date/Time: Relationship to Patient: Witness Name/Signature: Date/Time: [facility]10-13-2025 Anesthesiology Consult note Patient: CARLOS OLIVER Age: 64 years Sex: Female : 1960 Associated Diagnoses: None Author: CHRISTEN CLAY Assessment Postanesthesia assessment Vitals: Vital signs from flowsheet : Vital Signs 01/08/2025 8:55 EDT Respiratory Rate - Anes 0 br/min br/min 01/08/2025 8:50 EDT Heart Rate Monitored 76 bpm bpm Respiratory Rate - Anes 8 br/min br/min Systolic Blood Pressure Non-Invasive 106 mmHg mmHg Diastolic Blood Pressure Non-Invasive 73 mmHg mmHg 01/08/2025 8:03 EDT Temperature Temporal Artery 36.7 DegC Peripheral Pulse Rate 71 bpm Respiratory Rate 22 br/min HI Systolic Blood Pressure Non-Invasive 143 mmHg HI Diastolic Blood Pressure Non-Invasive 96 mmHg HI . Mental status: alert & oriented x 4. Respiratory function: lungs are clear to auscultation. Respiratory support: none. CV function: Normal rate. Cardiovascular support: none. Pain. Nausea status: see nursing documentation of medications. Postoperative hydration status: within normal limits. Digitally Signed by CHRISTEN CLAY on 01/08/2025 09:00 AM [facility]10-13-2025 Note Date of Service 01/08/2025 Procedure Name EGD with biopsy Consent Taken before procedure Indication With cirrhosis of the liver Location [facility] Pre-Procedure Exam Cirrhosis of the liver Procedural Sedation Anesthesia provided a MAC Technique Patient was brought to the Endo suite and placed left shoulder down. The endoscope was passed directly down into the esophagus. Z-line was 32 cm from the incisors there was a small sliding hiatal hernia. There were no evidence of esophageal varices in the distal esophagus. Stomach showed hyperemia.Duodenum was unremarkable retroflexion performed in the stomach revealed no evidence of gastric varices in the cardia. Biopsies were taken in the antral region of the stomach for testing for H. pylori. The endoscope was withdrawn again there were no large varices noted in the esophagus. The mucosa of the esophagus was unremarkable. The patient tolerated the procedure well. Post-Procedure Exam EGD with biopsy Findings No evidence of gastric or esophageal varices. Diffuse hyperemia of the gastric mucosa Complications None apparent Total Time Approximately 10 minutes Assessment/Plan Orders: Lactated Ringers Infusion 1,000 mL(LR 1,000 mL), 1000 mL, Intravenous Communication Order (scheduled), 01/08/25 7:53:00 EDT, Once, 01/08/25 7:53:00 EDT, Pathology TissueRequest Communication Order (scheduled), 01/08/25 7:53:00 EDT, Once, 01/08/25 7:53:00 EDT, Urine Test or waiver for women of child bearing age Communication Order (scheduled), 01/08/25 7:53:00 EDT, Once, 01/08/25 7:53:00 EDT, Fasting Blood Sugar priot to procedure of patient is diabetic Discharge, 01/08/25 7:53:00 EDT, Discharged to: Home, when able to ambulate and after being seen byphysician Sign Consent, 01/08/25 7:53:00 EDT, Once, For EGD Follow Up/Recommendation Repeat upper endoscopy for surveillance of esophageal varices in 2 years. Digitally Signed by STEVEN MADDOX MD on 01/08/2025 09:00 AM [facility]10-13-2025 Anesthesiology Consult note Patient: CARLOS OLIVER Age: 64 years Sex: Female : 1960 Associated Diagnoses: None Author: CHRISTEN CLAY APRN-MEGAN Preoperative Information Time of last food or liquid consumption: 01/07/2025 10:00:00 Anesthesia history Patient's history: negative. Family's history: negative. Review of Systems Ear/Nose/Mouth/Throat: Negative except as documented in history of present illness. Respiratory: Negative except as documented in history of present illness. Cardiovascular: Negative except as documented in history of present illness. Gastrointestinal: Negative except as documented in history of present illness. Genitourinary: Negative except as documented in history of present illness. Endocrine: Negative except as documented in history of present illness. Musculoskeletal: Negative except as documented in history of present illness. Integumentary: Negative except as documented in history of present illness. Neurologic: Negative except as documented in history of present illness. Health Status Allergies: Allergic Reactions (Selected) Severity Not Documented Latex- No reactions were documented. Morphine- Hives., Allergies (2) ActiveSeverityReaction LatexNone Documented morphineHives Current medications: (Selected) Inpatient Medications Ordered LR 1,000 mL: 50 mL/hr, Intravenous Documented Medications Documented Caplyta 42 mg oral capsule: 42 mg, 1 cap(s), Oral, qDay, 0 Refill(s) Metoprolol Succinate ER 25 mg oral TABLET extended release: TAKE 1 TABLET BY MOUTH ONCE DAILY SUMAtriptan 50 mg oral tablet: 50 mg, 1 tab(s), Oral, qDay, PRN: for migraine headache, 0 Refill(s) Trelegy Ellipta 100 mcg-62.5 mcg-25 mcg/inh inhalation powder: 1 inh, Inhalation, qDay, 0 Refill(s) Ventolin HFA MDI (90 mcg/inh) inhalation aerosol: 1 puff(s), Inhalation, QID, PRN: as needed for wheezing, 0 Refill(s) Xifaxan 550 mg oral tablet: 550 mg, 1 tab(s), Oral, BID, 0 Refill(s) levothyroxine 50 mcg (0.05 mg) oral tablet: 50 mcg, 1 tab(s), Oral, qDay spironolactone 100 mg oral tablet: 100 mg, 1 tab(s), Oral, qDay, Medications (1) Active Scheduled: (0) Continuous: (1) Lactated Ringers Infusion 1,000 mL 1,000 mL, Intravenous, 50 mL/hr PRN: (0) Problem list: Medical Acquired thrombocytopenia / SNOMED CT 456713897 / Confirmed Anemia / SNOMED CT 849039591 / Confirmed Arthritis / SNOMED CT 5433465 / Confirmed Biliary cirrhosis, unspecified / SNOMED CT 6639468 / Confirmed Bipolar disorder / SNOMED CT 68498071 / Confirmed Cataract / SNOMED CT 924139189 / Confirmed Chronic hepatic failure / SNOMED CT 224294945 / Confirmed Acid reflux / SNOMED CT 2992129990 / Confirmed Glasses / SNOMED CT 9213904951 / Confirmed High blood pressure / SNOMED CT 18298175 / Confirmed Migraine / SNOMED CT 20290119 / Confirmed Urinary incontinence / SNOMED CT 4910376885 / Confirmed, Active Problems (13) Acid reflux Acquired thrombocytopenia Anemia Arthritis Biliary cirrhosis, unspecified Bipolar disorder Cataract Chronic hepatic failure Glasses High blood pressure Migraine Tobacco use Urinary incontinence Histories Past Medical History: Active High blood pressure (74429712) Acid reflux (6989999272) Urinary incontinence (9262189862) Glasses (7592665115) Cataract (942446285) Migraine (52608194) Chronic hepatic failure (626833173) Biliary cirrhosis, unspecified (8355164) Acquired thrombocytopenia (311298270) Anemia (543560901) Arthritis (1094103) Bipolar disorder (41395919) Family History: Patient was adopted. Bipolar affective disorder Brother Procedure history: EGD - Esophagogastroduodenoscopy (6234056775) on 12/08/2019 at 59 Years. Cholecystectomy (96058814) in 2017 at 56 Years. Hysterectomy (333518622) in 1997 at 37 Years. Social History: Social & Psychosocial Habits Alcohol 12/08/2019 Use: Past Substance Abuse 12/08/2019 Use: Never Tobacco 12/08/2019 Tobacco Use: 5-9 cigarettes (between 1 Physical Examination Vital Signs 01/08/2025 8:55 EDT Respiratory Rate - Anes 0 br/min br/min 01/08/2025 8:50 EDT Heart Rate Monitored 76 bpm bpm Respiratory Rate - Anes 8 br/min br/min Systolic Blood Pressure Non-Invasive 106 mmHg mmHg Diastolic Blood Pressure Non-Invasive 73 mmHg mmHg 01/08/2025 8:03 EDT Temperature Temporal Artery 36.7 DegC Peripheral Pulse Rate 71 bpm Respiratory Rate 22 br/min HI Systolic Blood Pressure Non-Invasive 143 mmHg HI Diastolic Blood Pressure Non-Invasive 96 mmHg HI Vital Signs (last 24 hrs) Last Charted Temp Zgksqpwm57.7 DegC (JAN 08 08:03) Heart Rate Pgsvllcfu89 bpm (JAN 08 08:50) KCU983 mmHg (JAN 08 08:50) DBP73 mmHg (JAN 08 08:50) BMI23.68 (JAN 08:) Measurements from flowsheet : Measurements 01/08/2025 8:03 EDT Height 152.4 cm Admission Weight 55 kg [place] Body Weight 45.50 kg BSA Admission 1.51 Body Mass Index 23.68 kg/m2 Pain assessment: Pain Assessment 01/08/2025 8:03 EDT Primary Pain Intensity 0 Pain Scale Type 0-10 Pain scale . General: Alert and oriented. Airway: Normal neck range of motion. Mallampati classification: I (soft palate, fauces, uvula, pillars visible). Head: Normocephalic. Dentition Evaluation: Dentures, lower, Dentures, upper. Neck: Full range of motion. Respiratory: Lungs are clear to auscultation. Cardiovascular: Normal rate. Heart Sounds: Normal. Gastrointestinal: Soft. Musculoskeletal Normal range of motion. Integumentary: Intact, Warm, Dry. Neurologic: Alert, Oriented. Review / Management Results review: No qualifying data available , Lab results 01/08/2025 8:57 EDT SN - GCD - ASA Class 3 01/08/2025 8:57 EDT SN - Cul - Culture Type No Specimen per Surgeon 01/08/2025 8:56 EDT SN - CTm - Anesthesia Stop Time Anesthesia Stop Anesthesia Final Record Esophagogastroduodenoscopy 01/08/2025 8:55 EDT Respiratory Rate - Anes 0 br/min br/min Lactated Ringers Injection 300 mL mL 01/08/2025 8:54 EDT AO ENDO Procedure Record AO ENDO Procedure Record 01/08/2025 8:53 EDT SN - Proc - Actual Procedure ESOPHAGOGASTRODUODENOSCOPY (Modified) 01/08/2025 8:50 EDT Heart Rate Monitored 76 bpm bpm Respiratory Rate - Anes 8 br/min br/min Systolic Blood Pressure Non-Invasive 106 mmHg mmHg Diastolic Blood Pressure Non-Invasive 73 mmHg mmHg Oxygen Saturation 99.5 % % 01/08/2025 8:49 EDT lidocaine 100 mg mg propofol 100 mg mg 01/08/2025 8:46 EDT SN - CTm - Anesthesia Start Time Anesthesia Start Lactated Ringers Injection Begin Bag 1,000 mL mL 01/08/2025 8:44 EDT History and Physical Update History and Physical 01/08/2025 8:42 EDT SN - Proc - Anesthesia Type MAC SN - Proc - EBL 0 mL 01/08/2025 8:42 EDT SN - PP - Body Position Lateral Right Side-up Standard Intra-op 01/08/2025 8:42 EDT SN - GCD - Post-operative Diagnosis CIRRHOSIS 01/08/2025 8:42 EDT SN - GCD - Case Level OPD Level 3 01/08/2025 8:42 EDT SN - CAt - Case Attendee SN - CAt - Case Attendee SN - CAt - Case Attendee SN - CAt - Case Attendee SN - CAt - Case Attendee SN - CAt - Case Attendee SN - CAt - Case Attendee SN - CAt - Case Attendee SN - CAt - Role Performed Primary Surgeon SN - CAt - Role Performed SUBSTATION OPERATOR CONVERSION SN - CAt - Role Performed Information Consultant 1 SN - CAt - Role Performed Client Care Representative 01/08/2025 8:32 EDT Progress Note-Nurse 01/08/2025 8:28 EDT Lactated Ringers Injection Begin Bag 1,000 mL mL 01/08/2025 8:26 EDT Wrist Left 01/08/2025 22 gauge Peripheral IV Activity: Insert new site Peripheral IV Dressing Condition: Clean, Dry, Intact Peripheral IV Dressing Activity: Applied, Transparent dressing Peripheral IV Line Status/Patency: Flushes easily Peripheral IV Line Care: Secured with tape Peripheral IV Equipment: Extension set Peripheral IV Number of Attempts: 3 01/08/2025 8:07 EDT Continuous IV Infusions lr Positioning Repositions self Standard Safety ID band on, Allergy Band on, Visitor at bedside, Safety level maintained 01/08/2025 8:06 EDT Urinary Elimination Voiding, no difficulties IV Present Present Allergies Yes Anesthesia Extension Set Applied Yes Domestic Violence Counselor On Yes Consent Form Signed Yes Patient Dressed In Hospital gown History & Physical Update On Chart Yes History & Physical On Chart Yes NPO Status More than 8 hours Patient ID Band on and Verified Yes Implants Verified Yes Site Verified by Patient/Family Yes Anesthesia Consent Signed Yes Last Fluid Intake 01/07/2025 23:50 Last Food Intake 01/07/2025 22:00 Last Void 01/08/2025 8:07 01/08/2025 8:03 EDT Designated Person #1 We May Share PHI Richard [phone] Designated Person #1 Relationship Sibling Designated Person #2 We May Share PHI JABIER Designated Person #2 Relationship Sibling Additional Designated Person Share PHI MALISSA - daughter WITH PT TODAY - [phone] Height 152.4 cm Admission Weight 55 kg [place] Body Weight 45.50 kg BSA Admission 1.51 Body Mass Index 23.68 kg/m2 Temperature Temporal Artery 36.7 DegC Peripheral Pulse Rate 71 bpm Respiratory Rate 22 br/min HI Systolic Blood Pressure Non-Invasive 143 mmHg HI Diastolic Blood Pressure Non-Invasive 96 mmHg HI Primary Pain Intensity 0 Pain Scale Type 0-10 Pain scale Oxygen Therapy Room air Oxygen Saturation 97 % Status No, per patient Sensory Deficits None Infectious Disease Symptoms Patient states no symptoms Infectious Disease Recent Exposure No Alcohol and Drug Use No Employee of Institutional Living No Health Care Employee No History of Exposure to TB No History of Positive Chest X-Ray for TB No History of Positive TB Skin Test No Homeless No Known Immunosuppression No Recent Immigrant No Resident of Institutional Living No Bloody Sputum No Fatigue No Fever No Loss of Appetite No Night Sweats No Persistent Cough > 3 Weeks No Weight Loss No Arrival Mode Ambulatory Glasses No Dentures Lower, Upper Accompanied By On Arrival Family Heriberto Motor (2) Moves 4 extremities voluntarily or on command Heriberto Respirations (2) Spontaneous respiration without support, RR > 10 Heriberto Blood Pressure (2) BP 20% above or below preanesthetic level Heriberto Pulse (2) Pulse 20% above or below preanesthetic level Heriberto Oxygen Saturation (2) 94% or more Heriberto Level of Consciousness (2) Fully awake Heriberto III Score 12 Barriers to Learning None evident Teaching Method Explanation, Printed materials Preferred Spoken Language Austrian Preferred Written Language Austrian Patient's Current Physicians Patient's Current Physicians Discharge To, Anticipated Home with family care Prev Test Positive/Diagnosis w/COVID-19 No Current Quarantine/Isolated any Illness No Any Contact with Sick Animals/Birds No Traveled Anywhere in Last 30 Days No No Personal Devices, Patient Valuables Dentures, lower, Dentures, upper, Glasses Admission Note-Nursing Procedure/Therapy Intake . Assessment and Plan [place] [employer] Anesthesiologists (ASA) physical status classification: Class III. Anesthetic Preoperative Plan Premedication: intravenous. Anesthetic technique: MAC. Induction: intravenously. Maintenance airway: Mask. Risks discussed: nausea, vomiting, headache, sore throat, dental injury, hypotension, allergic reaction, serious complications. Informed consent: signed by patient. Digitally Signed by CHRISTEN CLAY on 01/08/2025 08:59 AM [facility]10-13-2025 History and physical note Date of Service 01/08/2025 Physical Exam Vitals and Measurements T: 36.7 C (Temporal Artery) HR: 71 RR: 22 BP: 143/96 SpO2: 97% HT: 152.4 cm WT: 55 kg BMI: 23.68 Weight Dosing Weight: 55 kg (01/08/25) Lab Results No 36 Hour Lab Data Assessment/Plan Orders: Lactated Ringers Infusion 1,000 mL(LR 1,000 mL), 1000 mL, Intravenous Communication Order (scheduled), 01/08/25 7:53:00 EDT, Once, 01/08/25 7:53:00 EDT, Pathology TissueRequest Communication Order (scheduled), 01/08/25 7:53:00 EDT, Once, 01/08/25 7:53:00 EDT, Urine Test or waiver for women of child bearing age Communication Order (scheduled), 01/08/25 7:53:00 EDT, Once, 01/08/25 7:53:00 EDT, Fasting Blood Sugar priot to procedure of patient is diabetic Discharge, 01/08/25 7:53:00 EDT, Discharged to: Home, when able to ambulate and after being seen byphysician Sign Consent, 01/08/25 7:53:00 EDT, Once, For EGD Problem List/Past Medical History Ongoing Acid reflux Acquired thrombocytopenia Anemia Arthritis Biliary cirrhosis, unspecified Bipolar disorder Cataract Chronic hepatic failure Glasses High blood pressure Migraine Urinary incontinence Procedure/Surgical History Cholecystectomy: 2017 Hysterectomy: 1997 Medications Home Medications (8) Active Caplyta 42 mg oral capsule 42 mg = 1 cap(s), Oral, qDay levothyroxine 50 mcg (0.05 mg) oral tablet 50 mcg = 1 tab(s), Oral, qDay Metoprolol Succinate ER 25 mg oral TABLET extended release spironolactone 100 mg oral tablet 100 mg = 1 tab(s), Oral, qDay SUMAtriptan 50 mg oral tablet 50 mg = 1 tab(s), PRN, Oral, qDay Trelegy Ellipta 100 mcg-62.5 mcg-25 mcg/inh inhalation powder 1 inh, Inhalation, qDay Ventolin HFA MDI (90 mcg/inh) inhalation aerosol 1 puff(s), PRN, Inhalation, QID Xifaxan 550 mg oral tablet 550 mg = 1 tab(s), Oral, BID Allergies Latex morphine Hives Social History Alcohol Use: Past., 12/08/2019 Substance Abuse Use: Never., 12/08/2019 Tobacco Nicotine Use: 5-9 cigarettes (between 1/4 to 1/2 pack)/day in last 30 days., 12/08/2019 Family History Patient was adopted Bipolar affective disorder: Brother. Health Status Family Member(s) Immunizations No qualifying data available. Code Status No qualifying data available. Digitally Signed by STEVEN MADDOX MD on 01/08/2025 08:56 AM [facility]10-13-2025 Nurse Progress note First attempt at IV was unsuccessful. After holding pressure on puncture until bleeding stopped another attempt was made. After second attempt purple area was noted covering a large area of the rightforearm surrounding the puncture site. States it is not hurting, area marked for reference and ice applied. Digitally Signed by Felisa Oliva RN on 01/08/2025 08:44 AM [facility]07-02-2025 Radiology Diagnostic study note [facility] Imaging Services [address] [place], [place] [id number] Lumbar Spine 2 or 3 Views MR#: [id number] Acct: [id number] Name: CARLOS OLIVER Rep #: [id number] : 1960 F 64 From: Richard Phoenix MD PCP: Dr. Wilfredo Martino MD Status: ISRRAEL CUENCA Study:Lumbar Spine 2 or 3 Views Date of Exam: 09/27/24 Exam# [id number] Ordering Dr: Rachael Kamara MD PROCEDURE: LUMBAR SPINE 2 OR 3 VIEWS 09/27/2024 REASON FOR EXAM: SPONDYLOSIS TECHNIQUE: LUMBAR SPINE 2 OR 3 VIEWS COMPARISON: 06/16/2021. FINDINGS: No evidence of acute fracture or L3 and L4 vertebroplasties. Moderate L1 and mild L2 compression deformities which are similar to the prior MRI. Moderate degenerative changes of the visualized spine. RAD/Lumbar Spine 2 or 3 Views IMPRESSION: Spondylosis. Vertebroplasties. Chronic compression deformities. Reading Location: [id number] CC: Dr. Chiara Kmaara MD; Dr. Wilfredo Martino MD ~ Towel Weaver: Signed [facility]04-09-2025 Evaluation note* Diagnosis Onset Date Resolution Status Admit Date CAD (coronary artery disease) acute July 05, 2024 1:56pm Chest pain acute July 05 1:56pm [facility] Work Phone: [phone] 916-185512-10-2024 Orthopaedic surgery Progress note Date of Service 03/07/24 Chief Complaint Postop day 3 right hip cephalomedullary nail Subjective Patient seen and examined at bedside this morning. There were no acute overnight events. Reports pain is under control at this time. Reports no needs. Objective Vitals and Measurements T: 36.9 C (Oral) TMIN: 36.8 C (Oral) TMAX: 37.6 C (Oral) HR: 78 RR: 18 BP: 93/69 SpO2: 92% Intake and Output 7AM Yesterday to 7AM Today Intake and Output (Last 24 hours) Intake Oral Intake 890.00 Output Urine Voided 550.00 Stool Count 3.00 Urine Count 5.00 Total Summary Total Intake 890.00 Total Output 550.00 Fluid Balance 340.00 Physical Exam General: NAD, A&Ox3 HEENT: normocephalic, atraumatic, EOMI intact CV: pulses regular throughout, brisk cap refill throughout, Pulm: normal work of breathing, equal chest rise bilaterally, no intercostal retractions or conversational dyspnea GI: abdomen is soft, nontender, nondistended, no rigidity or guarding Psych: calm and cooperative Right lower extremity -Dressing is clean dry and intact without signs of infection -Skin pink and well perfused -Sensation intact to light touch L3-S1 -Gross motor function intact to dorsi/plantarflexion of ankle and toes -DP, TP pulses palpable -Compartments are soft and compressible -No calf tenderness Weight Dosing Weight: 57 kg (03/03/24) Dosing Weight: 57 kg (03/03/24) Medications Medications (23) Active Scheduled: (11) albuterol - ipratropium 2.5 mg-0.5 mg/3 mL Inhal Belkis UD 3 mL, Inhalation, QIDRT budesonide 0.25 mg/2 mL Susp UD 0.25 mg 2 mL, Inhalation, BIDRT docusate-senna (Senokot S) 50 mg-8.6 mg Tablet 1 tab(s), Oral, qDay enoxaparin 40 mg/ 0.4mL syringe 40 mg 0.4 mL, Subcutaneous, qDay levothyroxine 50 mcg tablet 50 mcg 1 tab(s), Oral, qDay lumateperone 42 mg capsule 42 mg 1 cap(s), Oral, qDay Nicoderm patch REMOVAL 1 EA, Miscellaneous, q24h nicotine 14 mg/24 hr ER patch 14 mg 1 patch(es), Transdermal, q24h nystatin susp 100,000 units/mL 5 mL UD 500,000 unit(s) 5 mL, Swish & Swallow, QID rifaximin 550 mg tablet 550 mg 1 tab(s), Oral, BID spironolactone 100 mg Tablet 100 mg 1 tab(s), Oral, qDayM Continuous: (0) PRN: (12) acetaminophen 325 mg Tablet 650 mg 2 tab(s), Oral, q4h acetaminophen-OXYcodone 325 mg-5 mg Tablet 1 tab(s), Oral, q4h Al hydrox/Mg hydrox/simethicone 200-200-20 mg/5 mL Susp UD 30 mL, Oral, q2h albuterol 0.083% Soln UD (2.5mg/3 mL) 2.5 mg 3 mL, Inhalation, QIDRT dextrose 50% Solution Disp syringe 50 mL 12.5 gram(s) 25 mL, IV Push, AsDirected diphenhydramine 25 mg tablet 25 mg 1 tab(s), Oral, qHS HYDROmorphone 0.5 mg/0.5 mL syringe 0.5 mg 0.5 mL, IV Push, q3h melatonin 3 mg tablet 3 mg 1 tab(s), Oral, qHS ondansetron 2 mg/ 1 mL 2 mL INJ 4 mg 2 mL, IV Push, q4h polyethylene glycol 3350 - UD packet 17 gram(s) 15 mL, Oral, qDay prochlorperazine 10 mg/2 mL vial 5 mg 1 mL, IV Push, q6h promethazine 12.5 mg tablet 12.5 mg 1 tab(s), Oral, q6h Lab Results 03/07 04:18 WBC: 3.3 L Hgb: 11.1 L Hct: 32.7 L Platelet: 93 L Neutrophil %: 57.7 Glucose Level: 108 Sodium Level: 141 Potassium Level: 3.7 BUN: 8.0 Creatinine Lvl (s): 0.82 03/06 05:45 WBC: 3.2 L Hgb: 10.6 L Hct: 31.0 L Platelet: 81 L Neutrophil %: 57.9 Glucose Level: 102 Sodium Level: 141 Potassium Level: 3.7 BUN: 12.0 Creatinine Lvl (s): 0.88 EKG No qualifying data available. Assessment/Plan Post-op pain Postoperative day #3 from a right hip cephalomedullary nail -PT/OT: Weightbearing as tolerated -Lovenox 40 mg daily for 6 weeks per medicine team with weekly CBC checks -Post op Hgb is 11.1 -Maintain dressing, reinforce as needed. May change if oversaturated -Medical management per hospitalist service -Case management consulted for discharge planning -We will discuss with attending, Dr. Cota Patient is stable for discharge as soon as a facility accepts her, discharge orders may be initiated Digitally Signed by MARIA C WALTER DO on 03/07/2024 05:57 AM [id number] Note Discharge Instructions Thank you for allowing [facility] to assist you with your healthcare needs. The following is importantdischarge information regarding your hospital visit. Your Diagnosis Post-op pain What to do next Instructions From Your Doctor Recommend patient have weekly CBCs while on Lovenox to monitor platelets Follow Up Appointments Follow Up [facility]charge [facility]: When:Within 1-2 days Follow Up with SANTIAGO MURILLO When:Within 1-2 days Where:[address] [place] [address]- [phone] Business (1) Follow Up with HANK COTA DO, Orthopedic When:In 2 weeks Where:[address] [place] [address]- [phone] Additional Information: Post op follow up The Following Activity and Diet Have Been Ordered for You Discharge Activity - Ordered -- NO activity restrictions, 03/07/24 9:21:00 EST Transfer of Care Activity - Ordered -- Other, PLEASE SEE SEPARATE DISCHARGE ACTIVITY ORDER, 03/07/24 9:20:00 EST Discharge Diet - Ordered -- Type of Diet: Regular Diet, 03/07/24 9:21:00 EST Transfer of Care Diet - Ordered -- PLEASE SEE SEPARATE DISCHARGE DIET ORDER, 03/07/24 9:20:00 EST The Following Equipment Has Been Ordered for You Discharge Home Equipment Discharge Wound Care - Ordered -- Maintain postop dressing for 7 days then dry sterile dressing changes daily, 03/07/24 9:21:00 EST Transfer of Care Wound Care - Ordered -- PLEASE SEE SEPARATE DISCHARGE WOUND CARE ORDER, 03/07/24 9:20:00 EST The Following Treatments Have Been Ordered for You Discharge Labs Discharge Outpatient Labwork - Ordered -- CBC, Chronic thrombocytopenia, on Lovenox postoperatively, follow-up within: 1 week, Results Notify to: SANTIAGO MURILLO CNP, Recommend weekly CBCs while on Lovenox., 03/06/24 13:15:00 EST Discharge Radiology No qualifying data available. Other Therapies No qualifying data available. Post Acute Orders Transfer of Care Admission Level of Care - Ordered -- Level of Care SNF, 03/07/24 9:29:18 EST Transfer of Care Code Status - Ordered -- Full Code, Constant Order Transfer of Care Communication Order - Ordered -- Expect less than 30 day stay., 03/07/24 9:29:18 EST Transfer of Care Orders Electronically Signed By - Ordered -- 03/07/24 9:20:00 EST, HANK COTA DO Transfer of Care Prognosis - Ordered -- Fair, Patient Aware: Yes Transfer of Care Rehab Potential - Ordered -- Rehab potential fair, 03/07/24 9:20:33 EST Someone Will Contact You Regarding These Home Health Referrals No home referrals have been ordered for you. No one will call you. Allergies Latex morphine Hives Medications Please ask your primary doctor or pharmacist before taking any other medication not listed, including over the counter drugs, herbal medications, vitamins and or supplements as they may interact withyour home medications. What How Much When Why Instructions Last Dose New acetaminophen-oxyCODONE (Percocet 5 mg-325 mg oral tablet) 1 tab(s) by mouth Every 6 hours as needed for for pain Post-op pain Duration: 7 Days Pickup at [facility] New enoxaparin (Lovenox 40 mg/ 0.4 mL injectable solution) 0.4 Milliliter Subcutaneous Once a day Duration: 6 week(s) Pickup at [facility] 1727 Unchanged albuterol (Ventolin HFA MDI (90 mcg/ inh) inhalation aerosol) 1 puff(s) by inhalation Four (4) times a day as needed for as needed for wheezing Unchanged fluticasone/ umeclidinium/ vilanterol (Trelegy Ellipta 100 mcg-62.5 mcg-25 mcg/ inh inhalation powder) 1 inh by inhalation Once a day Unchanged levothyroxine (levothyroxine 50 mcg (0.05 mg) oral tablet) 1 tab(s) by mouth Once a day Unchanged lumateperone (Caplyta 42 mg oral capsule) 1 cap by mouth Once a day Unchanged rifaximin (Xifaxan 550 mg oral tablet) 1 tab(s) by mouth Two (2) times a day Unchanged spironolactone (spironolactone 100 mg oral tablet) 1 tab(s) by mouth Once a day Unchanged SUMAtriptan (SUMAtriptan 50 mg oral tablet) 1 tab(s) by mouth Once a day as needed for for migraine headache Pharmacy Information [facility]: [address], [place] [phone] Please take this list to your next doctor s visit. Bring all medications you take, including over the counter medications, herbals and other supplements with you to your doctor s visit. Patients and families are reminded to discard old lists and to update any records with all medication providers or retail pharmacies. Additional Information VACCINATE! IT SAVES LIVES! Members of the community who have not yet received the COVID-19 vaccine and would like to receive it can visit one of [facility] vaccine clinics. There are many vaccine clinic locations within the [facility]. For locations and available times, please visit [email or web address] It is important to note that some COVID mobile vaccine clinics are held outdoors and may be canceled in rainy or stormy conditions. To learn more about pediatric vaccinations (ages 5-11), we invite you to visit the [facility] webpage. [email or web address]/[email or web address] [email or web address] learn more about the COVID-19 vaccine, we invite you to visit the CDC website for a list of frequently asked questions.https://www.cdc.gov/coronavirus/2019-ncov/vaccines/faq.html [facility] Patient Portal Access Instructions: Stay connected with your healthcare team and access your personal medical information anytime with the [facility] Patient Portal. Please follow the directions below to create your [facility] account: 1.Access the email account you provided upon registration to the hospital/physician office.2.Look for an invitation email from [facility].3.Open the email and access the invitation link: AcceptInvitation to [facility].4.Fill in the required garrett to create your account. To access your account, visit [email or web address]. Click the blue button labeled Access Patient Portal and then log in with the username and password that you created in the steps above. You will be able to view your test results, lab results, a summary of your visits, upcoming appointments and more. There is also a convenient messaging option where you can send secure messages to your p rovider. In addition, you will have the ability to download any documents or summaries to your computer and/or send the information securely to a physician. Remember that your healthcare information is confidential, so carefully consider who you will allowto register on the [facility] Patient Portal for access to your information. You can also access the [facility] Patient Portal on the [facility] [email or web address]. Simply click on Patient Portal and then log into your account. If you would like to receive a full copy of your medical records, please contact the [facility] Medical Records Department by calling [phone], Wednesday through Wednesday between 8 a.m. and 4:30 p.m. HOW TO SAFELY DISPOSE OF PRESCRIPTION MEDICATIONS Please use one of the following methods to safely dispose of your unused medications. 1.Use a drug disposal kit: the drug disposal pouch allows you to safely discard your old and unuseddrugs. Ask your nurse to give you one when you are discharged.2.Visit a local take-back location: Many local pharmacies and police departments have programs that collect old and unwanted prescriptiondrugs. Call your local pharmacy or go to http://YouDroop LTD.ShopIgniter/9I0Ki0c to find one close to you.3.Make use of household items: Use cat litter or old coffee grounds to dispose medications if other options arenot available. Mix your drugs with these household products, seal them in an airtight container andthrow it into the garbage. Call [facility]: [phone] to be sure your drugs can be disposed of in this way. Some medicines may require a different approach.4.Never flush your medications down the toilet. IF YOU HAVE BEEN PRESCRIBED AN OPIOID FOR PAIN If you have been prescribed an opioid (such as hydrocodone, oxycodone or morphine), it is critical to understand the possible side effects and risks of opioid pain medications. Even when taken as directed, opioids can have several side effects including: Tolerance, meaning you might need to take more of a medication for the same pain relief. Nausea, vomiting and/or constipation. Sleepiness, dizziness, dry mouth, confusion, depression or itching. Physical dependence, meaning you have withdrawal symptoms when a medication is stopped, can develop within a few days. KNOW YOUR RESPONSIBILITIES It is important to know exactly how much and how often to take the opioid pain medications you are prescribed. Never take opioids in higher amounts or more often than prescribed. Do not combine opioids with alcohol or other drugs that cause drowsiness, such as benzodiazepines, also known as benzos, including diazepam and alprazolam, muscle relaxants or sleep aids. Never sell or share prescription opioids. This is illegal. Store opioids in a secure place and out of reach of others (including children, family, friends and visitors). The last page of this document has been signed and retained as a CHART COPY. Signatures Patient Education Materials Medication Leaflets My discharge plan and instructions have been reviewed and explained to me and I,CARLOS OLIVER understand my current condition and have read and understand these discharge instructions. I have received a written copy of the plan/instructions. If I have questions, I am aware that I should contact my doctor. 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 The following is importantdischarge information regarding your hospital visit. Your Diagnosis Post-op pain What to do next Instructions From Your Doctor Recommend patient have weekly CBCs while on Lovenox to monitor platelets Follow Up Appointments Follow Up with [facility]charge to [facility]: When:Within 1-2 days Follow Up with SANTIAGO MURILLO When:Within 1-2 days Where:[address] [facility] [address] [place] [phone] Business (1) Follow Up with HANK COTA DO, Orthopedic When:In 2 weeks Where:[address] [place] [phone] Additional Information: Post op follow up The Following Activity and Diet Have Been Ordered for You Discharge Activity - Ordered -- NO activity restrictions, 03/07/24 9:21:00 EST Transfer of Care Activity - Ordered -- Other, PLEASE SEE SEPARATE DISCHARGE ACTIVITY ORDER, 03/07/24 9:20:00 EST Discharge Diet - Ordered -- Type of Diet: Regular Diet, 03/07/24 9:21:00 EST Transfer of Care Diet - Ordered -- PLEASE SEE SEPARATE DISCHARGE DIET ORDER, 03/07/24 9:20:00 EST The Following Equipment Has Been Ordered for You Discharge Home Equipment Discharge Wound Care - Ordered -- Maintain postop dressing for 7 days then dry sterile dressing changes daily, 03/07/24 9:21:00 EST Transfer of Care Wound Care - Ordered -- PLEASE SEE SEPARATE DISCHARGE WOUND CARE ORDER, 03/07/24 9:20:00 EST The Following Treatments Have Been Ordered for You Discharge Labs Discharge Outpatient Labwork - Ordered -- CBC, Chronic thrombocytopenia, on Lovenox postoperatively, follow-up within: 1 week, Results Notify to: SANTIAGO MURILLO CNP, Recommend weekly CBCs while on Lovenox., 03/06/24 13:15:00 EST Discharge Radiology No qualifying data available. Other Therapies No qualifying data available. Post Acute Orders Transfer of Care Admission Level of Care - Ordered -- Level of Care SNF, 03/07/24 9:29:18 EST Transfer of Care Code Status - Ordered -- Full Code, Constant Order Transfer of Care Communication Order - Ordered -- Expect less than 30 day stay., 03/07/24 9:29:18 EST Transfer of Care Orders Electronically Signed By - Ordered -- 03/07/24 9:20:00 EST, HANK COTA DO Transfer of Care Prognosis - Ordered -- Fair, Patient Aware: Yes Transfer of Care Rehab Potential - Ordered -- Rehab potential fair, 03/07/24 9:20:33 EST Someone Will Contact You Regarding These Home Health Referrals No home referrals have been ordered for you. No one will call you. Allergies Latex morphine Hives Medications Please ask your primary doctor or pharmacist before taking any other medication not listed, including over the counter drugs, herbal medications, vitamins and or supplements as they may interact withyour home medications. What How Much When Why Instructions Last Dose New acetaminophen-oxyCODONE (Percocet 5 mg-325 mg oral tablet) 1 tab(s) by mouth Every 6 hours as needed for for pain Post-op pain Duration: 7 Days Pickup at [facility]20 New enoxaparin (Lovenox 40 mg/ 0.4 mL injectable solution) 0.4 Milliliter Subcutaneous Once a day Duration: 6 week(s) Pickup at [facility] 1724 Unchanged albuterol (Ventolin HFA MDI (90 mcg/ inh) inhalation aerosol) 1 puff(s) by inhalation Four (4) times a day as needed for as needed for wheezing Unchanged fluticasone/ umeclidinium/ vilanterol (Trelegy Ellipta 100 mcg-62.5 mcg-25 mcg/ inh inhalation powder) 1 inh by inhalation Once a day Unchanged levothyroxine (levothyroxine 50 mcg (0.05 mg) oral tablet) 1 tab(s) by mouth Once a day Unchanged lumateperone (Caplyta 42 mg oral capsule) 1 cap by mouth Once a day Unchanged rifaximin (Xifaxan 550 mg oral tablet) 1 tab(s) by mouth Two (2) times a day Unchanged spironolactone (spironolactone 100 mg oral tablet) 1 tab(s) by mouth Once a day Unchanged SUMAtriptan (SUMAtriptan 50 mg oral tablet) 1 tab(s) by mouth Once a day as needed for for migraine headache Pharmacy Information [facility]: [address], [place] [phone] Please take this list to your next doctor s visit. Bring all medications you take, including over the counter medications, herbals and other supplements with you to your doctor s visit. Patients and families are reminded to discard old lists and to update any records with all medication providers or retail pharmacies. Additional Information VACCINATE! IT SAVES LIVES! Members of the community who have not yet received the COVID-19 vaccine and would like to receive it can visit one of [facility] vaccine clinics. There are many vaccine clinic locations within the [facility]. For locations and available times, please visit [email or web address]/. It is important to note that some COVID mobile vaccine clinics are held outdoors and may be canceled in rainy or stormy conditions. To learn more about pediatric vaccinations (ages 5-11), we invite you to visit the [facility] webpage. https://www.[email or web address]/[email or web address] [email or web address].htmlTo learn more about the COVID-19 vaccine, we invite you to visit the CDC website for a list of frequently asked questions.https://www.cdc.gov/coronavirus/2019-ncov/vaccines/faq.html [facility] [employer] Patient Portal Access Instructions: Stay connected with your healthcare team and access your personal medical information anytime with the [facility] Patient Portal. Please follow the directions below to create your [facility] account: 1.Access the email account you provided upon registration to the hospital/physician office.2.Look for an invitation email from [facility].3.Open the email and access the invitation link: AcceptInvitation to [facility] [employer].4.Fill in the required garrett to create your account. To access your account, visit [email or web address]. Click the blue button labeled Access Patient Portal and then log in with the username and password that you created in the steps above. You will be able to view your test results, lab results, a summary of your visits, upcoming appointments and more. There is also a convenient messaging option where you can send secure messages to your p Sasken Communication Technologiesvider. In addition, you will have the ability to download any documents or summaries to your computer and/or send the information securely to a physician. Remember that your healthcare information is confidential, so carefully consider who you will allowto register on the [facility] [employer] Patient Portal for access to your information. You can also access the [facility] [employer] Patient Portal on the [facility] [email or web address]. Simply click on Patient Portal and then log into your account. If you would like to receive a full copy of your medical records, please contact the [facility] Medical Records Department by calling [phone], Wednesday through Wednesday between 8 a.m. and 4:30 p.m. HOW TO SAFELY DISPOSE OF PRESCRIPTION MEDICATIONS Please use one of the following methods to safely dispose of your unused medications. 1.Use a drug disposal kit: the drug disposal pouch allows you to safely discard your old and unuseddrugs. Ask your nurse to give you one when you are discharged.2.Visit a local take-back location: Many local pharmacies and police departments have programs that collect old and unwanted prescriptiondrugs. Call your local pharmacy or go to http://bit.ShopIgniter/1T7Tk9c to find one close to you.3.Make use of household items: Use cat litter or old coffee grounds to dispose medications if other options arenot available. Mix your drugs with these household products, seal them in an airtight container andthrow it into the garbage. Call [facility]: [phone] to be sure your drugs can be disposed of in this way. Some medicines may require a different approach.4.Never flush your medications down the toilet. IF YOU HAVE BEEN PRESCRIBED AN OPIOID FOR PAIN If you have been prescribed an opioid (such as hydrocodone, oxycodone or morphine), it is critical to understand the possible side effects and risks of opioid pain medications. Even when taken as directed, opioids can have several side effects including: Tolerance, meaning you might need to take more of a medication for the same pain relief. Nausea, vomiting and/or constipation. Sleepiness, dizziness, dry mouth, confusion, depression or itching. Physical dependence, meaning you have withdrawal symptoms when a medication is stopped, can develop within a few days. KNOW YOUR RESPONSIBILITIES It is important to know exactly how much and how often to take the opioid pain medications you are prescribed. Never take opioids in higher amounts or more often than prescribed. Do not combine opioids with alcohol or other drugs that cause drowsiness, such as benzodiazepines, also known as benzos, including diazepam and alprazolam, muscle relaxants or sleep aids. Never sell or share prescription opioids. This is illegal. Store opioids in a secure place and out of reach of others (including children, family, friends and visitors). The last page of this document has been signed and retained as a CHART COPY. Signatures Patient Education Materials Medication Leaflets My discharge plan and instructions have been reviewed and explained to me and IXIOMARA ANNETTA L understand my current condition and have read and understand these discharge instructions. I have received a written copy of the plan/instructions. If I have questions, I am aware that I should contact my doctor. 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 There were no acute overnight events. Reports pain is under control at this time. Reports no needs. Objective Vitals and Measurements T: 36.9 C (Oral) TMIN: 36.8 C (Oral) TMAX: 37.6 C (Oral) HR: 78 RR: 18 BP: 93/69 SpO2: 92% Intake and Output 7AM Yesterday to 7AM Today Intake and Output (Last 24 hours) Intake Oral Intake 890.00 Output Urine Voided 550.00 Stool Count 3.00 Urine Count 5.00 Total Summary Total Intake 890.00 Total Output 550.00 Fluid Balance 340.00 Physical Exam General: NAD, A&Ox3 HEENT: normocephalic, atraumatic, EOMI intact CV: pulses regular throughout, brisk cap refill throughout, Pulm: normal work of breathing, equal chest rise bilaterally, no intercostal retractions or conversational dyspnea GI: abdomen is soft, nontender, nondistended, no rigidity or guarding Psych: calm and cooperative Right lower extremity -Dressing is clean dry and intact without signs of infection -Skin pink and well perfused -Sensation intact to light touch L3-S1 -Gross motor function intact to dorsi/plantarflexion of ankle and toes -DP, TP pulses palpable -Compartments are soft and compressible -No calf tenderness Weight Dosing Weight: 57 kg (03/03/24) Dosing Weight: 57 kg (03/03/24) Medications Medications (23) Active Scheduled: (11) albuterol - ipratropium 2.5 mg-0.5 mg/3 mL Inhal Belkis UD 3 mL, Inhalation, QIDRT budesonide 0.25 mg/2 mL Susp UD 0.25 mg 2 mL, Inhalation, BIDRT docusate-senna (Senokot S) 50 mg-8.6 mg Tablet 1 tab(s), Oral, qDay enoxaparin 40 mg/ 0.4mL syringe 40 mg 0.4 mL, Subcutaneous, qDay levothyroxine 50 mcg tablet 50 mcg 1 tab(s), Oral, qDay lumateperone 42 mg capsule 42 mg 1 cap(s), Oral, qDay Nicoderm patch REMOVAL 1 EA, Miscellaneous, q24h nicotine 14 mg/24 hr ER patch 14 mg 1 patch(es), Transdermal, q24h nystatin susp 100,000 units/mL 5 mL UD 500,000 unit(s) 5 mL, Swish & Swallow, QID rifaximin 550 mg tablet 550 mg 1 tab(s), Oral, BID spironolactone 100 mg Tablet 100 mg 1 tab(s), Oral, qDayM Continuous: (0) PRN: (12) acetaminophen 325 mg Tablet 650 mg 2 tab(s), Oral, q4h acetaminophen-OXYcodone 325 mg-5 mg Tablet 1 tab(s), Oral, q4h Al hydrox/Mg hydrox/simethicone 200-200-20 mg/5 mL Susp UD 30 mL, Oral, q2h albuterol 0.083% Soln UD (2.5mg/3 mL) 2.5 mg 3 mL, Inhalation, QIDRT dextrose 50% Solution Disp syringe 50 mL 12.5 gram(s) 25 mL, IV Push, AsDirected diphenhydramine 25 mg tablet 25 mg 1 tab(s), Oral, qHS HYDROmorphone 0.5 mg/0.5 mL syringe 0.5 mg 0.5 mL, IV Push, q3h melatonin 3 mg tablet 3 mg 1 tab(s), Oral, qHS ondansetron 2 mg/ 1 mL 2 mL INJ 4 mg 2 mL, IV Push, q4h polyethylene glycol 3350 - UD packet 17 gram(s) 15 mL, Oral, qDay prochlorperazine 10 mg/2 mL vial 5 mg 1 mL, IV Push, q6h promethazine 12.5 mg tablet 12.5 mg 1 tab(s), Oral, q6h Lab Results 03/07 04:18 WBC: 3.3 L Hgb: 11.1 L Hct: 32.7 L Platelet: 93 L Neutrophil %: 57.7 Glucose Level: 108 Sodium Level: 141 Potassium Level: 3.7 BUN: 8.0 Creatinine Lvl (s): 0.82 03/06 05:45 WBC: 3.2 L Hgb: 10.6 L Hct: 31.0 L Platelet: 81 L Neutrophil %: 57.9 Glucose Level: 102 Sodium Level: 141 Potassium Level: 3.7 BUN: 12.0 Creatinine Lvl (s): 0.88 EKG No qualifying data available. Assessment/Plan Post-op pain Postoperative day #3 from a right hip cephalomedullary nail -PT/OT: Weightbearing as tolerated -Lovenox 40 mg daily for 6 weeks per medicine team with weekly CBC checks -Post op Hgb is 11.1 -Maintain dressing, reinforce as needed. May change if oversaturated -Medical management per hospitalist service -Case management consulted for discharge planning -We will discuss with attending, Dr. Cota Patient is stable for discharge as soon as a facility accepts her, discharge orders may be initiated Digitally Signed by MARIA C WALTER DO on 03/07/2024 05:57 AM [facility] [id number] Note Date of Service 03/06/2024 Chief Complaint Weakness Subjective Patient endorses intermittent right hip pain. Tolerable. No nausea, vomiting, constipation. Denies chest pain or shortness of breath. She appears euvolemic. She is alert and oriented x 4. Requesting to have her NicoDerm patch changed for the day. All questions and concerns addressed. Objective Vitals and Measurements T: 36.9 C (Oral) TMIN: 36.7 C (Oral) TMAX: 36.9 C (Oral) HR: 75 RR: 18 BP: 105/64 SpO2: 95% Intake and Output 7AM Yesterday to 7AM Today Intake and Output (Last 24 hours) Intake Oral Intake 1080.00 Output Urine Voided 500.00 Stool Count 4.00 Urine Count 3.00 Total Summary Total Intake 1080.00 Total Output 500.00 Fluid Balance 580.00 Physical Exam Vitals Signs(Last 24 hrs)__ Last Charted Minimum Maximum Temp 36.9(MAR 06 08:06) 36.9(MAR 06 08:06) 36.7(MAR 05 14:27) SBP 105(MAR 06 08:06) 101(MAR 05 23:25) 113(MAR 06 01:52) DBP 64(MAR 06 08:06) 64(MAR 06 08:06) 73(MAR 05 14:27) Physical Exam General: No acute distress. Alert and Appropriate. Talkative, frail Lungs: Bilaterally diminished breath sounds with no crepitation or wheeze. Unlabored Cardiovascular: Heart is regular rhythm, S1S2, No extra-audible heart tones Abdomen: Abdomen is soft, nontender. Bowel sounds present. No evidence of ascites. Extremities: No clubbing, cyanosis or edema. Peripheral pulses palpable. No calf tenderness. Adequate peripheral circulation. Neurological: The patient is awake, oriented to time, people and place. Following simple commands, moving all extremities. Weight Dosing Weight: 57 kg (03/03/24) Dosing Weight: 57 kg (03/03/24) Medications Medications (23) Active Scheduled: (11) albuterol - ipratropium 2.5 mg-0.5 mg/3 mL Inhal Belkis UD 3 mL, Inhalation, QIDRT budesonide 0.25 mg/2 mL Susp UD 0.25 mg 2 mL, Inhalation, BIDRT docusate-senna (Senokot S) 50 mg-8.6 mg Tablet 1 tab(s), Oral, qDay enoxaparin 40 mg/ 0.4mL syringe 40 mg 0.4 mL, Subcutaneous, qDay levothyroxine 50 mcg tablet 50 mcg 1 tab(s), Oral, qDay lumateperone 42 mg capsule 42 mg 1 cap(s), Oral, qDay Nicoderm patch REMOVAL 1 EA, Miscellaneous, q24h nicotine 14 mg/24 hr ER patch 14 mg 1 patch(es), Transdermal, q24h nystatin susp 100,000 units/mL 5 mL UD 500,000 unit(s) 5 mL, Swish & Swallow, QID rifaximin 550 mg tablet 550 mg 1 tab(s), Oral, BID spironolactone 100 mg Tablet 100 mg 1 tab(s), Oral, qDayM Continuous: (0) PRN: (12) acetaminophen 325 mg Tablet 650 mg 2 tab(s), Oral, q4h acetaminophen-OXYcodone 325 mg-5 mg Tablet 1 tab(s), Oral, q4h Al hydrox/Mg hydrox/simethicone 200-200-20 mg/5 mL Susp UD 30 mL, Oral, q2h albuterol 0.083% Soln UD (2.5mg/3 mL) 2.5 mg 3 mL, Inhalation, QIDRT dextrose 50% Solution Disp syringe 50 mL 12.5 gram(s) 25 mL, IV Push, AsDirected diphenhydramine 25 mg tablet 25 mg 1 tab(s), Oral, qHS HYDROmorphone 0.5 mg/0.5 mL syringe 0.5 mg 0.5 mL, IV Push, q3h melatonin 3 mg tablet 3 mg 1 tab(s), Oral, qHS ondansetron 2 mg/ 1 mL 2 mL INJ 4 mg 2 mL, IV Push, q4h polyethylene glycol 3350 - UD packet 17 gram(s) 15 mL, Oral, qDay prochlorperazine 10 mg/2 mL vial 5 mg 1 mL, IV Push, q6h promethazine 12.5 mg tablet 12.5 mg 1 tab(s), Oral, q6h Lab Results 03/06 05:45 WBC: 3.2 L Hgb: 10.6 L Hct: 31.0 L Platelet: 81 L Neutrophil %: 57.9 Glucose Level: 102 Sodium Level: 141 Potassium Level: 3.7 BUN: 12.0 Creatinine Lvl (s): 0.88 03/05 06:18 WBC: 4.9 Hgb: 11.0 L Hct: 32.8 L Platelet: 74 L Neutrophil %: 79.9 H Glucose Level: 129 H Sodium Level: 140 Potassium Level: 4.2 BUN: 10.0 Creatinine Lvl (s): 0.88 EKG No qualifying data available. Assessment/Plan Right femur fracture status post repair CHF GERD Chronic thrombocytopenia Cirrhosis Hypothyroidism Hypertension Bipolar depression Chronic anemia Migraines Tobaccoism Postop day 2 closed reduction internal fixation right hip cephalomedullary nail with Dr. Walter. Postop care per primary team. Pain well-controlled. CHF, no evidence of volume overload. Chronic thrombocytopenia, remained stable, 81,000 today. Recommend Lovenox for 6 weeks for DVT prophylaxis with weekly CBCs to monitor blood counts. Discharge lab order placed. Cirrhosis, continue home regimen. No evidence of ascites. Hypothyroidism, continue home regimen Hypertension, stable off medication Tobaccoism, continue NicoDerm patch Patient likely be discharged today to [facility] facility, we will sign off. Plan of care discussed with patient. All questions answered. Patient verbalized understanding is agreeable to plan of care. Discussed with my collaborating physician Dr. Adams. This dictation was performed using voice recognition software and may include grammatical and/or spelling errors. Time Spent 33 min Digitally Signed by CHELA BUCK on 03/06/2024 01:18 PM [facility] [id number] Orthopaedic surgery Progress note Date of Service 03/06/24 Chief Complaint Postop day 2 right hip cephalomedullary nail Subjective Patient seen and examined at bedside this morning. There were no acute overnight events. Reports pain is under control at this time. Reports no needs. Objective Vitals and Measurements T: 36.9 C (Oral) TMIN: 36.6 C (Oral) TMAX: 36.9 C (Oral) HR: 85 RR: 14 BP: 113/68 SpO2: 94% Intake and Output 7AM Yesterday to 7AM Today Intake and Output (Last 24 hours) Intake Oral Intake 1180.00 Output Urine Voided 500.00 Urinary Catheter Output: 200.00 Stool Count 3.00 Urine Count 4.00 Total Summary Total Intake 1180.00 Total Output 700.00 Fluid Balance 480.00 Physical Exam General: NAD, A&Ox3 HEENT: normocephalic, atraumatic, EOMI intact CV: pulses regular throughout, brisk cap refill throughout, Pulm: normal work of breathing, equal chest rise bilaterally, no intercostal retractions or conversational dyspnea GI: abdomen is soft, nontender, nondistended, no rigidity or guarding Psych: calm and cooperative Right lower extremity -Dressing is clean dry and intact without signs of infection -Skin pink and well perfused -Sensation intact to light touch L3-S1 -Gross motor function intact to dorsi/plantarflexion of ankle and toes -DP, TP pulses palpable -Compartments are soft and compressible -No calf tenderness Weight Dosing Weight: 57 kg (03/03/24) Dosing Weight: 57 kg (03/03/24) Medications Medications (23) Active Scheduled: (11) albuterol - ipratropium 2.5 mg-0.5 mg/3 mL Inhal Belkis UD 3 mL, Inhalation, QIDRT budesonide 0.25 mg/2 mL Susp UD 0.25 mg 2 mL, Inhalation, BIDRT docusate-senna (Senokot S) 50 mg-8.6 mg Tablet 1 tab(s), Oral, qDay enoxaparin 40 mg/ 0.4mL syringe 40 mg 0.4 mL, Subcutaneous, qDay levothyroxine 50 mcg tablet 50 mcg 1 tab(s), Oral, qDay lumateperone 42 mg capsule 42 mg 1 cap(s), Oral, qDay Nicoderm patch REMOVAL 1 EA, Miscellaneous, q24h nicotine 14 mg/24 hr ER patch 14 mg 1 patch(es), Transdermal, q24h nystatin susp 100,000 units/mL 5 mL UD 500,000 unit(s) 5 mL, Swish & Swallow, QID rifaximin 550 mg tablet 550 mg 1 tab(s), Oral, BID spironolactone 100 mg Tablet 100 mg 1 tab(s), Oral, qDayM Continuous: (0) PRN: (12) acetaminophen 325 mg Tablet 650 mg 2 tab(s), Oral, q4h acetaminophen-OXYcodone 325 mg-5 mg Tablet 1 tab(s), Oral, q4h Al hydrox/Mg hydrox/simethicone 200-200-20 mg/5 mL Susp UD 30 mL, Oral, q2h albuterol 0.083% Soln UD (2.5mg/3 mL) 2.5 mg 3 mL, Inhalation, QIDRT dextrose 50% Solution Disp syringe 50 mL 12.5 gram(s) 25 mL, IV Push, AsDirected diphenhydramine 25 mg tablet 25 mg 1 tab(s), Oral, qHS HYDROmorphone 0.5 mg/0.5 mL syringe 0.5 mg 0.5 mL, IV Push, q3h melatonin 3 mg tablet 3 mg 1 tab(s), Oral, qHS ondansetron 2 mg/ 1 mL 2 mL INJ 4 mg 2 mL, IV Push, q4h polyethylene glycol 3350 - UD packet 17 gram(s) 15 mL, Oral, qDay prochlorperazine 10 mg/2 mL vial 5 mg 1 mL, IV Push, q6h promethazine 12.5 mg tablet 12.5 mg 1 tab(s), Oral, q6h Lab Results 03/05 06:18 WBC: 4.9 Hgb: 11.0 L Hct: 32.8 L Platelet: 74 L Neutrophil %: 79.9 H Glucose Level: 129 H Sodium Level: 140 Potassium Level: 4.2 BUN: 10.0 Creatinine Lvl (s): 0.88 EKG No qualifying data available. Assessment/Plan Post-op pain Postoperative day #12from a right hip cephalomedullary nail -PT/OT: Weightbearing as tolerated -Lovenox 40 mg daily for 6 weeks per medicine team with weekly CBC checks -Post op Hgb is 11 -Maintain dressing, reinforce as needed. May change if oversaturated -Medical management per hospitalist service -Case management consulted for discharge planning -We will discuss with attending, Dr. Cota If she passes physical therapy, and pain is controlled, discharge orders may be initiated Ordered: acetaminophen-oxyCODONE(Percocet 5 mg-325 mg oral tablet), 1 tab(s), Oral, q6h, PRN Orders: enoxaparin(Lovenox 40 mg/0.4 mL injectable solution), 40 mg= 0.4 mL, Subcutaneous, qDay Digitally Signed by MARIA C WALTER DO on 03/06/2024 05:54 AM [id number] Orthopaedic surgery Progress note Date of Service 03/06/24 Chief Complaint Postop day 2 right hip cephalomedullary nail Subjective Patient seen and examined at bedside this morning. There were no acute overnight events. Reports pain is under control at this time. Reports no needs. Objective Vitals and Measurements T: 36.9 C (Oral) TMIN: 36.6 C (Oral) TMAX: 36.9 C (Oral) HR: 85 RR: 14 BP: 113/68 SpO2: 94% Intake and Output 7AM Yesterday to 7AM Today Intake and Output (Last 24 hours) Intake Oral Intake 1180.00 Output Urine Voided 500.00 Urinary Catheter Output: 200.00 Stool Count 3.00 Urine Count 4.00 Total Summary Total Intake 1180.00 Total Output 700.00 Fluid Balance 480.00 Physical Exam General: NAD, A&Ox3 HEENT: normocephalic, atraumatic, EOMI intact CV: pulses regular throughout, brisk cap refill throughout, Pulm: normal work of breathing, equal chest rise bilaterally, no intercostal retractions or conversational dyspnea GI: abdomen is soft, nontender, nondistended, no rigidity or guarding Psych: calm and cooperative Right lower extremity -Dressing is clean dry and intact without signs of infection -Skin pink and well perfused -Sensation intact to light touch L3-S1 -Gross motor function intact to dorsi/plantarflexion of ankle and toes -DP, TP pulses palpable -Compartments are soft and compressible -No calf tenderness Weight Dosing Weight: 57 kg (03/03/24) Dosing Weight: 57 kg (03/03/24) Medications Medications (23) Active Scheduled: (11) albuterol - ipratropium 2.5 mg-0.5 mg/3 mL Inhal Belkis UD 3 mL, Inhalation, QIDRT budesonide 0.25 mg/2 mL Susp UD 0.25 mg 2 mL, Inhalation, BIDRT docusate-senna (Senokot S) 50 mg-8.6 mg Tablet 1 tab(s), Oral, qDay enoxaparin 40 mg/ 0.4mL syringe 40 mg 0.4 mL, Subcutaneous, qDay levothyroxine 50 mcg tablet 50 mcg 1 tab(s), Oral, qDay lumateperone 42 mg capsule 42 mg 1 cap(s), Oral, qDay Nicoderm patch REMOVAL 1 EA, Miscellaneous, q24h nicotine 14 mg/24 hr ER patch 14 mg 1 patch(es), Transdermal, q24h nystatin susp 100,000 units/mL 5 mL UD 500,000 unit(s) 5 mL, Swish & Swallow, QID rifaximin 550 mg tablet 550 mg 1 tab(s), Oral, BID spironolactone 100 mg Tablet 100 mg 1 tab(s), Oral, qDayM Continuous: (0) PRN: (12) acetaminophen 325 mg Tablet 650 mg 2 tab(s), Oral, q4h acetaminophen-OXYcodone 325 mg-5 mg Tablet 1 tab(s), Oral, q4h Al hydrox/Mg hydrox/simethicone 200-200-20 mg/5 mL Susp UD 30 mL, Oral, q2h albuterol 0.083% Soln UD (2.5mg/3 mL) 2.5 mg 3 mL, Inhalation, QIDRT dextrose 50% Solution Disp syringe 50 mL 12.5 gram(s) 25 mL, IV Push, AsDirected diphenhydramine 25 mg tablet 25 mg 1 tab(s), Oral, qHS HYDROmorphone 0.5 mg/0.5 mL syringe 0.5 mg 0.5 mL, IV Push, q3h melatonin 3 mg tablet 3 mg 1 tab(s), Oral, qHS ondansetron 2 mg/ 1 mL 2 mL INJ 4 mg 2 mL, IV Push, q4h polyethylene glycol 3350 - UD packet 17 gram(s) 15 mL, Oral, qDay prochlorperazine 10 mg/2 mL vial 5 mg 1 mL, IV Push, q6h promethazine 12.5 mg tablet 12.5 mg 1 tab(s), Oral, q6h Lab Results 03/05 06:18 WBC: 4.9 Hgb: 11.0 L Hct: 32.8 L Platelet: 74 L Neutrophil %: 79.9 H Glucose Level: 129 H Sodium Level: 140 Potassium Level: 4.2 BUN: 10.0 Creatinine Lvl (s): 0.88 EKG No qualifying data available. Assessment/Plan Post-op pain Postoperative day #12from a right hip cephalomedullary nail -PT/OT: Weightbearing as tolerated -Lovenox 40 mg daily for 6 weeks per medicine team with weekly CBC checks -Post op Hgb is 11 -Maintain dressing, reinforce as needed. May change if oversaturated -Medical management per hospitalist service -Case management consulted for discharge planning -We will discuss with attending, Dr. Cota If she passes physical therapy, and pain is controlled, discharge orders may be initiated Ordered: acetaminophen-oxyCODONE(Percocet 5 mg-325 mg oral tablet), 1 tab(s), Oral, q6h, PRN Orders: enoxaparin(Lovenox 40 mg/0.4 mL injectable solution), 40 mg= 0.4 mL, Subcutaneous, qDay Digitally Signed by MARIA C WALTER DO on 03/06/2024 05:54 AM [facility] [id number] Orthopaedic surgery Progress note Date of Service 03/05/24 Chief Complaint Postop day 1 right hip cephalomedullary nail Subjective Patient seen and examined at bedside this morning. There were no acute overnight events. Reports pain is under control at this time. Reports no needs. Objective Vitals and Measurements T: 36.6 C (Oral) TMIN: 36.2 C (Temporal Artery) TMAX: 37.59 C HR: 81 RR: 16 BP: 102/63 SpO2: 94% Intake and Output 7AM Yesterday to 7AM Today Intake and Output (Last 24 hours) Intake Oral Intake 450.00 Administration Information 1200.00 Output Urinary Catheter Output: 1675.00 Intra-Op EBL 200.00 Stool Count 2.00 Total Summary Total Intake 1650.00 Total Output 1875.00 Fluid Balance -225.00 Physical Exam General: NAD, A&Ox3 HEENT: normocephalic, atraumatic, EOMI intact CV: pulses regular throughout, brisk cap refill throughout, Pulm: normal work of breathing, equal chest rise bilaterally, no intercostal retractions or conversational dyspnea GI: abdomen is soft, nontender, nondistended, no rigidity or guarding Psych: calm and cooperative Right lower extremity -Dressing is clean dry and intact without signs of infection -Skin pink and well perfused -Sensation intact to light touch L3-S1 -Gross motor function intact to dorsi/plantarflexion of ankle and toes -DP, TP pulses palpable -Compartments are soft and compressible -No calf tenderness Weight Dosing Weight: 57 kg (03/03/24) Dosing Weight: 57 kg (03/03/24) Medications Medications (22) Active Scheduled: (10) albuterol - ipratropium 2.5 mg-0.5 mg/3 mL Inhal Belkis UD 3 mL, Inhalation, QIDRT budesonide 0.25 mg/2 mL Susp UD 0.25 mg 2 mL, Inhalation, BIDRT docusate-senna (Senokot S) 50 mg-8.6 mg Tablet 1 tab(s), Oral, qDay levothyroxine 50 mcg tablet 50 mcg 1 tab(s), Oral, qDay lumateperone 42 mg capsule 42 mg 1 cap(s), Oral, qDay Nicoderm patch REMOVAL 1 EA, Miscellaneous, q24h nicotine 14 mg/24 hr ER patch 14 mg 1 patch(es), Transdermal, q24h nystatin susp 100,000 units/mL 5 mL UD 500,000 unit(s) 5 mL, Swish & Swallow, QID rifaximin 550 mg tablet 550 mg 1 tab(s), Oral, BID spironolactone 100 mg Tablet 100 mg 1 tab(s), Oral, qDayM Continuous: (0) PRN: (12) acetaminophen 325 mg Tablet 650 mg 2 tab(s), Oral, q4h acetaminophen-OXYcodone 325 mg-5 mg Tablet 1 tab(s), Oral, q4h Al hydrox/Mg hydrox/simethicone 200-200-20 mg/5 mL Susp UD 30 mL, Oral, q2h albuterol 0.083% Soln UD (2.5mg/3 mL) 2.5 mg 3 mL, Inhalation, QIDRT dextrose 50% Solution Disp syringe 50 mL 12.5 gram(s) 25 mL, IV Push, AsDirected diphenhydramine 25 mg tablet 25 mg 1 tab(s), Oral, qHS HYDROmorphone 0.5 mg/0.5 mL syringe 0.5 mg 0.5 mL, IV Push, q3h melatonin 3 mg tablet 3 mg 1 tab(s), Oral, qHS ondansetron 2 mg/ 1 mL 2 mL INJ 4 mg 2 mL, IV Push, q4h polyethylene glycol 3350 - UD packet 17 gram(s) 15 mL, Oral, qDay prochlorperazine 10 mg/2 mL vial 5 mg 1 mL, IV Push, q6h promethazine 12.5 mg tablet 12.5 mg 1 tab(s), Oral, q6h Lab Results 03/04 05:59 WBC: 3.8 L Hgb: 13.4 Hct: 39.7 Platelet: 71 L Neutrophil %: 69.9 Glucose Level: 117 H Sodium Level: 138 Potassium Level: 4.0 BUN: 11.0 Creatinine Lvl (s): 0.84 03/03 18:12 WBC: 4.1 L Hgb: 14.4 Hct: 41.9 Platelet: 75 L Neutrophil %: 74.3 Protime: 13.2 PT International Ratio: 1.2 Glucose Level: 107 Sodium Level: 139 Potassium Level: 3.8 BUN: 10.0 Creatinine Lvl (s): 0.89 EKG EKG - Completed -- 03/03/24 17:24:00 EST, Please obtain for preop workup, may disregard if already performed this inpatient stay, Complete by Nursing Assessment/Plan Post-op pain Postoperative day #1 from a right hip cephalomedullary nail -PT/OT: Weightbearing as tolerated -Will defer DVT prophylaxis to medicine team given her history of platelet dysfunction. She will need 6 weeks of DVT prophylaxis to begin today. -Post op Hgb is pending -Maintain dressing, reinforce as needed. May change if oversaturated -Finish 24-hour postop course of antibiotics today -Medical management per hospitalist service -Case management consulted for discharge planning -We will discuss with attending, Dr. Cota Digitally Signed by MARIA C WALTER DO on 03/05/2024 05:23 AM [id number] Note Date of Service 03/05/2024 Chief Complaint Right hip pain Subjective Patient evaluated at the bedside, resting in bed. Complains of intermittent right hip pain which isfairly controlled with pain medication regimen. She is alert and oriented x 4. No events overnight.She has not been out of bed yet, will work with PT OT later today. Denies chest pain or shortness of breath. Appears euvolemic. Tolerating oral intake. Objective Vitals and Measurements T: 36.6 C (Oral) TMIN: 36.2 C (Temporal Artery) TMAX: 36.7 C (Temporal Artery) HR: 71 RR: 16 BP: 100/69 SpO2: 96% Intake and Output 7AM Yesterday to 7AM Today Intake and Output (Last 24 hours) Intake Oral Intake 640.00 Administration Information 400.00 Output Urinary Catheter Output: 1550.00 Intra-Op EBL 125.00 Stool Count 2.00 Urine Count 1.00 Total Summary Total Intake 1040.00 Total Output 1675.00 Fluid Balance -635.00 Physical Exam Vitals Signs(Last 24 hrs)__ Last Charted Minimum Maximum Temp 36.6(MAR 05 11:32) 36.6(MAR 05 11:32) 36.5(MAR 04 13:59) Heart Rate 83(MAR 04 13:31) 81(MAR 04 13:19) 95(MAR 04 12:50) SBP 100(MAR 05 11:32) L 87(MAR 04 23:15) 125(MAR 04 12:50) DBP 69(MAR 05 11:32) L 56(MAR 04 23:15) 87(MAR 04 13:31) Physical Exam General: No acute distress. Alert and Appropriate. Lungs: Bilaterally diminished breath sounds with no crepitation or wheeze. Unlabored Cardiovascular: Heart is regular rhythm, S1S2, No extra-audible heart tones Abdomen: Abdomen is soft, nontender. Neurological: The patient is awake, oriented to time, people and place. Following simple commands, moving all extremities. Weight Dosing Weight: 57 kg (03/03/24) Dosing Weight: 57 kg (03/03/24) Medications Medications (23) Active Scheduled: (11) albuterol - ipratropium 2.5 mg-0.5 mg/3 mL Inhal Belkis UD 3 mL, Inhalation, QIDRT budesonide 0.25 mg/2 mL Susp UD 0.25 mg 2 mL, Inhalation, BIDRT docusate-senna (Senokot S) 50 mg-8.6 mg Tablet 1 tab(s), Oral, qDay enoxaparin 40 mg/ 0.4mL syringe 40 mg 0.4 mL, Subcutaneous, qDay levothyroxine 50 mcg tablet 50 mcg 1 tab(s), Oral, qDay lumateperone 42 mg capsule 42 mg 1 cap(s), Oral, qDay Nicoderm patch REMOVAL 1 EA, Miscellaneous, q24h nicotine 14 mg/24 hr ER patch 14 mg 1 patch(es), Transdermal, q24h nystatin susp 100,000 units/mL 5 mL UD 500,000 unit(s) 5 mL, Swish & Swallow, QID rifaximin 550 mg tablet 550 mg 1 tab(s), Oral, BID spironolactone 100 mg Tablet 100 mg 1 tab(s), Oral, qDayM Continuous: (0) PRN: (12) acetaminophen 325 mg Tablet 650 mg 2 tab(s), Oral, q4h acetaminophen-OXYcodone 325 mg-5 mg Tablet 1 tab(s), Oral, q4h Al hydrox/Mg hydrox/simethicone 200-200-20 mg/5 mL Susp UD 30 mL, Oral, q2h albuterol 0.083% Soln UD (2.5mg/3 mL) 2.5 mg 3 mL, Inhalation, QIDRT dextrose 50% Solution Disp syringe 50 mL 12.5 gram(s) 25 mL, IV Push, AsDirected diphenhydramine 25 mg tablet 25 mg 1 tab(s), Oral, qHS HYDROmorphone 0.5 mg/0.5 mL syringe 0.5 mg 0.5 mL, IV Push, q3h melatonin 3 mg tablet 3 mg 1 tab(s), Oral, qHS ondansetron 2 mg/ 1 mL 2 mL INJ 4 mg 2 mL, IV Push, q4h polyethylene glycol 3350 - UD packet 17 gram(s) 15 mL, Oral, qDay prochlorperazine 10 mg/2 mL vial 5 mg 1 mL, IV Push, q6h promethazine 12.5 mg tablet 12.5 mg 1 tab(s), Oral, q6h Lab Results 03/05 06:18 WBC: 4.9 Hgb: 11.0 L Hct: 32.8 L Platelet: 74 L Neutrophil %: 79.9 H Glucose Level: 129 H Sodium Level: 140 Potassium Level: 4.2 BUN: 10.0 Creatinine Lvl (s): 0.88 03/04 05:59 WBC: 3.8 L Hgb: 13.4 Hct: 39.7 Platelet: 71 L Neutrophil %: 69.9 Glucose Level: 117 H Sodium Level: 138 Potassium Level: 4.0 BUN: 11.0 Creatinine Lvl (s): 0.84 EKG No qualifying data available. Assessment/Plan Right femur fracture status post repair CHF GERD Chronic thrombocytopenia Cirrhosis Hypothyroidism Hypertension Bipolar depression Chronic anemia Migraines Tobaccoism Postop day 1 closed reduction internal fixation right hip cephalomedullary nail with Dr. Walter. Postop care per primary team. Pain well-controlled. CHF, appears euvolemic. Chronic thrombocytopenia, stable postoperatively. Recommend Lovenox for 6 weeks for DVT prophylaxiswith weekly CBCs to monitor blood counts. Cirrhosis, continue home regimen. No evidence of ascites. Hypothyroidism, continue home regimen Hypertension, stable off medication Tobaccoism, continue NicoDerm patch Plan of care discussed with patient. All questions answered. Patient verbalized understanding is agreeable to plan of care. Discussed with my collaborating physician Dr. Adams. This dictation was performed using voice recognition software and may include grammatical and/or spelling errors. Time Spent 25 min Digitally Signed by CHELA BUCK on 03/05/2024 12:39 PM [id number] Progress note Date of Service 03/05/24 Chief Complaint Postop day 1 right hip cephalomedullary nail Subjective Patient seen and examined at bedside this morning. There were no acute overnight events. Reports pain is under control at this time. Reports no needs. Objective Vitals and Measurements T: 36.6 C (Oral) TMIN: 36.2 C (Temporal Artery) TMAX: 37.59 C HR: 81 RR: 16 BP: 102/63 SpO2: 94% Intake and Output 7AM Yesterday to 7AM Today Intake and Output (Last 24 hours) Intake Oral Intake 450.00 Administration Information 1200.00 Output Urinary Catheter Output: 1675.00 Intra-Op EBL 200.00 Stool Count 2.00 Total Summary Total Intake 1650.00 Total Output 1875.00 Fluid Balance -225.00 Physical Exam General: NAD, A&Ox3 HEENT: normocephalic, atraumatic, EOMI intact CV: pulses regular throughout, brisk cap refill throughout, Pulm: normal work of breathing, equal chest rise bilaterally, no intercostal retractions or conversational dyspnea GI: abdomen is soft, nontender, nondistended, no rigidity or guarding Psych: calm and cooperative Right lower extremity -Dressing is clean dry and intact without signs of infection -Skin pink and well perfused -Sensation intact to light touch L3-S1 -Gross motor function intact to dorsi/plantarflexion of ankle and toes -DP, TP pulses palpable -Compartments are soft and compressible -No calf tenderness Weight Dosing Weight: 57 kg (03/03/24) Dosing Weight: 57 kg (03/03/24) Medications Medications (22) Active Scheduled: (10) albuterol - ipratropium 2.5 mg-0.5 mg/3 mL Inhal Belkis UD 3 mL, Inhalation, QIDRT budesonide 0.25 mg/2 mL Susp UD 0.25 mg 2 mL, Inhalation, BIDRT docusate-senna (Senokot S) 50 mg-8.6 mg Tablet 1 tab(s), Oral, qDay levothyroxine 50 mcg tablet 50 mcg 1 tab(s), Oral, qDay lumateperone 42 mg capsule 42 mg 1 cap(s), Oral, qDay Nicoderm patch REMOVAL 1 EA, Miscellaneous, q24h nicotine 14 mg/24 hr ER patch 14 mg 1 patch(es), Transdermal, q24h nystatin susp 100,000 units/mL 5 mL UD 500,000 unit(s) 5 mL, Swish & Swallow, QID rifaximin 550 mg tablet 550 mg 1 tab(s), Oral, BID spironolactone 100 mg Tablet 100 mg 1 tab(s), Oral, qDayM Continuous: (0) PRN: (12) acetaminophen 325 mg Tablet 650 mg 2 tab(s), Oral, q4h acetaminophen-OXYcodone 325 mg-5 mg Tablet 1 tab(s), Oral, q4h Al hydrox/Mg hydrox/simethicone 200-200-20 mg/5 mL Susp UD 30 mL, Oral, q2h albuterol 0.083% Soln UD (2.5mg/3 mL) 2.5 mg 3 mL, Inhalation, QIDRT dextrose 50% Solution Disp syringe 50 mL 12.5 gram(s) 25 mL, IV Push, AsDirected diphenhydramine 25 mg tablet 25 mg 1 tab(s), Oral, qHS HYDROmorphone 0.5 mg/0.5 mL syringe 0.5 mg 0.5 mL, IV Push, q3h melatonin 3 mg tablet 3 mg 1 tab(s), Oral, qHS ondansetron 2 mg/ 1 mL 2 mL INJ 4 mg 2 mL, IV Push, q4h polyethylene glycol 3350 - UD packet 17 gram(s) 15 mL, Oral, qDay prochlorperazine 10 mg/2 mL vial 5 mg 1 mL, IV Push, q6h promethazine 12.5 mg tablet 12.5 mg 1 tab(s), Oral, q6h Lab Results 03/04 05:59 WBC: 3.8 L Hgb: 13.4 Hct: 39.7 Platelet: 71 L Neutrophil %: 69.9 Glucose Level: 117 H Sodium Level: 138 Potassium Level: 4.0 BUN: 11.0 Creatinine Lvl (s): 0.84 03/03 18:12 WBC: 4.1 L Hgb: 14.4 Hct: 41.9 Platelet: 75 L Neutrophil %: 74.3 Protime: 13.2 PT International Ratio: 1.2 Glucose Level: 107 Sodium Level: 139 Potassium Level: 3.8 BUN: 10.0 Creatinine Lvl (s): 0.89 EKG EKG - Completed -- 03/03/24 17:24:00 EST, Please obtain for preop workup, may disregard if already performed this inpatient stay, Complete by Nursing Assessment/Plan Post-op pain Postoperative day #1 from a right hip cephalomedullary nail -PT/OT: Weightbearing as tolerated -Will defer DVT prophylaxis to medicine team given her history of platelet dysfunction. She will need 6 weeks of DVT prophylaxis to begin today. -Post op Hgb is pending -Maintain dressing, reinforce as needed. May change if oversaturated -Finish 24-hour postop course of antibiotics today -Medical management per hospitalist service -Case management consulted for discharge planning -We will discuss with attending, Dr. Cota Digitally Signed by MARIA C WALTER DO on 03/05/2024 05:23 AM [id number] Note Date of Service 03/04/2024 Chief Complaint Right femur fracture Subjective This 63-year-old female with a past medical history of CHF, hypertension, bipolar depression, cirrhosis, hypothyroidism, chronic thrombocytopenia, GERD, arthritis, anemia, migraines and tobaccoism presents to the ED following a fall with right hip pain. X-ray reveals right intertrochanteric femur fracture, closed. Underwent right hip cephalomedullary nail with Dr. Walter on 03/04/2024. Hospitalist consulted for medical management. Patient evaluated postoperatively, resting in bed. Denies pain. No shortness of breath or chest pain. She is alert and oriented. Objective Vitals and Measurements T: 36.5 C (Oral) TMIN: 36.2 C (Temporal Artery) TMAX: 37.59 C HR: 77 RR: 17 BP: 97/67 SpO2: 96% HT:152.4 cm WT: 57.0 kg BMI: 24.54 Intake and Output 7AM Yesterday to 7AM Today Intake and Output (Last 24 hours) Intake Oral Intake 210.00 Administration Information 1200.00 Output Urinary Catheter Output: 1525.00 Intra-Op EBL 200.00 Stool Count 0.00 Total Summary Total Intake 1410.00 Total Output 1725.00 Fluid Balance -315.00 Physical Exam Vitals Signs(Last 24 hrs)__ Last Charted Minimum Maximum Temp 36.5(MAR 04 13:59) 36.5(MAR 04 13:59) 37.0(MAR 03 22:42) Heart Rate 83(MAR 04 13:31) 70(MAR 04 11:40) 111(MAR 04 11:45) SBP 97(MAR 04 13:59) 67(MAR 04 11:25) 210(MAR 04 12:29) DBP 67(MAR 04 13:59) 53(MAR 04 11:25) 140(MAR 04 12:29) Physical Exam General: No acute distress. Alert and Appropriate. Lungs: Bilaterally diminished breath sounds with no crepitation or wheeze. Unlabored Cardiovascular: Heart is regular rhythm, S1S2, No extra-audible heart tones Abdomen: Abdomen is soft, nontender. Neurological: The patient is awake, oriented to time, people and place. Following simple commands, moving all extremities. Weight Dosing Weight: 57 kg (03/03/24) Dosing Weight: 57 kg (03/03/24) Medications Medications (21) Active Scheduled: (8) albuterol - ipratropium 2.5 mg-0.5 mg/3 mL Inhal Belkis UD 3 mL, Inhalation, QIDRT budesonide 0.25 mg/2 mL Susp UD 0.25 mg 2 mL, Inhalation, BIDRT ceFAZolin syringe 2 g 20 mL, IV Push (INT), q8hr docusate-senna (Senokot S) 50 mg-8.6 mg Tablet 1 tab(s), Oral, qDay levothyroxine 50 mcg tablet 50 mcg 1 tab(s), Oral, qDay lumateperone 42 mg capsule 42 mg 1 cap(s), Oral, qDay rifaximin 550 mg tablet 550 mg 1 tab(s), Oral, BID spironolactone 100 mg Tablet 100 mg 1 tab(s), Oral, qDayM Continuous: (1) Lactated Ringers 1,000 mL 1,000 mL, Intravenous, 100 mL/hr PRN: (12) acetaminophen 325 mg Tablet 650 mg 2 tab(s), Oral, q4h acetaminophen-OXYcodone 325 mg-5 mg Tablet 1 tab(s), Oral, q4h Al hydrox/Mg hydrox/simethicone 200-200-20 mg/5 mL Susp UD 30 mL, Oral, q2h albuterol 0.083% Soln UD (2.5mg/3 mL) 2.5 mg 3 mL, Inhalation, QIDRT dextrose 50% Solution Disp syringe 50 mL 12.5 gram(s) 25 mL, IV Push, AsDirected diphenhydramine 25 mg tablet 25 mg 1 tab(s), Oral, qHS HYDROmorphone 0.5 mg/0.5 mL syringe 0.5 mg 0.5 mL, IV Push, q3h melatonin 3 mg tablet 3 mg 1 tab(s), Oral, qHS ondansetron 2 mg/ 1 mL 2 mL INJ 4 mg 2 mL, IV Push, q4h polyethylene glycol 3350 - UD packet 17 gram(s) 15 mL, Oral, qDay prochlorperazine 10 mg/2 mL vial 5 mg 1 mL, IV Push, q6h promethazine 12.5 mg tablet 12.5 mg 1 tab(s), Oral, q6h Lab Results 03/04 05:59 WBC: 3.8 L Hgb: 13.4 Hct: 39.7 Platelet: 71 L Neutrophil %: 69.9 Glucose Level: 117 H Sodium Level: 138 Potassium Level: 4.0 BUN: 11.0 Creatinine Lvl (s): 0.84 03/03 18:12 WBC: 4.1 L Hgb: 14.4 Hct: 41.9 Platelet: 75 L Neutrophil %: 74.3 Protime: 13.2 PT International Ratio: 1.2 Glucose Level: 107 Sodium Level: 139 Potassium Level: 3.8 BUN: 10.0 Creatinine Lvl (s): 0.89 EKG EKG - Completed -- 03/03/24 17:24:00 EST, Please obtain for preop workup, may disregard if already performed this inpatient stay, Complete by Nursing Assessment/Plan Right femur fracture status post repair CHF GERD Chronic thrombocytopenia Cirrhosis Hypothyroidism Hypertension Bipolar depression Chronic anemia Migraines Tobaccoism Postop day 0 closed reduction internal fixation right hip cephalomedullary nail with Dr. Walter. Postop care per primary team. CHF, appears euvolemic. Will monitor closely as she received intraoperative IV fluid. Thrombocytopenia, stable. Will trend labs Cirrhosis, continue home regimen Hypothyroidism, continue home regimen Hypertension, stable off medication Tobaccoism, continue NicoDerm patch Plan of care discussed with patient. All questions answered. Patient verbalized understanding is agreeable to plan of care. Discussed with my collaborating physician Dr. Adams. This dictation was performed using voice recognition software and may include grammatical and/or spelling errors. Time Spent 25 min Digitally Signed by CHELA BUCK on 03/04/2024 02:49 PM [id number] Anesthesiology Consult note Patient: CARLOS OLIVER Age: 63 years Sex: Female : 1960 Associated Diagnoses: None Author: WALDO GARCIA MD Postoperative Information Assessment Postanesthesia assessment Vitals: Vital signs from flowsheet : Vital Signs 03/04/2024 13:59 EST Temperature Oral 36.5 DegC Peripheral Pulse Rate 77 bpm Respiratory Rate 17 br/min Systolic Blood Pressure Non-Invasive 97 mmHg Diastolic Blood Pressure Non-Invasive 67 mmHg Reason For Taking VItal Signs Routine 03/04/2024 13:31 EST Temperature Temporal Artery 36.7 DegC Heart Rate Monitored 83 bpm Respiratory Rate 16 br/min Systolic Blood Pressure Non-Invasive 108 mmHg Diastolic Blood Pressure Non-Invasive 87 mmHg 03/04/2024 13:19 EST Temperature Temporal Artery 36.2 DegC Heart Rate Monitored 81 bpm Respiratory Rate 18 br/min Systolic Blood Pressure Non-Invasive 103 mmHg Diastolic Blood Pressure Non-Invasive 69 mmHg Mean Arterial Pressure (NBP) 79 mmHg 03/04/2024 13:04 EST Heart Rate Monitored 83 bpm Respiratory Rate 16 br/min Systolic Blood Pressure Non-Invasive 117 mmHg Diastolic Blood Pressure Non-Invasive 71 mmHg Mean Arterial Pressure (NBP) 86 mmHg 03/04/2024 12:50 EST Heart Rate Monitored 95 bpm Respiratory Rate 18 br/min Systolic Blood Pressure Non-Invasive 125 mmHg Diastolic Blood Pressure Non-Invasive 83 mmHg Mean Arterial Pressure (NBP) 96 mmHg 03/04/2024 12:45 EST Respiratory Rate 16 br/min 03/04/2024 12:34 EST Temperature Temporal Artery 36.6 DegC Heart Rate Monitored 90 bpm Respiratory Rate 12 br/min LOW Systolic Blood Pressure Non-Invasive 148 mmHg HI Diastolic Blood Pressure Non-Invasive 80 mmHg Mean Arterial Pressure (NBP) 100 mmHg 03/04/2024 12:30 EST Heart Rate Monitored 102 bpm bpm Respiratory Rate - Anes 11 br/min br/min 03/04/2024 12:29 EST Systolic Blood Pressure Non-Invasive 210 mmHg mmHg Diastolic Blood Pressure Non-Invasive 140 mmHg mmHg 03/04/2024 12:25 EST Heart Rate Monitored 75 bpm bpm Respiratory Rate - Anes 10 br/min br/min 03/04/2024 12:24 EST Systolic Blood Pressure Non-Invasive 95 mmHg mmHg Diastolic Blood Pressure Non-Invasive 72 mmHg mmHg 03/04/2024 12:22 EST Systolic Blood Pressure Non-Invasive 90 mmHg mmHg Diastolic Blood Pressure Non-Invasive 62 mmHg mmHg 03/04/2024 12:20 EST Heart Rate Monitored 75 bpm bpm Respiratory Rate - Anes 10 br/min br/min 03/04/2024 12:18 EST Systolic Blood Pressure Non-Invasive 92 mmHg mmHg Diastolic Blood Pressure Non-Invasive 63 mmHg mmHg 03/04/2024 12:15 EST Temperature (Route Not Specified) 37.48 DegC DegC Heart Rate Monitored 79 bpm bpm Respiratory Rate - Anes 10 br/min br/min Systolic Blood Pressure Non-Invasive 86 mmHg mmHg Diastolic Blood Pressure Non-Invasive 66 mmHg mmHg 03/04/2024 12:14 EST Systolic Blood Pressure Non-Invasive 90 mmHg mmHg Diastolic Blood Pressure Non-Invasive 63 mmHg mmHg 03/04/2024 12:10 EST Temperature (Route Not Specified) 37.46 DegC DegC Heart Rate Monitored 81 bpm bpm Respiratory Rate - Anes 10 br/min br/min 03/04/2024 12:09 EST Systolic Blood Pressure Non-Invasive 88 mmHg mmHg Diastolic Blood Pressure Non-Invasive 68 mmHg mmHg 03/04/2024 12:06 EST Systolic Blood Pressure Non-Invasive 87 mmHg mmHg Diastolic Blood Pressure Non-Invasive 74 mmHg mmHg 03/04/2024 12:05 EST Temperature (Route Not Specified) 37.44 DegC DegC Heart Rate Monitored 80 bpm bpm Respiratory Rate - Anes 10 br/min br/min 03/04/2024 12:03 EST Systolic Blood Pressure Non-Invasive 84 mmHg mmHg Diastolic Blood Pressure Non-Invasive 65 mmHg mmHg 03/04/2024 12:00 EST Temperature (Route Not Specified) 37.43 DegC DegC Heart Rate Monitored 82 bpm bpm Respiratory Rate - Anes 10 br/min br/min Systolic Blood Pressure Non-Invasive 98 mmHg mmHg Diastolic Blood Pressure Non-Invasive 76 mmHg mmHg 03/04/2024 11:57 EST Systolic Blood Pressure Non-Invasive 118 mmHg mmHg Diastolic Blood Pressure Non-Invasive 103 mmHg mmHg 03/04/2024 11:55 EST Temperature (Route Not Specified) 37.44 DegC DegC Heart Rate Monitored 89 bpm bpm Respiratory Rate - Anes 10 br/min br/min 03/04/2024 11:54 EST Systolic Blood Pressure Non-Invasive 109 mmHg mmHg Diastolic Blood Pressure Non-Invasive 90 mmHg mmHg 03/04/2024 11:51 EST Systolic Blood Pressure Non-Invasive 93 mmHg mmHg Diastolic Blood Pressure Non-Invasive 71 mmHg mmHg 03/04/2024 11:50 EST Temperature (Route Not Specified) 37.47 DegC DegC Heart Rate Monitored 74 bpm bpm Respiratory Rate - Anes 10 br/min br/min 03/04/2024 11:49 EST Systolic Blood Pressure Non-Invasive 97 mmHg mmHg Diastolic Blood Pressure Non-Invasive 74 mmHg mmHg 03/04/2024 11:46 EST Systolic Blood Pressure Non-Invasive 180 mmHg mmHg Diastolic Blood Pressure Non-Invasive 103 mmHg mmHg 03/04/2024 11:45 EST Temperature (Route Not Specified) 37.49 DegC DegC Heart Rate Monitored 111 bpm bpm Respiratory Rate - Anes 10 br/min br/min 03/04/2024 11:43 EST Systolic Blood Pressure Non-Invasive 94 mmHg mmHg Diastolic Blood Pressure Non-Invasive 74 mmHg mmHg 03/04/2024 11:40 EST Temperature (Route Not Specified) 37.54 DegC DegC Heart Rate Monitored 70 bpm bpm Respiratory Rate - Anes 10 br/min br/min 03/04/2024 11:39 EST Systolic Blood Pressure Non-Invasive 96 mmHg mmHg Diastolic Blood Pressure Non-Invasive 79 mmHg mmHg 03/04/2024 11:36 EST Systolic Blood Pressure Non-Invasive 86 mmHg mmHg Diastolic Blood Pressure Non-Invasive 66 mmHg mmHg 03/04/2024 11:35 EST Temperature (Route Not Specified) 37.57 DegC DegC Heart Rate Monitored 87 bpm bpm Respiratory Rate - Anes 10 br/min br/min 03/04/2024 11:34 EST Systolic Blood Pressure Non-Invasive 87 mmHg mmHg Diastolic Blood Pressure Non-Invasive 73 mmHg mmHg 03/04/2024 11:30 EST Temperature (Route Not Specified) 37.59 DegC DegC Heart Rate Monitored 74 bpm bpm Respiratory Rate - Anes 9 br/min br/min Systolic Blood Pressure Non-Invasive 71 mmHg mmHg Diastolic Blood Pressure Non-Invasive 62 mmHg mmHg 03/04/2024 11:27 EST Systolic Blood Pressure Non-Invasive 86 mmHg mmHg Diastolic Blood Pressure Non-Invasive 62 mmHg mmHg 03/04/2024 11:25 EST Temperature (Route Not Specified) 37.53 DegC DegC Heart Rate Monitored 80 bpm bpm Respiratory Rate - Anes 10 br/min br/min Systolic Blood Pressure Non-Invasive 67 mmHg mmHg Diastolic Blood Pressure Non-Invasive 53 mmHg mmHg 03/04/2024 11:22 EST Systolic Blood Pressure Non-Invasive 99 mmHg mmHg Diastolic Blood Pressure Non-Invasive 86 mmHg mmHg 03/04/2024 11:20 EST Heart Rate Monitored 97 bpm bpm Respiratory Rate - Anes 0 br/min br/min 03/04/2024 11:18 EST Systolic Blood Pressure Non-Invasive 86 mmHg mmHg Diastolic Blood Pressure Non-Invasive 65 mmHg mmHg 03/04/2024 11:15 EST Heart Rate Monitored 78 bpm bpm Respiratory Rate - Anes 0 br/min br/min Systolic Blood Pressure Non-Invasive 97 mmHg mmHg Diastolic Blood Pressure Non-Invasive 73 mmHg mmHg 03/04/2024 11:12 EST Systolic Blood Pressure Non-Invasive 86 mmHg mmHg Diastolic Blood Pressure Non-Invasive 62 mmHg mmHg 03/04/2024 11:10 EST Respiratory Rate - Anes 0 br/min br/min 03/04/2024 7:18 EST Temperature Oral 37.0 DegC Peripheral Pulse Rate 81 bpm Respiratory Rate 16 br/min Systolic Blood Pressure Non-Invasive 100 mmHg Diastolic Blood Pressure Non-Invasive 70 mmHg Blood Pressure Method Automatic Blood Pressure Location Right arm Blood Pressure Cuff Size Medium Reason For Taking VItal Signs Routine 03/03/2024 22:42 EST Temperature Oral 37.0 DegC Peripheral Pulse Rate 82 bpm Respiratory Rate 18 br/min Systolic Blood Pressure Non-Invasive 106 mmHg Diastolic Blood Pressure Non-Invasive 83 mmHg Reason For Taking VItal Signs Admission 03/03/2024 21:55 EST Heart Rate Monitored 85 bpm Respiratory Rate 18 br/min Systolic Blood Pressure Non-Invasive 100 mmHg Diastolic Blood Pressure Non-Invasive 72 mmHg 03/03/2024 18:00 EST Heart Rate Monitored 79 bpm Respiratory Rate 20 br/min Systolic Blood Pressure Non-Invasive 142 mmHg HI Diastolic Blood Pressure Non-Invasive 84 mmHg 03/03/2024 12:50 EST Temperature Oral 36.9 DegC Peripheral Pulse Rate 85 bpm Respiratory Rate 18 br/min Systolic Blood Pressure Non-Invasive 149 mmHg HI Diastolic Blood Pressure Non-Invasive 86 mmHg , Oxygen Therapy : Oxygen Therapy & Oxygenation Information 03/04/2024 14:07 EST Oxygen Therapy Room air Oxygen Activity Room air Oxygen Flow Rate 0 L/min 03/04/2024 13:59 EST Oxygen Therapy Room air Oxygen Saturation 96 % 03/04/2024 13:35 EST Oxygen Therapy Room air 03/04/2024 13:31 EST Oxygen Therapy Room air Oxygen Saturation 95 % 03/04/2024 13:19 EST Oxygen Therapy Nasal cannula 0L-6L Oxygen Saturation 98 % Oxygen Flow Rate 3 L/min 03/04/2024 13:04 EST Oxygen Therapy Nasal cannula 0L-6L Oxygen Saturation 96 % Oxygen Flow Rate 3 L/min 03/04/2024 12:50 EST Oxygen Therapy Nasal cannula 0L-6L Oxygen Saturation 95 % Oxygen Flow Rate 3 L/min 03/04/2024 12:45 EST Oxygen Therapy Nasal cannula 0L-6L Oxygen Saturation 97 % Oxygen Flow Rate 3 L/min 03/04/2024 12:34 EST Oxygen Therapy Simple mask Oxygen Saturation 98 % Oxygen Flow Rate 6 L/min 03/04/2024 12:30 EST Oxygen Saturation 100 % % 03/04/2024 12:25 EST Oxygen Saturation 100 % % 03/04/2024 12:20 EST Oxygen Saturation 100 % % 03/04/2024 12:15 EST Oxygen Saturation 99 % % 03/04/2024 12:10 EST Oxygen Saturation 99 % % 03/04/2024 12:05 EST Oxygen Saturation 99 % % 03/04/2024 12:00 EST Oxygen Saturation 99 % % 03/04/2024 11:55 EST Oxygen Saturation 99 % % 03/04/2024 11:50 EST Oxygen Saturation 99 % % 03/04/2024 11:45 EST Oxygen Saturation 100 % % 03/04/2024 11:40 EST Oxygen Saturation 100 % % 03/04/2024 11:35 EST Oxygen Saturation 100 % % 03/04/2024 11:30 EST Oxygen Saturation 100 % % 03/04/2024 11:25 EST Oxygen Saturation 100 % % 03/04/2024 11:20 EST Oxygen Saturation 100 % % 03/04/2024 11:15 EST Oxygen Saturation 100 % % 03/04/2024 9:52 EST Oxygen Therapy Room air 03/04/2024 8:15 EST Oxygen Therapy Room air 03/04/2024 7:18 EST Oxygen Therapy Room air Oxygen Saturation 92 % LOW 03/03/2024 22:42 EST Oxygen Therapy Room air Oxygen Saturation 92 % LOW 03/03/2024 21:55 EST Oxygen Therapy Room air Oxygen Saturation 95 % 03/03/2024 18:00 EST Oxygen Therapy Room air Oxygen Saturation 97 % 03/03/2024 12:50 EST Oxygen Therapy Room air Oxygen Saturation 95 % . Mental status: at preoperative baseline. Respiratory function: lungs are clear to auscultation, respirations are non-labored. Respiratory support: none. CV function: Normal rate. Cardiovascular support: none. Pain. Nausea status: see nursing documentation of medications. Postoperative hydration status: within normal limits. Digitally Signed by WALDO GARCIA MD on 03/04/2024 02:23 PM [id number] Anesthesiology Consult note Patient: CARLOS OLIVER Age: 63 years Sex: Female : 1960 Associated Diagnoses: None Author: ALMAZ CAVAZOS APRN-MEGAN Preoperative Information Procedure/ Case: right hip gamma nail Time of last food or liquid consumption: 03/04/2024 00:00:00 Anesthesia history Patient's history: negative. Family's history: negative. Review of Systems Ear/Nose/Mouth/Throat: Negative except as documented in history of present illness. Respiratory: Negative except as documented in history of present illness. Cardiovascular: Negative except as documented in history of present illness. Gastrointestinal: Negative except as documented in history of present illness. Genitourinary: Negative except as documented in history of present illness. Endocrine: Negative except as documented in history of present illness. Musculoskeletal: Negative except as documented in history of present illness. Integumentary: Negative except as documented in history of present illness. Neurologic: Negative except as documented in history of present illness. Health Status Allergies: Allergic Reactions (Selected) Severity Not Documented Latex- No reactions were documented. Morphine- Hives., Allergies (2) ActiveSeverityReaction LatexNone Documented morphineHives Current medications: (Selected) Inpatient Medications Ordered Caplyta: 42 mg, 1 cap(s), Oral, qDay Dextrose 50% IV Push: 12.5 gram(s), 25 mL, IV Push, AsDirected, PRN: Hypoglycemia Dilaudid: 0.5 mg, 0.5 mL, IV Push, q3h, PRN: Pain, scale 7-10 DuoNeb 0.5 mg - 2.5 mg/3 mL inhalation soln: 3 mL, Inhalation, QIDRT Kefzol: 2 gram(s), 20 mL, 240 mL/hr, IV Push (INT), PREOP pharm LR 1,000 mL: 100 mL/hr, Intravenous Maalox: 30 mL, Oral, q2h, PRN: Indigestion Miralax Powder Packet: 17 gram(s), 15 mL, Oral, qDay, PRN: Constipation Percocet 325/5: 1 tab(s), Oral, q4h, PRN: Pain, scale 4-6 Phenergan: 12.5 mg, 1 tab(s), Oral, q6h, PRN: Nausea Pulmicort Respules 0.25 mg/2 mL inhalation suspension: 0.25 mg, 2 mL, Inhalation, BIDRT Senokot S: 1 tab(s), Oral, qDay Tylenol: 650 mg, 2 tab(s), Oral, q4h, PRN: Pain, scale 1-3 Xifaxan 550 mg oral tablet: 550 mg, 1 tab(s), Oral, BID Zofran: 4 mg, 2 mL, IV Push, q4h, PRN: Nausea/Vomiting albuterol 2.5 mg/3 mL (0.083%) inhalation solution: 2.5 mg, 3 mL, Inhalation, QIDRT, PRN: Wheezing levothyroxine: 50 mcg, 1 tab(s), Oral, qDay prochlorperazine: 5 mg, 1 mL, IV Push, q6h, PRN: Nausea/Vomiting spironolactone: 100 mg, 1 tab(s), Oral, qDayM tranexamic acid 1 g / 100 mL 0.7% NaCl PMX: 1 gram(s), 100 mL, 300 mL/hr, IV Piggyback, PREOP pharm tranexamic acid 1 g / 100 mL 0.7% NaCl PMX: 1 gram(s), 100 mL, 300 mL/hr, IV Piggyback, PREOP pharm Documented Medications Documented Caplyta 42 mg oral capsule: 42 mg, 1 cap(s), Oral, qDay, 0 Refill(s) SUMAtriptan 50 mg oral tablet: 50 mg, 1 tab(s), Oral, qDay, PRN: for migraine headache, 0 Refill(s) Trelegy Ellipta 100 mcg-62.5 mcg-25 mcg/inh inhalation powder: 1 inh, Inhalation, qDay, 0 Refill(s) Ventolin HFA MDI (90 mcg/inh) inhalation aerosol: 1 puff(s), Inhalation, QID, PRN: as needed for wheezing, 0 Refill(s) Xifaxan 550 mg oral tablet: 550 mg, 1 tab(s), Oral, BID, 0 Refill(s) levothyroxine 50 mcg (0.05 mg) oral tablet: 50 mcg, 1 tab(s), Oral, qDay spironolactone 100 mg oral tablet: 100 mg, 1 tab(s), Oral, qDay, Medications (21) Active Scheduled: (10) albuterol - ipratropium 2.5 mg-0.5 mg/3 mL Inhal Belkis UD 3 mL, Inhalation, QIDRT budesonide 0.25 mg/2 mL Susp UD 0.25 mg 2 mL, Inhalation, BIDRT ceFAZolin syringe 2 gram(s) 20 mL, IV Push (INT), PREOP pharm docusate-senna (Senokot S) 50 mg-8.6 mg Tablet 1 tab(s), Oral, qDay levothyroxine 50 mcg tablet 50 mcg 1 tab(s), Oral, qDay lumateperone 42 mg capsule 42 mg 1 cap(s), Oral, qDay rifaximin 550 mg tablet 550 mg 1 tab(s), Oral, BID spironolactone 100 mg Tablet 100 mg 1 tab(s), Oral, qDayM tranexamic acid PMX 1 gram(s) 100 mL, IV Piggyback, PREOP pharm tranexamic acid PMX 1 gram(s) 100 mL, IV Piggyback, PREOP pharm Continuous: (1) Lactated Ringers 1,000 mL 1,000 mL, Intravenous, 100 mL/hr PRN: (10) acetaminophen 325 mg Tablet 650 mg 2 tab(s), Oral, q4h acetaminophen-OXYcodone 325 mg-5 mg Tablet 1 tab(s), Oral, q4h Al hydrox/Mg hydrox/simethicone 200-200-20 mg/5 mL Susp UD 30 mL, Oral, q2h albuterol 0.083% Soln UD (2.5mg/3 mL) 2.5 mg 3 mL, Inhalation, QIDRT dextrose 50% Solution Disp syringe 50 mL 12.5 gram(s) 25 mL, IV Push, AsDirected HYDROmorphone 0.5 mg/0.5 mL syringe 0.5 mg 0.5 mL, IV Push, q3h ondansetron 2 mg/ 1 mL 2 mL INJ 4 mg 2 mL, IV Push, q4h polyethylene glycol 3350 - UD packet 17 gram(s) 15 mL, Oral, qDay prochlorperazine 10 mg/2 mL vial 5 mg 1 mL, IV Push, q6h promethazine 12.5 mg tablet 12.5 mg 1 tab(s), Oral, q6h Problem list: Medical Acquired thrombocytopenia / SNOMED CT 102984884 / Confirmed Anemia / SNOMED CT 217309478 / Confirmed Arthritis / SNOMED CT 7038758 / Confirmed Biliary cirrhosis, unspecified / SNOMED CT 8182969 / Confirmed Bipolar disorder / SNOMED CT 13438919 / Confirmed Cataract / SNOMED CT 476910604 / Confirmed Chronic hepatic failure / SNOMED CT 289293979 / Confirmed Acid reflux / SNOMED CT 8459652639 / Confirmed Glasses / SNOMED CT 9056420897 / Confirmed High blood pressure / SNOMED CT 57127932 / Confirmed Migraine / SNOMED CT 54038509 / Confirmed Urinary incontinence / SNOMED CT 2839393684 / Confirmed, Active Problems (13) Acid reflux Acquired thrombocytopenia Anemia Arthritis Biliary cirrhosis, unspecified Bipolar disorder Cataract Chronic hepatic failure Glasses High blood pressure Migraine Tobacco use Urinary incontinence Histories Past Medical History: Active High blood pressure (18787942) Acid reflux (6528171222) Urinary incontinence (0503179190) Glasses (7352091679) Cataract (732748824) Migraine (14373456) Chronic hepatic failure (484878724) Biliary cirrhosis, unspecified (7879916) Acquired thrombocytopenia (494142475) Anemia (575024185) Arthritis (2748253) Bipolar disorder (95237828) Procedure history: EGD - Esophagogastroduodenoscopy (4631223288) on 12/08/2019 at 59 Years. Cholecystectomy (38186367) in 2017 at 56 Years. Hysterectomy (610635603) in 1997 at 37 Years. Social History: Social & Psychosocial Habits Alcohol 12/08/2019 Use: Past Substance Abuse 12/08/2019 Use: Never Tobacco 12/08/2019 Tobacco Use: 5-9 cigarettes (between 1 Physical Examination Measurements from flowsheet : Measurements 03/03/2024 23:52 EST Height 152.4 cm Height in inches 60 inch(es) Admission Weight 57.0 kg Weight Lbs 125.4 lb [place] Body Weight 45.50 kg BSA Admission 1.53 Body Mass Index 24.54 kg/m2 03/03/2024 12:50 EST Admission Weight 57.0 kg General: Alert and oriented, Mild distress. Airway: Normal temporomandibular joint mobility, Nares patent, Normal mouth. Head: Normocephalic. Dentition Evaluation: Dentures, lower, Dentures, upper. Neck: Supple, Non-tender. Respiratory: Lungs are clear to auscultation. Cardiovascular: Normal rate, Regular rhythm. Heart Sounds: Normal. Gastrointestinal: Soft. Musculoskeletal Normal range of motion. Integumentary: Intact, Warm, Dry. Neurologic: Alert, Oriented. Review / Management Documentation reviewed: Current records, Reviewed prior records. Assessment and Plan Acid reflux, Acquired thrombocytopenia, Anemia, Arthritis, Biliary cirrhosis, unspecified Bipolar disorder, Cataract, Chronic hepatic failure, Glasses High blood pressure, Migraine, Urinary incontinence [place] [employer] (ASA) physical status classification: Class III. Anesthetic Preoperative Plan Premedication: intravenous. Anesthetic technique: General. Induction: intravenously. Maintenance airway: Oral endotracheal tube. Postoperative pain management: Per surgeon. Risks discussed: nausea, vomiting, headache, sore throat, dental injury, hypotension, allergic reaction, serious complications. Informed consent: signed by patient. Digitally Signed by ALMAZ CAVAZOS on 03/04/2024 10:56 AM [id number] Note ORIGINAL EXAMINATION: SPOT FLUOROSCOPIC IMAGES 03/04/2024 12:34 pm TECHNIQUE: Fluoroscopy was provided by the radiology department for procedure. Radiologist was not present during examination. FLUOROSCOPY DOSE AND TYPE: Radiation Exposure Index: 11.2 mGy air kerma, fluoroscopy time was 1 minutes and 9 seconds. COMPARISON: None HISTORY: ORDERING SYSTEM PROVIDED HISTORY: Reason for Exam: RT PROXIMAL FEMUR FX Intraprocedural imaging. FINDINGS: 7 intraoperative images show surgical reduction of the intertrochanteric right femoral fracture. Intramedullary moncho was placed in the femur. A cancellous type screw traverses the intertrochanteric zone, moncho and neck of the femur. A distal interlocking screw noted in the diaphysis of the femur. Degenerative changes seen of the right hip. IMPRESSION: Limited intraoperative views. Refer to surgical report Interpreted by: Abdirashid Lopez MD Preliminary Report By: Abdirashid Lopez MD Electronically signed By Abdirashid Lopez MD Dictated Date: 03/04/2024 2:30:42 PM Prelim Date: 03/04/2024 2:31:57 PM Sign Date: 03/04/2024 2:31:57 PM Ordering Provider: [facility]12-07-2024 Anesthesiology Consult note Patient: CARLOS OLIVER Age: 63 years Sex: Female : 1960 Associated Diagnoses: None Author: ALMAZ CAVAZOS APRN-SUBSTATION OPERATOR CONVERSION Preoperative Information Procedure/ Case: right hip gamma nail Time of last food or liquid consumption: 03/04/2024 00:00:00 Anesthesia history Patient's history: negative. Family's history: negative. Review of Systems Ear/Nose/Mouth/Throat: Negative except as documented in history of present illness. Respiratory: Negative except as documented in history of present illness. Cardiovascular: Negative except as documented in history of present illness. Gastrointestinal: Negative except as documented in history of present illness. Genitourinary: Negative except as documented in history of present illness. Endocrine: Negative except as documented in history of present illness. Musculoskeletal: Negative except as documented in history of present illness. Integumentary: Negative except as documented in history of present illness. Neurologic: Negative except as documented in history of present illness. Health Status Allergies: Allergic Reactions (Selected) Severity Not Documented Latex- No reactions were documented. Morphine- Hives., Allergies (2) ActiveSeverityReaction LatexNone Documented morphineHives Current medications: (Selected) Inpatient Medications Ordered Caplyta: 42 mg, 1 cap(s), Oral, qDay Dextrose 50% IV Push: 12.5 gram(s), 25 mL, IV Push, AsDirected, PRN: Hypoglycemia Dilaudid: 0.5 mg, 0.5 mL, IV Push, q3h, PRN: Pain, scale 7-10 DuoNeb 0.5 mg - 2.5 mg/3 mL inhalation soln: 3 mL, Inhalation, QIDRT Kefzol: 2 gram(s), 20 mL, 240 mL/hr, IV Push (INT), PREOP pharm LR 1,000 mL: 100 mL/hr, Intravenous Maalox: 30 mL, Oral, q2h, PRN: Indigestion Miralax Powder Packet: 17 gram(s), 15 mL, Oral, qDay, PRN: Constipation Percocet 325/5: 1 tab(s), Oral, q4h, PRN: Pain, scale 4-6 Phenergan: 12.5 mg, 1 tab(s), Oral, q6h, PRN: Nausea Pulmicort Respules 0.25 mg/2 mL inhalation suspension: 0.25 mg, 2 mL, Inhalation, BIDRT Senokot S: 1 tab(s), Oral, qDay Tylenol: 650 mg, 2 tab(s), Oral, q4h, PRN: Pain, scale 1-3 Xifaxan 550 mg oral tablet: 550 mg, 1 tab(s), Oral, BID Zofran: 4 mg, 2 mL, IV Push, q4h, PRN: Nausea/Vomiting albuterol 2.5 mg/3 mL (0.083%) inhalation solution: 2.5 mg, 3 mL, Inhalation, QIDRT, PRN: Wheezing levothyroxine: 50 mcg, 1 tab(s), Oral, qDay prochlorperazine: 5 mg, 1 mL, IV Push, q6h, PRN: Nausea/Vomiting spironolactone: 100 mg, 1 tab(s), Oral, qDayM tranexamic acid 1 g / 100 mL 0.7% NaCl PMX: 1 gram(s), 100 mL, 300 mL/hr, IV Piggyback, PREOP pharm tranexamic acid 1 g / 100 mL 0.7% NaCl PMX: 1 gram(s), 100 mL, 300 mL/hr, IV Piggyback, PREOP pharm Documented Medications Documented Caplyta 42 mg oral capsule: 42 mg, 1 cap(s), Oral, qDay, 0 Refill(s) SUMAtriptan 50 mg oral tablet: 50 mg, 1 tab(s), Oral, qDay, PRN: for migraine headache, 0 Refill(s) Trelegy Ellipta 100 mcg-62.5 mcg-25 mcg/inh inhalation powder: 1 inh, Inhalation, qDay, 0 Refill(s) Ventolin HFA MDI (90 mcg/inh) inhalation aerosol: 1 puff(s), Inhalation, QID, PRN: as needed for wheezing, 0 Refill(s) Xifaxan 550 mg oral tablet: 550 mg, 1 tab(s), Oral, BID, 0 Refill(s) levothyroxine 50 mcg (0.05 mg) oral tablet: 50 mcg, 1 tab(s), Oral, qDay spironolactone 100 mg oral tablet: 100 mg, 1 tab(s), Oral, qDay, Medications (21) Active Scheduled: (10) albuterol - ipratropium 2.5 mg-0.5 mg/3 mL Inhal Belkis UD 3 mL, Inhalation, QIDRT budesonide 0.25 mg/2 mL Susp UD 0.25 mg 2 mL, Inhalation, BIDRT ceFAZolin syringe 2 gram(s) 20 mL, IV Push (INT), PREOP pharm docusate-senna (Senokot S) 50 mg-8.6 mg Tablet 1 tab(s), Oral, qDay levothyroxine 50 mcg tablet 50 mcg 1 tab(s), Oral, qDay lumateperone 42 mg capsule 42 mg 1 cap(s), Oral, qDay rifaximin 550 mg tablet 550 mg 1 tab(s), Oral, BID spironolactone 100 mg Tablet 100 mg 1 tab(s), Oral, qDayM tranexamic acid PMX 1 gram(s) 100 mL, IV Piggyback, PREOP pharm tranexamic acid PMX 1 gram(s) 100 mL, IV Piggyback, PREOP pharm Continuous: (1) Lactated Ringers 1,000 mL 1,000 mL, Intravenous, 100 mL/hr PRN: (10) acetaminophen 325 mg Tablet 650 mg 2 tab(s), Oral, q4h acetaminophen-OXYcodone 325 mg-5 mg Tablet 1 tab(s), Oral, q4h Al hydrox/Mg hydrox/simethicone 200-200-20 mg/5 mL Susp UD 30 mL, Oral, q2h albuterol 0.083% Soln UD (2.5mg/3 mL) 2.5 mg 3 mL, Inhalation, QIDRT dextrose 50% Solution Disp syringe 50 mL 12.5 gram(s) 25 mL, IV Push, AsDirected HYDROmorphone 0.5 mg/0.5 mL syringe 0.5 mg 0.5 mL, IV Push, q3h ondansetron 2 mg/ 1 mL 2 mL INJ 4 mg 2 mL, IV Push, q4h polyethylene glycol 3350 - UD packet 17 gram(s) 15 mL, Oral, qDay prochlorperazine 10 mg/2 mL vial 5 mg 1 mL, IV Push, q6h promethazine 12.5 mg tablet 12.5 mg 1 tab(s), Oral, q6h Problem list: Medical Acquired thrombocytopenia / SNOMED CT 264549281 / Confirmed Anemia / SNOMED CT 310515490 / Confirmed Arthritis / SNOMED CT 4982129 / Confirmed Biliary cirrhosis, unspecified / SNOMED CT 0026910 / Confirmed Bipolar disorder / SNOMED CT 45508893 / Confirmed Cataract / SNOMED CT 847312698 / Confirmed Chronic hepatic failure / SNOMED CT 929746083 / Confirmed Acid reflux / SNOMED CT 9569685533 / Confirmed Glasses / SNOMED CT 3767202424 / Confirmed High blood pressure / SNOMED CT 18295265 / Confirmed Migraine / SNOMED CT 05051593 / Confirmed Urinary incontinence / SNOMED CT 4651380516 / Confirmed, Active Problems (13) Acid reflux Acquired thrombocytopenia Anemia Arthritis Biliary cirrhosis, unspecified Bipolar disorder Cataract Chronic hepatic failure Glasses High blood pressure Migraine Tobacco use Urinary incontinence Histories Past Medical History: Active High blood pressure (73443781) Acid reflux (1536298714) Urinary incontinence (7167693495) Glasses (7285800425) Cataract (169631262) Migraine (26219474) Chronic hepatic failure (490696182) Biliary cirrhosis, unspecified (8749323) Acquired thrombocytopenia (186941251) Anemia (663644432) Arthritis (0110632) Bipolar disorder (15377941) Procedure history: EGD - Esophagogastroduodenoscopy (5652115346) on 12/08/2019 at 59 Years. Cholecystectomy (78809129) in 2017 at 56 Years. Hysterectomy (821843191) in 1997 at 37 Years. Social History: Social & Psychosocial Habits Alcohol 12/08/2019 Use: Past Substance Abuse 12/08/2019 Use: Never Tobacco 12/08/2019 Tobacco Use: 5-9 cigarettes (between 1 Physical Examination Measurements from flowsheet : Measurements 03/03/2024 23:52 EST Height 152.4 cm Height in inches 60 inch(es) Admission Weight 57.0 kg Weight Lbs 125.4 lb [place] Body Weight 45.50 kg BSA Admission 1.53 Body Mass Index 24.54 kg/m2 03/03/2024 12:50 EST Admission Weight 57.0 kg General: Alert and oriented, Mild distress. Airway: Normal temporomandibular joint mobility, Nares patent, Normal mouth. Head: Normocephalic. Dentition Evaluation: Dentures, lower, Dentures, upper. Neck: Supple, Non-tender. Respiratory: Lungs are clear to auscultation. Cardiovascular: Normal rate, Regular rhythm. Heart Sounds: Normal. Gastrointestinal: Soft. Musculoskeletal Normal range of motion. Integumentary: Intact, Warm, Dry. Neurologic: Alert, Oriented. Review / Management Documentation reviewed: Current records, Reviewed prior records. Assessment and Plan Acid reflux, Acquired thrombocytopenia, Anemia, Arthritis, Biliary cirrhosis, unspecified Bipolar disorder, Cataract, Chronic hepatic failure, Glasses High blood pressure, Migraine, Urinary incontinence [place] [employer] (ASA) physical status classification: Class III. Anesthetic Preoperative Plan Premedication: intravenous. Anesthetic technique: General. Induction: intravenously. Maintenance airway: Oral endotracheal tube. Postoperative pain management: Per surgeon. Risks discussed: nausea, vomiting, headache, sore throat, dental injury, hypotension, allergic reaction, serious complications. Informed consent: signed by patient. Digitally Signed by ALMAZ CAVAZOS on 03/04/2024 10:56 AM [id number] Nurse Progress note pt urine is cloudy with sediment and a foul odor Digitally Signed by Tera Robles RN on 03/04/2024 09:01 AM [id number] History and physical note Date of Service 03/03/2024 Chief Complaint Right intertrochanteric proximal femur fracture History of Present Illness 63 female who presents to the [place] ED following mechanical fall yesterday with CC of right hip pain. Patient states that she was out in her driveway when she slipped on the ice and then her right side. Endorses right hip pain. Denies other areas of pain. Denies head trauma, LOC. Denies numbness,paresthesia. No blood thinners. Independent ambulator. Lives at home .. Review of Systems musculoskeletal: Negative except as above in HPI. Skin: Negative except as above in HPI. Neurological: Negative except as above in HPI. ROS otherwise negative except as noted above in HPI Physical Exam Vitals and Measurements T: 36.9 C (Oral) HR: 85 RR: 18 BP: 149/86 SpO2: 95% WT: 57.0 kg Weight Dosing Weight: 57 kg (03/03/24) General Appearance: Lying in bed in no acute distress. Musculoskeletal: Right lower extremity: Shortened, held in external rotation. No ecchymosis. Tender palpation about the trochanteric region. Range of motion examination of the hip/knee deferred due to knowledge of existing fracture. Otherwise, unencumbered active and passive range of motion of the ankle/all digits.Brisk capillary refill all digits. Palpable DP/PT pulse. SILT sural/saphenous/tib/SP/DP. Fires EHL/FHL/TibAnt. Secondary musculoskeletal examination of the remaining limbs disclosed no deformity, bony tenderness, neurovascular abnormalities Lab Results No 36 Hour Lab Data Imaging Results and Diagnostics Radiographs of the right hip demonstrate a minimally displaced right intertrochanteric femur fracture, standard obliquity. No other acute osseous or soft tissue abnormality noted. Assessment/Plan Orders: XR Femur Minimum 2 Views Right, 03/03/24 17:12:00 EST, 03/03/24 17:12:00 EST, Routine, fx, Portable: Yes, Wt k, [facility], [facility] -63-year-old female presents after mechanical fall sustaining right intertrochanteric femur fracture. -Closed, isolated injury, patient neurovascularly intact -I explained to the patient the need for surgical intervention to prevent major morbidity mortalitywith nonoperative treatment. Patient voiced understanding and was agreeable to proceed. -Will obtain informed consent and plan for right hip cephalomedullary nail with Dr. Cota tomorrow 03/04/2024. -Hold any chemical DVT prophylaxis at this time - will order SCDs -Pain control -Multimodal -Bedrest, NWB right lower extremity -N.p.o. at midnight -Ancef on-call to the OR -We will order type and screen preoperatively. Labs are pending at this time -Ortho primary -Awaiting medical optimization, [facility] [place] consulted -Will discuss with Dr. Cota Problem List/Past Medical History Ongoing Acid reflux Acquired thrombocytopenia Anemia Arthritis Biliary cirrhosis, unspecified Bipolar disorder Cataract Chronic hepatic failure Glasses High blood pressure Migraine Urinary incontinence Procedure/Surgical History Cholecystectomy: 2017 Hysterectomy: 1998 Medications Home Medications (7) Active Caplyta 42 mg oral capsule 42 mg = 1 cap(s), Oral, qDay levothyroxine 50 mcg (0.05 mg) oral tablet 50 mcg = 1 tab(s), Oral, qDay spironolactone 100 mg oral tablet 100 mg = 1 tab(s), Oral, qDay SUMAtriptan 50 mg oral tablet 50 mg = 1 tab(s), PRN, Oral, qDay Trelegy Ellipta 100 mcg-62.5 mcg-25 mcg/inh inhalation powder 1 inh, Inhalation, qDay Ventolin HFA MDI (90 mcg/inh) inhalation aerosol 1 puff(s), PRN, Inhalation, QID Xifaxan 550 mg oral tablet 550 mg = 1 tab(s), Oral, BID Allergies Latex morphine Hives Social History Smoking Status - 08/03/2016 Current every day smoker Alcohol Use: Past., 12/08/2019 Substance Abuse Use: Never., 12/08/2019 Tobacco Nicotine Use: 5-9 cigarettes (between 1/4 to 1/2 pack)/day in last 30 days., 12/08/2019 Family History Patient was adopted Bipolar affective disorder: Brother. Health Status Family Member(s) Immunizations No qualifying data available. Code Status Code Status - Ordered -- 03/03/24 14:35:00 EST, Full Code, Constant Order Digitally Signed by MINOO VAZQUEZ MD on 03/03/2024 05:19 PM [id number] Note Date of Service 03/03/2024 Reason for Consultation risk stratification, medical optimization Referring Physician Dr Vazquez History of Present Illness 63-year-old female with a history of heart failure unknown EF records unavailable, hypertension, bipolar depression, cirrhosis, hypothyroid, thrombocytopenia, GERD, arthritis, chronic anemia and migraines presents with right hip pain. Patient took a fall after missing a step at home and fell onto her right side was brought into the emergency department imaging showed a right hip fracture she was admitted to the orthopedic service for which we are being consulted for restratification and medicaloptimization. Patient was seen and examined at the bedside she denies any history of CVA, CAD, diabetes, CKD. She has any current chest pain shortness of breath or palpitations EKG which I personallyreviewed interpreted showed a low voltage QRS with T wave inversion in V1 V2 V3 was present in V1 on prior CBC WBC of 4.1 H&H 14/41 platelets thrombocytopenic at 75 BMP unremarkable Review of Systems All pertinent positive and negative review of systems as per HPI, all other review of systems reviewed and negative Physical Exam Vitals and Measurements T: 37.0 C (Oral) TMIN: 36.9 C (Oral) TMAX: 37.0 C (Oral) HR: 82 RR: 18 BP: 106/83 SpO2: 92% WT: 57.0 kg Weight Dosing Weight: 57 kg (03/03/24) GENERAL:Well nourished ; no acute distress. ASSISTIVE DEVICES: None PSYCHIATRIC: appropriate HEENT moist mucous membranes extraocular muscles intact CARDIOVASCULAR: Regular rate, regular rhythm, no murmurs noted. Notrace lower extremity pitting edema. No lymphedema. Dorsalis Pedis pulses+2/4 blaterally . Posterior Tibialis pulses+2/4 bilaterally. RESPIRATORY: Regular rate and depth; no distress, RIGHT lungclear ; LEFT lungclear . Breath soundsnormal . NEURO: no focal deficits DERM: no acute rash Lab Results 03/03 18:12 WBC: 4.1 L Hgb: 14.4 Hct: 41.9 Platelet: 75 L Neutrophil %: 74.3 Protime: 13.2 PT International Ratio: 1.2 Glucose Level: 107 Sodium Level: 139 Potassium Level: 3.8 BUN: 10.0 Creatinine Lvl (s): 0.89 Assessment/Plan 63-year-old female with a history of heart failure with being admitted to the orthopedic service for right intra [place] Sherrick hip fracture we are being consulted for medical optimization and restratification she is considered low risk based on low risk criteria and medically optimized to proceed with surgery. Right hip fracture operative repair as per primary pain control as per primary Heart failure euvolemic stable GERD stable thrombocytopenia stable Hypothyroid continue home Synthroid cirrhosis on rifaximin and spironolactone stable Hypertension stable Cataract stable Bipolar depression stable Arthritis stable Anemia stable Migraines stable DVT prophylaxis CODE STATUS as per primary Problem List/Past Medical History Ongoing Acid reflux Acquired thrombocytopenia Anemia Arthritis Biliary cirrhosis, unspecified Bipolar disorder Cataract Chronic hepatic failure Glasses High blood pressure Migraine Urinary incontinence Procedure/Surgical History Cholecystectomy: 2016 Hysterectomy: 1997 Medications Inpatient albuterol 2.5 mg/3 mL (0.083%) inhalation solution, 2.5 mg, Inhalation, QIDRT, PRN Caplyta, 42 mg= 1 cap(s), Oral, qDay Dextrose 50% IV Push, 12.5 gram(s)= 25 mL, IV Push, AsDirected, PRN Dilaudid, 0.5 mg= 0.5 mL, IV Push, q3h, PRN DuoNeb 0.5 mg - 2.5 mg/3 mL inhalation soln, 3 mL, Inhalation, QIDRT Kefzol, 2 gram(s)= 20 mL, IV Push (INT), PREOP pharm levothyroxine, 50 mcg= 1 tab(s), Oral, qDay LR 1,000 mL, 1000 mL, Intravenous Maalox, 30 mL, Oral, q2h, PRN Miralax Powder Packet, 17 gram(s)= 15 mL, Oral, qDay, PRN Percocet 325/5, 1 tab(s), Oral, q4h, PRN Phenergan, 12.5 mg= 1 tab(s), Oral, q6h, PRN prochlorperazine, 5 mg= 1 mL, IV Push, q6h, PRN Pulmicort Respules 0.25 mg/2 mL inhalation suspension, 0.25 mg= 2 mL, Inhalation, BIDRT Senokot S, 1 tab(s), Oral, qDay spironolactone, 100 mg= 1 tab(s), Oral, qDayM tranexamic acid 1 g / 100 mL 0.7% NaCl PMX, 1 gram(s)= 100 mL, IV Piggyback, PREOP pharm tranexamic acid 1 g / 100 mL 0.7% NaCl PMX, 1 gram(s)= 100 mL, IV Piggyback, PREOP pharm Tylenol, 650 mg= 2 tab(s), Oral, q4h, PRN Xifaxan 550 mg oral tablet, 550 mg= 1 tab(s), Oral, BID Zofran, 4 mg= 2 mL, IV Push, q4h, PRN Home Caplyta 42 mg oral capsule, 42 mg= 1 cap(s), Oral, qDay levothyroxine 50 mcg (0.05 mg) oral tablet, 50 mcg= 1 tab(s), Oral, qDay spironolactone 100 mg oral tablet, 100 mg= 1 tab(s), Oral, qDay, Still taking, not as prescribed: see clinical note SUMAtriptan 50 mg oral tablet, 50 mg= 1 tab(s), Oral, qDay, PRN Trelegy Ellipta 100 mcg-62.5 mcg-25 mcg/inh inhalation powder, 1 inh, Inhalation, qDay, Still taking, not as prescribed: see clinical note Ventolin HFA MDI (90 mcg/inh) inhalation aerosol, 1 puff(s), Inhalation, QID, PRN Xifaxan 550 mg oral tablet, 550 mg= 1 tab(s), Oral, BID Allergies Latex morphine Hives Social History Smoking Status - 08/03/2016 Current every day smoker Alcohol Use: Past., 12/08/2019 Substance Abuse Use: Never., 12/08/2019 Tobacco Nicotine Use: 5-9 cigarettes (between 1/4 to 1/2 pack)/day in last 30 days., 12/08/2019 Family History Patient was adopted Bipolar affective disorder: Brother. Health Status Family Member(s) Immunizations No qualifying data available. Digitally Signed by ALIVIA ESCOBAR MD on 03/03/2024 11:31 PM [id number] NoteSINUS RHYTHM LOW VOLTAGE, EXTREMITY LEADS Electronic Signature: UBALDO GUNN MD 03/04/2024 12:14:28[facility] 12-06-2024 Note ORIGINAL EXAMINATION: ONE XRAY VIEW OF THE CHEST03/03/2024 5:42 pm COMPARISON: None HISTORY: ORDERING SYSTEM PROVIDED HISTORY: Reason for Exam: Preop FINDINGS: The cardiomediastinal contours are unremarkable. There is no consolidation, vascular congestion, pleural effusion, or pneumothorax. Deformed appearance of right head of humerus. Remote right rib fracture. IMPRESSION: No acute cardiopulmonary findings. Age-indeterminate fracture of the right proximal humerus. Recommend x-ray right shoulder if this is not previously diagnosed. I have personally reviewed the images of this examination and have edited the resident's findings and interpretation. Interpreted by: Stefan Turcios Preliminary Report By: Gilbert Francois Electronically signed By Stefan Turcios Dictated Date: 03/03/2024 6:24:06 PM Prelim Date: 03/03/2024 6:26:40 PM Sign Date: 03/03/2024 6:31:53 PM Ordering Provider: [facility]12-06-2024 Note ORIGINAL EXAMINATION: TWO XRAY VIEWS OF THE RIGHT FEMUR03/03/2024 5:41 pm COMPARISON: None HISTORY: ORDERING SYSTEM PROVIDED HISTORY: Reason for Exam: fx, FINDINGS: Minimally displaced right femur intratrochanteric fracture. Mild right hip joint arthrosis. No evidence of dislocation. Mild adjacent soft tissue swelling in right hip. IMPRESSION: Minimally displaced right femur intertrochanteric fracture. Preliminary Report was Dictated by a Resident I have personally reviewed the images of this examination and agree with the resident's findings and interpretation. Jagjit Hahn M.D. Interpreted by: Jagjit Hahn Preliminary Report By: Gilbert Francois Electronically signed By Jagjit Hahn Dictated Date: 03/03/2024 6:31:02 PM Prelim Date: 03/03/2024 6:36:05 PM Sign Date: 03/03/2024 6:40:42 PM Ordering Provider: [facility]12-06-2024 History and physical note Date of Service 03/03/2024 Chief Complaint Right intertrochanteric proximal femur fracture History of Present Illness 63 female who presents to the [facility] ED following mechanical fall yesterday with CC of right hip pain. Patient states that she was out in her driveway when she slipped on the ice and then her right side. Endorses right hip pain. Denies other areas of pain. Denies head trauma, LOC. Denies numbness,paresthesia. No blood thinners. Independent ambulator. Lives at home .. Review of Systems musculoskeletal: Negative except as above in HPI. Skin: Negative except as above in HPI. Neurological: Negative except as above in HPI. ROS otherwise negative except as noted above in HPI Physical Exam Vitals and Measurements T: 36.9 C (Oral) HR: 85 RR: 18 BP: 149/86 SpO2: 95% WT: 57.0 kg Weight Dosing Weight: 57 kg (03/03/24) General Appearance: Lying in bed in no acute distress. Musculoskeletal: Right lower extremity: Shortened, held in external rotation. No ecchymosis. Tender palpation about the trochanteric region. Range of motion examination of the hip/knee deferred due to knowledge of existing fracture. Otherwise, unencumbered active and passive range of motion of the ankle/all digits.Brisk capillary refill all digits. Palpable DP/PT pulse. SILT sural/saphenous/tib/SP/DP. Fires EHL/FHL/TibAnt. Secondary musculoskeletal examination of the remaining limbs disclosed no deformity, bony tenderness, neurovascular abnormalities Lab Results No 36 Hour Lab Data Imaging Results and Diagnostics Radiographs of the right hip demonstrate a minimally displaced right intertrochanteric femur fracture, standard obliquity. No other acute osseous or soft tissue abnormality noted. Assessment/Plan Orders: XR Femur Minimum 2 Views Right, 03/03/24 17:12:00 EST, 03/03/24 17:12:00 EST, Routine, fx, Portable: Yes, Wt k, [facility], [facility] -63-year-old female presents after mechanical fall sustaining right intertrochanteric femur fracture. -Closed, isolated injury, patient neurovascularly intact -I explained to the patient the need for surgical intervention to prevent major morbidity mortalitywith nonoperative treatment. Patient voiced understanding and was agreeable to proceed. -Will obtain informed consent and plan for right hip cephalomedullary nail with Dr. Cota tomorrow 03/04/2024. -Hold any chemical DVT prophylaxis at this time - will order SCDs -Pain control -Multimodal -Bedrest, NWB right lower extremity -N.p.o. at midnight -Ancef on-call to the OR -We will order type and screen preoperatively. Labs are pending at this time -Ortho primary -Awaiting medical optimization, [facility] consulted -Will discuss with Dr. Cota Problem List/Past Medical History Ongoing Acid reflux Acquired thrombocytopenia Anemia Arthritis Biliary cirrhosis, unspecified Bipolar disorder Cataract Chronic hepatic failure Glasses High blood pressure Migraine Urinary incontinence Procedure/Surgical History Cholecystectomy: 2017 Hysterectomy: 1998 Medications Home Medications (7) Active Caplyta 42 mg oral capsule 42 mg = 1 cap(s), Oral, qDay levothyroxine 50 mcg (0.05 mg) oral tablet 50 mcg = 1 tab(s), Oral, qDay spironolactone 100 mg oral tablet 100 mg = 1 tab(s), Oral, qDay SUMAtriptan 50 mg oral tablet 50 mg = 1 tab(s), PRN, Oral, qDay Trelegy Ellipta 100 mcg-62.5 mcg-25 mcg/inh inhalation powder 1 inh, Inhalation, qDay Ventolin HFA MDI (90 mcg/inh) inhalation aerosol 1 puff(s), PRN, Inhalation, QID Xifaxan 550 mg oral tablet 550 mg = 1 tab(s), Oral, BID Allergies Latex morphine Hives Social History Smoking Status - 08/03/2016 Current every day smoker Alcohol Use: Past., 12/08/2019 Substance Abuse Use: Never., 12/08/2019 Tobacco Nicotine Use: 5-9 cigarettes (between 1/4 to 1/2 pack)/day in last 30 days., 12/08/2019 Family History Patient was adopted Bipolar affective disorder: Brother. Health Status Family Member(s) Immunizations No qualifying data available. Code Status Code Status - Ordered -- 03/03/24 14:35:00 EST, Full Code, Constant Order Digitally Signed by MINOO VAZQUEZ MD on 03/03/2024 05:19 PM [id number] Discharge instructions Follow Up Care 03/03/2024 12:54:54 With:Discharge to [facility]: Address:Unknown When:1-2 days With:SANTIAGO LIDIA Address: [address] [place] [phone] [phone] Business (1) When:1-2 days With:HANK COTA DO, Orthopedic Address: [address] [place] [address]- [phone] When:Within 2 Week(s) Comments:Post op follow up [facility] 12-06-2024 Evaluation + Plan noteExtracted from: Title:History and Physical Author:JAIRO VAZQUEZ MD Date:03/03/24 Orders: XR Femur Minimum 2 Views Right, 03/03/24 17:12:00 EST, 03/03/24 17:12:00 EST, Routine, fx, Portable: Yes, Wt k, [facility], [facility] -63-year-old female presents after mechanical fall sustaining right intertrochanteric femur fracture. -Closed, isolated injury, patient neurovascularly intact -I explained to the patient the need for surgical intervention to prevent major morbidity mortality with nonoperative treatment. Patient voiced understanding and was agreeable to proceed. -Will obtain informed consent and plan for right hip cephalomedullary nail with Dr. Cota tomorrow 03/04/2024. -Hold any chemical DVT prophylaxis at this time - will order SCDs -Pain control -Multimodal -Bedrest, NWB right lower extremity -N.p.o. at midnight -Ancef on-call to the OR -We will order type and screen preoperatively. Labs are pending at this time -Ortho primary -Awaiting medical optimization, [facility] [place] consulted -Will discuss with Dr. Cota Addendum by HANK COTA DO on March 04, 2024 08:31:41 EST Patient seen and examined person by myself yesterday in the emergency department. Discussed with her plan for short cephalomedullary nail. Does have a history of thrombocytopenia and hepatitis C. Discussed she is increased risk for bleeding. Discussed other risk benefits and alternatives. Risk including damage to nerves, blood vessels, and tendons, bleeding, infection, malunion, nonunion, failure of fixation, need for further operative stabilization, loss of life and limb. Patient understands informed consent was obtained. Plan for surgery today 03/04/2024. [facility] 12-06-2024 NoteDischarge Instructions Discharge Summary [address] [place] [address] [phone] 03/03/2024 Patient: CARLOS OLIVER Sex: Female : 1960 Age: 63y Thank you for visiting [facility]. You have been evaluated today by Jose La D.O. for the following condition(s): Principal Diagnosis Closed nondisplaced intertrochanteric fracture of the right femur. Thrombocytopenia. Hypokalemia. 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 [address] [phone] 03/03/2024 Patient: CARLOS OLIVER Sex: Female : 1960 Age: 63y Thank you for visiting [facility]. You have been evaluated today by Jose La D.O. for the following condition(s): 1 of 2 Discharge Instructions Principal Diagnosis Closed nondisplaced intertrochanteric fracture of the right femur. Thrombocytopenia. Hypokalemia. [address] [place], [place] [id number] Evaluation + Plan noteExtracted from: Title:Clinical Document Author:STEVEN MADDOX Date:01/22/23 [place] ADMISSION HISTORY AN D PHYSICIAL CHIEF COMPLAINT: HISTORY OF PRESENT ILLNESS: REVIEW OF SYSTEMS: ACTIVE PROBLEMS: (13) Acid reflux (2127821932) Acquired thrombocytopenia (655668517) Anemia (574974800) Arthritis (9452667) Biliary cirrhosis, unspecified (2032350) Bipolar disorder (81838342) Cataract (193448699) Chronic hepatic failure (482278768) Glasses (2093852774) High blood pressure (12394593) Migraine (18936436) Tobacco use (8856572253) Urinary incontinence (3319940042) MEDICATIONS: Active Inpt Meds: None Active PRN Meds: None One Time Meds: None Active IV Meds: Lactated Ringers Infusion 1,000 mL (LR 1,000 mL) Start: 01/22/23 8:46:00 EDT, Rate: 50 mL/hr, 01/22/23 8:46:00 EDT ALLERGIES: (2) Latex morphine FAMILY HISTORY: SOCIAL HISTORY: PHYSICAL EXAM: VITALS: ClncykAlzaDHOkbrrAXYuL3EJJ8ZsisBi(kg) 01/22 09:22----6320-- 3.0L/m1 57.0 01/22 09:0436.5--990866-- 24 Hr Tmax: 36.5 at 01/22 09:04 36 Hr Tmax: 36.5 at 01/22 09:04 Vital Signs are the last 5 in the past 48 hours. Weights display the last 5 within 7 days. Initial Wt: 01/22 57.0 kg 125 lb Current Wt: 01/22 57.0 kg 125 lb GENERAL: HEENT: CARDIOVASCULAR: RESPIRATORY: ABDOMEN: EXREMETIES: NEUROLOGICAL: PSYCHIATRIC: LABS: No 36hr Lab Data DIAGNOSTICS: IMPRESSION: PLAN: History and Physical Update I have examined the patient; reviewed the H&P and there are no changes to the H&P unless noted below. [facility] 10-27-2023 Hospital Discharge instructions Patient Education 01/22/2023 09:37:45 9 - AO Minor Esophagogastroduodenoscopy (06/09)(CUSTOM) Esophagogastroduodenoscopy This is an endoscopic procedure (a procedure that uses a device like a flexible telescope) that allows your caregiver to view the upper stomach and small bowel. This test allows your caregiver to look at the esophagus. The esophagus carries food from your mouth to your stomach. They can also look at your duodenum. This is the first part of the small intestine that attaches to the stomach. This joesph t is used to detect problems in the bowel such as ulcers and inflammation. MEANING OF TEST Your caregiver will go over the test results with you and discuss the importance and meaning of your results, as well as treatment options and the need for additional tests if necessary. OBTAINING THE TEST RESULTS Your caregiver s office will call you with the results of the test. POST SEDATION INSTRUCTIONS Rest at home today. Since your coordination may be impaired, be cautious on stairways, do not drive any vehicle or operate any heavy machinery, or use any sharp instruments for the remainder of the day. Do not drink any alcoholic beverages or make any major decisions for 24 hours. POST PROCEDURE INSTRUCTIONS Progress slowly with full liquids then resume previous diet and medications. Belching or passing of gas is to be expected. Notify the physician if you have severe chest pain, fever, or if difficulty when swallowing persists. 06/06/13 Custom 01/22/2023 09:37:33 Monitored Anesthesia Care, Care After Monitored Anesthesia Care, Care After These instructions provide you with information about caring for yourself after your procedure. Your health care provider may also give you more specific instructions. Your treatment has been plannedaccording to current medical practices, but problems sometimes occur. Call your health care provider if you have any problems or questions after your procedure. What can I expect after the procedure? After your procedure, you may: Feel sleepy for several hours. Feel clumsy and have poor balance for several hours. Feel forgetful about what happened after the procedure. Have poor judgment for several hours. Feel nauseous or vomit. Have a sore throat if you had a breathing tube during the procedure. Follow these instructions at home: For at least 24 hours after the procedure: Have a responsible adult stay with you. It is important to have someone help care for you until youare awake and alert. Rest as needed. Do not: ?Participate in activities in which you could fall or become injured. ?Drive. ?Use heavy machinery. ?Drink alcohol. ?Take sleeping pills or medicines that cause drowsiness. ?Make important decisions or sign legal documents. ?Take care of children on your own. Eating and drinking Follow the diet that is recommended by your health care provider. If you vomit, drink water, juice, or soup when you can drink without vomiting. Make sure you have little or no nausea before eating solid foods. General instructions Take ljbg-zby-gzwuxqx and prescription medicines only as told by your health care provider. If you have sleep apnea, surgery and certain medicines can increase your risk for breathing problems. Follow instructions from your health care provider about wearing your sleep device: ?Anytime you are sleeping, including during daytime naps. ?While taking prescription pain medicines, sleeping medicines, or medicines that make you drowsy. If you smoke, do not smoke without supervision. Keep all follow-up visits as told by your health care provider. This is important. Contact a health care provider if: You keep feeling nauseous or you keep vomiting. You feel light-headed. You develop a rash. You have a fever. Get help right away if: You have trouble breathing. Summary For several hours after your procedure, you may feel sleepy and have poor judgment. Have a responsible adult stay with you for at least 24 hours or until you are awake and alert. This information is not intended to replace advice given to you by your health care provider. Make sure you discuss any questions you have with your health care provider. Document Released: 07/05/2016 Document Revised: 06/13/2018 Document Reviewed: 07/05/2016 [employer] Patient Education 2020 [employer]. Follow Up Care 01/21/2023 11:31:20 With:STEVEN MADDOX MD Address: [address] [place] [address] [address] [place] [address] [phone] When: Unknown Comments:Follow-up as needed [facility] 10-27-2023 Summary of episode note Discharge Instructions Thank you for allowing [facility] to assist you with your healthcare needs. The following is importantdischarge information regarding your hospital visit. Your Care Team SANTIAGO MURILLO PUBLIC HEALTH ASSISTANT What to do next Follow Up Appointments Follow Up with STEVEN MADDOX MD When Why: Follow-up as needed Where: [address] [facility] [address] [place] [address] [phone] The Following Activity and Diet Have Been Ordered for You No qualifying data available. No qualifying data available. The Following Equipment Has Been Ordered for You No qualifying data available. The Following Treatments Have Been Ordered for You Discharge Labs No qualifying data available. Discharge Radiology No qualifying data available. Other Therapies No qualifying data available. Post Acute Orders No qualifying data available. Someone Will Contact You Regarding These Home Health Referrals No home referrals have been ordered for you. No one will call you. Allergies Latex morphine (Hives) Medications Please ask your primary doctor or pharmacist before taking any other medication not listed, including over the counter drugs, herbal medications, vitamins and or supplements as they may interact withyour home medications. What How Much When Instructions Last Dose Unchanged albuterol (Ventolin HFA MDI (90 mcg/ inh) inhalation aerosol) 1 puff(s) by inhalation Four (4) times a day as needed for as needed for wheezing Unchanged amitriptyline (amitriptyline 75 mg oral tablet) TAKE 1 TABLET BY MOUTH EVERYDAY AT BEDTIME Unchanged cholecalciferol (Vitamin D3 50,000 intl units oral capsule) 1 cap by mouth Every week Unchanged escitalopram (escitalopram 20 mg oral tablet) 1 tab(s) by mouth Once a day Unchanged fluticasone nasal (fluticasone 50 mcg/ inh NASAL spray) 1 spray(s) each nostril Once a day (in the morning) Unchanged fluticasone-salmeterol (Wixela Inhub 250 mcg-50 mcg inhalation powder) INHALE 1 PUFF BY MOUTH TWICE A DAY Unchanged fluticasone/ umeclidinium/ vilanterol (Trelegy Ellipta 100 mcg-62.5 mcg-25 mcg/ inh inhalation powder) 1 puff(s) by inhalation Once a day at the same time every day. Following administration, rinse mouth with water after use (do not swallow). Unchanged lactulose (lactulose 10 g/ 15 mL oral syrup) 15 Milliliter by mouth Two (2) times a day Unchanged lithium (lithium 150 mg oral capsule) 1 cap by mouth Two (2) times a day Unchanged lumateperone (Caplyta 42 mg oral capsule) 1 cap by mouth Once a day Unchanged magnesium oxide 400 Milligram by mouth Three (3) times a day Unchanged meloxicam (meloxicam 15 mg oral tablet) 1 tab(s) by mouth Once a day Take with food/ milk Unchanged metoprolol (Toprol-XL 25 mg oral tablet, extended release) 0.5 tab(s) by mouth Once a day Unchanged mirtazapine (mirtazapine 15 mg oral tablet) 1 tab(s) by mouth Daily at bedtime Unchanged oxyCODONE (OxyIR) 5 Milligram by mouth Every 6 hours as needed for as needed for pain Unchanged potassium chloride 20 Milliequivalent by mouth Every day Unchanged rifaximin (Xifaxan 550 mg oral tablet) 1 tab(s) by mouth Two (2) times a day Unchanged roflumilast (Roflumilast 500 mcg oral tablet) Unchanged SUMAtriptan (SUMAtriptan 50 mg oral tablet) 1 tab(s) by mouth Every day as needed for for migraine headache Please take this list to your next doctor s visit. Bring all medications you take, including over the counter medications, herbals and other supplements with you to your doctor s visit. Patients and families are reminded to discard old lists and to update any records with all medication providers or retail pharmacies. Education Materials Esophagogastroduodenoscopy This is an endoscopic procedure (a procedure that uses a device like a flexible telescope) that allows your caregiver to view the upper stomach and small bowel. This test allows your caregiver to look at the esophagus. The esophagus carries food from your mouth to your stomach. They can also look at your duodenum. This is the first part of the small intestine that attaches to the stomach. This joesph t is used to detect problems in the bowel such as ulcers and inflammation. MEANING OF TEST Your caregiver will go over the test results with you and discuss the importance and meaning of your results, as well as treatment options and the need for additional tests if necessary. OBTAINING THE TEST RESULTS Your caregiver s office will call you with the results of the test. POST SEDATION INSTRUCTIONS Rest at home today. Since your coordination may be impaired, be cautious on stairways, do not drive any vehicle or operate any heavy machinery, or use any sharp instruments for the remainder of the day. Do not drink any alcoholic beverages or make any major decisions for 24 hours. POST PROCEDURE INSTRUCTIONS Progress slowly with full liquids then resume previous diet and medications. Belching or passing of gas is to be expected. Notify the physician if you have severe chest pain, fever, or if difficulty when swallowing persists. 06/06/13 Custom Monitored Anesthesia Care, Care After These instructions provide you with information about caring for yourself after your procedure. Your health care provider may also give you more specific instructions. Your treatment has been plannedaccording to current medical practices, but problems sometimes occur. Call your health care provider if you have any problems or questions after your procedure. What can I expect after the procedure? After your procedure, you may: Feel sleepy for several hours. Feel clumsy and have poor balance for several hours. Feel forgetful about what happened after the procedure. Have poor judgment for several hours. Feel nauseous or vomit. Have a sore throat if you had a breathing tube during the procedure. Follow these instructions at home: For at least 24 hours after the procedure: Have a responsible adult stay with you. It is important to have someone help care for you until youare awake and alert. Rest as needed. Do not: ? Participate in activities in which you could fall or become injured. ? Drive. ? Use heavy machinery. ? Drink alcohol. ? Take sleeping pills or medicines that cause drowsiness. ? Make important decisions or sign legal documents. ? Take care of children on your own. Eating and drinking Follow the diet that is recommended by your health care provider. If you vomit, drink water, juice, or soup when you can drink without vomiting. Make sure you have little or no nausea before eating solid foods. General instructions Take mlmn-ami-sumyypw and prescription medicines only as told by your health care provider. If you have sleep apnea, surgery and certain medicines can increase your risk for breathing problems. Follow instructions from your health care provider about wearing your sleep device: ? Anytime you are sleeping, including during daytime naps. ? While taking prescription pain medicines, sleeping medicines, or medicines that make you drowsy. If you smoke, do not smoke without supervision. Keep all follow-up visits as told by your health care provider. This is important. Contact a health care provider if: You keep feeling nauseous or you keep vomiting. You feel light-headed. You develop a rash. You have a fever. Get help right away if: You have trouble breathing. Summary For several hours after your procedure, you may feel sleepy and have poor judgment. Have a responsible adult stay with you for at least 24 hours or until you are awake and alert. This information is not intended to replace advice given to you by your health care provider. Make sure you discuss any questions you have with your health care provider. Document Released: 07/05/2016 Document Revised: 06/13/2018 Document Reviewed: 07/05/2016 [employer] Patient Education 2020 [employer]. Additional Information VACCINATE! IT SAVES LIVES! Members of the community who have not yet received the COVID-19 vaccine and would like to receive it can visit one of [facility] vaccine clinics. There are many vaccine clinic locations within the [facility]. For locations and available times, please visit https://gettheshot.coronavirus.[place].gov/. It is important to note that some COVID mobile vaccine clinics are held outdoors and may be canceled in rainy or stormy conditions. To learn more about pediatric vaccinations (ages 5-11), we invite you to visit the [facility] webpage. https://www.[facility].org/pages/2575-Tfljh-Rziidccipos-Xtfjcpzfoy-Coefm-Voj stions.htmlTo learn more about the COVID-19 vaccine, we invite you to visit the CDC website for a list of frequently asked questions.https://www.cdc.gov/coronavirus/2019-ncov/vaccines/faq.html [facility] [facility] Patient Portal Access Instructions: Stay connected with your healthcare team and access your personal medical information anytime with the [facility] Patient Portal. Please follow the directions below to create your [facility] account: 1.Access the email account you provided upon registration to the hospital/physician office.2.Look for an invitation email from [facility].3.Open the email and access the invitation link: AcceptInvitation to [facility] [employer] [facility].4.Fill in the required garrett to create your account. To access your account, visit [email or web address]. Click the blue button labeled Access Patient Portal and then log in with the username and password that you created in the steps above. You will be able to view your test results, lab results, a summary of your visits, upcoming appointments and more. There is also a convenient messaging option where you can send secure messages to your p [employer]. In addition, you will have the ability to download any documents or summaries to your computer and/or send the information securely to a physician. Remember that your healthcare information is confidential, so carefully consider who you will allowto register on the [facility] [employer] Patient Portal for access to your information. You can also access the [facility] Patient Portal on the [facility] [facility] maryann. Simply click on Patient Portal and then log into your account. If you would like to receive a full copy of your medical records, please contact the [facility] Medical Records Department by calling [phone], Wednesday through Wednesday between 8 a.m. and 4:30 p.m. HOW TO SAFELY DISPOSE OF PRESCRIPTION MEDICATIONS Please use one of the following methods to safely dispose of your unused medications. 1.Use a drug disposal kit: the drug disposal pouch allows you to safely discard your old and unuseddrugs. Ask your nurse to give you one when you are discharged.2.Visit a local take-back location: Many local pharmacies and police departments have programs that collect old and unwanted prescriptiondrugs. Call your local pharmacy or go to http://bit.ShopIgniter/3B7Ih9h to find one close to you.3.Make use of household items: Use cat litter or old coffee grounds to dispose medications if other options arenot available. Mix your drugs with these household products, seal them in an airtight container andthrow it into the garbage. Call [facility]: [phone] to be sure your drugs can be disposed of in this way. Some medicines may require a different approach.4.Never flush your medications down the toilet. IF YOU HAVE BEEN PRESCRIBED AN OPIOID FOR PAIN If you have been prescribed an opioid (such as hydrocodone, oxycodone or morphine), it is critical to understand the possible side effects and risks of opioid pain medications. Even when taken as directed, opioids can have several side effects including: Tolerance, meaning you might need to take more of a medication for the same pain relief. Nausea, vomiting and/or constipation. Sleepiness, dizziness, dry mouth, confusion, depression or itching. Physical dependence, meaning you have withdrawal symptoms when a medication is stopped, can develop within a few days. KNOW YOUR RESPONSIBILITIES It is important to know exactly how much and how often to take the opioid pain medications you are prescribed. Never take opioids in higher amounts or more often than prescribed. Do not combine opioids with alcohol or other drugs that cause drowsiness, such as benzodiazepines, also known as benzos, including diazepam and alprazolam, muscle relaxants or sleep aids. Never sell or share prescription opioids. This is illegal. Store opioids in a secure place and out of reach of others (including children, family, friends and visitors). The last page of this document has been signed and retained as a CHART COPY. Signatures Patient Education Materials 9 - AO Minor Esophagogastroduodenoscopy (06/09)(CUSTOM) Monitored Anesthesia Care, Care After Medication Leaflets My discharge plan and instructions have been reviewed and explained to me and I,CARLOS OLIVER understand my current condition and have read and understand these discharge instructions. I have received a written copy of the plan/instructions. If I have questions, I am aware that I should contact my doctor. 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 Signature: Date/Time: Relationship to Patient: Witness Name/Signature: Date/Time: [facility]10-27-2023 Anesthesiology Consult note Patient: CARLOS OLIVER Age: 62 years Sex: Female : 1960 Associated Diagnoses: None Author: MARIPOSA OBREGON Assessment Postanesthesia assessment Mental status: alert & oriented x 4. Respiratory function: lungs are clear to auscultation. Respiratory support: none. CV function: Normal rate. Cardiovascular support: none. Pain. Nausea status: denies nausea. Postoperative hydration status: within normal limits. Digitally Signed by MARIPOSA OBREGON on 01/22/2023 10:07 AM [facility]10-27-2023 Note [place] ADMISSION HISTORY AND PHYSICIAL CHIEF COMPLAINT: HISTORY OF PRESENT ILLNESS: REVIEW OF SYSTEMS: ACTIVE PROBLEMS: (13) Acid reflux (4353339399) Acquired thrombocytopenia (244077089) Anemia (038836620) Arthritis (1016981) Biliary cirrhosis, unspecified (3751585) Bipolar disorder (26182050) Cataract (015041638) Chronic hepatic failure (986740312) Glasses (0063724215) High blood pressure (32078321) Migraine (91089573) Tobacco use (0616616475) Urinary incontinence (4598417790) MEDICATIONS: Active Inpt Meds: None Active PRN Meds: None One Time Meds: None Active IV Meds: Lactated Ringers Infusion 1,000 mL (LR 1,000 mL) Start: 01/22/23 8:46:00 EDT, Rate: 50 mL/hr, 01/22/23 8:46:00 EDT ALLERGIES: (2) Latex morphine FAMILY HISTORY: SOCIAL HISTORY: PHYSICAL EXAM: VITALS: [id number](kg) 01/22 09:22----6320-- 3.0L/m1 57.0 01/22 09:0436.5--090983-- 24 Hr Tmax: 36.5 at 01/22 09:04 36 Hr Tmax: 36.5 at 01/22 09:04 Vital Signs are the last 5 in the past 48 hours. Weights display the last 5 within 7 days. Initial Wt: 01/22 57.0 kg 125 lb Current Wt: 01/22 57.0 kg 125 lb GENERAL: HEENT: CARDIOVASCULAR: RESPIRATORY: ABDOMEN: EXREMETIES: NEUROLOGICAL: PSYCHIATRIC: LABS: No 36hr Lab Data DIAGNOSTICS: IMPRESSION: PLAN: History and Physical Update I have examined the patient; reviewed the H&P and there are no changes to the H&P unless noted below. Digitally Signed by STEVEN MADDOX MD on 01/22/2023 09:57 AM [facility]10-27-2023 Anesthesiology Consult note Patient: CARLOS OLIVER Age: 62 years Sex: Female : 1960 Associated Diagnoses: None Author: MARIPOSA OBREGON APRN-SUBSTATION OPERATOR CONVERSION Preoperative Information Time of last food or liquid consumption: 01/22/2023 00:00:00 Anesthesia history Patient's history: negative. Family's history: negative. Review of Systems Ear/Nose/Mouth/Throat: Negative. Respiratory: smoker. Cardiovascular: anemia, htn. Gastrointestinal: Reflux. Genitourinary: Urinary incontinence. Endocrine: cirrhois liver, liver failure. Musculoskeletal: Negative. Integumentary: Negative. Neurologic: bipolar. Health Status Allergies: Allergic Reactions (Selected) Severity Not Documented Latex- No reactions were documented. Morphine- Hives., Allergies (2) ActiveReaction LatexNone Documented morphineHives Current medications: (Selected) Inpatient Medications Ordered LR 1,000 mL: 50 mL/hr, Intravenous Prescriptions Prescribed Toprol-XL 25 mg oral tablet, extended release: 12.5 mg, 0.5 tab(s), Oral, qDay, 15 tab(s), 3 Refill(s) Documented Medications Documented Caplyta 42 mg oral capsule: 42 mg, 1 cap(s), Oral, qDay, 30 cap(s), 0 Refill(s) OxyIR: 5 mg, Oral, q6hr, PRN: as needed for pain, 0 Refill(s) Roflumilast 500 mcg oral tablet: 0 Refill(s) SUMAtriptan 50 mg oral tablet: 50 mg, 1 tab(s), Oral, Daily, PRN: for migraine headache, 18 tab(s),0 Refill(s) Trelegy Ellipta 100 mcg-62.5 mcg-25 mcg/inh inhalation powder: 1 puff(s), Inhalation, qDay, at the same time every day. Following administration, rinse mouth with water after use (do not swallow)., 60 EA, 0 Refill(s) Ventolin HFA MDI (90 mcg/inh) inhalation aerosol: 1 puff(s), Inhalation, QID, PRN: as needed for wheezing, 18 gram(s), 0 Refill(s) Vitamin D3 50,000 intl units oral capsule: 50,000 International_Unit, 1 cap(s), Oral, qWeek, 0 Refill(s) Wixela Inhub 250 mcg-50 mcg inhalation powder: INHALE 1 PUFF BY MOUTH TWICE A DAY Xifaxan 550 mg oral tablet: 550 mg, 1 tab(s), Oral, BID, 60 tab(s), 0 Refill(s) amitriptyline 75 mg oral tablet: TAKE 1 TABLET BY MOUTH EVERYDAY AT BEDTIME escitalopram 20 mg oral tablet: 20 mg, 1 tab(s), Oral, qDay, 30 tab(s), 0 Refill(s) fluticasone 50 mcg/inh NASAL spray: 1 spray(s), Nostril, each, qAM, 0 Refill(s) lactulose 10 g/15 mL oral syrup: 10 gram(s), 15 mL, Oral, BID, 480 mL, 0 Refill(s) lithium 150 mg oral capsule: 150 mg, 1 cap(s), Oral, BID, 0 Refill(s) magnesium oxide: 400 mg, Oral, TID, 0 Refill(s) meloxicam 15 mg oral tablet: 15 mg, 1 tab(s), Oral, qDay, Take with food/milk, 30 tab(s), 0 Refill(s) mirtazapine 15 mg oral tablet: 15 mg, 1 tab(s), Oral, qHS, 30 tab(s), 0 Refill(s) potassium chloride: 20 mEq, Oral, Daily, 0 Refill(s), Medications (1) Active Scheduled: (0) Continuous: (1) Lactated Ringers Infusion 1,000 mL 1,000 mL, Intravenous, 50 mL/hr PRN: (0) Problem list: Medical Acquired thrombocytopenia / SNOMED CT 476982655 / Confirmed Anemia / SNOMED CT 705084648 / Confirmed Arthritis / SNOMED CT 7028852 / Confirmed Biliary cirrhosis, unspecified / SNOMED CT 8099273 / Confirmed Bipolar disorder / SNOMED CT 02783394 / Confirmed Cataract / SNOMED CT 704353247 / Confirmed Chronic hepatic failure / SNOMED CT 050215118 / Confirmed Acid reflux / SNOMED CT 5542828598 / Confirmed Glasses / SNOMED CT 7676592202 / Confirmed High blood pressure / SNOMED CT 32460907 / Confirmed Migraine / SNOMED CT 37033263 / Confirmed Urinary incontinence / SNOMED CT 9118124874 / Confirmed, Active Problems (13) Acid reflux Acquired thrombocytopenia Anemia Arthritis Biliary cirrhosis, unspecified Bipolar disorder Cataract Chronic hepatic failure Glasses High blood pressure Migraine Tobacco use Urinary incontinence Histories Past Medical History: Active High blood pressure (92211977) Acid reflux (0763908306) Urinary incontinence (0293407493) Glasses (7622098294) Cataract (381188322) Migraine (03227216) Chronic hepatic failure (323494791) Biliary cirrhosis, unspecified (0772317) Acquired thrombocytopenia (564999514) Anemia (540276084) Arthritis (5883829) Bipolar disorder (32665447) Family History: Patient was adopted. Bipolar affective disorder Brother Procedure history: EGD - Esophagogastroduodenoscopy (6327162412) on 12/08/2019 at 59 Years. Cholecystectomy (69640305) in 2017 at 56 Years. Hysterectomy (864253124) in 1997 at 37 Years. Social History Social & Psychosocial Habits Alcohol 12/08/2019 Use: Past Substance Abuse 12/08/2019 Use: Never Tobacco 12/08/2019 Tobacco Use: 5-9 cigarettes (between 1 . Physical Examination Vital Signs 01/22/2023 9:22 EDT Peripheral Pulse Rate 63 bpm Respiratory Rate 20 br/min Systolic Blood Pressure Non-Invasive In Error mmHg (In Error) Diastolic Blood Pressure Non-Invasive In Error mmHg (In Error) 01/22/2023 9:04 EDT Temperature Temporal Artery 36.5 DegC Peripheral Pulse Rate 61 bpm Respiratory Rate 22 br/min HI Systolic Blood Pressure Non-Invasive 111 mmHg Diastolic Blood Pressure Non-Invasive 57 mmHg LOW Vital Signs(last 24 hrs) Last Charted Resp Rate 20 br/min (JAN 22 09:22) WBO585 mmHg (JAN 22 09:04) DBPL 57mmHg (JAN 22 09:04) BMI24.67 (JAN 22:04) Measurements from flowsheet : Measurements 01/22/2023 9:04 EDT Height 152 cm Admission Weight 57 kg Weight Method Stated [place] Body Weight 45.14 kg BSA Admission 1.53 Body Mass Index 24.67 kg/m2 Pain assessment: Pain Assessment 01/22/2023 9:22 EDT Primary Pain Nonverbal Response Appears restful Pain Scale Type Behavioral pain scale . General: Alert and oriented. Airway: Normal temporomandibular joint mobility. Mallampati classification: II (soft palate, fauces, uvula visible). Head: Normocephalic. Dentition Evaluation: Dentures, lower, Dentures, upper. Neck: Non-tender. Respiratory: Lungs are clear to auscultation. Cardiovascular: Normal rate. Heart Sounds: Normal. Gastrointestinal: Soft. Musculoskeletal Normal range of motion. Integumentary: Intact. Neurologic: Alert, Oriented. Review / Management Results review: No qualifying data available , Lab results 01/22/2023 9:48 EDT SN - GCD - Post-operative Diagnosis CIRRHOSIS SN - GCD - Case Level OPD Level 3 01/22/2023 9:47 EDT SN - CAt - Case Attendee SN - CAt - Case Attendee SN - CAt - Case Attendee SN - CAt - Case Attendee SN - CAt - Case Attendee SN - CAt - Case Attendee SN - CAt - Case Attendee SN - CAt - Case Attendee SN - CAt - Role Performed Detail Technician 1 SN - CAt - Role Performed SUBSTATION OPERATOR CONVERSION SN - CAt - Role Performed Procedure Nurse SN - CAt - Role Performed Primary Surgeon 01/22/2023 9:45 EDT Main OR PACU Record AO Endo PACU Record 01/22/2023 9:22 EDT Peripheral Pulse Rate 63 bpm Respiratory Rate 20 br/min Systolic Blood Pressure Non-Invasive In Error mmHg (In Error) Diastolic Blood Pressure Non-Invasive In Error mmHg (In Error) Primary Pain Nonverbal Response Appears restful Pain Scale Type Behavioral pain scale Oxygen Therapy Nasal cannula 0L-6L Oxygen Saturation In Error % (In Error) Oxygen Flow Rate 3 01/22/2023 9:18 EDT Lactated Ringers Injection Begin Bag 1,000 mL mL 01/22/2023 9:17 EDT Hand Right 01/22/2023 22 gauge Peripheral IV Activity: Insert new site Peripheral IV Dressing Condition: Clean, Dry, Intact Peripheral IV Dressing Activity: Applied, Transparent dressing Peripheral IV Line Status/Patency: Flushes easily Peripheral IV Line Care: Secured with tape Peripheral IV Site Condition: No complications Peripheral IV Equipment: Extension set Peripheral IV Number of Attempts: 1 01/22/2023 9:08 EDT Urinary Elimination Voiding, no difficulties Allergies Yes Domestic Violence Counselor On Yes Consent Form Signed Yes Patient Dressed In Hospital gown Pre-op Preparation Dentures, upper removed, Dentures, lower removed, Glasses removed History & Physical Update On Chart Yes History & Physical On Chart Yes Obstructive Sleep Apnea Assess Completed Yes Belongings At Bedside Cell phone, Shirt, T-shirt NPO Status Maintained, More than 8 hours Allergy Band on and Verified Yes Patient ID Band on and Verified Yes Anesthesia Consent Signed Yes Last Fluid Intake 01/21/2023 22:00 Last Food Intake 01/21/2023 19:00 Last Void 01/22/2023 9:10 01/22/2023 9:04 EDT Designated Person #1 We May Share CHRISTIANA Beard [phone] Designated Person #1 Relationship Daughter Designated Person #2 We May Share PHI JABIER Designated Person #2 Relationship Sibling Privacy Restrictions Requested None Height 152 cm Admission Weight 57 kg Weight Method Stated [place] Body Weight 45.14 kg BSA Admission 1.53 Body Mass Index 24.67 kg/m2 Temperature Temporal Artery 36.5 DegC Peripheral Pulse Rate 61 bpm Respiratory Rate 22 br/min HI Systolic Blood Pressure Non-Invasive 111 mmHg Diastolic Blood Pressure Non-Invasive 57 mmHg LOW Oxygen Saturation 98 % Status No, per patient Sensory Deficits None Infectious Disease Symptoms Patient states no symptoms Infectious Disease Recent Exposure No Alcohol and Drug Use No Employee of Institutional Living No Health Care Employee No History of Exposure to TB No History of Positive Chest X-Ray for TB No History of Positive TB Skin Test No Homeless No Known Immunosuppression No Recent Immigrant No Resident of Institutional Living No Bloody Sputum No Fatigue No Fever No Loss of Appetite No Night Sweats No Persistent Cough > 3 Weeks No Weight Loss No Barriers to Learning None evident Teaching Method Explanation Preferred Spoken Language Austrian Preferred Written Language Austrian Information Given by Unable to obtain Patient's Current Physicians Kika Lamb/ Giulia Wilhelm Discharge To, Anticipated Home independently Prev Test Positive/Diagnosis w/COVID-19 Yes Previous COVID-19 Positive Date 2020 Current Quarantine/Isolated any Illness No Any Contact with Sick Animals/Birds No Traveled Anywhere in Last 30 Days No No Personal Devices, Patient Valuables Dentures, lower, Dentures, upper, Glasses Admission Note-Nursing Procedure/Therapy Intake . Assessment and Plan [place] [employer] Anesthesiologists (ASA) physical status classification: Class III. Anesthetic Preoperative Plan Anesthetic technique: MAC. Postoperative pain management: Per surgeon. Informed consent: signed by patient. Digitally Signed by MARIPOSA OBREGON on 01/22/2023 09:51 AM [facility] noteNo assessment information availableWCleveland Clinic South Pointe [facility] Work Phone: Hospital course Narrative No data available for this section [facility] Reason for referral (narrative)No reason for referral information availableWCleveland Clinic South Pointe Hospital Work Phone: Summary Purpose Family History No Family History Records Found Relationship Condition Age at Onset Recorded Date/T earl father Cardiac disease Unknown mother Suicide Unknown Advance Directives No Advanced Directives Records Found Advance Directive Response Recorded Date/ Time Advance Directives Yes January 3:13pm Living Will Yes February 12, 2 016 3:13pm Power of Senior It Engineer Yes February 13, 2016 3:13pm Advance Directive Response Recorded Date/ Time Advance Directives Yes January 2:13pm Living Will Yes February 12, 2 016 2:13pm Power of Senior It Engineer Yes February 13, 2016 2:13pm Advance Directive Response Recorded Date/ Time Advance Directives Yes January 3:13pm Chief Complaint and Reason for Visit Chief Complaint LUMBAR RAD Chief Complaint CIRRHOSIS Chief Complaint CIRRHOSIS CIRRHOSIS Chief Complaint Admit Date NICOTINE DEPENDENCE May 11, 2024 3:20pm COMPRESSION FRACTURE THORACIC SPINE Addy samson 2024 11:58am Chief Complaint Admit Date NICOTINE DEPENDENCE May 11, 2024 3:20pm COMPRESSION FRACTURE THORACIC SPINE Addy samson 2024 11:58am CAD (Gunner) July 05, 2024 1:56 pm Reason for Visit Admit Date CAD (coronary artery disease) July 05, 2024 1:56pm Chest pain July 05, 2024 1:56 pm Chief Complaint Admit Date NICOTINE DEPENDENCE May 11, 2024 3:20pm COMPRESSION FRACTURE THORACIC SPINE Addy samson 2024 11:58am CAD (Gunner) July 05, 2024 1:56 pm CAD/ASHD July 17, 2024 6:3 8am CAD/ASHD July 17, 2024 10: 15am Chief Complaint Admit Date COMPRESSION FRACTURE THORACIC SPINE Addy samson 2024 11:58am CAD (Gunner) July 05, 2024 1:56 pm CAD/ASHD July 17, 2024 6:3 8am CAD/ASHD July 17, 2024 10: 15am XRAY AND LABS September 27, 2024 4:45p m Chief Complaint Admit Date CAD (Gunner) July 05, 2024 1:56 pm CAD/ASHD July 17, 2024 6:3 8am CAD/ASHD July 17, 2024 10: 15am XRAY AND LABS September 27, 2024 4:45p m Chief Complaint Admit Date XRAY AND LABS September 27, 2024 4:45p m SEE ORDER December 20, 2024 2:05pm Additional Source Comments INFORMATION SOURCE (unrecogn ized section and content) DATE CREATED AUTHOR 06/15/2019 [facility] Rhea ibarra [place] DATE CREATED AUTHOR AUTHOR'S ORGANIZ ATION 07/14/2019 [facility] DATE CREATED AUTHOR AUTHOR'S ORGANIZ ATION 12/21/2020 [facility] DATE CREATED AUTHOR AUTHOR'S ORGANIZ ATION 10/10/2022 [facility] DATE CREATED AUTHOR AUTHOR'S ORGANIZ ATION 02/07/2023 [facility] ([place]) DATE CREATED AUTHOR AUTHOR'S ORGANIZ ATION 04/19/2024 [facility] DATE CREATED AUTHOR AUTHOR'S ORGANIZ ATION [facility] DATE CREATED AUTHOR AUTHOR'S ORGANIZ ATION 02/01/2025 [facility] DATE CREATED AUTHOR AUTHOR'S ORGANIZ ATION 02/08/2025 [facility] Goals (unrecognized section and content) Goals may be documented in a n alternate sectionGoals may be documented in an alternate section No data available for this sectionGoals may be documented in an alternate section No data available for this sectionGoals may be documented in an alternate sectionGoals may be documented in an alternate sectionGoals may be documented in an alternate sectionGoals may be documented in an alternate sectionGoals may be documented in an alternate sectionGoals may be documented in an alternate section No data available for this section Care Teams (unrecognized sec tion and content) Team Status: Active Member Role Status Dates Santiago Rivera NP, PUBLIC HEALTH ASSISTANT-C Family Provider Active Team Status: Inactive Member Role Status Dates Kika Lamb NP, PUBLIC HEALTH ASSISTANT-C Primary Care Provider Active Dr. Steven Maddox MD Attending Provider, Referring Provider Active Team Status: Active Member Role Status Dates Santiago Rivera NP, PUBLIC HEALTH ASSISTANT-C Family Provider Active Kika Lamb NP, PUBLIC HEALTH ASSISTANT-C Primary Care Provider Active Team Status: Inactive Member Role Status Dates Dr. Steven Maddox MD Attending Provider, Referring Provider Active Kika Lamb NP, PUBLIC HEALTH ASSISTANT-C Primary Care Provider Active Team Status: Active Member Role Status Dates Dr. Wilfredo Martino MD Primary Care Provider Active Team Status: Inactive Member Role Status Dates Kika Lamb NP, PUBLIC HEALTH ASSISTANT-C Primary Care Provider Active Start: April 06, 2024 End: April 06, 2024 Dr. Wilfredo Martino MD Attending Provider Active Start: April 06, 2024 End: April 06, 2024 Dr. Wilfredo Martino MD Referring Provider Active Start: April 06, 2024 End: April 06, 2024 Team Status: Inactive Member Role Status Dates Dr. Wilfredo Martino MD Primary Care Provider Active Start: May 11, 2024 End: May 11, 2024 Dr. Wilfredo Martino MD Attending Provider Active Start: May 11, 2024 End: May 11, 2024 Dr. Wilfredo Martino MD Referring Provider Active Start: May 11, 2024 End: May 11, 2024 Team Status: Inactive Member Role Status Dates Dr. Wilfredo Martino MD Primary Care Provider Active Start: May 18, 2024 End: May 18, 2024 Dr. Wilfredo Martino MD Attending Provider Active Start: May 18, 2024 End: May 18, 2024 Dr. Wilfredo Martino MD Referring Provider Active Start: May 18, 2024 End: May 18, 2024 Team Status: Inactive Member Role Status Dates Dr. Wilfredo Martino MD Primary Care Provider Active Start: June 06, 2024 End: June 06, 2024 Dr. Wilfredo Martino MD Attending Provider Active Start: June 06, 2024 End: June 06, 2024 Dr. Wilfredo Martino MD Referring Provider Active Start: June 06, 2024 End: June 06, 2024 Team Status: Inactive Member Role Status Dates Dr. Wilfredo Martino MD Primary Care Provider Active Start: July 05, 2024 End: July 05, 2024 Dr. Wilfredo Martino MD Attending Provider Active Start: July 05, 2024 End: July 05, 2024 Dr. Wilfredo Martino MD Referring Provider Active Start: July 05, 2024 End: July 05, 2024 Team Status: Inactive Member Role Status Dates Dr. Wilfredo Martino MD Primary Care Provider Active Start: July 05, 2024 End: July 05, 2024 Dr. Wilfredo Martino MD Referring Provider Active Start: July 05, 2024 End: July 05, 2024 Dr. Landon Ibarra MD Attending Provider Active S tart: July 05, 2024 End: July 05, 2024 Team Status: Inactive Member Role Status Dates Dr. Wilfredo Martino MD Primary Care Provider Active Start: July 17, 2024 End: July 17, 2024 Dr. Landon Ibarra MD Attending Provider Active S tart: July 17, 2024 End: July 17, 2024 Dr. Landon Ibarra MD Referring Provider Active S tart: July 17, 2024 End: July 17, 2024 Team Status: Active Member Role Status Dates Dr. Wilfredo Martino MD Primary Care Provider Active Start: July 17, 2024 Dr. Landon Ibarra MD Attending Provider Active S tart: July 17, 2024 Dr. Landon Ibarra MD Referring Provider Active S tart: July 17, 2024 Dr. Landon Ibarra MD Other Provider Active Start : July 17, 2024 Team Status: Inactive Member Role Status Dates Dr. Wilfredo Martino MD Primary Care Provider Active Start: August 23, 2024 End: August 23, 2024 Dr. Wilfredo Martino MD Attending Provider Active Start: August 23, 2024 End: August 23, 2024 Dr. Wilfredo Martino MD Referring Provider Active Start: August 23, 2024 End: August 23, 2024 Team Status: Active Member Role/Relationship Status Dates Dr. Wilfredo Martino MD Primary Care Provider Active Team Status: Inactive Member Role/Relationship Status Dates Dr. Wilfredo Martino MD Primary Care Provider Active Start: June 06, 2024 End: June 06, 2024 Dr. Wilfredo Martino MD Attending Provider Active Start: June 06, 2024 End: June 06, 2024 Dr. Wilfredo Martino MD Referring Provider Active Start: June 06, 2024 End: June 06, 2024 Team Status: Inactive Member Role/Relationship Status Dates Dr. Wilfredo Martino MD Primary Care Provider Active Start: July 05, 2024 End: July 05, 2024 Dr. Wilfredo Martino MD Attending Provider Active Start: July 05, 2024 End: July 05, 2024 Dr. Wilfredo Martino MD Referring Provider Active Start: July 05, 2024 End: July 05, 2024 Team Status: Inactive Member Role/Relationship Status Dates Dr. Wilfredo Martino MD Primary Care Provider Active Start: July 05, 2024 End: July 05, 2024 Dr. Wilfredo Martino MD Referring Provider Active Start: July 05, 2024 End: July 05, 2024 Dr. Landon Ibarra MD Attending Provider Active S tart: July 05, 2024 End: July 05, 2024 Team Status: Inactive Member Role/Relationship Status Dates Dr. Wilfredo Martino MD Primary Care Provider Active Start: July 17, 2024 End: July 17, 2024 Dr. Landon Ibarra MD Attending Provider Active S tart: July 17, 2024 End: July 17, 2024 Dr. Landon Ibarra MD Referring Provider Active S tart: July 17, 2024 End: July 17, 2024 Team Status: Active Member Role/Relationship Status Dates Dr. Wilfredo Martino MD Primary Care Provider Active Start: July 17, 2024 Dr. Landon Ibarra MD Attending Provider Active S tart: July 17, 2024 Dr. Landon Ibarra MD Referring Provider Active S tart: July 17, 2024 Dr. Landon Ibarra MD Other Provider Active Start : July 17, 2024 Team Status: Inactive Member Role/Relationship Status Dates Dr. Wilfredo Martino MD Primary Care Provider Active Start: August 23, 2024 End: August 23, 2024 Dr. Wilfredo Martino MD Attending Provider Active Start: August 23, 2024 End: August 23, 2024 Dr. Wilfredo Martino MD Referring Provider Active Start: August 23, 2024 End: August 23, 2024 Team Status: Inactive Member Role/Relationship Status Dates Dr. Wilfredo Martino MD Primary Care Provider Active Start: September 27, 2024 End: September 27, 2024 Dr. Chiara Kamara MD Attending Provider Active Start: September 27, 2024 End: September 27, 2024 Dr. Chiara Kamara MD Referring Provider Active Start: September 27, 2024 End: September 27, 2024 Team Status: Inactive Member Role/Relationship Status Dates Dr. Wilfredo Martino MD Primary Care Provider Active Start: July 05, 2024 End: July 05, 2024 Dr. Wilfredo Martino MD Attending Provider Active Start: July 05, 2024 End: July 05, 2024 Dr. Wilfredo Martino MD Referring Provider Active Start: July 05, 2024 End: July 05, 2024 Team Status: Inactive Member Role/Relationship Status Dates Dr. Wilfredo Martino MD Primary Care Provider Active Start: July 05, 2024 End: July 05, 2024 Dr. Wilfredo Martino MD Referring Provider Active Start: July 05, 2024 End: July 05, 2024 Dr. Landon Ibarra MD Attending Provider Active S tart: July 05, 2024 End: July 05, 2024 Team Status: Inactive Member Role/Relationship Status Dates Dr. Wilfredo Martino MD Primary Care Provider Active Start: July 17, 2024 End: July 17, 2024 Dr. Landon Ibarra MD Attending Provider Active S tart: July 17, 2024 End: July 17, 2024 Dr. Landon Ibarra MD Referring Provider Active S tart: July 17, 2024 End: July 17, 2024 Team Status: Active Member Role/Relationship Status Dates Dr. Wilfredo Martino MD Primary Care Provider Active Start: July 17, 2024 Dr. Landon Ibarra MD Attending Provider Active S tart: July 17, 2024 Dr. Landon Ibarra MD Referring Provider Active S tart: July 17, 2024 Dr. Landon Ibarra MD Other Provider Active Start : July 17, 2024 Team Status: Inactive Member Role/Relationship Status Dates Dr. Wilfredo Martino MD Primary Care Provider Active Start: August 23, 2024 End: August 23, 2024 Dr. Wilfredo Martino MD Attending Provider Active Start: August 23, 2024 End: August 23, 2024 Dr. Wilfredo Martino MD Referring Provider Active Start: August 23, 2024 End: August 23, 2024 Team Status: Inactive Member Role/Relationship Status Dates Dr. Wilfredo Martino MD Primary Care Provider Active Start: September 27, 2024 End: September 27, 2024 Dr. Chiara Kamara MD Attending Provider Active Start: September 27, 2024 End: September 27, 2024 Dr. Chiara Kamara MD Referring Provider Active Start: September 27, 2024 End: September 27, 2024 Team Status: Inactive Member Role/Relationship Status Dates Dr. Wilfredo Martino MD Primary Care Provider Active Start: October 16, 2024 End: October 16, 2024 Dr. Wilfredo Martino MD Attending Provider Active Start: October 16, 2024 End: October 16, 2024 Team Status: Active Member Role/Relationship Status Dates Dr. Wilfredo Martino MD Primary care physician Active Team Status: Inactive Member Role/Relationship Status Dates Dr. Wilfredo Martino MD Primary care physician Active Start: September 27, 2024 End: September 27, 2024 Dr. Chiara Kamara MD Attending physician Active Start: September 27, 2024 End: September 27, 2024 Dr. Chiara Kamara MD Referring Provider Active Start: September 27, 2024 End: September 27, 2024 Team Status: Inactive Member Role/Relationship Status Dates Dr. Wilfredo Martino MD Primary care physician Active Start: October 16, 2024 End: October 16, 2024 Dr. Wilfredo Martino MD Attending physician Active Start: October 16, 2024 End: October 16, 2024 Team Status: Inactive Member Role/Relationship Status Dates Dr. Wilfredo Martino MD Primary care physician Active Start: December 20, 2024 End: December 20, 2024 Dr. Steven Maddox MD Attending physician Active Start: December 20, 2024 End: December 20, 2024 Dr. Steven Maddox MD Referring Provider Active Start: December 20, 2024 End: December 20, 2024 FOR RECORDS PERTAINING TO PATIENTS WHO ARE OR HAVE BEEN ENROLLED IN A CHEMICAL DEPENDENCY/SUBSTANCEABUSE PROGRAM, SOME INFORMATION MAY BE OMITTED. This clinical summary was aggregated from multiple sources. Caution should be exercised in using it in the provision of clinical care. This summary normalizes information from multiple sources, and as a consequence, information in this document may materially change the coding, format and clinical context of patient data. In addition, data may be omitted in some cases. CLINICAL DECISIONS SHOULD BE BASED ON THE PRIMARY CLINICAL RECORDS. [employer] provides no warranty or guarantee of the accuracy or completeness of information in this document.
== END | disposition home or self-care (01) ==
LOC: MRI 14:56
PROVIDERS: PCP Family Medicine Geriatric Medicine; Referring Provider Internal Medicine Gastroenterology; Visit Provider Internal Medicine Gastroenterology
DX: K74.60 Unspecified cirrhosis of liver (principal)
CPT/HCPCS: 74183; A9575; A4216